=== PATIENT | female | born 2000 | race Caucasian/White ===

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

== ENCOUNTER 2025-01-21 20:00 | Outpatient (CLI) | payer BC, SELFPAY ==
[2025-01-21] VITALS (17 sets, daily range): BP systolic 130–170; BP diastolic 65–98; PULSE 93–109; RESP 14–16; TEMP 36.4–36.7; O2SAT 96–100; BMI 55.0
--- OUTSIDE RECORDS SUMMARY | 2025-01-21 20:10 | XMS RPT_ITS | CCD ---
Author Organization [facility] Care Team Providers Care Wind Energy Mechanic Name Role Phone SOL BALLARD Unavailable Unavailable JOON SANCHEZ Unavailable Unavailable RUBIO, JAZMIN Unavailable Unavailable OTHER, EMERGENCY Unavailable Unavailable BALLARD SOL Unavailable Unavailable RUBIO, JAZMIN Unavailable Unavailable RUBIO, JAZMIN Unavailable Unavailable BALLARD, SOL Unavailable Unavailable RUBIO, JAZMIN Unavailable Unavailable REFERRED, SELF Unavailable Unavailable BALLARD, SOL Unavailable Unavailable RUBIO, JAZMIN Unavailable Unavailable RUBIO, JAZMIN Unavailable Unavailable BALLARD, SOL Unavailable Unavailable RUBIO, JAZMIN Unavailable Unavailable REFERRED, SELF Unavailable Unavailable STEVENS, MACK Unavailable Unavailable RUBIO, JAZMIN Unavailable Unavailable RUBIO, JAZMIN Unavailable Unavailable STEVENS, MACK Unavailable Unavailable RUBIO, JAZMIN Unavailable Unavailable RUBIO, JAZMIN Unavailable Unavailable STEVENS, MACK Unavailable Unavailable RUBIO, JAZMIN Unavailable Unavailable STEVENS, MACK Unavailable Unavailable STEVENS, MACK Unavailable Unavailable RUBIO, JAZMIN Unavailable Unavailable RUBIO, JAZMIN Unavailable Unavailable STEVENS, MACK Unavailable Unavailable RUBIO, JAZMIN Unavailable Unavailable RUBIO, JAZMIN Unavailable Unavailable STEVENS, MACK Unavailable Unavailable Yosi Richey DO Primary Care Provider YOSI RICHEY DO Primary Care Physician RAMONA GAR [place] Primary Care Physician Yosi Richey DO Primary Care Provider ABDOULAYE IMLLIGAN MD, DR MILIND Tan Attending Unavail able RAMONA GAR, [facility] Unavail able ENIO JUAN DO Attending Unavailable RAMONA GAR, [facility] Unavail able DR FLY LYNCH DO Attending Unavailabl e RAMONA GAR, [facility] Unavail able JEFFREY NICK DO Attending Unavailable LORSON PIN INSERTER REGULATOR-SAMPLE MOUNTER, [facility] Unavail able ABDOULAYE MILLIGAN MD, DR MILIND Tan Attending Unavail able LORSON PIN INSERTER REGULATOR-SAMPLE MOUNTER, [facility] Unavail able Yosi Richey DO Primary Care Provider [phone] Sol Bella III [facility] Primary Care Unavailable ISAÍAS RODRIGUEZ Attending Unavailable LORSON, [place] Primary Care Unavailable ISAÍAS RODRIGUEZ Attending Unavailable ISAÍAS RODRIGUEZ Admitting [facility]available [facility] [place] Primary [facility] Provider [phone] [facility] UPPER DOUBLER-C, [place] Primary Care Provider [phone] [place] UPPER DOUBLER-C, [place] Referring Provider [phone] Braden Mi Attending Provider [phone] Britton Sylvester Attending Provider [phone] [place] UPPER DOUBLER-C, [facility] Care Provider [phone] [place] UPPER DOUBLER-C, [place] Referring Provider [phone] Lisa UPPER DOUBLER-C, Vernon Flor Attending Provider Vernon Gonzalez NP Attending Unavailable [facility] [place] Referring Unavailable [facility], [facility] Care Unavailable Asael Hamilton Attending Unavailable [place] UPPER DOUBLER, [place] Referring Unavailable [place] UPPER DOUBLER, [facility] Care Unavailable Braden Mi Attending Unavailable [facility] UPPER DOUBLER, [place] Referring Unavailable [facility] UPPER DOUBLER, [facility] Care Unavailable Britton Sylvester Attending Unavailable [facility] UPPER DOUBLER, [place] Referring Unavailable [place] UPPER DOUBLER, [facility] Care Unavailable SOFIYA MARROQUIN, DR EZEKIEL Nicolas Attending Patricio jean baptistele LORSON PIN INSERTER REGULATOR-SAMPLE MOUNTER, [facility] Care Unavail able LORSON PIN INSERTER REGULATOR-SAMPLE MOUNTER, [facility] Care Unavail able LORSON PIN INSERTER REGULATOR-SAMPLE MOUNTER, [place] Attending Unavail able CHERY CHARLES Attending Unavailable YOSI RICHEY Primary Care Unavailable YOSI RICHEY Primary Care Unavailable HAURY, JONO Referring Unavailable SELF Referring Unavailable YOSI RICHEY Primary Care Unavailable SAIRA MOONEYILY Attending Unavailable SELF Referring Unavailable YOSI RICHEY Primary Care Unavailable KARIN CONTRERAS Attending Unavail able YOSI RICHEY Primary Care Unavailable HAURY, JOON Referring Unavailable YOSI RICHEY M Primary Care Unavailable HAURY, JOON Referring Unavailable BLACK YOSI M Primary Care Unavailable KEREN WASHINGTON Attending Unavailable HACHIRAG, JOON Referring Unavailable BLACKYOSI Mejia M Primary Care Unavailable KEREN WASHINGTON Attending Unavailable BLACK, YOSI M Primary Care Unavailable SASKIA BLACK Attending Unavailable YOSI RICHEY M Primary Care Unavailable HAURY, JOON Referring Unavailable YOSI RICHEY M Primary Care Unavailable HAURY, JOON Referring Unavailable KARIN CONTRERAS Attending Unavail able YOSI RICHEY M Primary Care Unavailable KARIN CONTRERAS Attending Unavail able BLACKYOSI M Primary Care Unavailable HAURY, JOON Referring Unavailable Medications Current Medications Medication Drug Class(es) Dates Sig (Normalized) Sig (Original) acetaminophen 325 mg / HYDROcodone bitartrate 5 mg oral tablet (4 sources) Opioid Agonist Start: 01-18-2022 End: 01-23-2022 Clinchco 325- 5 mg oral tablet Dose = 1 tab(s), Oral, q4h, PRN Pain, scale 1-6, X 5 day(s), # 12 tab(s), 0 Refill(s), Pharmacy: [facility] #[id number], Acute post-operative pain, 167.6, cm, 01/18/22 8:53:00 EST, Height, 127.3 Start Date: 01/18/22 Stop Date: 01/23/22 Status: Ordered Start: 12-11-2021 End: 12-14-2021 take 1 tablet by mouth every six hours as needed for pain Clinchco 325- 5 mg oral tablet Dose = 1 tab(s), Oral, q6h, PRN as needed for pain, # 12 tab(s), 0 Refill(s), Epigastric pain, 136.7 Start Date: 12/11/21 Stop Date: 12/14/21 Status: Ordered amoxicillin 500 mg oral tablet (3 sources) Penicillin-class Antibacterial Start: 09-27-2024 take 1 tablet by mouth every twelve hours Amoxicillin 500 mg tablet Active 500 mg PO Q12H 20 10 0 September 27, 2024 12:00am October 06, 2024 12:00am Start: 05-18-2024 End: 09-04-2024 take 1 tablet by mouth three times daily Amoxicillin 500 mg tablet Discontinued 500 mg PO THREE TIMES A DAY May 18, 2024 12:00am September 04, 2024 5:50pm aspirin 81 mg delayed release oral tablet (7 sources) Platelet Aggregation Inhibitor, Nonsteroidal Anti-inflammatory Drug Start: 09-07-2024 take 1 tablet by mouth once daily at bedtime aspirin, enteric coated (ECOTRIN LOW STRENGTH) 81 mg EC tablet Indications: Encounter for supervision of high risk in first trimester, antepartum (HCC) Take 1 tablet by mouth daily at bedtime. Starting at 12 weeks. 90 tablet 2 09/07/2024 Active azithromycin 250 mg oral tablet (1 source) Macrolide Antimicrobial Start: 01-06-2024 End: 01-11-2024 azithromycin 250 mg oral tablet Take two (2) tablets day 1-then one (1) tablet, Oral, Daily, X 5 day(s), # 6 tab(s), 0 Refill(s), 01/11/24 4:52:00 PM EST, Pharmacy: [facility]/pharmacy #[id number], 167, cm, 01/06/24 11:31:00 EST, Height, 134.5, kg, 01/06/24 11:27:00 EST, Dosing Weight Start Date: 01/06/24 Stop Date: 01/11/24 Status: Ordered busPIRone hydrochloride 5 mg oral tablet (1 source) Start: 07-03-2022 busPIRone 5 mg oral tablet Dose : 5 mg = 1 tab(s), Oral, TID, # 30 tab(s), 0 Refill(s), Pharmacy: [facility] #[id number], 165, cm, 07/03/22 9:01:00 EDT, Height Start Date: 07/03/22 Status: Ordered cetirizine hydrochloride 10 mg oral tablet (2 sources) Histamine-1 Receptor Antagonist Start: 03-09-2021 Zyrtec 10 mg oral tablet Dose : 10 mg = 1 tab(s), Oral, qDay, # 90 tab(s), 1 Refill(s), [facility] Seasonal allergies, 167.6, cm, 03/09/21 9:48:00 EST, Height, kg, 03/09/21 9:48:00 EST, Dosing Weight Start Date: 03/09/21 Status: Ordered dicyclomine hydrochloride 20 mg oral tablet (9 sources) Anticholinergic Start: 02-13-2023 take 1 tablet by mouth four times daily Bentyl use dicyclomine Dose : 20 mg =, Oral, QID, # 15 tab(s), 0 Refill(s) Start Date: 02/13/23 Status: Ordered Start: 07-08-2022 End: 07-15-2022 take 1 tablet by mouth four times daily Bentyl use dicyclomine Dose : 20 mg =, Oral, QID, # 20 tab(s), 0 Refill(s) Start Date: 07/08/22 Stop Date: 07/15/22 Status: Ordered Start: 12-05-2021 dicyclomine 20 mg oral tablet Dose : 20 mg = 1 tab(s), Oral, TID, 0 Refill(s) Start Date: 12/05/21 Status: Ordered Start: 10-03-2021 End: 10-10-2021 take 1 tablet by mouth four times daily Bentyl use dicyclomine Dose : 20 mg =, Oral, QID, # 20 tab(s), 0 Refill(s) Start Date: 10/03/21 Stop Date: 10/10/21 Status: Ordered famotidine 40 mg oral tablet (3 sources) Histamine-2 Receptor Antagonist Start: 12-11-2021 famotidine 40 mg ora l tablet Dose : 40 mg = 1 tab(s), Oral, qDay, # 30 tab(s), 0 Refill(s) Start Date: 12/11/21 Status: Ordered Iferex 150 Forte (2 sources) Vitamin B12 Start: 05-21-2023 Iferex 150 For te 0 Refill(s) Start Date: 05/21/23 Status: Ordered Repeat number: 1 Start: 05-21-2023 Iferex 150 For te 0 Refill(s) Start Date: 05/21/23 Status: Ordered Follicle Stimulating Hormone (2 sources) Gonadotropin Menotropins (MEN OPUR SC) Inject under the skin daily. Active follitropin beta (2 sources) Follitropin Beta (FOLLISTIM AQ SC) Inject under the skin daily. Active ganirelix (2 sources) Gonadotropin Releasing Hormone Antagonist GANIRELIX ACETATE SC Inject under the skin daily. Active hyoscyamine sulfate 0.125 mg disintegrating oral tablet (1 source) Start: 2022 hyoscyamine 0.125 mg oral tablet, disintegrating Dose : 0.125 mg = 1 tab(s), Oral, QID, PRN as needed for spasm, # 40 tab(s), 0 Refill(s), [facility]: [id number], 165, cm, 10/01/22 7:05:00 EDT, Height, kg, 10/01/22 7:05:00 EDT, Dosing Weight Start Date: 10/01/22 Status: Ordered Ipratropium [place] 21 mcg (0.03 %) spray,non-aerosol (2 sources) Start: 2024 Ipratropium [place] 21 mcg (0.03 %) spray,non-aerosol Active 2 NMA INTRANASAL 2 to 3 times per day as needed for postnasal drainage 30 0 September 04, 2024 12:00am administer into each nostril pantoprazole 40 mg delayed release oral tablet (1 source) Proton Pump Inhibitor Start: 2024 take 1 tablet by mouth once daily pantoprazole DR (PROTONIX) 40 mg tablet Take 1 tablet by mouth once daily. 30 tablet 2 10/23/2024 Active phentermine hydrochloride 37.5 mg oral capsule (1 source) Sympathomimetic Amine Anorectic Start: 2022 End: 2022 Adipex-P 37.5 mg oral capsule Dose : 37.5 mg = 1 cap(s), Oral, qAM, X 30 day(s), # 30 cap(s), 0 Refill(s), 08/02/22 9:14:00 EDT, [facility]acy: [facility] #[id number], BMI 45.0-49.9, adult, 165, cm, 07/03/22 9:01:00 EDT, Height, 132.7 Start Date: 07/03/22 Stop Date: 08/02/22 Status: Ordered vit 75/iron/folic/om3 (DAILY ORAL) (7 sources) vit 75/iron/folic/om3 (DAILY ORAL) Take by mouth. Active tirzepatide 2.5 mg/0.5 mL subcutaneous solution (2 sources) Start: 2023 inject 1 dose by subcutaneous injection every week tirzepatide 2.5 mg/0.5 mL subcutaneous solution Dose : 2.5 mg =, Subcutaneous, qWeek, rotate injection sites, # 2 mL, 3 Refill(s), Pharmacy: [facility]/pharmacy #[id number], PCOS (polycystic ovarian syndrome) Insulin resistance, 167, cm, 01/06/24 11:31:00 EST, Height, kg, 01/06/24 11:27:00 EST, Dosing Weight Start Date: 01/06/24 Status: Ordered Quantity: 2.0 Unit: mL Repeat number: 4 Indications: Insulin resistance, unspecified; Polycystic ovarian syndrome; Start: 01-06-2024 inject 1 dose by sub cutaneous injection every week tirzepatide 2.5 mg/0.5 mL subcutaneous solution Dose : 2.5 mg =, Subcutaneous, qWeek, rotate injection sites, # 2 mL, 3 Refill(s), Pharmacy: [facility]/pharmacy #[id number], PCOS (polycystic ovarian syndrome) Insulin resistance, 167, cm, 01/06/24 11:31:00 EST, Height, kg, 01/06/24 11:27:00 EST, Dosing Weight Start Date: 01/06/24 Status: Ordered 24 hr venlafaxine 75 mg extended release oral capsule (3 sources) Serotonin and Norepinephrine Reuptake Inhibitor Start: 04-24-2022 End: 08-22-2022 venlafaxine 75 mg oral capsule, extended release Dose : 75 mg = 1 cap(s), Oral, qDay, # 30 cap(s), 3 Refill(s), Pharmacy: [facility] #[id number], 167.64, cm, 03/22/22 10:15:00 EST, Height Start Date: 04/24/22 Stop Date: 08/22/22 Status: Ordered Start: 03-06-2022 End: 07-04-2022 venlafaxine 37.5 mg oral cap nelida, extended release Dose : 37.5 mg = 1 cap(s), Oral, qDay, # 30 cap(s), 3 Refill(s), Pharmacy: [facility] #[id number], 167, cm, 03/06/22 9:51:00 EST, Height Start Date: 03/06/22 Stop Date: 07/04/22 Status: Ordered Completed/Discontinued Medications Medication Drug Class(es) Dates Sig (Normalized) Sig (Original) 0.5 ML semaglutide 0.5 MG/ML Auto-Injector [Wegovy] (1 source) Start: 02-24-2024 End: 03-23-2024 inject 1 dose by subcutaneous injection every week Wegovy (0.25 mg dose) subcutaneous solution Dose : 0.25 mg =, Subcutaneous, qWeek, in the abdomen, thigh, or upper arm, # 2 mL, 0 Refill(s), Pharmacy: [facility]/pharmacy #[id number], 167, cm, 02/11/24 9:09:00 EST, Height, kg, 02/11/24 9:09:00 EST, Dosing Weight Start Date: 02/24/24 Stop Date: 03/23/24 Status: Ordered Quantity: 2.0 Unit: mL Repeat number: 1 acetaminophen 500 mg oral tablet (2 sources) Start: 06-01-2024 End: 06-01-2024 1,000 mg, Oral, Once, On Sat06/01/24 at 0700, For 1 dose, Preprocedure, Administer 60 minutes prior to surgery. Start: 06-01-2024 End: 06-01-2024 1,000 mg, Oral, Once, On Sat06/01/24 at 0700, For 1 dose, Preprocedure, Administer 60 minutes prior to surgery. ALPRAZolam 0.25 mg disintegrating oral tablet (2 sources) Benzodiazepine Start: 06-01-2024 End: 06-01-2024 take 0.25 mg by mouth once as needed for anxiety 0.25 mg, Oral, Once PRN, anxiety, Starting on Sat06/01/24 at 0650, For 1 dose, Preprocedure, Please do not administer prior to obtaining consent and/or history and physical. amoxicillin 875 mg / clavulanate 125 mg oral tablet (2 sources) Penicillin-class Antibacterial Start: 09-04-2024 End: 09-14-2024 Amoxicillin-Pot Clavulanate 875-125 mg tablet Discontinued 1 {tbl} PO Q12H 20 10 0 September 04, 2024 12:00am September 13, 2024 12:00am September 14, 2024 12:07am Acute sinusitis, unspecified calcium chloride 0.0014 meq/ml / potassium chloride 0.004 meq/ml / sodium chloride 0.103 meq/ml / sodium lactate 0.028 meq/ml injectable solution (4 sources) Start: 06-01-2024 End: 06-01-2024 take 125 mL intravenously every hour 125 mL/hr, IntraVENous, Continuous, Starting on Sat06/01/24 at 0830, Recovery (only) cholecalciferol 1.25 mg oral capsule (11 sources) Vitamin D Start: 10-11-2023 End: 09-07-2024 take 1 capsule by mouth every week cholecalciferol, Vitamin D3, (VITAMIN D3) 1,250 mcg (50,000 unit) cap capsule Indications: Vitamin D deficiency Take 1 capsule by mouth one time a week. 12 capsule 10/11/2023 09/07/2024 Discontinued cloNIDine hydrochloride 0.1 mg oral tablet (3 sources) Central alpha-2 Adrenergic Agonist Start: 02-13-2023 End: 02-20-2023 cloNIDine 0.1 mg oral tablet Dose : 0.1 mg = 1 tab(s), Oral, TID, PRN BP over 150 systolic, # 20 tab(s), 0 Refill(s), [facility]: [id number], Elevated blood-pressure reading, without diagnosis of hypertension, 167.6, cm, 02/13/23 5:34:00 EST, Height, kg, 02/13/23 5:34:00 EST, Dosing Weight Start Date: 02/13/23 Stop Date: 02/20/23 Status: Ordered 1 ml diphenhydrAMINE hydrochloride 50 mg/ml cartridge (2 sources) Histamine-1 Receptor Antagonist Start: 06-01-2024 End: 06-01-2024 12.5 mg, IntraVENous, Once PRN, itching, Starting on Sat06/01/24 at 0815, For 1 dose, Recovery (only) escitalopram 5 mg oral tablet (10 sources) Serotonin Reuptake Inhibitor Start: 08-03-2021 End: 10-10-2023 take 1 tablet by mouth once daily escitalopram oxalate (LEXAPRO) 5 mg tablet take 1 tablet by mouth once daily --DISCONTINUE WELLBUTRIN 08/03/2021 10/10/2023 Discontinued Comment on above: take 1 tablet by avani th once daily --DISCONTINUE WELLBUTRIN estradiol 2 mg oral tablet (2 sources) Estrogen Start: 08-30-2024 End: 10-05-2024 take 1 tablet by mouth three times daily estradiol (ESTRACE) 2 mg tablet Take 2 mg by mouth three times a day. 08/30/2024 10/05/2024 Discontinued 21 day ethinyl estradiol 0.821078 mg/hr / etonogestrel 0.005 mg/hr vaginal system (19 sources) Progestin, Estrogen Start: 03-06-2022 End: 05-01-2022 NuvaRing 0.120 mg-0.015 mg/24 hours vaginal ring Dose = 1 EA, Vaginal, q4wk, # 3 EA, 3 Refill(s), Pharmacy: [facility] #[id number], Irregular menses Dysmenorrhea, 167, cm, 03/06/22 9:51:00 EST, Height, kg, 03/06/22 9:51:00 EST, Dosing Weight Start Date: 03/06/22 Stop Date: 05/01/22 Status: Ordered Start: 12-05-2021 End: 01-30-2022 NuvaRing 0.120 mg-0.015 mg/2 4 hours vaginal ring Dose = 1 EA, Vaginal, q4wk, # 3 EA, 3 Refill(s), Pharmacy: [facility] #[id number], Irregular menses Dysmenorrhea, 166.5, cm, 12/05/21 14:18:00 EDT, Height, kg, 12/05/21 14:18:00 EDT, Dosing Weight Start Date: 12/05/21 Stop Date: 01/30/22 Status: Ordered Start: 10-10-2021 NuvaRing 0.120 mg-0.015 mg/24 hours vaginal ring Dose = 1 EA, Vaginal, q4wk, Discontinue oral contraceptive prescription, # 2 EA, 0 Refill(s), Pharmacy: [facility] #[id number], Irregular menses, 165.8, cm, 10/05/21 14:57:00 EDT, Height, kg, 10/05/21 14:57:00 EDT, Dosing Weight Start Date: 10/10/21 Status: Ordered Start: 08-03-2021 End: 05-03-2023 ELURYNG 0.12-0.015 mg/24 hr vaginal ring insert 1 ring vaginally every 4 weeks --DISCONTINUE ORAL CONTRACEPTIVE 0 08/03/2021 05/03/2023 Discontinued Start: 08-03-2021 NuvaRing 0.120 mg-0.015 mg/24 hours vaginal ring Dose = 1 EA, Vaginal, q4wk, Discontinue oral contraceptive prescription, # 2 EA, 6 Refill(s), [facility], Irregular menses, 167.5, cm, 08/03/21 8:03:00 EDT, Height Start Date: 08/03/21 Status: Ordered Comment on above: insert 1 ring vagina lly every 4 weeks --DISCONTINUE ORAL CONTRACEPTIVE Norgestimate-Ethinyl Estradiol (2 sources) Progestin, Estrogen Start: 05-26-2020 End: 02-10-2024 Norgestimate-Ethinyl Estradiol (Sprintec (28)) 0.25-35 mg-mcg tablet Discontinued 1 {tbl} PO daily 08 05May 26, 2020 12:00am February 10, 2024 2:02pm 2 ml fentaNYL 0.05 mg/ml injection (4 sources) Opioid Agonist Start: 06-01-2024 End: 06-01-2024 50 mcg, IntraVENous, Every 5 min PRN, severe pain (7-10), Starting on Sat06/01/24 at 0815, For 3 doses, Recovery (only), Phase I and Phase II- Initial therapy for severe pain (7-10). Restricted to a 90 minute time frame starting when the patient can verbally state their pain score. If after 2 doses the pain score does not decrease by more than one point, then call the provider. If oral meds are utilized, do not return to initial therapy medications. Start: 06-01-2024 End: 06-01-2024 25 mcg, IntraVENous, Every 5 min PRN, moderate pain (4-6), Starting on Sat06/01/24 at 0815, For 3 doses, Recovery (only), Phase I and Phase II- Initial therapy for moderate pain (4-6). Restricted to a 90 minute time frame starting when the patient can verbally state their pain score. If after 2 doses the pain score does not decrease by more than one point, then call the provider. If oral meds are utilized, do not return to initial therapy medications. folic acid 1 mg oral tablet (16 sources) Start: 05-03-2023 End: 09-07-2024 take 1 tablet by mouth once daily folic acid 1 mg tablet Take 1 tablet by mouth once daily. 05/03/2023 09/07/2024 Discontinued Comment on above: Take 1 tablet by avani once daily. labetalol (Normodyne,Tranda te) injection 5 mg (2 sources) Start: 06-01-2024 End: 06-01-2024 labetalol (Normodyne,Trandate ) injection 5 mg letrozole 2.5 mg oral tablet (10 sources) Aromatase Inhibitor Start: 02-07-2024 End: 09-07-2024 take 1 tablet by mouth once daily letrozole (FEMARA) 2.5 mg tablet Take 1 tablet by mouth once daily for 5 days. 5 tablet 02/07/2024 09/07/2024 Discontinued Start: 10-22-2023 End: 10-27-2023 take 1 tablet by mouth once daily letrozole (FEMARA) 2.5 mg tablet Take 1 tablet by mouth once daily for 5 days. 5 tablet 1 10/22/2023 Active metFORMIN hydrochloride 500 mg oral tablet (15 sources) Biguanide Start: 10-17-2023 End: 09-27-2024 take 1 tablet by mouth once daily in the evening Metformin 500 mg tablet Discontinued 500 mg PO EVERY EVENING February 10, 2024 1:00am September 27, 2024 10:40am methylPREDNISolone 4 mg oral tablet (2 sources) Corticosteroid Start: 11-05-2018 End: 12-24-2018 Methylprednisolone 4 mg tablets,dose pack Discontinued 0 PO per package directions 21 0 November 05, 2018 12:00am December 24, 2018 6:29pm PO PER PKG DIR omeprazole 40 mg delayed release oral capsule (20 sources) Proton Pump Inhibitor Start: 04-26-2023 End: 09-27-2024 take 1 capsule by mouth once daily Omeprazole 40 mg capsule,delayed release(DR/EC) Discontinued 40 mg PO daily February 10, 2024 1:00am September 27, 2024 10:40am Start: 12-05-2021 End: 12-12-2021 omeprazole 40 mg oral delaye d release capsule Dose : 40 mg = 1 cap(s), Oral, BID, # 14 cap(s), 0 Refill(s), [facility]: [facility][id number], 166.5, cm, 12/05/21 14:18:00 EDT, Height, kg, 12/05/21 14:18:00 EDT, Dosing Weight Start Date: 12/05/21 Stop Date: 12/12/21 Status: Ordered Comment on above: Take 1 capsule by [facility] every afternoon. 2 ml ondansetron 2 mg/ml injection (8 sources) Serotonin-3 Receptor Antagonist Start: 06-01-2024 End: 06-01-2024 4 mg, IntraVENous, Once PRN, nausea, Starting on Sat06/01/24 at 0815, For 1 dose, Recovery (only), Initial antiemetic therapy. Start: 02-13-2023 End: 02-16-2023 ondansetron 4 mg oral tablet , disintegrating Dose : 4 mg = 1 tab(s), Oral, q8h, PRN as needed for nausea/vomiting, X 3 day(s), # 8 tab(s), 0 Refill(s), 02/16/23 6:08:00 AM EST Start Date: 02/13/23 Stop Date: 02/16/23 Status: Ordered Start: 12-11-2021 End: 01-06-2022 ondansetron 4 mg oral tablet , disintegrating Dose : 4 mg = 1 tab(s), Oral, q6h, PRN Nausea/Vomiting, X 3 day(s), # 10 tab(s), 0 Refill(s), 01/06/22 22:41:00 EST, Abdominal pain Vomiting Start Date: 01/03/22 Stop Date: 01/06/22 Status: Ordered Start: 10-03-2021 End: 10-07-2021 ondansetron 4 mg oral tablet , disintegrating Dose : 4 mg = 1 tab(s), Oral, q6h, X 4 day(s), # 16 tab(s), 0 Refill(s), 10/07/21 6:20:00 EDT Start Date: 10/03/21 Stop Date: 10/07/21 Status: Ordered oseltamivir 75 mg oral capsule (2 sources) Neuraminidase Inhibitor Start: 02-12-2022 End: 02-17-2022 take 1 capsule by mouth every twelve hours Oseltamivir (Tamiflu) 75 mg capsule Discontinued 75 mg PO Q12H 10 5 0 February 12, 2022 1:00am February 16, 2022 1:00am February 17, 2022 1:11am polysaccharide iron complex 150 mg oral capsule (16 sources) Start: 03-11-2023 End: 09-07-2024 take 1 capsule by mouth once IFEREX 150 150 mg iron capsule Take 1 capsule by mouth every afternoon. 03/11/2023 09/07/2024 Discontinued Comment on above: Take 1 capsule by mo uth every afternoon. PROGESTERONE IN OIL INTRAMUSC. (2 sources) End: 10-05-2024 PROGESTERONE IN OIL INTRAMUSC. Inject intramuscularly. 10/05/2024 Discontinued PROGESTERONE IN OIL INTRAMUSC. Inject intramuscularly. Active 5 ml sodium chloride 9 mg/ml injection (14 sources) Start: 06-01-2024 End: 06-01-2024 10 mL, IntraVENous, Every 12 hours scheduled (2 times per day), First dose on Sat06/01/24 at 0900, Recovery (only) Start: 06-01-2024 End: 06-01-2024 500 mL, IntraVENous, at 1,00 0 mL/hr, Administer over 0.5 Hours, PRN, Anti-nausea, Starting on Sat06/01/24 at 0815, Recovery (only), Indications: Anti-nausea Start: 06-01-2024 End: 06-01-2024 take 100 mL intravenously every hour as needed, then take 20 mL intravenously every hour as needed 5-250 mL/hr, IntraVENous, PRN, if patient receiving piggyback infusions and maintenance fluids are not ordered OR KVO fluids to protect IV site / prevent frequent line interruptions/ long duration, Starting on Sat06/01/24 at 0815, Recovery (only), For piggyback infusion, administer at same rate as piggyback for a total of 25 mL. Enter 25 mL into dose field and piggyback rate into rate field of order. If piggyback is infusing at a rate less than 100 mL/hr, enter 25 mL into dose field and 100 mL/hr into rate field of order. For KVO fluids, enter rate of 20 mL/hr or less into rate field of order. Start: 06-01-2024 End: 06-01-2024 take 10 mL intravenously once as needed 10 mL, IntraVENous, PRN, line care, Starting on Sat06/01/24 at 0815, Recovery (only), After every IV line use Start: 06-01-2024 End: 06-01-2024 take 5-40 mL intravenously every twelve hours 5-40 mL, IntraVENous, Every 12 hours, First dose on Sat06/01/24 at 0700, Preprocedure, For Line Patency: Peripheral IV = 5 mL; Midline or Central Line = 10 mL/lumen. If following IV push medication, administer flush at same rate as the IV push. Flush volume is determined by type of infusion therapy being given. For non-viscous solutions use: Peripheral IV = 5 mL Midline or Central Line = 10 mL/lumen For viscous solutions (i.e. blood components, parenteral nutrition, contrast media, or after obtaining blood sample) use: Peripheral IV = 10 mL Midline or Central Line = 20 mL/lumen Problems Active Problems Problem Classification Problem Date Documented Date Episodic/Chronic Allergic reactions (2 sources) Allergic reaction; Translations: [Allergy, unspecified, initial encounter] 11-04-2018 Episodic Anxiety disorders (20 sources) Mixed anxiety and depressive disorder; Translations: [Generalized anxiety disorder] 10-12-2020 Chronic Cardiac dysrhythmias (20 sources) Tachycardia 02-23-2019 Episodic Chronic obstructive pulmonary disease and bronchiectasis (19 sources) Bronchitis 02-18-2019 Episodic Complications of surgical procedures or medical care (2 sources) Delayed recovery from general anesthesia; Translations: [Other complications of anesthesia, initial encounter] Onset: 05-29-2024 05-29-2024 Episodic E Codes: Fall (1 source) Fall; Translations: [Unspecified fall, initial encounter] 02-20-2021 Episodic Essential hypertension (4 sources) Transient hypertension 02-14-2023 Chronic Female infertility (5 sources) Female infertility; Translations: [Female infertility, unspecified] Onset: 06-01-2024 02-07-2024 Chronic Influenza (2 sources) Influenza due to Influenza A virus; Translations: [Influenza due to other identified influenza virus with other respiratory manifestations] 02-12-2022 Episodic Menstrual disorders (20 sources) Irregular periods; Translations: [Missed period] 06-15-2021 Chronic Nausea and vomiting (1 source) Vomiting; Translations: [Vomiting, unspecified] Onset: 01-03-2022 Episodic Nutritional deficiencies (4 sources) Vitamin D deficiency; Translations: [Vitamin D deficiency, unspecified] Onset: 02-28-2024 10-11-2023 Chronic Open wounds of extremities (3 sources) Laceration of finger without foreign body; Translations: [Laceration without foreign body of unspecified finger without damage to nail, initial encounter] Onset: 05-14-2023 Episodic Other circulatory disease (19 sources) Elevated blood-pressure reading without diagnosis of hypertension 10-11-2020 Episodic Other complications of (11 sources) Maternal obesity complicating , childbirth and the puerperium, antepartum; Translations: [Obesity complicating , first trimester] Onset: 09-07-2024 09-07-2024 Chronic Other complications of (1 source) Obesity complicating , second trimester; Translations: [Obesity affecting in second trimester, unspecified obesity type (HCC)] Onset: 09-07-2024 Chronic Other complications of (1 source) Obesity complicating , first trimester; Translations: [Obesity affecting in first trimester, unspecified obesity type (HCC)] Onset: 09-07-2024 Chronic Other complications of (1 source) Complication of , childbirth and/or the puerperium; Translations: [Other specified related conditions, unspecified trimester] 08-27-2024 Episodic Other complications of (14 sources) High risk ; Translations: [Supervision of high risk , unspecified, first trimester] Onset: 09-07-2024 09-07-2024 Episodic Other complications of (6 sources) RhD negative; Translations: [Other specified related conditions, first trimester] Onset: 10-07-2024 10-07-2024 Episodic Other complications of (1 source) Back pain complicating ; Translations: [Back pain affecting (HCC)] 10-23-2024 Episodic Other complications of (1 source) Supervision of high risk , unspecified, second trimester; Translations: [Encounter for supervision of high risk in second trimester, antepartum (HCC)] Onset: 12-07-2024 Episodic Other complications of (1 source) Other specified related conditions, first trimester; Translations: [Rh negative state in antepartum period, first trimester (HCC)] Onset: 10-07-2024 Episodic Other connective tissue disease (19 sources) Foot pain 09-23-2020 Episodic Other connective tissue disease (1 source) Pain in finger of left hand; Translations: [Pain in left finger(s)] 02-20-2021 Episodic Other connective tissue disease (1 source) Pain of left hand; Translations: [Pain in left hand] 02-20-2021 Episodic Other connective tissue disease (2 sources) Pain in right foot; Translations: [Pain in right foot] 11-28-2023 Episodic Other endocrine disorders (6 sources) Polycystic ovary syndrome; Translations: [Polycystic ovarian syndrome] 10-17-2023 Chronic Other endocrine disorders (1 source) Polycystic ovarian syndrome; Translations: [PCOS (polycystic ovarian syndrome)] Onset: 10-05-2024 Chronic Other female genital disorders (1 source) Jacque; 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] Chronic Other female genital disorders (1 source) Disorder of endocrine ovary; Translations: [Noninflammatory disorder of ovary, fallopian tube and broad ligament, unspecified] 11-13-2023 Episodic Other female genital disorders (10 sources) History of gynecological disorder; Translations: [Personal history of other diseases of the female genital tract] Onset: 09-07-2024 09-07-2024 Episodic Other injuries and conditions due to external causes (2 sources) Motion sickness 05-21-2023 Episodic Other lower respiratory disease (19 sources) Dyspnea on exertion 02-18-2019 Episodic Other lower respiratory disease (2 sources) Hemoptysis 01-06-2024 Episodic Other nervous system disorders (1 source) Postoperative pain ; Translations: [Other acute postprocedural pain] Onset: 01-18-2022 Episodic Other nutritional; endocrine; and metabolic disorders (8 sources) Body mass index 40+ - severely obese 03-20-2022 Chronic Other nutritional; endocrine; and metabolic disorders (2 sources) Insulin resistance 01-06-2024 Chronic Other nutritional; endocrine; and metabolic disorders (7 sources) Weight gain 04-24-2022 Episodic Other screening for suspected conditions (not mental disorders or infectious disease) (1 source) Cancer cervix screening status; Translations: [Encounter for screening for malignant neoplasm of cervix] 05-03-2023 Episodic Other upper respiratory disease (19 sources) Seasonal allergy 11-18-2018 Chronic Otitis media and related conditions (9 sources) Dysfunction of eustachian tube; Translations: [Unspecified Eustachian tube disorder, unspecified ear] 05-08-2022 Episodic Residual codes; unclassified (19 sources) Needs influenza immunization 01-10-2021 Episodic Residual codes; unclassified (2 sources) Difficult venous access; Translations: [Other specified health status] Onset: 05-29-2024 05-29-2024 Episodic Residual codes; unclassified (1 source) Gestation period, 6 weeks; Translations: [Less than 8 weeks gestation of ] 09-07-2024 Episodic Residual codes; unclassified (1 source) Gestation period, 10 weeks; Translations: [10 weeks gestation of ] 10-05-2024 Episodic Residual codes; unclassified (1 source) Gestation period, 12 weeks; Translations: [12 weeks gestation of ] 10-15-2024 Episodic Residual codes; unclassified (1 source) Gestation period, 13 weeks; Translations: [13 weeks gestation of ] 10-23-2024 Episodic Residual codes; unclassified (1 source) 14 weeks gestation of ; Translations: [14 weeks gestation of (HCC)] Onset: 11-03-2024 Episodic Residual codes; unclassified (1 source) 13 weeks gestation of ; Translations: [13 weeks gestation of ([facility])] Onset: 10-23-2024 Episodic Residual codes; unclassified (1 source) Unspecified blood type, Rh negative; Translations: [Rh negative state in antepartum period, first trimester ([facility])] Onset: 10-07-2024 Episodic Residual codes; unclassified (1 source) 10 weeks gestation of ; Translations: [10 weeks gestation of ([facility])] Onset: 10-05-2024 Episodic Spondylosis; intervertebral disc disorders; other back problems (1 source) Dorsalgia, unspecified; Translations: [Back pain affecting ([facility])] Onset: 10-23-2024 Episodic Spontaneous (2 sources) Miscarriage 05-21-2023 Episodic Sprains and strains (2 sources) Lesion of ligaments of the ankle region; Translations: [Sprain of tibiofibular ligament of unspecified ankle, initial encounter] 03-10-2020 Episodic Superficial injury; contusion (2 sources) Contusion of thumb; Translations: [Contusion of right thumb without damage to nail, initial encounter] Onset: 08-14-2024 Episodic Unclassified (20 sources) Patient encounter status 03-06-2022 Unclassified (7 sources) [facility] - COMMON Onset: 09-07-2024 09-07-2024 Unclassified (7 sources) Education - [place] Onset: 09-07-2024 09-07-2024 Unclassified (1 source) Care Onset: 12-17-2024 Unclassified (1 source) Back pain affecting (HCC); Translations: [Back pain affecting (HCC)] Onset: 10-23-2024 Viral infection (2 sources) Disease caused by 2019-nCoV 09-11-2023 Past or Other Problems Problem Classification Problem Date Documented Date Episodic/Chronic Abdominal pain (20 sources) Epigastric pain; Translations: [Epigastric pain] Onset: 12-11-2021 Episodic Immunizations and screening for infectious disease (2 sources) Patient encounter status; Translations: [Encounter for screening for infections with a predominantly sexual mode of transmission] Onset: 09-07-2024 09-07-2024 Episodic Other complications of (13 sources) Supervision of resulting from assisted reproductive technology, first trimester; Translations: [ resulting from assisted reproductive technology] Onset: 09-07-2024 09-07-2024 Episodic Other complications of (9 sources) Vomiting of , unspecified; Translations: [Unspecified vomiting of , unspecified as to episode of care or not applicable] Onset: 09-07-2024 09-07-2024 Episodic Other complications of (1 source) Supervision of high risk , unspecified, first trimester; Translations: [Encounter for supervision of high risk in first trimester, antepartum (HCC)] Onset: 09-07-2024 Episodic Other complications of (1 source) Other specified related conditions, unspecified trimester; Translations: [Abdominal cramping affecting (HCC)] Onset: 08-27-2024 Episodic Other female genital disorders (1 source) Personal history of other diseases of the female genital tract; Translations: [History of PCOS] Onset: 09-07-2024 Episodic Other and delivery including normal (2 sources) with uncertain dates; Translations: [Encounter for supervision of normal , unspecified, first trimester] Onset: 09-07-2024 09-07-2024 Episodic Other upper respiratory infections (9 sources) Acute upper respiratory infection; Translations: [Acute upper respiratory infection, unspecified] Onset: 05-18-2024 01-06-2019 Episodic Residual codes; unclassified (1 source) Less than 8 weeks gestation of ; Translations: [6 weeks gestation of ([facility])] Onset: 09-07-2024 Episodic Results Test Name Value Interpretation Reference Range Facility [facility] 11-11-2024 CNPTroy Telephone (OBGYWM) LORETA HARO ([id number]) 2 F Date Time Provider Department 11/11/24 KEREN WASHINGTON During your visit today, we recorded the following information about you: Radha Mcgill LPN 11/11/2024 4:45 PM Signed Ob patient is 15w6d and called for recommendations regarding flying in an airplane during . Patient is wanting to schedule a 2 hour flight on 01/08 and would be 24 weeks 1 day. Can send a [employer] message Keren Washington APRN.CNM 11/11/2024 4:49 PM Signed Flying at this gestational age is appropriate. She should not sit for long periods of time and increase water intake. The flight is pretty short and she should be fine! SOSA Desouza Lindsey, RN 11/11/2024 4:53 PM Signed Patient notified and voiced understanding of information and instructions below. Eboni Valente RN Allergies As of Date: 11/11/2024 (No Known Allergies) Date Reviewed: 11/03/2024 Reviewed by: Saskia Black MD - Fully Assessed Reason for Visit: Care [86] Prescriptions as of 11/11/2024 - aspirin, enteric coated (ECOTRIN LOW STRENGTH) 81 mg EC tablet Take 2 tablets by mouth daily at bedtime. Starting at 12 weeks. - pantoprazole DR (PROTONIX) 40 mg tablet Take 1 tablet by mouth once daily. - vit 75/iron/folic/om3 (DAILY ORAL) Take by mouth. Problem List As Of Date 11/11/2024 Noted Resolved History of PCOS [Z87.42] 09/07/2024 Obesity affecting in first trimester *09/07/2024 resulting from assisted reproductive *09/07/2024 Nausea and vomiting during (HCC) [O21*09/07/2024 Rh negative state in antepartum period, first t*10/07/2024 Encounter Status:Closed by KEREN WASHINGTON on 11/11/24 Normal [facility] UA DIP, URINE (POC)on 2024 BILIRUBIN UA (POCT) Negative Negative [facility] CLARITY UA (POCT) Clear [facility] COLOR UA (POCT) Yellow [facility] GLUCOSE UA (POCT) Negative Negative mg/dL [facility] Hemoglobin Ql (U) Negative Negative [facility] KETONE UA (POCT) Negative Negative mg/dL [facility] LEUKOCYTES UA (POCT) Negative Negative [facility] NITRITE UA (POCT) Negative [facility] PH UA (POCT) 7.0 4.5 - 8.0 [facility] Protein Ql (U) Negative Negative mg/dL [facility] SPECIFIC GRAVITY UA (POCT) 1.010 1.005 - 1.030 [facility] UROBILINOGEN UA (POCT) 0.2 Normal E.U./dL [facility] Location:[facility], [address], [place], [address] [facility] POINT OF CARE [facility] Examination level ultrasound on 10-15-2024 Indication First trimester anatomic survey Maternal obesity, BMI >50, resulting from in vitro fertilization Impression The patient is referred for a first trimester anatomy scan including nuchal translucency measurement as clinically indicated. - Single, live, intrauterine . - Wallace rump length measurement is consistent with the established gestational age. - A qualitative screen of the nuchal translucency and other anatomic structures was unremarkable on a complete first trimester anatomic assessment. - Not all structural malformations can be detected by ultrasound examination. - A standard anatomic survey at 16 weeks and a detailed exam at 20 weeks is recommended for increased risk. Recommendations - A standard anatomic survey at 16 weeks and a detailed exam at 20 weeks for increased risk. - Additional follow up as clinically indicated. Maternal Assessment Height 165 cm Height (ft) 5 ft Height (in) 5 in Physical Exam Initial weight (lb) 314 lb Initial BMI 52.25 kg/m Maternal assessment other: 1 Para 0 REMOTE READ Method Transabdominal ultrasound examination. View: Suboptimal view: limited by maternal body habitus Peterson . Number of fetuses: 1 Dating LMP on: 07/23/2024 GA by LMP 12 w + 0 d RAYSHAWN by LMP: 04/29/2025 GA by prior assessment 12 w + 0 d RAYSHAWN by prior assessment: 04/29/2025 Ultrasound examination on: 10/15/2024 GA by U/S based upon: CRL GA by U/S 12 w + 1 d RAYSHAWN by U/S: 04/28/2025 Assigned: based on stated RAYSHAWN, selected on 10/15/2024 Assigned GA 12 w + 0 d Assigned RAYSHAWN: 04/29/2025 General Evaluation Cardiac activity present Placenta: posterior Cord vessels: 3 vessel cord Amniotic fluid: normal amount Biometry Standard FHR 151 bpm CRL 54.8 mm 12w 1d 40% [facility]lock First Trimester Anatomy Calvarium: normal Falx cerebri: normal Choroid plexus: normal Profile: normal Nasal bone: normal Retronasal triangle: normal Maxilla: normal Mandible: normal Nuchal translucency: Unremarkable Situs: normal Cardiac position: normal Cardiac axis: normal 4-chamber view: suboptimal 4-chamber view with color: suboptimal 3-[id number]-[id number] view: suboptimal Abdominal cord insertion: normal Stomach: normal Kidneys: normal Bladder: normal Color doppler of perivesical umbilical arteries: normal Vertebral alignment: normal Arms: normal Hands: normal Legs: normal Feet: normal Maternal Structures Uterus / Cervix Uterus: Visualized Uterus length 98 mm Uterus width 87 mm Uterus height 67 mm Uterus Vol 297.1 cm Ovaries / Tubes / Adnexa Rt ovary: Visualized Rt ovary D1 26 mm Rt ovary D2 24 mm Rt ovary D3 17 mm Rt ovary Vol 5.6 cm Lt ovary: Visualized Lt ovary D1 34 mm Lt ovary D2 26 mm Lt ovary D3 19 mm Lt ovary Vol 8.9 cm Performed By: Eboni Zabala RDMS, RVT Read By: Dona Mayer M.D. MATERNAL MEDICINE [facility]OBGYWM) LORETA HARO ([id number]) 2 F Date Time Provider Department 10/13/24 KARIN CONTRERAS OBGYWM During your visit today, we recorded the following information about you: Carlene Linares RN 10/13/2024 2:29 PM Signed Pt calling for [id number] results. Pt wanted to know gender-did inform Pt consistent with female per results. Please advise. Pt advised that DM out of office today and returns tomorrow. KARRIE Soares Emily, APRN.[facility] 10/14/2024 8:12 AM Signed released results 10/13 Joon Mooney APRN.Chery Greenberg RN 10/14/2024 8:21 AM Signed Patient viewed results and message from . Chery Markham RN Allergies As of Date: 10/13/2024 (No Known Allergies) Date Reviewed: 10/05/2024 Reviewed by: Penny Mathews MA - Fully Assessed Reason for Visit: Results [95] Prescriptions as of 10/14/2024 - aspirin, enteric coated (ECOTRIN LOW STRENGTH) 81 mg EC tablet Take 1 tablet by mouth daily at bedtime. Starting at 12 weeks. - vit 75/iron/folic/om3 (DAILY ORAL) Take by mouth. Problem List As Of Date 10/13/2024 Noted Resolved History of PCOS [Z87.42] 09/07/2024 Obesity affecting in first trimester *09/07/2024 Encounter for supervision of high risk pregnanc*09/07/2024 resulting from assisted reproductive *09/07/2024 Nausea and vomiting during (HCC) [O21*09/07/2024 Rh negative state in antepartum period, first t*10/07/2024 Encounter Status:Closed by CHERY MARKHAM on 10/14/24 Normal [facility] CBC W Auto Differential pane l (Bld)on 10-05-2024 Basophils (Bld) [#/Vol] 0.03 10*3/uL Normal <0.11 [facility] Comment on above: Order Comment: Speci men Type: BLOOD SPECIMEN Ordering Facility: [facility] Address: [address] [place] [address] Performed By: #### 5 7021-8 #### [facility] CLIA [id number] [address] [place] [address] [place] Basophils/100 WBC (Bld) 0.3 % Normal [facility] Comment on above: Order Comment: Speci men Type: BLOOD SPECIMEN Ordering Facility: [facility] Address: [address] [place] [address] Performed By: #### 5 7021-8 #### [facility] CLIA [id number] [address] [place] [address] [place] Differential cell count method Nom (Bld) Auto Normal [facility] Comment on above: Order Comment: Speci men Type: BLOOD SPECIMEN Ordering Facility: [facility] Address: [address] [place] [address] Performed By: #### 5 7021-8 #### [facility] CLIA [id number] [address] [place] [address] [place] Eosinophils (Bld) [#/Vol] 0.21 10*3/uL Normal <0.46 [facility] Comment on above: Order Comment: Speci men Type: BLOOD SPECIMEN Ordering Facility: [facility] Address: [facility] [place] [id number] Performed By: #### 5 7021-8 #### [facility] CLIA [id number] [address] [place] [address] [place] Eosinophils/100 WBC (Bld) 1.8 % Normal [facility] Comment on above: Order Comment: Speci men Type: BLOOD SPECIMEN Ordering Facility: [facility] Address: [address] [place] [address] Performed By: #### 5 7021-8 #### [facility] CLIA [id number] [address] [place] [address] [place] Erythrocyte distribution width (RBC) [Ratio] 15.8 % High 11.5-15.0 [facility] Comment on above: Order Comment: Speci men Type: BLOOD SPECIMEN Ordering Facility: [facility] Address: [address] [place] [address] Performed By: #### 5 7021-8 #### [facility] CLIA [id number] [address] [place] [address] [place] Hematocrit (Bld) [Volume fraction] 38.2 % Normal 36.0-46.0 [facility] Comment on above: Order Comment: Speci men Type: BLOOD SPECIMEN Ordering Facility: [facility] Address: [address] [place] [address] Performed By: #### 5 7021-8 #### [facility] CLIA [id number] [address] [place] [address] [place] Hemoglobin (Bld) [Mass/Vol] 12.6 g/dL Normal 11.5-15.5 [facility] Comment on above: Order Comment: Speci men Type: BLOOD SPECIMEN Ordering Facility: [facility] Address: [address] [place] [address] Performed By: #### 5 7021-8 #### [facility] CLIA [id number] [address] [place] [address] [place] Immature granulocytes (Bld) [#/Vol] 0.04 10*3/uL Normal <0.10 [facility] Comment on above: Order Comment: Speci men Type: BLOOD SPECIMEN Ordering Facility: [facility] Address: [address] [place] [address] Performed By: #### 5 7021-8 #### [facility] CLIA [id number] [address] [place] [address] [place] Immature granulocytes/100 WBC (Bld) 0.3 % Normal [facility] Comment on above: Order Comment: Speci men Type: BLOOD SPECIMEN Ordering Facility: [facility] Address: [address] [place] [address] Performed By: #### 5 7021-8 #### [facility] CLIA [id number] [address] [place] [address] [place] Lymphocytes (Bld) [#/Vol] 3.04 10*3/uL Normal 1.00-4.00 [facility] Comment on above: Order Comment: Speci men Type: BLOOD SPECIMEN Ordering Facility: [facility] Address: [address] [place] [address] Performed By: #### 5 7021-8 #### [facility] CLIA [id number] [address] [place] [address] [place] Lymphocytes/100 WBC (Bld) 26.3 % Normal [facility] Comment on above: Order Comment: Speci men Type: BLOOD SPECIMEN Ordering Facility: [facility] Address: [address] [place] [address] Performed By: #### 5 7021-8 #### [facility] CLIA [id number] [address] [place] [address] [place] MCH (RBC) [Entitic mass] 25.3 pg Low 26.0-34.0 [facility] Comment on above: Order Comment: Speci men Type: BLOOD SPECIMEN Ordering Facility: [facility] Address: [address] [place] [address] Performed By: #### 5 7021-8 #### [facility] CLIA [id number] [address] [place] [address] [place] MCHC (RBC) [Mass/Vol] 33.0 g/dL Normal 30.5-36.0 [facility] Comment on above: Order Comment: Speci men Type: BLOOD SPECIMEN Ordering Facility: [facility] Address: [address] [place] [address] Performed By: #### 5 7021-8 #### [facility] CLIA [id number] [address] [place] [address] [place] MCV (RBC) [Entitic vol] 76.7 fL Low 80.0-100.0 [facility] Comment on above: Order Comment: Speci men Type: BLOOD SPECIMEN Ordering Facility: [facility] Address: [address] [place] [address] Performed By: #### 5 7021-8 #### [facility] CLIA [id number] [address] [place] [address] [place] Monocytes (Bld) [#/Vol] 0.55 10*3/uL Normal <0.87 [facility] Comment on above: Order Comment: Speci men Type: BLOOD SPECIMEN Ordering Facility: [facility] Address: [address] [place] [address] Performed By: #### 5 7021-8 #### [facility] CLIA [id number] [address] [place] [address] [place] Monocytes/100 WBC (Bld) 4.7 % Normal [facility] Comment on above: Order Comment: Speci men Type: BLOOD SPECIMEN Ordering Facility: [facility] Address: [address] [place] [address] Performed By: #### 5 7021-8 #### [facility] CLIA [id number] [address] [place] [address] [place] Neutrophils (Bld) [#/Vol] 7.71 10*3/uL High 1.45-7.50 [facility] Comment on above: Order Comment: Speci men Type: BLOOD SPECIMEN Ordering Facility: [facility] Address: [address] [place] [address] Performed By: #### 5 7021-8 #### [facility] CLIA [id number] [address] [place] [address] [place] Neutrophils/100 WBC (Bld) 66.6 % Normal [facility] Comment on above: Order Comment: Speci men Type: BLOOD SPECIMEN Ordering Facility: [facility] Address: [address] [place] [address] Performed By: #### 5 7021-8 #### [facility] CLIA [id number] [address] [place] [address] [place] Nucleated RBC (Bld) [#/Vol] 10*3/uL Normal <0.01 [facility] Comment on above: Order Comment: Speci men Type: BLOOD SPECIMEN Ordering Facility: [facility] Address: [address] [place] [address] Performed By: #### 5 7021-8 #### [facility] CLIA [id number] [address] [place] [address] [place] Nucleated RBC/100 WBC (Bld) [Ratio] 0.0 /100 WBC Normal [facility] Comment on above: Order Comment: Speci men Type: BLOOD SPECIMEN Ordering Facility: [facility] Address: [address] [place] [address] Performed By: #### 5 7021-8 #### [facility] CLIA [id number] [address] [place] [address] [place] Platelet mean volume (Bld) [Entitic vol] 9.9 fL Normal 9.0-12.7 [facility] Comment on above: Order Comment: Speci men Type: BLOOD SPECIMEN Ordering Facility: [facility] Address: [address] [place] [address] Performed By: #### 5 7021-8 #### [facility] CLIA [id number] [address] [place] [address] [place] Platelets (Bld) [#/Vol] 241 10*3/uL Normal 150-400 [facility] Comment on above: Order Comment: Speci men Type: BLOOD SPECIMEN Ordering Facility: [facility] Address: [address] [place] [address] Performed By: #### 5 7021-8 #### [facility] CLIA [id number] [address] [place] [address] [place] RBC (Bld) [#/Vol] 4.98 10*6/uL Normal 3.90-5.20 [facility] Comment on above: Order Comment: Speci men Type: BLOOD SPECIMEN Ordering Facility: [facility] Address: [address] [place] [address] Performed By: #### 5 7021-8 #### [facility] CLIA [id number] [address] [place] [address] [place] WBC (Bld) [#/Vol] 11.58 10*3/uL High 3.70-11.00 [facility] Comment on above: Order Comment: Speci men Type: BLOOD SPECIMEN Ordering Facility: [facility] Address: [address] [place] [address] Performed By: #### 5 7021-8 #### [facility] CLIA [id number] [address] [place] [address] [place] HBV surface Ag Ser Qlon 08-2 HBV surface Ag Ql (S) Negative Normal Negative [facility] Comment on above: Order Comment: Speci men Type: BLOOD SPECIMEN Ordering Facility: [facility] Address: [address] [place] [address] Performed By: #### 1 989-3 #### [facility] CLIA [id number] [address] [place] [address] [place] HCV Ab Ser Qlon 10-05-2024 HCV Ab Ql (S) Negative Normal Negative [facility] Comment on above: Order Comment: Speci men Type: BLOOD SPECIMEN Ordering Facility: [facility] Address: [address] [place] [address] Result Comment: The result suggests no evidence of infection with Hepatitis C virus. Should recent infection be suspected, repeat testing may be considered 4-6 weeks after this draw. Performed By: #### 1 6128-1 #### [facility] CLIA [id number] [address] [place] [address] [place] HIV 1+2 Ab IA Qlon HIV 1 and 2 Ab IA.rapid Nom (S/P/Bld) Normal [facility] Comment on above: Order Comment: Speci men Type: BLOOD SPECIMEN Ordering Facility: [facility] Address: [address] [place] [address] Result Comment: Test not indicated. Performed By: #### 1 989-3 #### [facility] CLIA [id number] [address] [place] [address] [place] HIV 1+2 Ab+HIV1 p24 Ag IA Ql Non-Reactive Normal Nonreactive [facility] Comment on above: Order Comment: Speci men Type: BLOOD SPECIMEN Ordering Facility: [facility] Address: [address] [place] [address] Performed By: #### 1 989-3 #### [facility] CLIA [id number] [address] [place] [address] [place] HIV immunoassay testing algorithm interpretation (S/P/Bld) [Interp] Normal [facility] Comment on above: Order Comment: Speci men Type: BLOOD SPECIMEN Ordering Facility: [facility] Address: [address] [place] [address] Result Comment: No e vidence of HIV-1 or HIV-2 infection. Should recent infection be suspected, repeat testing may be considered 2-3 weeks after this draw. [place] Rev. Code 3701.243(E): This information has been disclosed to you from confidential records protected from disclosure by state law. You shall make no further disclosure of this information without the specific, written, and informed release of the individual to whom it pertains or as otherwise permitted by state law. A general authorization for the release of medical or other information is not sufficient for the purpose of the release of HIV test results or diagnoses. Performed By: #### 1 989-3 #### [facility] CLIA [id number] [address] [place] [address] [place] HbA1c (Bld)on 10-05-2024 Average glucose Estimated from glycated hemoglobin (Bld) [Mass/Vol] 100 mg/dL Normal [facility] Comment on above: Order Comment: [facility] Type: BLOOD SPECIMEN Ordering Facility: [facility] Address: [address] [place] [address] Result Comment: eAG: (Estimated average glucose) is a calculated value from HgbA1c and is patient support representative of the average blood glucose level in the last 2-3 month period. Performed By: #### 5 5454-3 #### [facility] CLIA [id number] [address] [place] [address] [place] HbA1c (Bld) [Mass fraction] 5.1 % Normal 4.3-5.6 [facility] Comment on above: Order Comment: [facility] Type: BLOOD SPECIMEN Ordering Facility: [facility] Address: [address] [place] [address] Result Comment: Amer [place] Diabetes Association guidelines indicate that patients with HgbA1c in the range 5.7-6.4% are at increased risk for development of diabetes, and intervention by lifestyle modification may be beneficial. HgbA1c greater or equal to 6.5% is considered diagnostic of diabetes. Performed By: #### 5 5454-3 #### [facility] CLIA [id number] [address] [place] [address] [place] [id number] PLUSon 10-05-2024 Cell-free DNA./Cell-free DNA.total Dosage of chromosome-specific cfDNA (cfDNA) [Molar fraction] 7% Normal [facility] Comment on above: Order Comment: Speci men Type: BLOOD SPECIMEN Ordering Facility: [facility] Address: [address] [place] [address] Performed By: #### 5 7021-8 #### [facility] CLIA [id number] [address] [place] [address] [place] Chr 13+18+21+X+Y aneuploidy Dosage of chromosome-specific cfDNA Ql (cfDNA) Negative Normal [facility] Comment on above: Order Comment: Speci men Type: BLOOD SPECIMEN Ordering Facility: [facility] Address: [address] [place] [address] Performed By: #### 5 7021-8 #### [facility] CLIA [id number] [address] [place] [address] [place] Chr 21 trisomy Dosage of chromosome-specific cfDNA Ql (cfDNA) Negative Normal [facility] Comment on above: Order Comment: Speci men Type: BLOOD SPECIMEN Ordering Facility: [facility] Address: [address] [place] [address] Performed By: #### 5 7021-8 #### [facility] CLIA [id number] [address] [place] [address] [place] Chr X and Y aneuploidy risk Sequencing Ql (cfDNA) [Interp] Not detected Normal [facility] Comment on above: Order Comment: Speci men Type: BLOOD SPECIMEN Ordering Facility: [facility] Address: [address] [place] [address] Result Comment: Not Detected Not Detected Performed By: #### 5 7021-8 #### [facility] CLIA [id number] [address] [place] [address] [place] Citation Osvaldo (Reference lab test) Comment Normal [facility] Comment on above: Order Comment: Speci men Type: BLOOD SPECIMEN Ordering Facility: [facility] Address: [address] [place] [address] Result Comment: 1. P jan ROBERTSON, et al. Yenni Med. 2012;14(3):296-305. 2. Manuel MAE, et al. Prenat Diag. 2013;33(6):591-597. 3. Skip C, et al. Clin Chem. 2015 Apr;61(4):608-616. 4. Leo ROBERTSON, et al. Yenni Med. 2011;13(11):913-920. 5. ACOG/SMFM Practice Bulletin No. 226, Nov 2019. Performed By: #### 5 7021-8 #### [facility] CLIA [id number] [address] [place] [address] [place] Gestational age Estimated from conception date Peterson Normal [facility] Comment on above: Order Comment: Speci men Type: BLOOD SPECIMEN Ordering Facility: [facility] Address: [address] [place] [address] Performed By: #### 5 7021-8 #### [facility] CLIA [id number] [address] [place] [address] [place] GESTATIONALAGE AGE > OR = 9W Yes Normal [facility] Comment on above: Order Comment: Speci men Type: BLOOD SPECIMEN Ordering Facility: [facility] Address: [address] [place] [address] Performed By: #### 5 7021-8 #### [facility] CLIA [id number] [address] [place] [address] [place] Laboratory comment Osvaldo (Report) Comment Normal [facility] Comment on above: Order Comment: Speci men Type: BLOOD SPECIMEN Ordering Facility: [facility] Address: [address] [place] [address] Result Comment: The MaterniT(R) 21 PLUS laboratory-developed test (LDT) analyzes circulating cell-free DNA from a maternal blood sample. This test is used for screening purposes and not diagnostic. Clinical correlation is recommended. Validation data on twin pregnancies is limited and the ability of this test to detect aneuploidy in higher multiple gestations has not yet been validated. Performed By: #### 5 7021-8 #### [facility] CLIA [id number] [address] [place] [address] [place] nursing clinical director name Nom (Provider) Comment Normal [facility] Comment on above: Order Comment: Speckulwinder clayton Type: BLOOD SPECIMEN Ordering Facility: [facility] Address: [address] [place] [address] Result Comment: This specimen showed an expected representation of chromosome 21, 18 and 13 material. Clinical correlation is suggested. Comment Carl Lema MD, PhD, Director, Spry Performed By: #### 5 7021-8 #### [facility] CLIA [id number] [address] [place] [address] LIMITATIONS OF THE TEST Comment Normal [facility] Comment on above: Order Comment: Juliette clayton Type: BLOOD SPECIMEN Ordering Facility: [facility] Address: [address] [place] [address] Result Comment: Susan white the results of these tests are highly reliable, discordant results, including inaccurate sex prediction, may occur due to placental, maternal, or mosaicism or neoplasm; vanishing twin; prior maternal organ transplant; or other causes. These tests are screening tests and not diagnostic; they do not replace the accuracy and precision of diagnosis with CVS or amniocentesis. A patient with a positive test result should be referred for genetic counseling and offered invasive diagnosis for confirmation of test results.[5] The results of this testing, including the benefits and limitations, should be discussed with a qualified healthcare provider. management decisions, including termination of the , should not be based on the results of these tests alone. The healthcare provider is responsible for the use of this information in the management of their patient. Sex chromosomal aneuploidies are not reportable for known multiple gestations. A negative result does not ensure an unaffected nor does it exclude the possibility of other chromosomal abnormalities or defects which are not a part of these tests. An uninformative result may be reported, the causes of which may include, but are not limited to, insufficient sequencing coverage, noise or artifacts in the region, amplification or sequencing bias, or insufficient fraction. These tests are not intended to identify pregnancies at risk for neural tube defects or ventral wall defects. Testing for whole chromosome abnormalities (including sex chromosomes) and for subchromosomal abnormalities could lead to the potential discovery of both and maternal genomic abnormalities that could have major, minor, or no, clinical significance. Evaluating the significance of a positive or a non-reportable result may involve both invasive testing and additional studies on the mother. Such investigations may lead to a diagnosis of maternal chromosomal or subchromosomal abnormalities, which on occasion may be associated with benign or malignant maternal neoplasms. These tests may not accurately identify triploidy, balanced rearrangements, or the precise location of subchromosomal duplications or deletions; these may be detected by diagnosis with CVS or amniocentesis. The ability to report results may be impacted by maternal BMI, maternal weight, maternal systemic lupus erythematosus (SLE) and/or by certain pharmaceutical agents such as low molecular weight heparin (for example: Lovenox(R), Xaparin(R), Clexane(R) and Fragmin(R)). Performed By: #### 5 7021-8 #### [facility] CLIA [id number] [address] [place] [address] [place] Monosomy X risk Dosage of chromosome-specific cfDNA Ql (Plasma cell-free+WBC DNA) [Interp] Not detected Normal [facility] Comment on above: Order Comment: Juliette clayton Type: BLOOD SPECIMEN Ordering Facility: [facility] Address: [address] [place] [address] Performed By: #### 5 7021-8 #### [facility] CLIA [id number] [address] [place] [address] [place] NEGATIVE PREDICTIVE VALUE Note Normal [facility] Comment on above: Order Comment: Juliette clayton Type: BLOOD SPECIMEN Ordering Facility: [facility] Address: [address] [place] [id number] Result Comment: The Negative Predictive Value (NPV) for trisomy 21, 18, and 13 is greater than 99%. The NPV for SCA and ESS cannot be calculated as SCA and ESS are only reported when an abnormality is detected. Performed By: #### 5 7021-8 #### [facility] CLIA [id number] [address] [place] [address] [place] PERFORMANCE CHARACTERISTICS Note Normal [facility] Comment on above: Order Comment: Mingi matilde Type: BLOOD SPECIMEN Ordering Facility: [facility] Address: [address] [place] [address] Result Comment: ! Sex ! Accuracy: 99.4% ! ! ! ! Region (associated syndrome) ! Est. Sens# ! Est. Spec ! ! ! ! Trisomy 21 (Down Syndrome) ! 99.1% ! 99.9% ! ! ! ! Trisomy 18 ([place] Syndrome) ! >99.9% ! 99.6% ! ! ! ! Trisomy 13 ([place] Syndrome) ! 91.7% ! 99.7% ! ! ! ! Sex Chromosome Aneuploidies## ! 96.2% ! 99.7% ! ! ! * As reported in [facility] database nstd37 [https://www.ncbi.nlm.nih.gov/dbvar/studies/nstd37/ ] # Estimated Sensitivity. Sensitivity estimated across the observed size distribution of each syndrome [per [facility] database nstd37] and across the range of fractions observed in routine clinical NIPT. Actual sensitivity can also be influenced by other factors such as the size of the event, total sequence counts, amplification bias, or sequence bias. ## Peterson gestation only. Performed By: #### 5 7021-8 #### [facility] [id number] [address] [place] [address] [place] POSITIVE PREDICTIVE VALUE N/A Normal [facility] Comment on above: Order Comment: Juliette clayton Type: BLOOD SPECIMEN Ordering Facility: [facility] Address: [address] [place] [address] Performed By: #### 5 7021-8 #### [facility] CLIA [id number] [address] [place] [address] [place] Reference Lab Test Method Comment Normal [facility] Comment on above: Order Comment: Juliette clayton Type: BLOOD SPECIMEN Ordering Facility: [facility] Address: [address] [place] [address] Result Comment: Circ ulating cell-free DNA was purified from the plasma component of maternal blood. The extracted DNA was then converted into a genomic DNA library for aneuploidy analysis of chromosomes 21, 18, and 13 via next generation sequencing.[1] Optional findings based on the test order include sex chromosome aneuploidy (SCA)[2], and enhanced sequencing series (ESS)[3], which will only be reported on as an additional finding when an abnormality is detected. SCA testing includes information on X and Y representation, while ESS testing includes deletions in selected regions (22q, 15q, 11q, 8q, 5p, 4p, 1p) and trisomy of chromosomes 16 and 22. Performed By: #### 5 7021-8 #### [facility] CLIA [id number] [address] [place] [address] [place] Service comment (Unsp spec) [Interp] Comment Normal [facility] Comment on above: Order Comment: Speci men Type: BLOOD SPECIMEN Ordering Facility: [facility] Address: [address] [place] [address] Result Comment: [employer] is a subsidiary of [employer], using the brand [facility]. This test was developed and its performance characteristics determined by [facility]. It has not been cleared or approved by the Food and Drug Administration. This laboratory is certified under the Clinical Laboratory Improvement Amendments (CLIA) as qualified to perform high complexity clinical laboratory testing and accredited by the [employer] ([employer]). If there is future clinical need for adding MaterniT GENOME testing, this specimen will be available until term. [facility] samples will not be retained beyond 60 days. [facility] patients will have to send a new sample for re-sequencing ([facility] Test Code: [id number]). Performed By: #### 5 7021-8 #### [facility] CLIA [id number] [address] [place] [address] [place] Sex Dosage of chromosome-specific cfDNA Nom (cfDNA) Comment Normal [facility] Comment on above: Order Comment: Speci men Type: BLOOD SPECIMEN Ordering Facility: [facility] Address: [address] [place] [address] Result Comment: Cons istent with Female Performed By: #### 5 7021-8 #### [facility] CLIA [id number] [address] [place] [address] [place] Test performance information Osvaldo (Unsp spec) Comment Normal [facility] Comment on above: Order Comment: Juliette clayton Type: BLOOD SPECIMEN Ordering Facility: [facility] Address: [address] [place] [address] Result Comment: The performance characteristics of the MaterniT(R) 21 PLUS laboratory-developed test (LDT) have been determined in a clinical validation study with women at increased risk for chromosomal aneuploidy.[1-4] Performed By: #### 5 7021-8 #### [facility] CLIA [id number] [address] [place] [address] [place] Trisomy 13 risk Dosage of chromosome-specific cfDNA Ql (cfDNA) [Interp] Negative Normal [facility] Comment on above: Order Comment: Juliette clayton Type: BLOOD SPECIMEN Ordering Facility: [facility] Address: [address] [place] [address] Performed By: #### 5 7021-8 #### [facility] CLIA [id number] [address] [place] [address] [place] Trisomy 18 risk Dosage of chromosome-specific cfDNA Ql (Plasma cell-free+WBC DNA) [Interp] Negative Normal [facility] Comment on above: Order Comment: Juliette clayton Type: BLOOD SPECIMEN Ordering Facility: [facility] Address: [address] [place] [address] Performed By: #### 5 7021-8 #### [facility] CLIA [id number] [address] [place] [address] [place] RUBELLA IGG ANTIBODYon 10-05 RUBELLA IGG AB, QUAL Positive Normal Positive [facility] Comment on above: Order Comment: Juliette clayton Type: BLOOD SPECIMEN Ordering Facility: [facility] Address: [address] [place] [address] Result Comment: The result suggests recent or past exposure to Rubella virus or history of Rubella vaccination. Positive result may also be seen due to presence of passively-transferred antibodies. Please correlate with patient's history. Performed By: #### 1 989-3 #### [facility] CLIA [id number] [address] [place] [address] [place] Reagin and Treponema pallidu m IgG and IgM [Interp]on 10-05-2024 T. pallidum IgG+IgM IA Ql (S) Non-Reactive Normal Nonreactive [facility] Comment on above: Order Comment: Speci men Type: BLOOD SPECIMEN Ordering Facility: [facility] Address: [address] [place] [address] Performed By: #### 5 7021-8 #### [facility] CLIA [id number] [address] [place] [address] [place] Reagin+T pallidum IgG+IgM Se rPl-Impon 10-05-2024 Reagin and Treponema pallidum IgG and IgM [Interp] Cannot exclude recent Treponemal infection if specimen collected within 7-10 days after appearance of suspect lesions or 2-3 weeks after an exposure. Clinical correlation is required. Normal [facility] Comment on above: Order Comment: Speci men Type: BLOOD SPECIMEN Ordering Facility: [facility] Address: [address] [place] [address] Performed By: #### 5 7021-8 #### [facility] CLIA [id number] [address] [place] [address] [place] TYPE + SCREEN PRENATALon ABO A Normal [facility] Comment on above: Order Comment: Speci men Type: BLOOD SPECIMEN Ordering Facility: [facility] Address: [address] [place] [address] Performed By: #### T SPN #### [facility] CLIA [id number] [address] [place] [address] [place] Rh Nom (Bld) Negative Normal [facility] Comment on above: Order Comment: Speci men Type: BLOOD SPECIMEN Ordering Facility: [facility] Address: [address] [place] [address] Performed By: #### T SPN #### [facility] CLIA [id number] [address] [place], [place] [id number] [place] TYPE AND SCREEN EXPIRATION 10/08/2024 23:59 Normal [facility] Comment on above: Order Comment: Speci men Type: BLOOD SPECIMEN Ordering Facility: [facility] Address: [address] [place] [address] Performed By: #### T SPN #### [facility] CLIA [id number] [address] [place] [address] [place] Urgent Care Visit Reporton 0 09-27-2024 Urgent Care Visit Report [facility] [address], [address] [place] [id number] OFFICE VISIT Date of Service: 09/27/24 MR#: [id number] Acct: [id number] Name: LORETA HARO Rep #: [id number] : 2000 Provider: JORDIN seay Age/Sex: 24/F Location: [facility] Status: Signed Intake Vital Signs 05/18/24 13:36 09/27/24 10:40 Height 5 ft 6 in 5 ft 6 in Weight: 313 lb BMI 50.5 BP 120/80 128/80 H Blood Pressure Location Lt brachial Position Sitting Sitting Pulse 90 102 H Pulse Source Monitor Temp 98.7 F 98.4 F Temp Source Oral Oral Pulse Oximetry (%) 97 98 Oxygen Delivery Method room air room air Intake Visit Reasons: SORE THROAT Chief Complaint: Sore Throat Accompanied by: Self Allergies No Known Allergies Allergy (Verified 09/27/24 10:40) Medications ???Medication ???Instructions ???Recorded ???Confirmed ???Type ipratropium bromide 21 mcg (0.03 2 spray intranasal BID-TID PRN 09/27/24 Rx %) nasal spray postnasal drainage #30 mL amoxicillin 500 mg tablet 500 mg PO Q12H 10 days #20 tabs 09/27/24 Rx Nurse's Note: sore throat, trouble breathing, fever, chills. X 1 day. 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 She does acknowledge that she is currently , 10 weeks. Prior to evaluation she underwent strep testing that was negative. ROS Const Constitutional: Positive for chills and fever(s); No body ache, fatigue, headache(s) or change in appetite Eyes Eyes: No blurry vision, change in vision, double vision, irritation, discharge, vision loss, dry eyes, bulging eyes, floaters, visual disturbances, eye pain, Light sensitivity, spots in vision, tunnel vision or other ENT ENT: Positive for sore throat; No ear or mastoid pain, ear discharge, ear pressure, tinnitus, dizziness/vertigo, nosebleed/epistaxis, nasal congestion, nose pain, sinus pressure, sinus pain, nasal discharge, post nasal drip, headache(s), facial pain, dental pain, difficulty swallowing, bad breath, hoarseness, lip swelling, mouth lesions, mouth pain, neck pain, tongue swelling or throat swelling Resp Respiratory: Positive for shortness of breath; No cough, change in phlegm color, chest congestion, hemoptysis, pain on inspiration, pain with cough, stridor or wheezing Cardio Cardiology: No chest pain at rest, chest pain with exertion, shortness of breath, dyspnea on exertion or lightheadedness Gastro GI: No abdominal pain, change in bowel habits or difficulty swallowing Genitourinary-Female: No burning urination or urinary frequency Musc Musculoskeletal: No joint pain or neck pain Skin Skin: No rash Neuro Neurology: No headache(s) or visual disturbances Psych Psychiatric: No change in appetite Endo Endocrine: No fatigue Aller/Imm Allergy/Immunologic: No lip swelling, throat swelling, tongue swelling or wheezing Exam Const General: cooperative, healthy appearing, comfortable and no acute distress Orientation: alert, awake and oriented x3 HENMT Head: normal to inspection and normocephalic Ears: hearing grossly normal bilaterally, external ears normal and TM's normal bilaterally Nose: external nose normal, nares normal and no nasal discharge Face and sinus: normal facial exam and sinuses nontender Mouth: oral mucosae normal, lip normal, tongue normal, oropharynx normal and moist mucous membranes Throat: posterior oropharynx normal, uvula midline, abnormal tonsil bilaterally erythema, exudates and hypertrophy 2+ and no postnasal drainage Eyes General: appearance normal, both eyes and all related structures Neck Neck: normal visual inspection and no lymphadenopathy Carotids: normal carotid upstroke Lymphatic: (more content not included)... Normal [facility] 09-16-2024 [facility] Telephone (OBMar[employer] Polo ProjectWM) LORETA HARO ([id number]) 2 F Date Time Provider Department 09/16/24 JOON MOONEY OBELBA During your visit today, we recorded the following information about you: Mindi Garces RN 09/16/2024 2:02 PM Signed Received records from [employer] [facility] to review and already scanned into [employer]. Mindi Garces RN Allergies As of Date: 09/16/2024 (No Known Allergies) Date Reviewed: 09/07/2024 Reviewed by: Joon Mooney APRN.SAMPLE MOUNTER - Fully Assessed Reason for Visit: Received Outside Medical Records [3576] Prescriptions as of 09/16/2024 - aspirin, enteric coated (ECOTRIN LOW STRENGTH) 81 mg EC tablet Take 1 tablet by mouth daily at bedtime. Starting at 12 weeks. - vit 75/iron/folic/om3 (DAILY ORAL) Take by mouth. - estradiol (ESTRACE) 2 mg tablet Take 2 mg by mouth three times a day. - PROGESTERONE IN OIL INTRAMUSC. Inject intramuscularly. Problem List As Of Date 09/16/2024 Noted Resolved History of PCOS [Z87.42] 09/07/2024 Obesity affecting in first trimester *09/07/2024 Encounter for supervision of high risk pregnanc*09/07/2024 resulting from assisted reproductive *09/07/2024 Nausea and vomiting during (HCC) [O21*09/07/2024 Encounter Status:Closed by MINDI GARCES on 09/16/24 Normal [facility] Bacteria Ur Culton Bacteria identified Cx Nom (U) CULTURE, URINE: No growth (<1,000 CFU/ml) Normal [facility] Comment on above: Performed By: #### 1 989-3 #### [facility] CLIA [id number] [address] [place] [address] [place] C. trachomatis+N. gonorrhoea e DNA [place]+probe Ql (Unsp spec)on 09-07-2024 C. trachomatis rRNA [place]+probe Ql (Unsp spec) Not detected Normal Not detected [facility] Comment on above: Order Comment: Speci men Type: SWAB Ordering Facility: [facility] Address: [address] [place] [address] Performed By: #### T RVAMP, 99767-4 #### [facility] CLIA [id number] [address] [place] [address] [place] N. gonorrhoeae rRNA [place]+probe Ql (Unsp spec) Not detected Normal Not detected [facility] Comment on above: Order Comment: Speci men Type: SWAB Ordering Facility: [facility] Address: [address] [place] [address] Performed By: #### T RVAMP, 92748-0 #### [facility] CLIA [id number] [address] [place] [address] [place] [facility] STRATE[facility] SPECIALIST ULTRASOUNDon 09-08-19 25 Indication Viability; confirm cardiac activity Impression Single intrauterine gestational sac, CRL is appropriate for clinical dates, corresponding to RAYSHAWN 04/29/2025 cardiac activity is visualized Recommendations Follow up for 1st Trimester Anatomy with Nuchal Translucency as clinically indicated if desired. Method Transvaginal ultrasound examination. View: Adequate visualization Peterson . Number of embryos: 1 Dating LMP on: 07/23/2024 GA by LMP 6 w + 4 d RAYSHAWN by LMP: 04/29/2025 Ultrasound examination on: 09/07/2024 GA by U/S based upon: CRL GA by U/S 6 w + 4 d RAYSHAWN by U/S: 04/29/2025 Assigned: based on the LMP, selected on 09/07/2024 Assigned GA 6 w + 4 d Assigned RAYSHAWN: 04/29/2025 Biometry Standard FHR 122 bpm CRL 6.9 mm 6w 4d 66% Hadlock Assessment Gestational sac: visualized Location: intrauterine Yolk sac: visualized Embryo: visualized CRL 6.9 mm 6w 4d 66% Hadlock Cardiac activity: present FHR 122 bpm General Evaluation Cardiac activity present. FHR 122 bpm Performed By: Joon Mooney NP Read By: Joon Mooney NP MATERNAL MEDICINE [facility] Radiology Study observation (narrative) [facility] TRICHOMONAS VAGINALIS NAATon 09-07-2024 T. vaginalis DNA [place]N+probe Ql (Unsp spec) Not detected Normal Not detected [facility] Comment on above: Order Comment: Speci men Type: SWAB Ordering Facility: [facility] Address: [address] [place] [address] Performed By: #### T RVAMP, 92043-8 #### [facility] CLIA [id number] [address] [place] [address] [place] Urgent Care Visit Reporton 0 09-04-2024 Urgent Care Visit Report [facility] [address], [address] [place] [address] OFFICE VISIT Date of Service: 09/04/24 MR#: [id number] Acct: [id number] Name: LORETA HARO Rep #: [id number] : 2000 Provider: TORITO Fuentes Age/Sex: 24/F Location: [facility] Status: Signed Intake Vital Signs 05/18/24 13:36 09/04/24 17:49 Height 5 ft 6 in BP 120/80 130/65 H Blood Pressure Location Lt radial Position Sitting Sitting Respiration 18 Pulse 90 104 H Pulse Source Monitor Temp 98.7 F 98.8 F Temp Source Oral Oral Pulse Oximetry (%) 97 100 Oxygen Delivery Method room air room air Intake Visit Reasons: SORE THROAT/CONGESTION Chief Complaint: COUGH Spanish Translator Required: No Accompanied by: Other Is patient in pain?: No Allergies No Known Allergies Allergy (Verified 09/04/24 17:50) Medications ???Medication ???Instructions ???Recorded ???Confirmed ???Type metformin 500 mg tablet 500 mg PO QPM 02/10/24 09/04/24 Hi story omeprazole 40 mg capsule,delayed 40 mg PO QDAY 02/10/24 09/04/24 Hi story release amoxicillin 875 mg-potassium 1 tab PO Q12H 10 days #20 tabs 09/04/24 Rx clavulanate 125 mg tablet ipratropium bromide 21 mcg (0.03 2 spray intranasal BID-TID PRN 09/04/24 Rx %) nasal spray postnasal drainage #30 mL Patient : Yes Nurse's Note: ST, Congestion, and head pressure for last 3 days. Patient is currently , so is wondering what is best to take. 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 Patient denies fever, chills, sweats. No nausea, vomiting or diarrhea. No hemoptysis, shortness of breath or difficulty breathing. No loss of taste or smell. No other associated symptoms or alleviating/aggravating factors. ROS Const Constitutional: No other (6 system ROS completed with pertinent findings in the HPI otherwise normal.) Exam Const General: cooperative and well developed HENPA Head: normal to inspection and atraumatic Ears: hearing grossly normal bilaterally Nose: nasal discharge clear Face and sinus: normal facial exam Mouth: oral mucosae normal Throat: abnormal tonsil bilaterally hypertrophy 1+ Resp Effort Inspection: normal respiratory effort and no audible wheezes Auscultation: Bilateral: Clear to Auscultation Cardio Palpation: normal PMI Rate: regular rate Rhythm: regular rhythm Neuro General: patient alert and CN's II-XI intact bilaterally Psych Appearance: grossly normal Mental Status: mental status grossly normal Coding Level of Care Code Off vis,est,level 3 Diagnoses Pharyngitis, unspecified etiology J02.9 Pharyngitis/tonsillitis etiology: unspecified etiology Assessment and Plan Assessment and Plan (1) Pharyngitis: Status: Acute Qualifiers: Pharyngitis/tonsillitis etiology: unspecified etiology Qualified Code(s): J02.9 - Acute pharyngitis, unspecified Plan: Augmentin and Atrovent as prescribed today. Encouraged to get plenty of rest, drink lots of clear liquids, and use Tylenol or Ibuprofen (unless contraindicated) for fever and comfort. Patient also educated on other symptomatic management techniques. To be seen in 7-10 days if no improvement; sooner if worsening of symptoms. Patient advised of potential red flags and when appropriate to report to the ED. Patient verbalized understanding and agreement with all the above. Medications: New amoxicillin-pot clavulanate 875-125 mg 1 TAB PO Q12H 10 days 20 tabs 0RF J01.90 - Acute sinusitis, unspecified ipratropium bromide administer into each nostril 2 sprays intranasal BID-TID PRN 30 mL 0RF postnasal drainage 09/04/24 175 Date Cor (more content not included)... Normal [facility] B-HCG SerPl-aCncon 5 HCG.beta subunit Qn 3309.0 m[IU]/mL High <5.0 [facility] Comment on above: Order Comment: Speci men Type: BLOOD SPECIMEN Ordering Facility: [facility] Address: [address] [place] [address] Result Comment: CHRISTOPH TITATIVE HCG NORMAL RANGES Weeks of Gestation (Weeks Since LMP) 3 Weeks (5.8-71.2 mIU/mL) 4 Weeks (9.5-750 mIU/mL) 5 Weeks (217-7138 mIU/mL) 6 Weeks (158-45765 mIU/mL) 7 Weeks (3697-722526 mIU/mL) 8 Weeks (09646-446941 mIU/mL) 9 Weeks (42141-783791 mIU/mL) 10 Weeks (02107-439393 mIU/mL) 12 Weeks (08483-806129 mIU/mL) Referenced to 4th IS of [facility] Performed By: #### 1 989-3 #### [facility] CLIA [id number] [address] [place] [address] [place] [address] [place] HCG QUANTITATIVEon 5 HCG.beta subunit Qn 3309 m[IU]/mL High NINF [facility] Comment on above: QUANTITATIVE HCG NOR MAL RANGES Weeks of Gestation (Weeks Since LMP) 3 Weeks (5.8-71.2 mIU/mL) 4 Weeks (9.5-750 mIU/mL) 5 Weeks (217-7138 mIU/mL) 6 Weeks (158-00213 mIU/mL) 7 Weeks (3697-403482 mIU/mL) 8 Weeks (66576-946065 mIU/mL) 9 Weeks (46864-568149 mIU/mL) 10 Weeks (68957-031970 mIU/mL) 12 Weeks (97747-035482 mIU/mL) Referenced to 4th IS of [facility] HCG.beta subunit Qnon 2024 Interpretation and review of laboratory results Abnormal [facility] XR FINGER THUMB 3 VIEWS RIGH John 08-14-2024 XR FINGER THUMB 3 VIEWS RIGHT ORIGINAL EXAMINATION: THREE XRAY VIEWS OF THE RIGHT THUMB 08/14/2024 2:56 am COMPARISON: None. HISTORY: ORDERING SYSTEM PROVIDED HISTORY: Reason for Exam: pain shut thumb in hardware FINDINGS: No acute fracture or dislocation. No suspicious osseous lesion. No radiodense foreign body. IMPRESSION: No acute osseous findings. I have personally reviewed the images of this examination, and agree with the resident's findings and interpretation. Interpreted by: Suman Iraheta MD Preliminary Report By: Angelica Monroy Electronically signed By Suman Iraheta MD Dictated Date: 08/14/2024 3:16:10 AM Prelim Date: 08/14/2024 3:17:30 AM Sign Date: 08/14/2024 3:20:21 AM Ordering Provider: EZEKIEL ARRIAZA Interpreted by: Suman Iraheta MD Preliminary Report By: Angelica Monroy Electronically signed By Suman Iraheta MD Dictated Date: 08/14/2024 3:16:10 AM Prelim Date: 08/14/2024 3:17:30 AM Sign Date: 08/14/2024 3:20:21 AM Ordering Provider: EZEKIEL ARRIAZA Normal [facility] HCG ( test) Ql (U)o n 06-01-2024 Beta HCG ( test) Ql (U) 230903 [facility] Music Messenger (MM) Interpretation and review of laboratory results Normal [facility] NEGATIVE QC Pass [facility] POSITIVE QC Pass [facility] Preg Test, Ur Negative Negative [facility] Nursing Noteon 06-01-2024 Nursing Note Patient ambulated to bathroom and voided with no difficulties. Discharge instructions reviewed with patient and family. Instructions handed to family. No questions at this time. [facility] Nursing Note Attempted to send Alminder chat message to Dr Rodriguez per request. No answer via secure chat. I called Dr Rodriguez's office, per fundraising officer, he is busy seeing patient's in the office and will call them this afternoon, they should have received a message in their portal at 0900 this morning with more information regarding the egg retrieval if they would like to check there. Updated and patient and instructed them to call Dr Rodriguez's office if any further questions come. [facility] Op Noteon 06-01-2024 Op Note Operative Note: Pre op Diagnosis Bilateral Follicular Ovarian Cyst Post Operative Diagnosis: Bilateral Follicular Ovarian Cyst Surgeon: Dr. Rodriguez Office Equipment Technician: None Anesthesia: LMA Procedure: Transvaginal Ultrasound Guided Aspiration of Bilateral Ovarian Cyst, Egg Retrieval EBL: 5 ml Crystalloid: 750 mL Packs Drains: None Vann: None Special Meds: None Findings: Bilateral Follicular Ovarian Cyst Procedure: Patient was taken to operating room. Placed in supine position where LMA anesthesia was delivered. She was prepped and draped in the usual sterile fashion. A 6 Yovany hertz vaginal ultrasound transducer was placed in the patients vagina. Bilateral ovarian cyst were identified and aspirated and bilateral egg retrieval was performed. The eggs were then handed off to the embryology staff. The procedure was terminated. Sponge instruments, and needle counts were correct at the termination of the procedure. No bleeding was noted. She was awakened and taken to the recovery room in stable condition. My findings were discussed with the family post operatively Isaías Rodriguez MD [facility] [id number] 05-29-2024 [id number] Medication List Accurate as of May 29, 2024 9:07 AM. Always use your most recent med list. FOLLISTIM AQ SC Notes to patient: Follow Dr. Rodriguez's instructions GANIRELIX ACETATE SC Notes to patient: Follow Dr. Rodriguez's instructions MENOPUR SC Notes to patient: Follow Dr. Rodriguez's instructions Additional Instructions: You may take Tylenol for pain. NO Motrin, ibuprofen or Advil for 24 hours prior to surgery or longer if instructed by your surgeon. NO Aleve or Naprosyn or Aspirin starting now. Follow any instructions given to you by Dr. Rodriguez. Shower with an antibacterial soap such as Dial or Safeguard before coming to the hospital. No makeup, lotion, powder, deodorant or body sprays. No hair products. Remove all jewelry and leave it at home. Wear loose comfortable clothing to go home in. You may brush your teeth morning of surgery. Do not wear contacts day of surgery. No marijuana (THC), smoking or alcohol for 24 hours prior to surgery. Please arrange for a responsible adult to drive you home after your surgery and that there is a responsible adult with you for 24 hours post discharge. If you have specific questions, please call your surgeon. You will receive a call the day before your surgery to verify your arrival time and date. You will be asked to arrive at least two hours prior to your scheduled surgery time. We encourage you to write down any questions you may have for the surgeon, anesthesiologist, or other members of the surgical team and bring it with you the day of surgery. Please bring photo ID and insurance information. IMMUNOHEMATOLOGIST AND PARKING IN THE MAIN DECK ARE FREE DAY OF SURGERY. PARKING IN THE DECK-- AFTER PARKING TAKE THE ELEVATOR TO LEVEL ONE AND TAKE THE BRIDGE TO THE HOSPITAL. GO TO THE RIGHT AND GO AROUND THE CORNER TO THE SAME DAY SURGERY DESK AND CHECK IN THERE. IF GOING IN THE MAIN ENTRANCE-- TURN LEFT AND GO DOWN THE GALLEGOS TO THE H ELEVATORS AND TAKE THEM TO ONE, LEFT OFF THE ELEVATOR AND GO AROUND TO THE SAME DAY DESK AND CHECK IN. Normal [facility] HEMOGLOBIN A1Con 05-29-2024 Glucose [Mass/Vol] 97 mg/dL Normal [facility] Comment on above: Result Comment: CHRISTINEE R COMMENTS: HbA1c values of 5.7-6.4 percent indicate an increased risk for developing diabetes mellitus. HbA1c values greater than or equal to 6.5 percent are diagnostic of diabetes mellitus. For diagnosis of diabetes in individuals without unequivocal hyperglycemia, results should be confirmed by repeat testing. Performed By: #### L AB90 ####Geospatial Intelligence Analyst: SANGITA WEISS ([phone])[facility] ([address] [address] [place] HEMOGLOBIN A1C 5.0 %HbA1C Normal <5.7 [facility] Comment on above: Result Comment: Norm al less than 5.7% Prediabetes 5.7% to 6.4% Diabetes 6.5% or higher --HgbA1C levels may not be accurate in patients who have renal disease, received recent blood transfusions, are anemic, or who have dyshemoglobinemia. Performed By: #### L AB90 ####Geospatial Intelligence Analyst: SANGITA [place] ([id number])[facility] (SACLAB)[address] Progress Noteon 05-29-2024 Progress Note ADVANCED CARE PLANNI JOSUE Haro : 2000 Primary Care Physician: Eboni Pop The patient and/or family/surrogate voluntarily agreed to participate in ACP services. Patient?s cognitive capacity: Patient is Alert and [place] to person, place and time Code Status: [x] [FULL CODE - Continue all advanced life support: CPR,intubation,invasive procedures] [_] [DNR-CCA - DO NOT do CPR, intubation] [_] [DNR-ANESTHESIOLOGY TEACHER - Comfort care only] [_] DNR form [was/was not] signed Summary of discussion: The patient health care POA/ surrogate is the following: Does not currently have HCPOA or DPOA . [Condition that instigated the ACP on this DOS, relevant PMH, functional status, goals of care, and whom this was discussed with including names and relationship to the patient, and any relevant advance care documentation discussion] I answered all the patient/family questions that I could within the range and scope of the current medical situation. We discussed the medical conditions, risks, benefits, outcomes, and goals of care at this time for the patient's medical issues at hand in the face of the patient's chronic issues and current presentation. Total time spent: 2 minutes were spent discussing the patient's resuscitation status, advance care planning, and end of life care, with patient and/or family/surrogate. Symone Sofia APRN - SAMPLE MOUNTER Acute care solutions 05/29/2024, 9:09 AM Normal [facility] Rapid group A Streptococcus antigen assay at point of careOrdered By: Braden King on 05-18-2024 S. pyogenes Ag IA.rapid Ql (Throat) Positive [facility] Urgent Care Visit Reporton 0 05-18-2024 Urgent Care Visit Report [facility] [address], [address] [place] [address] OFFICE VISIT Date of Service: 05/18/24 MR#: [id number] Acct: [id number] Name: LORETA HARO Rep #: [id number] : 2000 Provider: TORITO Saenz Age/Sex: 23/F Location: [facility] Status: Signed Intake Vital Signs 02/10/24 13:01 05/18/24 13:36 Height 5 ft 6 in 5 ft 6 in Weight: 302 lb 4 oz BMI 48.7 BP 120/84 H 120/80 Position Sitting Sitting Pulse 99 90 Temp 98.4 F 98.7 F Temp Source Oral Oral Pulse Oximetry (%) 99 97 Oxygen Delivery Method room air room air Intake Visit Reasons: Sore throat Allergies No Known Allergies Allergy (Verified 02/10/24 13:01) Medications ???Medication ???Instructions ???Recorded ???Confirmed ???Type metformin 500 mg tablet 500 mg PO QPM 02/10/24 05/18/24 Hi story omeprazole 40 mg capsule,delayed 40 mg PO QDAY 02/10/24 05/18/24 Hi story release amoxicillin 500 mg tablet 500 mg PO TID #30 tabs 05/18/24 Rx Nurse's Note: Patient has had a ST for 3-4 days. 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 Painful swallowing appreciated though no difficulty swallowing/drooling. No rash. No complaints of chest pressure/shortness of breath/dyspnea on exertion. No close contacts with similar complaints. ???No xvnp-rfh-[id number] products taken to assist. No other associated symptoms and no other alleviating/aggravating factors. ROS Const Constitutional: No other (As above) Exam Const General: cooperative, healthy appearing and no acute distress Orientation: alert, awake and oriented x3 HENMT Head: normal to inspection Ears: hearing grossly normal bilaterally, external ears normal, TM's normal bilaterally and EAC's normal Nose: external nose normal, nares normal, septum normal and no nasal discharge Face and sinus: normal facial exam, sinuses nontender and face symmetric Mouth: oral mucosae normal, lip normal, tongue normal and oropharynx normal Throat: posterior oropharynx normal, uvula midline, abnormal tonsil bilaterally erythema; no exudates and no hypertrophy and no postnasal drainage Eyes General: appearance normal, both eyes and all related structures Neck Neck: normal visual inspection, full ROM, no meningeal signs, supple and lymphadenopathy (Bilateral anterior cervical lymph node swelling/tender to palpation) Neck mass: No Thyroid: thyroid normal Chest Chest palpation inspection: normal inspection of the chest Resp Effort Inspection: normal respiratory effort and able to speak in complete sentences Cardio Rate: regular rate Pulses: radial pulses present Skin General: no rashes or lesions noted Neuro General: patient alert, patient awake Cognition: normal cognition Speech: speech normal Psych Appearance: grossly normal Mental Status: mental status grossly normal Mood: congruent mood Affect: normal affect Speech and Movement: speech and movement normal Attitude: cooperative Diagnoses Acute streptococcal pharyngitis J02.0 Assessment and Plan Assessment and Plan (1) Acute streptococcal pharyngitis: Status: Acute Plan: See POC results. Amoxicillinas prescribed today. Supportive measures as instructed today. Work excuse offered/declined. Follow-up with PCP in 3 to 5 days should symptoms not improve, ED sooner should symptoms worsen or any other concerns develop. Patient states acknowledging understanding all the above. Results POC Maryjane Rapid Strep POC Maryjane Rapid Strep Positive Last Edit by Purnima Sánchez MA on 05/18/24 13:59 Coding Level of Care Code Off vis,est,level 3 (more content not included)... Normal [facility] CNOVon 03-12-2024 CNOV Office Visit (OBGYWM ) LORETA HARO ([id number]) 2 F Date Time Provider Department 03/12/24 8:40 AM CHERY CHARLES During your visit today, we recorded the following information about you: Blood pressure Weight Last Period 118/78 136.5 kg 03/09/24 Chery Charles MD 03/12/2024 9:07 AM Signed Loreta Luciodamaris is a 23 year old female who presents for problem visit infertility for 2 year(s). HPI: Has been trying for 20 months to conceive. Is now s/p 4 rounds of letrozole. Progesterone and regular periods suggest ovulation took place. has been having difficulty getting semen analysis. Patient checked with insurance and does have infertility coverage. Is planning to see [facility] in the future. OB History T0 L0 SAB0 IAB0 Ectopic0 Multiple0 Live Births0 Quality Measurement Specialist History LMP: 03/09/2024 (Exact Date), Having periods Age at Menarche: Age at First : Age at Menopause: Quality Measurement Specialist History Comments: Sexual Activity: Yes; Male Contraception: Not used PAST MEDICAL HISTORY Diagnosis Date Hiatal hernia PAST SURGICAL HISTORY Procedure Laterality Date ANKLE SURGERY HX Right 02/2020 REMOVAL GALLBLADDER 01/2022 FAMILY HISTORY Problem Relation Age of Onset other (PCOS) Mother Diabetes Father Social History Tobacco Use Smoking status: Never Smokeless tobacco: Never Vaping Use Vaping status: Never Used Substance Use Topics Alcohol use: Not Currently Drug use: Never Current Outpatient Medications Medication Sig metFORMIN (GLUCOPHAGE) 500 mg tablet Take 1 tablet by mouth daily with dinner. IFEREX 150 150 mg iron capsule Take 1 capsule by mouth every afternoon. omeprazole (PRILOSEC) 40 mg capsule Take 1 capsule by mouth every afternoon. folic acid 1 mg tablet Take 1 tablet by mouth once daily. letrozole (FEMARA) 2.5 mg tablet Take 1 tablet by mouth once daily for 5 days. cholecalciferol, Vitamin D3, (VITAMIN D3) 1,250 mcg (50,000 unit) cap capsule Take 1 capsule by mouth one time a week. No current facility-administered medications for this visit. Allergies As of Date: 03/12/2024 (No Known Allergies) Fully Assessed 03/12/2024 REVIEW OF SYSTEMS Abdomen: No bloating, early satiety, indigestion, or increased flatulence. No abdominal pain, nausea, vomiting, diarrhea, or constipation. Bladder: No dysuria, gross hematuria, urinary frequency, urinary urgency, or incontinence. Breast: No breast lumps, nipple d/c, overlying skin changes, redness or skin retraction. Expanded ROS: N/A Allergies and current medication updated:Yes SENSITIVE EXAM: The sensitive examination was discussed with the Patient or Patient's Authorized News Department Intern. As applicable, any other physician, advance practice provider, medical student, or other health professional student that will be observing or involved in the sensitive examination for educational or training purposes was discussed with the Patient or Authorized News Department Intern. The Patient or Authorized News Department Intern has agreed to proceed with the sensitive examination. (Sensitive examination includes inspection and/or palpation of the breasts, pelvis, prostate and anorectal regions). EXAM: BP 118/78 Wt 301 lb (136.5kg) LMP 03/09/2024 GENERAL: pleasant, female in no apparent distress HEENT: Normocephalic, atraumatic, mucus membranes moist, and no lesions NECK: Supple, full range of motion, no adenopathy, and thyroid normal DERMATOLOGY: Normal, without lesions, non-icteric, and non-hirsute BREAST: deferred CHEST: Normal inspiratory effort ABDOMEN: Deferred PELVIC: deferred BIMANUAL: deferred NEURO: alert and oriented x3,exam grossly non-focal EXTREMITIES: normal ASSESSMENT AND PLAN: Assessment AND Plan Female infertility SANTA appointment PCOS (polycystic ovarian syndrome) Chery Charles MD Allergies As of Date: 03/12/2024 (No Known Allergies) Date Reviewed: 03/12/2024 Reviewed by: Buck Marti MA - Fully Assessed Reason for Visit: Infertility [285] Primary Visit Diagnosis:Female infertility [N97.9] Other Visit Diagnosis:PCOS (polycystic ovarian syndrome) [E28.2] Prescriptions as of 03/12/2024 - letrozole (FEMARA) 2.5 mg tablet Take 1 tablet by mouth once daily for 5 days. - metFORMIN (GLUCOPHAGE) 500 mg tablet Take 1 tablet by mouth daily with dinner. - cholecalciferol, Vitamin D3, (VITAMIN D3) 1,250 mcg (50,000 unit) cap capsule Take 1 capsule by mouth one time a week. - IFEREX 150 150 mg iron capsule Take 1 capsule by mouth every afternoon. - omeprazole (PRILOSEC) 40 mg capsule Take 1 capsule by mouth every afternoon. - folic acid 1 mg tablet Take 1 tablet by mouth once daily. Problem List As Of Date: 03/12/2024 (None) Level of Service: OFFICE/OUTPATIENT ESTABLISHED LOW [facility] 20 MIN [35018] Encounter Status:Closed by PETAR (more content not included)... Normal [facility] 25(OH)D3 SerPl-mCncon 2024 25-hydroxyvitamin D3 [Mass/Vol] 42.2 ng/mL Normal 31.0-80.0 [facility] Comment on above: Order Comment: Speci men Type: BLOOD SPECIMEN Ordering Facility: [facility] Address: [address] [place] [address] Result Comment: Clas sification of 25 [place] Vitamin D status: Deficiency/Insufficiency: < or = 30 ng/ml. Sufficiency/Optimal Levels: 31-80 ng/mL Toxicity: > 100 ng/mL. Test performed by chemiluminescent immunoassay. Performed By: #### 1 989-3 #### [facility] CLIA [id number] [address] [place] [address] [place] [address] [place] Progest SerPl-mCncon 025 Progesterone [Mass/Vol] 11.7 ng/mL Normal See comment [facility] Comment on above: Order Comment: Juliette clayton Type: BLOOD SPECIMEN Ordering Facility: [facility] Address: [address] [place] [address] Result Comment: Mens trual Cycle Progesterone Reference Ranges: Follicular: <1.0 ng/mL Ovulation: <12.1 ng/mL Luteal: 1.8 to 23.9 ng/mL. Progesterone Reference Ranges vary by gestational period: First Trimester: 11.0 to 44.3 ng/mL Second Trimester: 25.4 to 83.3 ng/mL Third Trimester: 58.7 to 214 ng/mL Post menopausal Progesterone: <0.5 ng/mL Reference: 1. Progesterone (Progesterone III) [package insert V 1.0 [place]i]. [facility], [place], [place]. November 2014. Performed By: #### 1 989-3 #### [facility] CLIA [id number] [address] [place] [address] [place] Vit B12 SerPl-mCncon 025 Cobalamin (Vitamin B12) [Mass/Vol] 1325 pg/mL High 232-1245 [facility] Comment on above: Order Comment: Juliette clayton Type: BLOOD SPECIMEN Ordering Facility: [facility] Address: [address] [place] [address] Performed By: #### 1 989-3 #### [facility] CLIA [id number] [address] [place] [address] [place] Urgent Care Visit Reporton 1 Urgent Care Visit Report [facility] [address], [address] [place], [place] [id number] OFFICE VISIT Date of Service: 02/10/24 MR#: [id number] Acct: [id number] Name: LORETA KUNZ Rep #: [id number] : 2000 Provider: JORDIN Hamilton Age/Sex: 23/F Location: [facility] Status: Signed Intake Vital Signs 05/26/20 09:11 02/10/24 13:01 Height 5 ft 6 in 5 ft 6 in Weight: 302 lb 4 oz BMI 48.7 BP 120/84 H Position Sitting Pulse 99 Temp 98.4 F Temp Source Oral Pulse Oximetry (%) 99 Oxygen Delivery Method room air Intake Visit Reasons: ST,RIGHT EAR PAIN, LOSS VOICE Accompanied by: Self Allergies No Known Allergies Allergy (Verified 02/10/24 13:01) Medications ???Medication ???Instructions ???Recorded ???Confirmed ???Type metformin 500 mg tablet 500 mg PO QPM 02/10/24 02/10/24 History omeprazole 40 mg capsule,delayed 40 mg PO QDAY 02/10/24 02/10/24 History release Nurse's Note: Patient has a ST, Right ear pain and loss of voice. Patient states this has been going on for 3 days. Patient states her right side of neck is swollen and hurts to touch. 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 She noted that she lost her voice several days ago and since then her throat is becoming more painful and she notes pain now in her right ear and swollen anterior cervical lymph node on the right side. She has a very mild cough but denies any recent fevers. ROS: As noted in HPI Physical Exam: VITALS: Reviewed. GEN: Healthy appearing, well-developed, NAD. PSYCH: AOx3. Normal memory, mood, and affect. HEENT -Eyes: -No discharge or redness; -Ears: Normal bilateral tympanic membranes -Mouth and throat: Moist mucous membranes. No pharyngeal erythema or exudate noted NECK: CV: Regular rate and rhythm LUNGS: Normal respiratory effort. Lungs clear bilaterally. SKIN: Warm, well perfused. No skin rashes or abnormal lesions noted. MSK: Normal gait. NEURO: Ambulating with no limitations. Normal muscle strength and tone. No focal deficits. Coding Level of Care Code Off vis,est,level 3 Diagnoses Dysfunction of left eustachian tube H69.92 Laterality: left Pharyngitis, unspecified etiology J02.9 Pharyngitis/tonsillitis etiology: unspecified etiology Assessment and Plan Assessment and Plan (1) Eustachian tube dysfunction: Status: Acute Qualifiers: Laterality: left Qualified Code(s): H69.92 - Unspecified Eustachian tube disorder, left ear Plan: No sign of otitis media on physical exam. Discussed with patient symptoms more consistent with eustachian tube dysfunction and recommended Flonase and Zyrtec. (2) Pharyngitis: Status: Acute Qualifiers: Pharyngitis/tonsillitis etiology: unspecified etiology Qualified Code(s): J02.9 - Acute pharyngitis, unspecified Plan: We did discuss possible strep testing however on physical exam I did not appreciate any obvious signs of strep and patient's symptoms otherwise sound viral in nature. Patient prefers not to do strep testing at this time. She will use uypu-jiv-phprtia cough and cold medications as needed. 02/10/24 1306 Date Asael Hamilton UPPER DOUBLER-C Cosigner Signature: Date (if applicable) CC: Normal [facility] XR CHEST 2 VIEWSon XR CHEST 2 VIEWS ORIGINAL EXAMINATION: TWO XRAY VIEWS OF THE CHEST 01/06/2024 12:20 pm COMPARISON: 08/17/2020 HISTORY: ORDERING SYSTEM PROVIDED HISTORY: Reason for Exam: hemoptysis FINDINGS: The lungs are without acute focal process. There is no effusion or pneumothorax. The cardiomediastinal silhouette is without acute process. The osseous structures are without acute process. IMPRESSION: No acute process. Interpreted by: Nikolai Hansen DO Preliminary Report By: Nikolai Hansen DO Electronically signed By Nikolai Hansen DO Dictated Date: 01/08/2024 2:32:42 PM Prelim Date: 01/08/2024 2:33:01 PM Sign Date: 01/08/2024 2:33:01 PM Ordering Provider: EBONI POP [facility] XR Foot - left AP and Latera l and obliqueon 11-28-2023 IMPRESSION: No acute osseous abnormality. Studio Potter: DEEPTI Transcribe Date/Time: Nov 28 2023 12:05P Dictated by : PAWAN ANDERSEN DO This examination was interpreted and the report reviewed and electronically signed by: PAWAN ANDERSEN DO on Nov 28 2023 12:07PM [facility] DIVISION OF RADIOLOGY * * *Final Report* * * DATE OF EXAM: Nov 28 2023 11:52AM WOX [id number] - XR FOOT 3V AP/LAT/OBL LT / PROCEDURE REASON: Foot pain, right * * * * Physician Interpretation * * * * EXAMINATION: XR FOOT 3V AP/LAT/OBL LT PATIENT/TECHNOLOGIST PROVIDED HISTORY: dropped a cell phone on left foot 2 weeks ago pain dorsal side mid 4-5th MT CLINICAL INFORMATION: 23 years old Female with Foot pain, right. Dropped phone on left foot 2 weeks ago att 4-5 metatarsal. TECHNIQUE: XR FOOT 3V AP/LAT/OBL LT Laterality: LEFT Number of different views (projections): 3 COMPARISON: None RESULT: No fracture. Joint spaces are maintained. DIVISION OF RADIOLOGY Provider, [facility] Horacio Kohli - 11/28/2023 * * *Final Report* * * DATE OF EXAM: Nov 28 2023 11:52AM WOX [id number] - XR FOOT 3V AP/LAT/OBL LT / PROCEDURE REASON: Foot pain, right * * * * Physician Interpretation * * * * EXAMINATION: XR FOOT 3V AP/LAT/OBL LT PATIENT/TECHNOLOGIST PROVIDED HISTORY: dropped a cell phone on left foot 2 weeks ago pain dorsal side mid 4-5th MT CLINICAL INFORMATION: 23 years old Female with Foot pain, right. Dropped phone on left foot 2 weeks ago att 4-5 metatarsal. TECHNIQUE: XR FOOT 3V AP/LAT/OBL LT Laterality: LEFT Number of different views (projections): 3 COMPARISON: None RESULT: No fracture. Joint spaces are maintained. IMPRESSION IMPRESSION: No acute osseous abnormality. Studio Potter: PSCB Transcribe Date/Time: Nov 28 2023 12:05P Dictated by : PAWAN ANDERSEN DO This examination was interpreted and the report reviewed and electronically signed by: PAWAN ANDERSEN DO on Nov 28 2023 12:07PM EST [facility] Radiology Study observation (narrative) [facility] XR Foot - left AP and Latera l and obliqueOrdered By: [facility]cf Provider on 11-28-2023 [facility] US Pelvison 10-12-2023 Indication Pelvic pain, spotting Impression Normal appearing anteverted uterus that measures 71 mm x 29 mm x 38 mm. Endometrium has a normal trilaminar appearance and measures 8.6 mm. Normal endometrial contour. Normal appearing left ovary with multiple tiny follicles. Right ovary contains a 12 x 11 x 11 mm corpus luteum cyst. No adnexal masses were observed. There is no free fluid visualized in the peritoneal cavity. Recommendations Follow up as clinically indicated. Menstrual History Cycle: LMP date not known. Contraception: none Method Transabdominal, transvaginal, 3D ultrasound examination, Color Doppler examination. View: Adequate visualization Uterus Uterus: Visualized Uterus position: anteverted Description of uterine malformations: none Myometrium: normal Endometrium: three-layer pattern Cervix details: normal Uterus length 71 mm Uterus width 38 mm Uterus height 29 mm Uterus Vol 40.2 cm Endometrial thickness, total 8.6 mm Fibroids: No fibroids identified Polyps: No polyps identified Right Ovary Rt ovary: Visualized Rt ovary D1 34 mm Rt ovary D2 26 mm Rt ovary D3 17 mm Rt ovary Vol 7.7 cm Rt ovarian cyst D1 12 mm Rt ovarian cyst D2 11 mm Rt ovarian cyst D3 11 mm Rt ovarian cyst mean 11.3 mm Rt ovarian cyst vol 0.760 cm Rt ovarian cyst findings: corpus luteum Left Ovary Lt ovary: Visualized Lt ovary morphology: premenopausal normal follicular Lt ovary D1 28 mm Lt ovary D2 25 mm Lt ovary D3 22 mm Lt ovary Vol 7.8 cm Cul de Sac Visualized. no free fluid visualized Performed By: Sidra Lopez RDMS Read By: Vivi Gama M.D. MATERNAL MEDICINE [facility] 25-hydroxyvitamin D3 [Mass/V ol]on 10-10-2023 Interpretation and review of laboratory results Abnormal [facility] The reference range interval was based on an analysis of samples from healthy adults and may not pertain to children from 0-18 years old. [facility] Comprehensive metabolic 2000 panelOrdered By: Grace Sands on 10-10-2023 Albumin [Mass/Vol] 3.7 g/dL Low 3.9 - 4.9 g/dL [facility] ALP [Catalytic activity/Vol] 121 U/L 34 - 123 U/L [facility] ALT [Catalytic activity/Vol] 27 U/L 7 - 38 U/L [facility] Anion gap [Moles/Vol] 12 mmol/L 8 - 15 mmol/L [facility] AST [Catalytic activity/Vol] 22 U/L 13 - 35 U/L [facility] Bilirubin [Mass/Vol] 0.5 mg/dL 0.2 - 1 .3 mg/dL [facility] Calcium [Mass/Vol] 9.8 mg/dL 8.5 - 10. 2 mg/dL [facility] Chloride [Moles/Vol] 103 mmol/L 98 - 10 7 mmol/L [facility] CO2 [Moles/Vol] 20 mmol/L Low 22 - 30 mmol/L [facility] Creatinine [Mass/Vol] 0.71 mg/dL 0.58 - 0.96 mg/dL [facility] GFR/1.73 sq M.predicted among non-blacks MDRD (S/P/Bld) [Vol rate/Area] 123 mL/min/{1.73_m2} - PINF [facility] Comment on above: Estimated Glomerular Filtration Rate (eGFR) is calculated using the 2020 CKD-EPI creatinine equation. This equation utilizes serum creatinine, sex, and age as parameters. The creatinine assay has traceable calibration to isotope dilution-mass spectrometry. Refer to KDIGO guidelines for clinical interpretation. In patients with unstable renal function, e.g. those with acute kidney injury, the eGFR may not accurately reflect actual GFR. Glucose [Mass/Vol] 91 mg/dL 74 - 99 mg/dL [facility] Comment on above: The [place] [employer] Association (ADA) provides guidance for cutoff values for fasting glucose and random glucose. The ADA defines fasting as no caloric intake for at least 8 hours. Fasting plasma glucose results between 100 to 125 mg/dL indicate increased risk for diabetes (prediabetes). Fasting plasma glucose results greater than or equal to 126 mg/dL meet the criteria for diagnosis of diabetes. In the absence of unequivocal hyperglycemia, results should be confirmed by repeat testing. In a patient with classic symptoms of hyperglycemia or hyperglycemic crisis, random plasma glucose results greater than or equal to 200 mg/dL meet the criteria for diagnosis of diabetes. Reference: Standards of Medical Care in Diabetes 2016, [place] [employer]. Diabetes Care. 2016.39(Suppl 1). Interpretation and review of laboratory results Abnormal [facility] Potassium [Moles/Vol] 4.2 mmol/L 3.7 - 5.1 mmol/L [facility] Protein [Mass/Vol] 7.2 g/dL 6.3 - 8.0 g/dL [facility] Sodium [Moles/Vol] 135 mmol/L Low 136 - 144 mmol/L [facility] Urea nitrogen [Mass/Vol] 9 mg/dL 7 - 21 mg/dL [facility] DHEA-S [facility] 10-10-2023 DHEA-S [Mass/Vol] 74.7 ug/dL Low 148.0 - 407.0 ug/dL [facility] Comment on above: Reference ranges are age and gender specific. For additional information, reference range tables can be found in the laboratory test directory. The normal values are based on the following source: Dehydroepiandrosterone sulfate (DHEA S) [package insert V 17.0 [place]i]. [facility], [place], [place]: September 2012. Interpretation and review of laboratory results Abnormal [facility] ESTRADIOL-17B [facility] 10-10-19 E2 [Mass/Vol] 45 pg/mL [facility] Comment on above: This test is not cathy table for patients receiving treatment with the drug Fulvestrant (Faslodex). The drug causes an interference leading to falsely elevated estradiol results. Menstrual cycle Estradiol reference ranges: Follicular : < 234 pg/mL Ovulation : 41 to 398 pg/mL Luteal : < 342 pg/mL Estradiol reference ranges vary by gestational period: First trimester : 154 to 3243 pg/mL Second trimester : 1561 to 42239 pg/mL Third trimester : 8285 to >24870 pg/mL Post-menopausal Estradiol reference range: < 41 pg/mL Reference: 1. Estradiol - E2 (Estradiol III) [package insert V 3.0 [place]i]. [facility], [place], [place], July 2015. FOLLICLE STIMULATING HORMONE on 10-10-2023 Follitropin Qn 7.0 m[IU]/mL See comment mIU/mL [facility] Comment on above: Reference range: Follicular: 3.5-12.5 mIU/mL Ovulation: 4.7-21.5 mIU/mL Luteal: 1.7-7.7 mIU/mL Postmenopausal: 25.8-134.8 mIU/mL GLUCOSE, FASTINGon 4 Glucose post fast [Mass/Vol] 89 mg/dL 74 - 99 mg/dL [facility] Comment on above: [place] Diabetes As sociation guidelines state that a diabetes mellitus diagnosis is preliminarily made when the fasting plasma glucose meets or exceeds 126 mg/dL. In the absence of unequivocal hyperglycemia, results should be confirmed with repeat testing. Patients are at increased risk for diabetes mellitus (prediabetes) when the fasting glucose is 100 to 125 mg/dL. Glucose post fast [Mass/Vol] on 10-10-2023 Interpretation and review of laboratory results Normal [facility] HCG QUANTITATIVEon 4 HCG.beta subunit Qn [facility] Comment on above: Negative HCG.beta subunit Qnon 2023 Interpretation and review of laboratory results Normal [facility] Lipid 1996 panelon 4 Cholesterol [Mass/Vol] 174 mg/dL NINF - 200 mg/dL [facility] Comment on above: <200 mg/dL, Desirabl e 200-239 mg/dL, Borderline high >239 mg/dL, High Cholesterol in HDL [Mass/Vol] 40 mg/dL 39 - PINF mg/dL [facility] Comment on above: 40-59 mg/dL, Accepta ble >59 mg/dL, High: Negative risk factor for coronary heart disease <40 mg/dL, Low: Positive risk factor for coronary heart disease Cholesterol in LDL [Mass/Vol] 112 mg/dL High NINF - 100 mg/dL [facility] Comment on above: <100 mg/dL, Optimal 100-129 mg/dL, Near optimal/above optimal 130-159 mg/dL, Borderline high 160-189 mg/dL, High >189 mg/dL, Very high Secondary prevention optimal LDL Cholesterol levels are recommended to be < 70 mg/dL Cholesterol in LDL/Cholesterol in HDL [Mass ratio] 2.80 {ratio} High NINF - 2.54 [facility] Comment on above: Reference: 1. National Cholesterol Education Program ATP III Guideline At-A-Glance Quick Desk Reference: National Heart, Lung, and Blood [place]. National Institutes of Health. 2001: NIH Publication No. 01-3305. 2. An International Atherosclerosis Society position paper: global recommendations for the management of dyslipidemia: executive summary, Atherosclerosis. 2014: 232(2):410-413. Cut Points from the [facility]'s Prevalence Study for ages 20 to 24 years can be located in the following reference: Expert Panel on Integrated Guidelines for Cardiovascular Health and Risk Reduction in Children and Adolescents: National Heart, Lung and Blood [place]. Pediatrics. 2011:128(Suppl 5):S590-213. Cholesterol in VLDL [Mass/Vol] 22 mg/dL NINF - 30 mg/dL [facility] Cholesterol non HDL [Mass/Vol] 134 mg/dL High NINF - 130 mg/dL [facility] Comment on above: <130 mg/dL, Optimal 130-159 mg/dL, Near optimal/above optimal 160-189 mg/dL, Borderline high 190-219 mg/dL, High >219 mg/dL, Very high Secondary prevention optimal non HDL Cholesterol levels are recommended to be <100 mg/dL Cholesterol.total/Ch olesterol in HDL [Mass ratio] 4.35 {ratio} NINF - 5.10 [facility] Fasting Time 12 hrs [facility] Interpretation and review of laboratory results Abnormal [facility] Triglyceride [Mass/Vol] 108 mg/dL NINF - 150 mg/dL [facility] Comment on above: <150 mg/dL, Normal 150-199 mg/dL, Borderline high 200-499 mg/dL, High >499 mg/dL, Very high [facility] No Panel Informationon 10-09 [facility] US Pelvison 10-10-2023 Radiology Study observation (narrative) [facility] VITAMIN D 25 HYDROXYon 10-09 25-hydroxyvitamin D3 [Mass/Vol] 16.6 ng/mL Low 31.0 - 80.0 ng/mL [facility] Comment on above: Classification of 25 [place] Vitamin D status: Deficiency/Insufficiency: < or = 30 ng/ml. Sufficiency/Optimal Levels: 31-80 ng/mL Toxicity: > 100 ng/mL. Test performed by chemiluminescent immunoassay. .Auto Diffon 02-21-2023 Basophil, Absolute 0.0 10 3/mcL Normal 0.0-0.2 [facility] ([place]) Comment on above: Performed By: #### F ES, GFR, ANEU, FERR, LIP, CMP, CBC, ADIFF #### [address] [address] #### FOL, B12 #### [address] [address] Basophils/100 WBC (Bld) 0.5 % Normal 0.0-2.5 [facility] ([place]) Comment on above: Performed By: #### F ES, GFR, ANEU, FERR, LIP, CMP, CBC, ADIFF #### [address] [address] #### FOL, B12 #### [address] [address] Eosinophil, Absolute 0.1 10 3/mcL Normal 0.0-0.4 [facility] ([place]) Comment on above: Performed By: #### F ES, GFR, ANEU, FERR, LIP, CMP, CBC, ADIFF #### [address] [address] #### FOL, B12 #### [address] [address] Eosinophils/100 WBC (Bld) 1.5 % Normal 0.0-7.0 [facility] ([place]) Comment on above: Performed By: #### F ES, GFR, ANEU, FERR, LIP, CMP, CBC, ADIFF #### [place] [address] #### FOL, B12 #### [address] [address] Lymphocyte, Absolute 2.2 10 3/mcL Normal 0.8-3.9 [facility] ([place]) Comment on above: Performed By: #### F ES, GFR, ANEU, FERR, LIP, CMP, CBC, ADIFF #### [address] [address] #### FOL, B12 #### [address] [address] Lymphocytes/100 WBC (Bld) 30.8 % Normal 10.0-50.0 [facility] ([place]) Comment on above: Performed By: #### F ES, GFR, ANEU, FERR, LIP, CMP, CBC, ADIFF #### [address] [address] #### FOL, B12 #### [address] [address] Monocyte, Absolute 0.4 10 3/mcL Normal 0.2-1.0 [facility] ([place]) Comment on above: Performed By: #### F ES, GFR, ANEU, FERR, LIP, CMP, CBC, ADIFF #### [place] [address] #### FOL, B12 #### [address] [address] Monocytes/100 WBC (Bld) 5.1 % Normal 1.7-13.0 [facility] ([place]) Comment on above: Performed By: #### F ES, GFR, ANEU, FERR, LIP, CMP, CBC, ADIFF #### [place] [address] #### FOL, B12 #### [address] [address] Neutrophils/100 WBC (Bld) 62.1 % Normal 37.0-80.0 [facility] ([place]) Comment on above: Performed By: #### F ES, GFR, ANEU, FERR, LIP, CMP, CBC, ADIFF #### [place] [address] #### FOL, B12 #### [place] [id number] [address] [place] [place] [address] .GFRon 02-21-2023 GFR 108 ml/min/1.73sqm Normal [facility] ([place]) Comment on above: Result Comment: GFR Population mean for , Non- Americans Ages 20-29 = 116 mL/min/1.73 sq.m. Ages 30-39 = 107 mL/min/1.73 sq.m. Ages 40-49 = 99 mL/min/1.73 sq.m. Ages 50-59 = 93 mL/min/1.73 sq.m. Ages 60-69 = 85 mL/min/1.73 sq.m. Ages 70+ = 75 mL/min/1.73 sq.m. Chronic Kidney Disease: Less than 60 mL/min/1.73 square meters End Stage Renal Disease: Less than 15 mL/min/1.73 square meters Performed By: #### F ES, GFR, ANEU, FERR, LIP, CMP, CBC, ADIFF ####[address] [place], [place] [address]#### FOL, B12 ####[place] [address] GFR Non- 89 ml/min/1.73sqm Normal [facility] ([place]) Comment on above: Result Comment: GFR Population mean for , Non- Americans Ages 20-29 = 116 mL/min/1.73 sq.m. Ages 30-39 = 107 mL/min/1.73 sq.m. Ages 40-49 = 99 mL/min/1.73 sq.m. Ages 50-59 = 93 mL/min/1.73 sq.m. Ages 60-69 = 85 mL/min/1.73 sq.m. Ages 70+ = 75 mL/min/1.73 sq.m. Chronic Kidney Disease: Less than 60 mL/min/1.73 square meters End Stage Renal Disease: Less than 15 mL/min/1.73 square meters Performed By: #### F ES, GFR, ANEU, FERR, LIP, CMP, CBC, ADIFF ####[address] [place], [place] [address]#### FOL, B12 ####[place] [address] .NEUABSon 02-21-2023 Neutrophil, Absolute 4.5 10 3/mcL Normal 2.9-6.2 [facility] ([place]) Comment on above: Performed By: #### F ES, GFR, ANEU, FERR, LIP, CMP, CBC, ADIFF #### [place] [address] #### FOL, B12 #### [place] [address] B12on 02-21-2023 Cobalamin (Vitamin B12) [Mass/Vol] 844 pg/mL Normal 211-911 [facility] ([place]) Comment on above: Performed By: #### F ES, GFR, ANEU, FERR, LIP, CMP, CBC, ADIFF ####[place] [address]#### FOL, B12 ####[place] [address] CBCon 02-21-2023 Erythrocyte distribution width (RBC) [Ratio] 16.5 % High 11.5-14.5 [facility] ([place]) Comment on above: Performed By: #### F ES, GFR, ANEU, FERR, LIP, CMP, CBC, ADIFF #### [place] [address] #### FOL, B12 #### [place] [address] Hematocrit (Bld) [Volume fraction] 35.7 % Low 37.0-47.0 [facility] ([place]) Comment on above: Performed By: #### F ES, GFR, ANEU, FERR, LIP, CMP, CBC, ADIFF #### [place] [address] #### FOL, B12 #### [place] [address] Hgb 11.9 G/dL Low 12.0-16.0 [facility] ([place]) Comment on above: Performed By: #### F ES, GFR, ANEU, FERR, LIP, CMP, CBC, ADIFF #### [place] [address] #### FOL, B12 #### [address] [address] MCH (RBC) [Entitic mass] 24.4 pg Low 27.0-31.2 [facility] ([place]) Comment on above: Performed By: #### F ES, GFR, ANEU, FERR, LIP, CMP, CBC, ADIFF #### [place] [address] #### FOL, B12 #### [place] [address] MCHC 33.4 G/dL Normal 33.0-37.0 [facility] ([place]) Comment on above: Performed By: #### F ES, GFR, ANEU, FERR, LIP, CMP, CBC, ADIFF #### [place] [address] #### FOL, B12 #### [place] [address] MCV (RBC) [Entitic vol] 73.1 fL Low 80.0-94.0 [facility] ([place]) Comment on above: Performed By: #### F ES, GFR, ANEU, FERR, LIP, CMP, CBC, ADIFF #### [place] [address] #### FOL, B12 #### [place] [address] Platelet 261 10 3/mcL Normal 130-400 [facility] ([place]) Comment on above: Performed By: #### F ES, GFR, ANEU, FERR, LIP, CMP, CBC, ADIFF #### [place] [address] #### FOL, B12 #### [place] [address] Platelet mean volume (Bld) [Entitic vol] 8.2 fL Normal 7.4-10.4 [facility] ([place]) Comment on above: Performed By: #### F ES, GFR, ANEU, FERR, LIP, CMP, CBC, ADIFF #### [place] [address] #### FOL, B12 #### [place] [address] RBC 4.88 10 6/mcL Normal 4.20-5.40 [facility] ([place]) Comment on above: Performed By: #### F ES, GFR, ANEU, FERR, LIP, CMP, CBC, ADIFF #### [place] [address] #### FOL, B12 #### [place] [address] WBC 7.2 10 3/mcL Normal 4.6-10.8 [facility] ([place]) Comment on above: Performed By: #### F ES, GFR, ANEU, FERR, LIP, CMP, CBC, ADIFF #### [place] [address] #### FOL, B12 #### [place] [address] CMPon 02-21-2023 Albumin Level 2.6 G/dL Low 3.5-5.0 [facility] ([place]) Comment on above: Performed By: #### F ES, GFR, ANEU, FERR, LIP, CMP, CBC, ADIFF ####[place] [address]#### FOL, B12 ####[place] [address] Albumin/Globulin [Mass ratio] 0.6 {ratio} Low 1.1-2.5 [facility] ([place]) Comment on above: Performed By: #### F ES, GFR, ANEU, FERR, LIP, CMP, CBC, ADIFF ####[place] [address]#### FOL, B12 ####[place] [address] ALP [Catalytic activity/Vol] 130 U/L Normal 40-135 [facility] ([place]) Comment on above: Performed By: #### F ES, GFR, ANEU, FERR, LIP, CMP, CBC, ADIFF ####[place] [address]#### FOL, B12 ####[address] [address] ALT [Catalytic activity/Vol] 18 U/L Normal 14-59 [facility] ([place]) Comment on above: Performed By: #### F ES, GFR, ANEU, FERR, LIP, CMP, CBC, ADIFF ####[place] [address]#### FOL, B12 ####[place] [address] AST [Catalytic activity/Vol] 8 U/L Low 10-40 [facility] ([place]) Comment on above: Performed By: #### F ES, GFR, ANEU, FERR, LIP, CMP, CBC, ADIFF ####[place] [address]#### FOL, B12 ####[address] [address] Bili Total 0.3 mg/dL Normal 0.2-1.0 [facility] ([place]) Comment on above: Result Comment: Use of this assay is not recommended for patients undergoing treatment with eltrombopag due to the potential for falsely elevated results. Performed By: #### F ES, GFR, ANEU, FERR, LIP, CMP, CBC, ADIFF ####[place] [address]#### FOL, B12 ####[address] [address] BUN/Creatinine Ratio 10 ratio Normal 7-27 [facility] ([place]) Comment on above: Performed By: #### F ES, GFR, ANEU, FERR, LIP, CMP, CBC, ADIFF ####[place] [address]#### FOL, B12 ####[address] [address] Calcium [Mass/Vol] 9.2 mg/dL Normal 8.4-10.2 [facility] ([place]) Comment on above: Performed By: #### F ES, GFR, ANEU, FERR, LIP, CMP, CBC, ADIFF ####[place] [address]#### FOL, B12 ####[place] [address] Chloride [Moles/Vol] 106 mmol/L Normal 98-107 [facility] ([place]) Comment on above: Performed By: #### F ES, GFR, ANEU, FERR, LIP, CMP, CBC, ADIFF ####[place] [address]#### FOL, B12 ####[place] [address] CO2 [Moles/Vol] 24 mmol/L Normal 22-29 [facility] ([place]) Comment on above: Performed By: #### F ES, GFR, ANEU, FERR, LIP, CMP, CBC, ADIFF ####[place] [address]#### FOL, B12 ####[place] [address] Creatinine [Mass/Vol] 0.81 mg/dL Normal 0.55-1.02 [facility] ([place]) Comment on above: Performed By: #### F ES, GFR, ANEU, FERR, LIP, CMP, CBC, ADIFF ####[place] [address]#### FOL, B12 ####[place] [address] Electrolyte Balance 11.0 mEq/L Normal 4.0-15.0 [facility] ([place]) Comment on above: Performed By: #### F ES, GFR, ANEU, FERR, LIP, CMP, CBC, ADIFF ####[place] [address]#### FOL, B12 ####[place] [address] Globulin 4.0 G/dL Normal [facility] ([place]) Comment on above: Performed By: #### F ES, GFR, ANEU, FERR, LIP, CMP, CBC, ADIFF ####[address] [address]#### FOL, B12 ####[address] [address] Glucose [Mass/Vol] 91 mg/dL Normal 70-105 [facility] ([place]) Comment on above: Performed By: #### F ES, GFR, ANEU, FERR, LIP, CMP, CBC, ADIFF ####[address] [address]#### FOL, B12 ####[address] [address] Potassium [Moles/Vol] 4.3 mmol/L Normal 3.5-5.1 [facility] ([place]) Comment on above: Performed By: #### F ES, GFR, ANEU, FERR, LIP, CMP, CBC, ADIFF ####[address] [address]#### FOL, B12 ####[address] [address] Sodium [Moles/Vol] 141 mmol/L Normal 136-145 [facility] ([place] Comment on above: Performed By: #### F ES, GFR, ANEU, FERR, LIP, CMP, CBC, ADIFF ####[address] [address]#### FOL, B12 ####[address] [address] Total Protein 6.6 G/dL Normal 6.4-8.2 [facility] ([place]) Comment on above: Performed By: #### F ES, GFR, ANEU, FERR, LIP, CMP, CBC, ADIFF ####[facility] [place], [place] [address]#### FOL, B12 ####[address] [address] Urea nitrogen [Mass/Vol] 8 mg/dL Normal 7-18 [facility] ([place]) Comment on above: Performed By: #### F ES, GFR, ANEU, FERR, LIP, CMP, CBC, ADIFF ####[address] [address]#### FOL, B12 ####[address] [address] Alicia 02-21-2023 Ferritin [Mass/Vol] 22.0 ng/mL Normal 8.0-252.0 [facility] ([place]) Comment on above: Performed By: #### F ES, GFR, ANEU, FERR, LIP, CMP, CBC, ADIFF #### [place] [address] #### FOL, B12 #### [place] [address] FESon 02-21-2023 Iron [Mass/Vol] 26 ug/dL Low 50-170 [facility] ([place]) Comment on above: Performed By: #### F ES, GFR, ANEU, FERR, LIP, CMP, CBC, ADIFF ####[place] [address]#### FOL, B12 ####[place] [address] Iron Sat 6 % Normal [facility] ([place]) Comment on above: Performed By: #### F ES, GFR, ANEU, FERR, LIP, CMP, CBC, ADIFF ####[place] [address]#### FOL, B12 ####[place] [address] TIBC 401 mcg/dL Normal 250-450 [facility] ([place]) Comment on above: Performed By: #### F ES, GFR, ANEU, FERR, LIP, CMP, CBC, ADIFF ####[place] [address]#### FOL, B12 ####[place] [address] FOLon 02-21-2023 Folate 6.06 ng/mL Normal 5.38-24.00 [facility] ([place]) Comment on above: Performed By: #### F ES, GFR, ANEU, FERR, LIP, CMP, CBC, ADIFF ####[address] [place], [place] [address]#### FOL, B12 ####[place] [address] LABORATORYOrdered By: SYSTEM SYSTEM on 02-21-2023 Albumin BCP dye [Mass/Vol] 2.6 G/dL Low 3.5 - 5.0 G/dL AO ADM SS Albumin/Globulin [Mass ratio] 0.6 {ratio} Low 1.1 - 2.5 ratio AO ADM SS ALP [Catalytic activity/Vol] 130 U/L Normal 40 - 135 U/L AO ADM SS ALT With P-5'-P [Catalytic activity/Vol] 18 U/L Normal 14 - 59 U/L AO ADM SS AST With P-5'-P [Catalytic activity/Vol] 8 U/L Low 10 - 40 U/L AO ADM SS Basophil, Absolute 0.0 103/mcL Normal 0.0 - 0.2 10^3/mcL AO Workflow SS Basophils/100 WBC (Bld) 0.5 % Normal 0.0 - 2.5 % AO Workflow SS Bilirubin [Mass/Vol] 0.3 mg/dL Normal 0.2 - 1 .0 mg/dL AO ADM SS Comment on above: Interpretive Data: U se of this assay is not recommended for patients undergoing treatment with eltrombopag due to the potential for falsely elevated results. Calcium [Mass/Vol] 9.2 mg/dL Normal 8.4 - 10. 2 mg/dL AO ADM SS Chloride [Moles/Vol] 106 mmol/L Normal 98 - 10 7 mmol/L AO ADM SS CO2 [Moles/Vol] 24 mmol/L Normal 22 - 29 mmol/L AO ADM SS Cobalamin (Vitamin B12) [Mass/Vol] 844 pg/mL Normal 211 - 911 pg/mL AH ADM SS Creatinine [Mass/Vol] 0.81 mg/dL Normal 0.55 - 1.02 mg/dL AO ADM SS Electrolyte Balance 11.0 mEq/L Normal 4.0 - 15 .0 mEq/L AO ADM SS Eosinophil, Absolute 0.1 103/mcL Normal 0.0 - 0 .4 10^3/mcL AO Workflow SS Eosinophils/100 WBC (Bld) 1.5 % Normal 0.0 - 7.0 % AO Workflow SS Erythrocyte distribution width (RBC) [Ratio] 16.5 % High 11.5 - 14.5 % AO Workflow SS Ferritin [Mass/Vol] 22.0 ng/mL Normal 8.0 - 25 2.0 ng/mL AO ADM SS Folate [Mass/Vol] 6.06 ng/mL Normal 5.38 - 24. 00 ng/mL AH ADM SS GFR/1.73 sq M.predicted among blacks MDRD (S/P/Bld) [Vol rate/Area] 108 ml/min/1.73sqm Invalid Interpretation Code AO Chemistry S Comment on above: Interpretive Data: GFR Population mean for , Non- Americans Ages 20-29 = 116 mL/min/1.73 sq.m. Ages 30-39 = 107 mL/min/1.73 sq.m. Ages 40-49 = 99 mL/min/1.73 sq.m. Ages 50-59 = 93 mL/min/1.73 sq.m. Ages 60-69 = 85 mL/min/1.73 sq.m. Ages 70+ = 75 mL/min/1.73 sq.m. Chronic Kidney Disease: Less than 60 mL/min/1.73 square meters End Stage Renal Disease: Less than 15 mL/min/1.73 square meters GFR/1.73 sq M.predicted among non-blacks MDRD (S/P/Bld) [Vol rate/Area] 89 ml/min/1.73sqm Invalid Interpretation Code AO Chemistry S Comment on above: Interpretive Data: GFR Population mean for , Non- Americans Ages 20-29 = 116 mL/min/1.73 sq.m. Ages 30-39 = 107 mL/min/1.73 sq.m. Ages 40-49 = 99 mL/min/1.73 sq.m. Ages 50-59 = 93 mL/min/1.73 sq.m. Ages 60-69 = 85 mL/min/1.73 sq.m. Ages 70+ = 75 mL/min/1.73 sq.m. Chronic Kidney Disease: Less than 60 mL/min/1.73 square meters End Stage Renal Disease: Less than 15 mL/min/1.73 square meters Globulin 4.0 G/dL Invalid Interpretation Code AO ADM SS Glucose [Mass/Vol] 91 mg/dL Normal 70 - 105 mg/dL AO ADM SS Hematocrit (Bld) [Volume fraction] 35.7 % Low 37.0 - 47.0 % AO Workflow SS Hemoglobin (Bld) [Mass/Vol] 11.9 G/dL Low 12.0 - 16.0 G/dL AO Workflow SS Iron [Mass/Vol] 26 ug/dL Low 50 - 170 mcg/dL AO ADM SS Iron binding capacity [Mass/Vol] 401 mcg/dL Normal 250 - 450 mcg/dL AO ADM SS Iron Sat 6 % Invalid Interpretation Code AO ADM SS Lipase [Catalytic activity/Vol] 35 U/L Normal 16 - 77 U/L AO ADM SS Lymphocyte, Absolute 2.2 103/mcL Normal 0.8 - 3 .9 10^3/mcL AO Workflow SS Lymphocytes/100 WBC (Bld) 30.8 % Normal 10.0 - 50.0 % AO Workflow SS MCH (RBC) [Entitic mass] 24.4 pg Low 27.0 - 31.2 pg AO Workflow SS MCHC 33.4 G/dL Normal 33.0 - 37.0 G/dL AO Workflow SS MCV (RBC) [Entitic vol] 73.1 fL Low 80.0 - 94.0 fL AO Workflow SS Monocyte, Absolute 0.4 103/mcL Normal 0.2 - 1.0 10^3/mcL AO Workflow SS Monocytes/100 WBC (Bld) 5.1 % Normal 1.7 - 13.0 % AO Workflow SS Neutrophil, Absolute 4.5 103/mcL Normal 2.9 - 6 .2 10^3/mcL AO Workflow SS Neutrophils/100 WBC (Bld) 62.1 % Normal 37.0 - 80.0 % AO Workflow SS Platelet mean volume (Bld) [Entitic vol] 8.2 fL Normal 7.4 - 10.4 fL AO Workflow SS Platelets (Bld) [#/Vol] 261 103/mcL Normal 130 - 400 10^3/mcL AO Workflow SS Potassium [Moles/Vol] 4.3 mmol/L Normal 3.5 - 5.1 mmol/L AO ADM SS Protein [Mass/Vol] 6.6 G/dL Normal 6.4 - 8.2 G/dL AO ADM SS RBC (Bld) [#/Vol] 4.88 106/mcL Normal 4.20 - 5.4 0 10^6/mcL AO Workflow SS Sodium [Moles/Vol] 141 mmol/L Normal 136 - 145 mmol/L AO ADM SS Urea nitrogen [Mass/Vol] 8 mg/dL Normal 7 - 18 mg/dL AO ADM SS Urea nitrogen/Creatinine [Mass ratio] 10 ratio Normal 7 - 27 ratio AO ADM SS WBC (Bld) [#/Vol] 7.2 103/mcL Normal 4.6 - 10.8 10^3/mcL AO Workflow SS LIPon 02-21-2023 Lipase Level 35 U/L Normal 16-77 [facility] ([place]) Comment on above: Performed By: #### F ES, GFR, ANEU, FERR, LIP, CMP, CBC, ADIFF ####[address] [place], [place] [address]#### FOL, B12 ####[place] [address] MRI MRCPon 02-21-2023 MRI MRCP ORIGINAL EXAMINATION: MRCP 02/21/2023 9:28 am TECHNIQUE: After initial T2 axial and coronal images, thick slab, thin slab and 3D coronal MRCP sequences were obtained without the administration of intravenous contrast. MIP images are provided for review. COMPARISON: CT scan February 13, 2023 HISTORY: ORDERING SYSTEM PROVIDED HISTORY: Reason for Exam: RO CHOLEDOCHOLITHIASIS FINDINGS: The intrahepatic bile ducts are normal in caliber without dilatation. The common bile duct is normal, 3-4 mm in size. No pancreatic ductal dilatation is evident. There is no common bile duct defect identified to indicate stone. No additional contributory abnormality identified. IMPRESSION: Normal exam. Interpreted by: Brandt Villalta MD Preliminary Report By: Brandt Villalta MD Electronically signed By Brandt Villalta MD Dictated Date: 02/21/2023 9:47:38 AM Prelim Date: 02/21/2023 9:51:22 AM Sign Date: 02/21/2023 9:51:22 AM Ordering Provider: MILIND Aj [facility] ([place]) .Auto Diffon 02-13-2023 Basophil, Absolute 0.1 10 3/mcL Normal 0.0-0.2 [facility] ([place]) Comment on above: Performed By: #### L IP, CMP, ADIFF, TROPHS, ANEU, GFR, CBC, MDW ####[address] [place], [place] [address] Basophils/100 WBC (Bld) 0.7 % Normal 0.0-2.5 [facility] ([place]) Comment on above: Performed By: #### L IP, CMP, ADIFF, TROPHS, ANEU, GFR, CBC, MDW ####[address] [place], [place] [address] Eosinophil, Absolute 0.1 10 3/mcL Normal 0.0-0.4 [facility] ([place]) Comment on above: Performed By: #### L IP, CMP, ADIFF, TROPHS, ANEU, GFR, CBC, MDW ####[address] [place], [place] [address] Eosinophils/100 WBC (Bld) 1.1 % Normal 0.0-7.0 [facility] ([place]) Comment on above: Performed By: #### L IP, CMP, ADIFF, TROPHS, ANEU, GFR, CBC, MDW ####[address] [place], [place] [address] Lymphocyte, Absolute 2.8 10 3/mcL Normal 0.8-3.9 [facility] ([place]) Comment on above: Performed By: #### L IP, CMP, ADIFF, TROPHS, ANEU, GFR, CBC, MDW ####E[address] [place], [place] [address] Lymphocytes/100 WBC (Bld) 27.1 % Normal 10.0-50.0 [facility] ([place]) Comment on above: Performed By: #### L IP, CMP, ADIFF, TROPHS, ANEU, GFR, CBC, MDW ####E[address] [place], [place] [address] Monocyte, Absolute 0.4 10 3/mcL Normal 0.2-1.0 [facility] ([place]) Comment on above: Performed By: #### L IP, CMP, ADIFF, TROPHS, ANEU, GFR, CBC, MDW ####E[address] [place], [place] [address] Monocytes/100 WBC (Bld) 4.0 % Normal 1.7-13.0 [facility] ([place]) Comment on above: Performed By: #### L IP, CMP, ADIFF, TROPHS, ANEU, GFR, CBC, MDW ####E[address] [place], [place] [address] Neutrophils/100 WBC (Bld) 67.1 % Normal 37.0-80.0 [facility] ([place]) Comment on above: Performed By: #### L IP, CMP, ADIFF, TROPHS, ANEU, GFR, CBC, MDW ####Eli [address] [place], [place] [address] .GFRon 02-13-2023 GFR 102 ml/min/1.73sqm Normal [facility] ([place]) Comment on above: Result Comment: GFR Population mean for , Non- Americans Ages 20-29 = 116 mL/min/1.73 sq.m. Ages 30-39 = 107 mL/min/1.73 sq.m. Ages 40-49 = 99 mL/min/1.73 sq.m. Ages 50-59 = 93 mL/min/1.73 sq.m. Ages 60-69 = 85 mL/min/1.73 sq.m. Ages 70+ = 75 mL/min/1.73 sq.m. Chronic Kidney Disease: Less than 60 mL/min/1.73 square meters End Stage Renal Disease: Less than 15 mL/min/1.73 square meters Performed By: #### U A, PREGU #### Eli [address] [place], [place] [address] GFR Non- 84 ml/min/1.73sqm Normal [facility] ([place]) Comment on above: Result Comment: GFR Population mean for , Non- Americans Ages 20-29 = 116 mL/min/1.73 sq.m. Ages 30-39 = 107 mL/min/1.73 sq.m. Ages 40-49 = 99 mL/min/1.73 sq.m. Ages 50-59 = 93 mL/min/1.73 sq.m. Ages 60-69 = 85 mL/min/1.73 sq.m. Ages 70+ = 75 mL/min/1.73 sq.m. Chronic Kidney Disease: Less than 60 mL/min/1.73 square meters End Stage Renal Disease: Less than 15 mL/min/1.73 square meters Performed By: #### U A PREGU #### Eli [address] [place] [address] .MDWon 02-13-2023 Monocyte Distribution Width 21.08 High 0.00-20.00 [facility] ([place]) Comment on above: Result Comment: For adults in ED, MDW>20.0 may be associated with a higher risk of sepsis during the first 12hrs of hospital admission Performed By: #### L IP, CMP, ADIFF, TROPHS, ANEU, GFR, CBC, MDW ####[address] [place], [place] [address] .NEUABSon 02-13-2023 Neutrophil, Absolute 7.0 10 3/mcL High 2.9-6.2 [facility] ([place]) Comment on above: Performed By: #### L IP, CMP, ADIFF, TROPHS, ANEU, GFR, CBC, CESAR ####E[address] [place], [place] [address] CBCon 02-13-2023 Erythrocyte distribution width (RBC) [Ratio] 16.2 % High 11.5-14.5 [facility] ([place]) Comment on above: Performed By: #### L IP, CMP, ADIFF, TROPHS, ANEU, GFR, CBC, MDW ####Eli [address] [place], [place] [address] Hematocrit (Bld) [Volume fraction] 37.5 % Normal 37.0-47.0 [facility] ([place]) Comment on above: Performed By: #### L IP, CMP, ADIFF, TROPHS, ANEU, GFR, CBC, MDW ####[address] [place], [place] [address] Hgb 12.5 G/dL Normal 12.0-16.0 [facility] ([place]) Comment on above: Performed By: #### L IP, CMP, ADIFF, TROPHS, ANEU, GFR, CBC, W ####Eli [address] [place], [place] [address] MCH (RBC) [Entitic mass] 24.4 pg Low 27.0-31.2 [facility] ([place]) Comment on above: Performed By: #### L IP, CMP, ADIFF, TROPHS, ANEU, GFR, CBC, MDW ####E[address] [place], [place] [address] MCHC 33.2 G/dL Normal 33.0-37.0 [facility] ([place]) Comment on above: Performed By: #### L IP, CMP, ADIFF, TROPHS, ANEU, GFR, CBC, MDW ####Eli [address] [place], [place] [address] MCV (RBC) [Entitic vol] 73.4 fL Low 80.0-94.0 [facility] ([place]) Comment on above: Performed By: #### L IP, CMP, ADIFF, TROPHS, ANEU, GFR, CBC, MDW ####Eli [address] [place], [place] [address] Platelet 282 10 3/mcL Normal 130-400 [facility] ([place]) Comment on above: Performed By: #### L IP, CMP, ADIFF, TROPHS, ANEU, GFR, CBC, MDW ####E[address] [place], [place] [address] Platelet mean volume (Bld) [Entitic vol] 7.8 fL Normal 7.4-10.4 [facility] ([place]) Comment on above: Performed By: #### L IP, CMP, ADIFF, TROPHS, ANEU, GFR, CBC, W ####E[address] [place], [place] [address] RBC 5.10 10 6/mcL Normal 4.20-5.40 [facility] ([place]) Comment on above: Performed By: #### L IP, CMP, ADIFF, TROPHS, ANEU, GFR, CBC, MDW ####[address] [address] WBC 10.4 10 3/mcL Normal 4.6-10.8 [facility] ([place]) Comment on above: Performed By: #### L IP, CMP, ADIFF, TROPHS, ANEU, GFR, CBC, MDW ####Eli [address] [address] CMPon 02-13-2023 Albumin Level 3.0 G/dL Low 3.5-5.0 [facility] ([place]) Comment on above: Performed By: #### U A, PREGU #### [address] [address] Albumin/Globulin [Mass ratio] 0.7 {ratio} Low 1.1-2.5 [facility] ([place]) Comment on above: Performed By: #### U A, PREGU #### [address] [address] ALP [Catalytic activity/Vol] 146 U/L High 40-135 [facility] ([place]) Comment on above: Performed By: #### U A, PREGU #### [address] [address] ALT [Catalytic activity/Vol] 24 U/L Normal 14-59 [facility] ([place]) Comment on above: Performed By: #### U A, PREGU #### [address] [address] AST [Catalytic activity/Vol] 20 U/L Normal 10-40 [facility] ([place]) Comment on above: Performed By: #### U A, PREGU #### [address] [address] Bili Total 0.4 mg/dL Normal 0.2-1.0 [facility] ([place]) Comment on above: Result Comment: Use of this assay is not recommended for patients undergoing treatment with eltrombopag due to the potential for falsely elevated results. Performed By: #### U A, PREGU #### [address] [address] BUN/Creatinine Ratio 11 ratio Normal 7-27 [facility] ([place]) Comment on above: Performed By: #### U A, PREGU #### [address] [address] Calcium [Mass/Vol] 9.3 mg/dL Normal 8.4-10.2 [facility] ([place]) Comment on above: Performed By: #### U A, PREGU #### [address] [address] Chloride [Moles/Vol] 103 mmol/L Normal 98-107 [facility] ([place]) Comment on above: Performed By: #### U A, PREGU #### [address] [address] CO2 [Moles/Vol] 23 mmol/L Normal 22-29 [facility] ([place]) Comment on above: Performed By: #### U A, PREGU #### [address] [address] Creatinine [Mass/Vol] 0.85 mg/dL Normal 0.55-1.02 [facility] ([place]) Comment on above: Performed By: #### U A, PREGU #### [address] [address] Electrolyte Balance 12.0 mEq/L Normal 4.0-15.0 [facility] ([place]) Comment on above: Performed By: #### U A, PREGU #### [address] [address] Globulin 4.1 G/dL Normal [facility] ([place]) Comment on above: Performed By: #### U A, PREGU #### [address] [address] Glucose [Mass/Vol] 96 mg/dL Normal 70-105 [facility] ([place]) Comment on above: Performed By: #### U A, PREGU #### [address] [address] Potassium [Moles/Vol] 4.5 mmol/L Normal 3.5-5.1 [facility] ([place]) Comment on above: Performed By: #### U A, PREGU #### [facility] [address] [place], [place] [address] Sodium [Moles/Vol] 138 mmol/L Normal 136-145 [facility] ([place]) Comment on above: Performed By: #### U A, PREGU #### [facility] [address] [place], [place] [address] Total Protein 7.1 G/dL Normal 6.4-8.2 [facility] ([place]) Comment on above: Performed By: #### U A, PREGU #### [facility] [address] [place], [place] [address] Urea nitrogen [Mass/Vol] 9 mg/dL Normal 7-18 [facility] ([place]) Comment on above: Performed By: #### U A, PREGU #### [address] [place], [place] [address] CT ABD/PELVIS W/ IV CONTRAST ONLYon 02-13-2023 CT ABD/PELVIS W/ IV CONTRAST ONLY ORIGINAL EXAMINATION: CT OF THE ABDOMEN AND PELVIS WITH CONTRAST 02/13/2023 7:50 am TECHNIQUE: CT of the abdomen and pelvis was performed with the administration of intravenous contrast. Multiplanar reformatted images are provided for review. Automated exposure control, iterative reconstruction, and/or weight based adjustment of the mA/kV was utilized to reduce the radiation dose to as low as reasonably achievable. COMPARISON: CT abdomen pelvis 10/03/2021 HISTORY: ORDERING SYSTEM PROVIDED HISTORY: Reason for Exam: pain FINDINGS: The heart is normal in size. No pericardial thickening. Small amount of pericardial fluid. Visualized lung bases are clear. The aorta is nonaneurysmal with no significant atherosclerotic disease. Few prominent right lower quadrant and central mesentery root lymph nodes are noted, unchanged from the prior 10/03/2021 study. The liver is unremarkable. Splenomegaly measuring up to 15.2 cm, stable. Prior cholecystectomy. The pancreas and bilateral adrenal glands are unremarkable. Symmetric nephrograms. No hydronephrosis or renal calculi. The ureters and bladder are unremarkable. The uterus and adnexa are unremarkable. No pneumoperitoneum or free fluid. The large and small bowel are normal in caliber. Few scattered diverticula without evidence of diverticulitis. The appendix is unremarkable. No acute osseous abnormality. Chronic right L5 pars defect. IMPRESSION: No acute abnormality within the abdomen or pelvis. Few scattered diverticula without evidence of diverticulitis. Stable mild splenomegaly. Preliminary Report was Dictated by a Resident Interpreted by: Scout Lopez MD Preliminary Report By: Yovanny Serra Electronically signed By Scout Lopez MD Dictated Date: 02/13/2023 7:52:19 AM Prelim Date: 02/13/2023 7:57:47 AM Sign Date: 02/13/2023 8:57:45 AM Ordering Provider: JEFFREY NICK [facility] ([place]) LABORATORYOrdered By: Rajan Smiley on 02-13-2023 Appearance (U) Clear (02/13/23 7:52 AM) Normal Clear AO Auto Urine SS Bilirubin Ql (U) Negative (02/13/23 7:52 AM) Normal Negative AO Auto Urine SS Color (U) Yellow (02/13/23 7:52 AM) Normal AO Auto Urine SS Glucose Test strip (U) [Mass/Vol] Negative Normal Negative AO Auto Urine SS HCG ( test) Ql Negative (02/13/23 7:52 AM) Normal AO Manual Urine SS Hemoglobin Auto test strip (U) [Mass/Vol] Negative (02/13/23 7:52 AM) Normal Negative AO Auto Urine SS Ketones Ql (U) Negative Normal Negative AO Auto Urine SS test (u) int Not detected Invalid Interpretation Code AO Manual Urine SS UA Leuk Est Negative (02/13/23 7:52 AM) Normal Negative AO Auto Urine SS UA Nitrite Negative (02/13/23 7:52 AM) Normal Negative AO Auto Urine SS UA pH 6.5 (02/13/23 7:52 AM) Normal 5.0 - 8.0 AO Auto Urine SS UA Protein Negative Normal Negative AO Auto Urine SS UA Spec Grav <=1.005 *ABN* (02/13/23 7:52 AM) Invalid Interpretation Code 1.015-1.025 AO Auto Urine SS UA Specimen Type Clean Catch (02/13/23 7:52 AM) Normal AO Auto Urine SS UA Urobilinogen 0.2 E.U./dL Normal 0.2-1.0 AO Auto Urine SS LABORATORYOrdered By: Dayana Doyle on 02-13-2023 HCG ( test) Ql (U) Negative (02/13/23 6:53 AM) Normal AO Rapid Testing SS test (s) int Not detected Invalid Interpretation Code AO Rapid Testing SS LABORATORYOrdered By: SYSTEM SYSTEM on 02-13-2023 Albumin BCP dye [Mass/Vol] 3.0 G/dL Low 3.5 - 5.0 G/dL AO ADM SS Albumin/Globulin [Mass ratio] 0.7 {ratio} Low 1.1 - 2.5 ratio AO ADM SS ALP [Catalytic activity/Vol] 146 U/L High 40 - 135 U/L AO ADM SS ALT With P-5'-P [Catalytic activity/Vol] 24 U/L Normal 14 - 59 U/L AO ADM SS AST With P-5'-P [Catalytic activity/Vol] 20 U/L Normal 10 - 40 U/L AO ADM SS Basophil, Absolute 0.1 103/mcL Normal 0.0 - 0.2 10^3/mcL AO Workflow SS Basophils/100 WBC (Bld) 0.7 % Normal 0.0 - 2.5 % AO Workflow SS Bilirubin [Mass/Vol] 0.4 mg/dL Normal 0.2 - 1 .0 mg/dL AO ADM SS Comment on above: Interpretive Data: U se of this assay is not recommended for patients undergoing treatment with eltrombopag due to the potential for falsely elevated results. Calcium [Mass/Vol] 9.3 mg/dL Normal 8.4 - 10. 2 mg/dL AO ADM SS Chloride [Moles/Vol] 103 mmol/L Normal 98 - 10 7 mmol/L AO ADM SS CO2 [Moles/Vol] 23 mmol/L Normal 22 - 29 mmol/L AO ADM SS Creatinine [Mass/Vol] 0.85 mg/dL Normal 0.55 - 1.02 mg/dL AO ADM SS Electrolyte Balance 12.0 mEq/L Normal 4.0 - 15 .0 mEq/L AO ADM SS Eosinophil, Absolute 0.1 103/mcL Normal 0.0 - 0 .4 10^3/mcL AO Workflow SS Eosinophils/100 WBC (Bld) 1.1 % Normal 0.0 - 7.0 % AO Workflow SS Erythrocyte distribution width (RBC) [Ratio] 16.2 % High 11.5 - 14.5 % AO Workflow SS GFR/1.73 sq M.predicted among blacks MDRD (S/P/Bld) [Vol rate/Area] 102 ml/min/1.73sqm Invalid Interpretation Code AO Chemistry S Comment on above: Interpretive Data: GFR Population mean for , Non- Americans Ages 20-29 = 116 mL/min/1.73 sq.m. Ages 30-39 = 107 mL/min/1.73 sq.m. Ages 40-49 = 99 mL/min/1.73 sq.m. Ages 50-59 = 93 mL/min/1.73 sq.m. Ages 60-69 = 85 mL/min/1.73 sq.m. Ages 70+ = 75 mL/min/1.73 sq.m. Chronic Kidney Disease: Less than 60 mL/min/1.73 square meters End Stage Renal Disease: Less than 15 mL/min/1.73 square meters GFR/1.73 sq M.predicted among non-blacks MDRD (S/P/Bld) [Vol rate/Area] 84 ml/min/1.73sqm Invalid Interpretation Code AO Chemistry S Comment on above: Interpretive Data: GFR Population mean for , Non- Americans Ages 20-29 = 116 mL/min/1.73 sq.m. Ages 30-39 = 107 mL/min/1.73 sq.m. Ages 40-49 = 99 mL/min/1.73 sq.m. Ages 50-59 = 93 mL/min/1.73 sq.m. Ages 60-69 = 85 mL/min/1.73 sq.m. Ages 70+ = 75 mL/min/1.73 sq.m. Chronic Kidney Disease: Less than 60 mL/min/1.73 square meters End Stage Renal Disease: Less than 15 mL/min/1.73 square meters Globulin 4.1 G/dL Invalid Interpretation Code AO ADM SS Glucose [Mass/Vol] 96 mg/dL Normal 70 - 105 mg/dL AO ADM SS Hematocrit (Bld) [Volume fraction] 37.5 % Normal 37.0 - 47.0 % AO Workflow SS Hemoglobin (Bld) [Mass/Vol] 12.5 G/dL Normal 12.0 - 16.0 G/dL AO Workflow SS Lipase [Catalytic activity/Vol] 28 U/L Normal 16 - 77 U/L AO ADM SS Lymphocyte, Absolute 2.8 103/mcL Normal 0.8 - 3 .9 10^3/mcL AO Workflow SS Lymphocytes/100 WBC (Bld) 27.1 % Normal 10.0 - 50.0 % AO Workflow SS MCH (RBC) [Entitic mass] 24.4 pg Low 27.0 - 31.2 pg AO Workflow SS MCHC 33.2 G/dL Normal 33.0 - 37.0 G/dL AO Workflow SS MCV (RBC) [Entitic vol] 73.4 fL Low 80.0 - 94.0 fL AO Workflow SS Monocyte distribution width Auto (Bld) [Entitic vol] 21.08 1 High 0.00 - 20.00 AO Workflow SS Comment on above: Result Comment: For adults in ED, MDW>20.0 may be associated with a higher risk of sepsis during the first 12hrs of hospital admission Monocyte, Absolute 0.4 103/mcL Normal 0.2 - 1.0 10^3/mcL AO Workflow SS Monocytes/100 WBC (Bld) 4.0 % Normal 1.7 - 13.0 % AO Workflow SS Neutrophil, Absolute 7.0 103/mcL High 2.9 - 6 .2 10^3/mcL AO Workflow SS Neutrophils/100 WBC (Bld) 67.1 % Normal 37.0 - 80.0 % AO Workflow SS Platelet mean volume (Bld) [Entitic vol] 7.8 fL Normal 7.4 - 10.4 fL AO Workflow SS Platelets (Bld) [#/Vol] 282 103/mcL Normal 130 - 400 10^3/mcL AO Workflow SS Potassium [Moles/Vol] 4.5 mmol/L Normal 3.5 - 5.1 mmol/L AO ADM SS Protein [Mass/Vol] 7.1 G/dL Normal 6.4 - 8.2 G/dL AO ADM SS RBC (Bld) [#/Vol] 5.10 106/mcL Normal 4.20 - 5.4 0 10^6/mcL AO Workflow SS Sodium [Moles/Vol] 138 mmol/L Normal 136 - 145 mmol/L AO ADM SS Troponin I.cardiac DL <= 0.01 ng/mL [Mass/Vol] ng/L Normal 0.0 - 51.4 ng/L AO ADM SS Urea nitrogen [Mass/Vol] 9 mg/dL Normal 7 - 18 mg/dL AO ADM SS Urea nitrogen/Creatinine [Mass ratio] 11 ratio Normal 7 - 27 ratio AO ADM SS WBC (Bld) [#/Vol] 10.4 103/mcL Normal 4.6 - 10.8 10^3/mcL AO Workflow SS LIPon 02-13-2023 Lipase Level 28 U/L Normal 16-77 [facility] ([place]) Comment on above: Performed By: #### L IP, CMP, ADIFF, TROPHS, ANEU, GFR, CBC, MDW ####[address] [place] [address] PREGSon 02-13-2023 test (s) Negative Normal [facility] ([place]) Comment on above: Performed By: #### P REGS #### [place] [address] test (s) int Not detected Invalid Interpretation Code [facility] ([place]) Comment on above: Performed By: #### P REGS #### [place] [place] [address] PREGUon 02-13-2023 HCG ( test) Ql (U) Negative Normal [facility] ([place]) Comment on above: Performed By: #### U A, PREGU ####[place] [address] [place] [address] test (u) int Not detected Invalid Interpretation Code [facility] ([place]) Comment on above: Performed By: #### U A, PREGU ####[place] [address] TROPHSon 02-13-2023 Troponin I High Sensitivity <4.0 Normal 0.0-51.4 [facility] ([place]) Comment on above: Performed By: #### U A, PREGU #### [place] [address] UAon 02-13-2023 Color (U) Yellow Normal [facility] ([place]) Comment on above: Performed By: #### U A, PREGU ####[address] [place] [address] Glucose (U) [Mass/Vol] Negative Normal Negative [facility] ([place]) Comment on above: Performed By: #### U A, PREGU ####E[address] [place], [place] [address] Ketones Ql (U) Negative Normal Negative [facility] ([place]) Comment on above: Performed By: #### U A, PREGU ####E[address] [place] [address] UA Appear Clear Normal Clear [facility] ([place]) Comment on above: Performed By: #### U A, PREGU ####E[address] [place] [address] UA Blood Negative Normal Negative [facility] ([place]) Comment on above: Performed By: #### U A, PREGU ####E[address] [place] [address] UA Leuk Est Negative Normal Negative [facility] ([place]) Comment on above: Performed By: #### U A, PREGU ####[address] [place] [address] UA Nitrite Negative Normal Negative [facility] ([place]) Comment on above: Performed By: #### U A, PREGU ####[address] [place] [address] UA pH 6.5 Normal 5.0 - 8.0 [facility] ([place]) Comment on above: Performed By: #### U A, PREGU ####E[address] [place] [address] UA Protein Negative Normal Negative [facility] ([place]) Comment on above: Performed By: #### U A, PREGU ####[address] [place] [address] UA Spec Grav <=1.005 Abnormal 1.015-1.025 [facility] ([place]) Comment on above: Performed By: #### U A, PREGU ####[address] [place] [address] UA Specimen Type Clean Catch Normal [facility] ([place]) Comment on above: Performed By: #### U A, PREGU ####[address] [place], [place] [address] UA Urobilinogen 0.2 E.U./dL Normal 0.2-1.0 [facility] ([place]) Comment on above: Performed By: #### U A, PREGU ####[address] [place], [place] [address] Urobilinogen (U) [Mass/Vol] Negative Normal Negative [facility] ([place]) Comment on above: Performed By: #### U A, PREGU ####[address] [place], [place] [address] XR ABDOMEN 2 VIEWS W/ DECUB/ ERECTon 01-14-2023 XR ABDOMEN 2 VIEWS W/ DECUB/ERECT ORIGINAL EXAMINATION: TWO XRAY VIEWS OF THE PCOPSEG66/1/2023 4:00 pm ABDOMEN 2 VIEWS COMPARISON: None HISTORY: ORDERING SYSTEM PROVIDED HISTORY: Reason for Exam: Abnormal liver function FINDINGS: No air distended bowel segments are identified. No aggressive bony lesions. No pathologic calcifications. IMPRESSION: No acute radiographic finding Interpreted by: Nikolai Jhaveri MD Preliminary Report By: Nikolai Jhaveri MD Electronically signed By Nikolai Jhaveri MD Dictated Date: 01/14/2023 11:47:54 AM Prelim Date: 01/14/2023 11:48:58 AM Sign Date: 01/14/2023 11:48:58 AM Ordering Provider: MILIND [facility] .Auto Diffon 07-08-2022 Basophil, Absolute 0.1 10 3/mcL Normal 0.0-0.2 [facility] ([place]) Comment on above: Performed By: #### L MD DENNYW, CBC, GFR, ADIFF, ANEU, CMP ####[address] [place], [place] [address] Basophils/100 WBC (Bld) 0.6 % Normal 0.0-2.5 [facility]) Comment on above: Performed By: #### L MD DENNYW, CBC, GFR, ADIFF, ANEU, CMP ####[address] [place], [place] [address] Eosinophil, Absolute 0.1 10 3/mcL Normal 0.0-0.4 [facility] ([place]) Comment on above: Performed By: #### L CESAR BALDWIN, CBC, GFR, ADIFF, ANEU, CMP ####[address] [place], [place] [address] Eosinophils/100 WBC (Bld) 1.5 % Normal 0.0-7.0 [facility] ([place]) Comment on above: Performed By: #### L CESAR BALDWIN, CBC, GFR, ADIFF, ANEU, CMP ####[address] [place], [place] [address] Lymphocyte, Absolute 3.3 10 3/mcL Normal 0.8-3.9 [facility] ([place]) Comment on above: Performed By: #### L CESAR BALDWIN, CBC, GFR, ADIFF, ANEU, CMP ####[address] [place], [place] [address] Lymphocytes/100 WBC (Bld) 34.9 % Normal 10.0-50.0 [facility] ([place]) Comment on above: Performed By: #### L CESAR BALDWIN, CBC, GFR, ADIFF, ANEU, CMP ####[address] [place], [place] [address] Monocyte, Absolute 0.5 10 3/mcL Normal 0.2-1.0 [facility] ([place]) Comment on above: Performed By: #### L CEASR BALDWIN, CBC, GFR, ADIFF, ANEU, CMP ####[address] [place], [place] [address] Monocytes/100 WBC (Bld) 5.6 % Normal 1.7-13.0 [facility] ([place]) Comment on above: Performed By: #### L CESAR BALDWIN, CBC, GFR, ADIFF, ANEU, CMP ####[address] [place], [place] [address] Neutrophils/100 WBC (Bld) 57.4 % Normal 37.0-80.0 [facility] ([place]) Comment on above: Performed By: #### L CESAR BALDWIN, CBC, GFR, ADIFF, ANEU, CMP ####[address] [place], [place] [address] .GFRon 07-08-2022 GFR 120 ml/min/1.73sqm Normal [facility] ([place]) Comment on above: Result Comment: GFR Population mean for , Non- Americans Ages 20-29 = 116 mL/min/1.73 sq.m. Ages 30-39 = 107 mL/min/1.73 sq.m. Ages 40-49 = 99 mL/min/1.73 sq.m. Ages 50-59 = 93 mL/min/1.73 sq.m. Ages 60-69 = 85 mL/min/1.73 sq.m. Ages 70+ = 75 mL/min/1.73 sq.m. Chronic Kidney Disease: Less than 60 mL/min/1.73 square meters End Stage Renal Disease: Less than 15 mL/min/1.73 square meters Performed By: #### L CESAR BALDWIN, CBC, GFR, ADIFF, ANEU, CMP ####[address] [place], [place] [address] GFR Non- 99 ml/min/1.73sqm Normal [facility] ([place]) Comment on above: Result Comment: GFR Population mean for , Non- Americans Ages 20-29 = 116 mL/min/1.73 sq.m. Ages 30-39 = 107 mL/min/1.73 sq.m. Ages 40-49 = 99 mL/min/1.73 sq.m. Ages 50-59 = 93 mL/min/1.73 sq.m. Ages 60-69 = 85 mL/min/1.73 sq.m. Ages 70+ = 75 mL/min/1.73 sq.m. Chronic Kidney Disease: Less than 60 mL/min/1.73 square meters End Stage Renal Disease: Less than 15 mL/min/1.73 square meters Performed By: #### L CESAR BALDWIN, CBC, GFR, ADIFF, ANEU, CMP ####[address] [place], [place] [address] .MDWon 07-08-2022 Monocyte Distribution Width 19.15 Normal 0.00-20.00 [facility] ([place]) Comment on above: Result Comment: For ED adult patients suspected of sepsis, MDW<=20.0 does not rule out sepsis or risk of sepsis Performed By: #### L MD DENNYW, CBC, GFR, ADIFF, ANEU, CMP ####[address] [place], [place] [address] .NEUABSon 07-08-2022 Neutrophil, Absolute 5.4 10 3/mcL Normal 2.9-6.2 [facility] ([place]) Comment on above: Performed By: #### L DENNY, CESAR, CBC, GFR, ADIFF, ANEU, CMP ####[address] [place] [address] CBCon 07-08-2022 Erythrocyte distribution width (RBC) [Ratio] 16.9 % High 11.5-14.5 [facility] ([place]) Comment on above: Performed By: #### L CESAR BALDWIN, CBC, GFR, ADIFF, ANEU, CMP ####[address] [place] [address] Hematocrit (Bld) [Volume fraction] 36.7 % Low 37.0-47.0 [facility] ([place]) Comment on above: Performed By: #### L CESAR BALDWIN, CBC, GFR, ADIFF, ANEU, CMP ####[address] [place], [place] [address] Hgb 12.1 G/dL Normal 12.0-16.0 [facility] ([place]) Comment on above: Performed By: #### L MD DENNYW, CBC, GFR, ADIFF, ANEU, CMP ####[address] [place], [place] [address] MCH (RBC) [Entitic mass] 23.9 pg Low 27.0-31.2 [facility] ([place]) Comment on above: Performed By: #### L DENNY, W, CBC, GFR, ADIFF, ANEU, CMP ####[address] [place] [address] MCHC 32.8 G/dL Low 33.0-37.0 [facility] ([place]) Comment on above: Performed By: #### L CESAR BALDWIN, CBC, GFR, ADIFF, ANEU, CMP ####[address] [place], [place] [address] MCV (RBC) [Entitic vol] 72.8 fL Low 80.0-94.0 [facility] ([place]) Comment on above: Performed By: #### L CESAR BALDWIN, CBC, GFR, ADIFF, ANEU, CMP ####E[address] [place], [place] [address] Platelet 287 10 3/mcL Normal 130-400 [facility] ([place]) Comment on above: Performed By: #### L CESAR BALDWIN, CBC, GFR, ADIFF, ANEU, CMP ####Eli [address] [place], [place] [address] Platelet mean volume (Bld) [Entitic vol] 8.0 fL Normal 7.4-10.4 [facility] ([place]) Comment on above: Performed By: #### L CESAR BALDWIN, CBC, GFR, ADIFF, ANEU, CMP ####Eli [address] [place], [place] [address] RBC 5.05 10 6/mcL Normal 4.20-5.40 [facility] ([place]) Comment on above: Performed By: #### L CESAR BALDWIN, CBC, GFR, ADIFF, ANEU, CMP ####Eli [id number] [place], [place] [address] WBC 9.4 10 3/mcL Normal 4.6-10.8 [facility] ([place]) Comment on above: Performed By: #### L CESAR BALDWIN, CBC, GFR, ADIFF, ANEU, CMP ####Eli [address] [place], [place] [address] CMPon 07-08-2022 Albumin Level 2.7 G/dL Low 3.5-5.0 [facility] ([place]) Comment on above: Performed By: #### L CESAR BALDWIN, CBC, GFR, ADIFF, ANEU, CMP ####[address] [place], [place] [address] Albumin/Globulin [Mass ratio] 0.7 {ratio} Low 1.1-2.5 [facility] ([place]) Comment on above: Performed By: #### L CESAR BALDWIN, CBC, GFR, ADIFF, ANEU, CMP ####Eli [address] [place], [place] [address] ALP [Catalytic activity/Vol] 151 U/L High 40-135 [facility] ([place]) Comment on above: Performed By: #### L CESAR BALDWIN, CBC, GFR, ADIFF, ANEU, CMP ####E[address] [place], [place] [address] ALT [Catalytic activity/Vol] 21 U/L Normal 14-59 [facility] ([place]) Comment on above: Performed By: #### L CESAR BALDWIN, CBC, GFR, ADIFF, ANEU, CMP ####Eli [address] [place], [place] [address] AST [Catalytic activity/Vol] 18 U/L Normal 10-40 [facility] ([place]) Comment on above: Performed By: #### L CESAR BALDWIN, CBC, GFR, ADIFF, ANEU, CMP ####Eli [address] [place], [place] [address] Bili Total 0.3 mg/dL Normal 0.2-1.0 [facility] ([place]) Comment on above: Result Comment: Use of this assay is not recommended for patients undergoing treatment with eltrombopag due to the potential for falsely elevated results. Performed By: #### L CESAR BALDWIN, CBC, GFR, ADIFF, ANEU, CMP ####E[address] [place], [place] [address] BUN/Creatinine Ratio 14 ratio Normal 7-27 [facility] ([place]) Comment on above: Performed By: #### L CESAR BALDWIN, CBC, GFR, ADIFF, ANEU, CMP ####E[address] [place], [place] [address] Calcium [Mass/Vol] 8.8 mg/dL Normal 8.4-10.2 [facility] ([place]) Comment on above: Performed By: #### L CESAR BALDWIN, CBC, GFR, ADIFF, ANEU, CMP ####Eli [address] [place], [place] [address] Chloride [Moles/Vol] 105 mmol/L Normal 98-107 [facility] ([place]) Comment on above: Performed By: #### L CESAR BALDWIN, CBC, GFR, ADIFF, ANEU, CMP ####Eli [address] [place], [place] [address] CO2 [Moles/Vol] 22 mmol/L Normal 22-29 [facility] ([place]) Comment on above: Performed By: #### L CESAR BALDWIN, CBC, GFR, ADIFF, ANEU, CMP ####Eli [address] [place], [place] [address] Creatinine [Mass/Vol] 0.74 mg/dL Normal 0.55-1.02 [facility] ([place]) Comment on above: Performed By: #### L CESAR BALDWIN, CBC, GFR, ADIFF, ANEU, CMP ####[address] [place], [place] [address] Electrolyte Balance 12.0 mEq/L Normal 4.0-15.0 [facility] ([place]) Comment on above: Performed By: #### L CESAR BALDWIN, CBC, GFR, ADIFF, ANEU, CMP ####[address] [place], [place] [address] Globulin 4.0 G/dL Normal [facility] ([place]) Comment on above: Performed By: #### L CESAR BALDWIN, CBC, GFR, ADIFF, ANEU, CMP ####E[address] [place], [place] [address] Glucose [Mass/Vol] 108 mg/dL High 70-105 [facility] ([place]) Comment on above: Performed By: #### L CESAR BALDWIN, CBC, GFR, ADIFF, ANEU, CMP ####Eli [address] [place], [place] [address] Potassium [Moles/Vol] 4.2 mmol/L Normal 3.5-5.1 [facility] ([place]) Comment on above: Performed By: #### L CESAR BALDWIN, CBC, GFR, ADIFF, ANEU, CMP ####E[address] [place], [place] [address] Sodium [Moles/Vol] 139 mmol/L Normal 136-145 [facility] ([place]) Comment on above: Performed By: #### L MD DENNYW, CBC, GFR, ADIFF, ANEU, CMP ####[address] [place], [place] [address] Total Protein 6.7 G/dL Normal 6.4-8.2 [facility] ([place]) Comment on above: Performed By: #### L CESAR BALDWIN, CBC, GFR, ADIFF, ANEU, CMP ####[address] [place], [place] [address] Urea nitrogen [Mass/Vol] 10 mg/dL Normal 7-18 [facility] ([place]) Comment on above: Performed By: #### L CESAR BALDWIN, CBC, GFR, ADIFF, ANEU, CMP ####Eli [address] [place], [place] [address] CT ABD/PELVIS W/ IV CONTRAST ONLYon 07-08-2022 CT ABD/PELVIS W/ IV CONTRAST ONLY ORIGINAL EXAMINATION: CT OF THE ABDOMEN AND PELVIS WITH CONTRAST 07/08/2022 4:19 am TECHNIQUE: CT of the abdomen and pelvis was performed with the administration of intravenous contrast. Multiplanar reformatted images are provided for review. Automated exposure control, iterative reconstruction, and/or weight based adjustment of the mA/kV was utilized to reduce the radiation dose to as low as reasonably achievable. COMPARISON: None. HISTORY: ORDERING SYSTEM PROVIDED HISTORY: Reason for Exam: abdominal pain FINDINGS: Upper abdominal solid organs are normal in appearance. Small bowel and colon are normal in course and caliber. No lymphadenopathy, free air, or free fluid. Urinary bladder is unremarkable. Uterus and adnexa demonstrate no acute findings. Aorta is normal in caliber. Lung bases are clear. Visualized osseous structures are intact. IMPRESSION: No acute findings. Interpreted by: Scout Lopez MD Preliminary Report By: Scout Lopez MD Electronically signed By Scout Lopez MD Dictated Date: 07/08/2022 4:26:21 AM Prelim Date: 07/08/2022 4:40:30 AM Sign Date: 07/08/2022 4:40:30 AM Ordering Provider: ENIO Castro [facility] ([place]) LABORATORYOrdered By: SYSTEM SYSTEM on 07-08-2022 Albumin BCP dye [Mass/Vol] 2.7 G/dL Invalid Interpretation Code 3.5 - 5.0 G/dL AO ADM SS Albumin/Globulin [Mass ratio] 0.7 {ratio} Invalid Interpretation Code 1.1 - 2.5 ratio AO ADM SS ALP [Catalytic activity/Vol] 151 U/L Invalid Interpretation Code 40 - 135 U/L AO ADM SS ALT With P-5'-P [Catalytic activity/Vol] 21 U/L Invalid Interpretation Code 14 - 59 U/L AO ADM SS AST With P-5'-P [Catalytic activity/Vol] 18 U/L Invalid Interpretation Code 10 - 40 U/L AO ADM SS Bilirubin [Mass/Vol] 0.3 mg/dL Invalid Interpretation Code 0.2 - 1.0 mg/dL AO ADM SS Calcium [Mass/Vol] 8.8 mg/dL Invalid Interpretation Code 8.4 - 10.2 mg/dL AO ADM SS Chloride [Moles/Vol] 105 mmol/L Invalid Interpretation Code 98 - 107 mmol/L AO ADM SS CO2 [Moles/Vol] 22 mmol/L Invalid Interpretation Code 22 - 29 mmol/L AO ADM SS Creatinine [Mass/Vol] 0.74 mg/dL Invalid Interpretation Code 0.55 - 1.02 mg/dL AO ADM SS Electrolyte Balance 12.0 mEq/L Invalid Interpretation Code 4.0 - 15.0 mEq/L AO ADM SS GFR/1.73 sq M.predicted among blacks MDRD (S/P/Bld) [Vol rate/Area] 120 ml/min/1.73sqm Invalid Interpretation Code AO Chemistry S GFR/1.73 sq M.predicted among non-blacks MDRD (S/P/Bld) [Vol rate/Area] 99 ml/min/1.73sqm Invalid Interpretation Code AO Chemistry S Globulin 4.0 G/dL Invalid Interpretation Code AO ADM SS Glucose [Mass/Vol] 108 mg/dL Invalid Interpretation Code 70 - 105 mg/dL AO ADM SS Lipase [Catalytic activity/Vol] 37 U/L Invalid Interpretation Code 16 - 77 U/L AO ADM SS Potassium [Moles/Vol] 4.2 mmol/L Invalid Interpretation Code 3.5 - 5.1 mmol/L AO ADM SS Protein [Mass/Vol] 6.7 G/dL Invalid Interpretation Code 6.4 - 8.2 G/dL AO ADM SS Sodium [Moles/Vol] 139 mmol/L Invalid Interpretation Code 136 - 145 mmol/L AO ADM SS Urea nitrogen [Mass/Vol] 10 mg/dL Invalid Interpretation Code 7 - 18 mg/dL AO ADM SS Urea nitrogen/Creatinine [Mass ratio] 14 ratio Invalid Interpretation Code 7 - 27 ratio AO ADM SS LABORATORYOrdered By: Zeynep Hagan on 07-08-2022 Appearance (U) Clear (07/08/22 3:27 AM) Invalid Interpretation Code Clear AO Auto Urine SS Basophil, Absolute 0.1 103/mcL Invalid Interpretation Code 0.0 - 0.2 10^3/mcL AO Workflow SS Basophils/100 WBC (Bld) 0.6 % Invalid Interpretation Code 0.0 - 2.5 % AO Workflow SS Bilirubin Ql (U) Negative (07/08/22 3:27 AM) Invalid Interpretation Code Negative AO Auto Urine SS Color (U) Yellow (07/08/22 3:27 AM) Invalid Interpretation Code AO Auto Urine SS Eosinophil, Absolute 0.1 103/mcL Invalid Interpretation Code 0.0 - 0.4 10^3/mcL AO Workflow SS Eosinophils/100 WBC (Bld) 1.5 % Invalid Interpretation Code 0.0 - 7.0 % AO Workflow SS Erythrocyte distribution width (RBC) [Ratio] 16.9 % Invalid Interpretation Code 11.5 - 14.5 % AO Workflow SS Glucose Test strip (U) [Mass/Vol] Negative Invalid Interpretation Code Negativemg/d L AO Auto Urine SS HCG ( test) Ql Negative (07/08/22 3:27 AM) Invalid Interpretation Code AO Manual Urine SS Hematocrit (Bld) [Volume fraction] 36.7 % Invalid Interpretation Code 37.0 - 47.0 % AO Workflow SS Hemoglobin (Bld) [Mass/Vol] 12.1 G/dL Invalid Interpretation Code 12.0 - 16.0 G/dL AO Workflow SS Hemoglobin Auto test strip (U) [Mass/Vol] Negative (07/08/22 3:27 AM) Invalid Interpretation Code Negative AO Auto Urine SS Ketones Ql (U) Negative Invalid Interpretation Code Negativemg/d L AO Auto Urine SS Lymphocyte, Absolute 3.3 103/mcL Invalid Interpretation Code 0.8 - 3.9 10^3/mcL AO Workflow SS Lymphocytes/100 WBC (Bld) 34.9 % Invalid Interpretation Code 10.0 - 50.0 % AO Workflow SS MCH (RBC) [Entitic mass] 23.9 pg Invalid Interpretation Code 27.0 - 31.2 pg AO Workflow SS MCHC 32.8 G/dL Invalid Interpretation Code 33.0 - 37.0 G/dL AO Workflow SS MCV (RBC) [Entitic vol] 72.8 fL Invalid Interpretation Code 80.0 - 94.0 fL AO Workflow SS Monocyte distribution width Auto (Bld) [Entitic vol] 19.15 Invalid Interpretation Code 0.00 - 20.00 AO Workflow SS Comment on above: Result Comment: For ED adult patients suspected of sepsis, MDW<=20.0 does not rule out sepsis or risk of sepsis Monocyte, Absolute 0.5 103/mcL Invalid Interpretation Code 0.2 - 1.0 10^3/mcL AO Workflow SS Monocytes/100 WBC (Bld) 5.6 % Invalid Interpretation Code 1.7 - 13.0 % AO Workflow SS Neutrophil, Absolute 5.4 103/mcL Invalid Interpretation Code 2.9 - 6.2 10^3/mcL AO Workflow SS Neutrophils/100 WBC (Bld) 57.4 % Invalid Interpretation Code 37.0 - 80.0 % AO Workflow SS Platelet mean volume (Bld) [Entitic vol] 8.0 fL Invalid Interpretation Code 7.4 - 10.4 fL AO Workflow SS Platelets (Bld) [#/Vol] 287 103/mcL Invalid Interpretation Code 130 - 400 10^3/mcL AO Workflow SS test (u) int Not detected Invalid Interpretation Code AO Manual Urine SS RBC (Bld) [#/Vol] 5.05 106/mcL Invalid Interpretation Code 4.20 - 5.40 10^6/mcL AO Workflow SS UA Leuk Est Negative (07/08/22 3:27 AM) Invalid Interpretation Code Negative AO Auto Urine SS UA Nitrite Negative (07/08/22 3:27 AM) Invalid Interpretation Code Negative AO Auto Urine SS UA pH 6.5 (07/08/22 3:27 AM) Invalid Interpretation Code 5.0 - 8.0 AO Auto Urine SS UA Protein Negative Invalid Interpretation Code Negativemg/d L AO Auto Urine SS UA Spec Grav >=1.030 *ABN* (07/08/22 3:27 AM) Invalid Interpretation Code 1.015-1.025 AO Auto Urine SS UA Specimen Type Clean Catch (07/08/22 3:27 AM) Invalid Interpretation Code AO Auto Urine SS UA Urobilinogen 0.2 E.U./dL Invalid Interpretation Code 0.2-1.0E.U./ dL AO Auto Urine SS WBC (Bld) [#/Vol] 9.4 103/mcL Invalid Interpretation Code 4.6 - 10.8 10^3/mcL AO Workflow SS LIPon 07-08-2022 Lipase Level 37 U/L Normal 16-77 [facility] ([place]) Comment on above: Performed By: #### L MD DENNYW, CBC, GFR, ADIFF, ANEU, CMP ####[address] [address] PREGUon 07-08-2022 HCG ( test) Ql (U) Negative Normal [facility] ([place]) Comment on above: Performed By: #### U A, PREGU #### [address] [address] test (u) int Not detected Invalid Interpretation Code [facility] ([place]) Comment on above: Performed By: #### U A, PREGU #### [address] [address] UAon 07-08-2022 Color (U) Yellow Normal [facility] ([place]) Comment on above: Performed By: #### U A, PREGU #### [address] [address] Glucose (U) [Mass/Vol] Negative Normal Negative [facility] ([place]) Comment on above: Performed By: #### U A, PREGU #### [address] [address] Ketones Ql (U) Negative Normal Negative [facility] ([place]) Comment on above: Performed By: #### U A, PREGU #### [address] [address] UA Appear Clear Normal Clear [facility] ([place]) Comment on above: Performed By: #### U A, PREGU #### [address] [address] UA Blood Negative Normal Negative [facility] ([place]) Comment on above: Performed By: #### U A, PREGU #### [address] [address] UA Leuk Est Negative Normal Negative [facility] ([place]) Comment on above: Performed By: #### U A, PREGU #### [address] [address] UA Nitrite Negative Normal Negative [facility] ([place]) Comment on above: Performed By: #### U A, PREGU #### [place] [address] UA pH 6.5 Normal 5.0 - 8.0 [facility] ([place]) Comment on above: Performed By: #### U A, PREGU #### [place] [address] UA Protein Negative Normal Negative [facility] ([place]) Comment on above: Performed By: #### U A, PREGU #### [address] [address] UA Spec Grav >=1.030 Abnormal 1.015-1.025 [facility] ([place]) Comment on above: Performed By: #### U A, PREGU #### [place] [address] UA Specimen Type Clean Catch Normal [facility] ([place]) Comment on above: Performed By: #### U A, PREGU #### [address] [address] UA Urobilinogen 0.2 E.U./dL Normal 0.2-1.0 [facility] ([place]) Comment on above: Performed By: #### U A, PREGU #### [place] [address] Urobilinogen (U) [Mass/Vol] Negative Normal Negative [facility] ([place]) Comment on above: Performed By: #### U A, PREGU #### [place] [address] LABORATORYOrdered By: SYSTEM SYSTEM on 03-06-2022 Albumin BCP dye [Mass/Vol] 2.6 G/dL Invalid Interpretation Code 3.5 - 5.0 G/dL AO ADM SS Albumin/Globulin [Mass ratio] 0.6 {ratio} Invalid Interpretation Code 1.1 - 2.5 ratio AO ADM SS ALP [Catalytic activity/Vol] 153 U/L Invalid Interpretation Code 40 - 135 U/L AO ADM SS ALT With P-5'-P [Catalytic activity/Vol] 10 U/L Invalid Interpretation Code 14 - 59 U/L AO ADM SS AST With P-5'-P [Catalytic activity/Vol] 11 U/L Invalid Interpretation Code 10 - 40 U/L AO ADM SS Bilirubin [Mass/Vol] 0.3 mg/dL Invalid Interpretation Code 0.2 - 1.0 mg/dL AO ADM SS Calcium [Mass/Vol] 9.1 mg/dL Invalid Interpretation Code 8.4 - 10.2 mg/dL AO ADM SS Chloride [Moles/Vol] 107 mmol/L Invalid Interpretation Code 98 - 107 mmol/L AO ADM SS CO2 [Moles/Vol] 25 mmol/L Invalid Interpretation Code 22 - 29 mmol/L AO ADM SS Creatinine [Mass/Vol] 0.74 mg/dL Invalid Interpretation Code 0.55 - 1.02 mg/dL AO ADM SS Electrolyte Balance 8.0 mEq/L Invalid Interpretation Code 4.0 - 15.0 mEq/L AO ADM SS GFR 121 ml/min/1.73sqm Invalid Interpretation Code AO Chemistry S GFR Non- 100 ml/min/1.73sqm Invalid Interpretation Code AO Chemistry S Globulin 4.4 G/dL Invalid Interpretation Code AO ADM SS Glucose [Mass/Vol] 84 mg/dL Invalid Interpretation Code 70 - 105 mg/dL AO ADM SS HbA1c (Bld) [Mass fraction] 5.2 % Invalid Interpretation Code 4.3 - 6.4 % AO ADM SS Potassium [Moles/Vol] 4.7 mmol/L Invalid Interpretation Code 3.5 - 5.1 mmol/L AO ADM SS Protein [Mass/Vol] 7.0 G/dL Invalid Interpretation Code 6.4 - 8.2 G/dL AO ADM SS Sodium [Moles/Vol] 140 mmol/L Invalid Interpretation Code 136 - 145 mmol/L AO ADM SS Urea nitrogen [Mass/Vol] 9 mg/dL Invalid Interpretation Code 7 - 18 mg/dL AO ADM SS Urea nitrogen/Creatinine [Mass ratio] 12 ratio Invalid Interpretation Code 7 - 27 ratio AO ADM SS LABORATORYOrdered By: Zeynep Morton on 03-06-2022 Cholesterol [Mass/Vol] 241 mg/dL Invalid Interpretation Code 0 - 200 mg/dL AO ADM SS Cholesterol in HDL [Mass/Vol] 76 mg/dL Invalid Interpretation Code 40 - 60 mg/dL AO ADM SS Cholesterol in LDL [Mass/Vol] 144 mg/dL Invalid Interpretation Code 0 - 130 mg/dL AO ADM SS Triglyceride [Mass/Vol] 104 mg/dL Invalid Interpretation Code 0 - 150 mg/dL AO ADM SS LABORATORYOrdered By: [employer] on 01-25-2022 Albumin BCP dye [Mass/Vol] 2.7 G/dL Invalid Interpretation Code 3.5 - 5.0 G/dL AO ADM SS Albumin/Globulin [Mass ratio] 0.6 {ratio} Invalid Interpretation Code 1.1 - 2.5 ratio AO ADM SS ALP [Catalytic activity/Vol] 143 U/L Invalid Interpretation Code 40 - 135 U/L AO ADM SS ALT With P-5'-P [Catalytic activity/Vol] 14 U/L Invalid Interpretation Code 14 - 59 U/L AO ADM SS AST With P-5'-P [Catalytic activity/Vol] 11 U/L Invalid Interpretation Code 10 - 40 U/L AO ADM SS Bilirubin [Mass/Vol] 0.2 mg/dL Invalid Interpretation Code 0.2 - 1.0 mg/dL AO ADM SS Calcium [Mass/Vol] 9.0 mg/dL Invalid Interpretation Code 8.4 - 10.2 mg/dL AO ADM SS Chloride [Moles/Vol] 102 mmol/L Invalid Interpretation Code 98 - 107 mmol/L AO ADM SS CO2 [Moles/Vol] 22 mmol/L Invalid Interpretation Code 22 - 29 mmol/L AO ADM SS Creatinine [Mass/Vol] 0.83 mg/dL Invalid Interpretation Code 0.55 - 1.02 mg/dL AO ADM SS Electrolyte Balance 12.0 mEq/L Invalid Interpretation Code 4.0 - 15.0 mEq/L AO ADM SS Globulin 4.2 G/dL Invalid Interpretation Code AO ADM SS Glucose [Mass/Vol] 91 mg/dL Invalid Interpretation Code 70 - 105 mg/dL AO ADM SS Potassium [Moles/Vol] 4.5 mmol/L Invalid Interpretation Code 3.5 - 5.1 mmol/L AO ADM SS Protein [Mass/Vol] 6.9 G/dL Invalid Interpretation Code 6.4 - 8.2 G/dL AO ADM SS Sodium [Moles/Vol] 136 mmol/L Invalid Interpretation Code 136 - 145 mmol/L AO ADM SS Urea nitrogen [Mass/Vol] 9 mg/dL Invalid Interpretation Code 7 - 18 mg/dL AO ADM SS Urea nitrogen/Creatinine [Mass ratio] 11 ratio Invalid Interpretation Code 7 - 27 ratio AO ADM SS LABORATORYOrdered By: Zeynep Morton on 01-25-2022 Basophil, Absolute 0.0 103/mcL Invalid Interpretation Code 0.0 - 0.2 10^3/mcL AO Workflow SS Basophils/100 WBC (Bld) 0.5 % Invalid Interpretation Code 0.0 - 2.5 % AO Workflow SS Eosinophil, Absolute 0.1 103/mcL Invalid Interpretation Code 0.0 - 0.4 10^3/mcL AO Workflow SS Eosinophils/100 WBC (Bld) 0.5 % Invalid Interpretation Code 0.0 - 7.0 % AO Workflow SS Erythrocyte distribution width (RBC) [Ratio] 15.9 % Invalid Interpretation Code 11.5 - 14.5 % AO Workflow SS Hematocrit (Bld) [Volume fraction] 35.3 % Invalid Interpretation Code 37.0 - 47.0 % AO Workflow SS Hemoglobin (Bld) [Mass/Vol] 11.8 G/dL Invalid Interpretation Code 12.0 - 16.0 G/dL AO Workflow SS Lymphocyte, Absolute 1.5 103/mcL Invalid Interpretation Code 0.8 - 3.9 10^3/mcL AO Workflow SS Lymphocytes/100 WBC (Bld) 14.4 % Invalid Interpretation Code 10.0 - 50.0 % AO Workflow SS MCH (RBC) [Entitic mass] 24.3 pg Invalid Interpretation Code 27.0 - 31.2 pg AO Workflow SS MCHC 33.5 G/dL Invalid Interpretation Code 33.0 - 37.0 G/dL AO Workflow SS MCV (RBC) [Entitic vol] 72.6 fL Invalid Interpretation Code 80.0 - 94.0 fL AO Workflow SS Monocyte, Absolute 0.4 103/mcL Invalid Interpretation Code 0.2 - 1.0 10^3/mcL AO Workflow SS Monocytes/100 WBC (Bld) 4.1 % Invalid Interpretation Code 1.7 - 13.0 % AO Workflow SS Neutrophil, Absolute 8.3 103/mcL Invalid Interpretation Code 2.9 - 6.2 10^3/mcL AO Workflow SS Neutrophils/100 WBC (Bld) 80.5 % Invalid Interpretation Code 37.0 - 80.0 % AO Workflow SS Platelet mean volume (Bld) [Entitic vol] 7.8 fL Invalid Interpretation Code 7.4 - 10.4 fL AO Workflow SS Platelets (Bld) [#/Vol] 278 103/mcL Invalid Interpretation Code 130 - 400 10^3/mcL AO Workflow SS RBC (Bld) [#/Vol] 4.86 106/mcL Invalid Interpretation Code 4.20 - 5.40 10^6/mcL AO Workflow SS WBC (Bld) [#/Vol] 10.4 103/mcL Invalid Interpretation Code 4.6 - 10.8 10^3/mcL AO Workflow SS LABORATORYOrdered By: Rajan Smiley on 01-18-2022 HCG ( test) Ql Negative (01/18/22 9:02 AM) Invalid Interpretation Code AO Manual Urine SS test (u) int Not detected Invalid Interpretation Code AO Manual Urine SS LABORATORYOrdered By: Dayana Doyle on 01-12-2022 Albumin BCP dye [Mass/Vol] 2.7 G/dL Invalid Interpretation Code 3.5 - 5.0 G/dL AO ADM SS Albumin/Globulin [Mass ratio] 0.7 {ratio} Invalid Interpretation Code 1.1 - 2.5 ratio AO ADM SS ALP [Catalytic activity/Vol] 133 U/L Invalid Interpretation Code 40 - 135 U/L AO ADM SS ALT With P-5'-P [Catalytic activity/Vol] 11 U/L Invalid Interpretation Code 14 - 59 U/L AO ADM SS AST With P-5'-P [Catalytic activity/Vol] 10 U/L Invalid Interpretation Code 10 - 40 U/L AO ADM SS Bilirubin [Mass/Vol] 0.4 mg/dL Invalid Interpretation Code 0.2 - 1.0 mg/dL AO ADM SS Bilirubin.direct [Mass/Vol] mg/dL Invalid Interpretation Code 0.0 - 0.2 mg/dL AO ADM SS Globulin 4.0 G/dL Invalid Interpretation Code AO ADM SS Protein [Mass/Vol] 6.7 G/dL Invalid Interpretation Code 6.4 - 8.2 G/dL AO ADM SS LABORATORYOrdered By: SYSTEM SYSTEM on 01-12-2022 Bili Indirect Unable to Calculate Invalid Interpretation Code AO Chemistry S Comment on above: Result Comment: Unab le to calculate this test result accurately. Results used to calculate this test are outside the reportable range. LABORATORYOrdered By: Michelle Pereira on 01-03-2022 Albumin BCP dye [Mass/Vol] 3.1 G/dL Invalid Interpretation Code 3.5 - 5.0 G/dL AO ADM SS Albumin/Globulin [Mass ratio] 0.7 {ratio} Invalid Interpretation Code 1.1 - 2.5 ratio AO ADM SS ALP [Catalytic activity/Vol] 146 U/L Invalid Interpretation Code 40 - 135 U/L AO ADM SS ALT With P-5'-P [Catalytic activity/Vol] 12 U/L Invalid Interpretation Code 14 - 59 U/L AO ADM SS Appearance (U) Clear (01/03/22 9:54 PM) Invalid Interpretation Code Clear AO Auto Urine SS AST With P-5'-P [Catalytic activity/Vol] 11 U/L Invalid Interpretation Code 10 - 40 U/L AO ADM SS Basophil, Absolute 0.1 103/mcL Invalid Interpretation Code 0.0 - 0.2 10^3/mcL AO Workflow SS Basophils/100 WBC (Bld) 0.5 % Invalid Interpretation Code 0.0 - 2.5 % AO Workflow SS Bilirubin [Mass/Vol] 0.3 mg/dL Invalid Interpretation Code 0.2 - 1.0 mg/dL AO ADM SS Bilirubin Ql (U) Negative (01/03/22 9:54 PM) Invalid Interpretation Code Negative AO Auto Urine SS Calcium [Mass/Vol] 9.3 mg/dL Invalid Interpretation Code 8.4 - 10.2 mg/dL AO ADM SS Chloride [Moles/Vol] 102 mmol/L Invalid Interpretation Code 98 - 107 mmol/L AO ADM SS CO2 [Moles/Vol] 25 mmol/L Invalid Interpretation Code 22 - 29 mmol/L AO ADM SS Color (U) Yellow (01/03/22 9:54 PM) Invalid Interpretation Code AO Auto Urine SS Creatinine [Mass/Vol] 0.88 mg/dL Invalid Interpretation Code 0.55 - 1.02 mg/dL AO ADM SS Electrolyte Balance 11.0 mEq/L Invalid Interpretation Code 4.0 - 15.0 mEq/L AO ADM SS Eosinophil, Absolute 0.1 103/mcL Invalid Interpretation Code 0.0 - 0.4 10^3/mcL AO Workflow SS Eosinophils/100 WBC (Bld) 0.9 % Invalid Interpretation Code 0.0 - 7.0 % AO Workflow SS Erythrocyte distribution width (RBC) [Ratio] 15.5 % Invalid Interpretation Code 11.5 - 14.5 % AO Workflow SS Globulin 4.5 G/dL Invalid Interpretation Code AO ADM SS Glucose [Mass/Vol] 79 mg/dL Invalid Interpretation Code 70 - 105 mg/dL AO ADM SS Glucose Test strip (U) [Mass/Vol] Negative Invalid Interpretation Code Negativemg/d L AO Auto Urine SS HCG ( test) Ql Negative (01/03/22 9:54 PM) Invalid Interpretation Code AO Manual Urine SS Hematocrit (Bld) [Volume fraction] 38.7 % Invalid Interpretation Code 37.0 - 47.0 % AO Workflow SS Hemoglobin (Bld) [Mass/Vol] 12.9 G/dL Invalid Interpretation Code 12.0 - 16.0 G/dL AO Workflow SS Hemoglobin Auto test strip (U) [Mass/Vol] Negative (01/03/22 9:54 PM) Invalid Interpretation Code Negative AO Auto Urine SS Ketones Ql (U) Negative Invalid Interpretation Code Negativemg/d L AO Auto Urine SS Lipase [Catalytic activity/Vol] 32 U/L Invalid Interpretation Code 16 - 77 U/L AO ADM SS Lymphocyte, Absolute 3.5 103/mcL Invalid Interpretation Code 0.8 - 3.9 10^3/mcL AO Workflow SS Lymphocytes/100 WBC (Bld) 26.3 % Invalid Interpretation Code 10.0 - 50.0 % AO Workflow SS MCH (RBC) [Entitic mass] 24.5 pg Invalid Interpretation Code 27.0 - 31.2 pg AO Workflow SS MCHC 33.2 G/dL Invalid Interpretation Code 33.0 - 37.0 G/dL AO Workflow SS MCV (RBC) [Entitic vol] 73.7 fL Invalid Interpretation Code 80.0 - 94.0 fL AO Workflow SS Monocyte distribution width Auto (Bld) [Entitic vol] 19.86 Invalid Interpretation Code 0.00 - 20.00 AO Workflow SS Comment on above: Result Comment: For ED adult patients suspected of sepsis, MDW<=20.0 does not rule out sepsis or risk of sepsis Monocyte, Absolute 0.6 103/mcL Invalid Interpretation Code 0.2 - 1.0 10^3/mcL AO Workflow SS Monocytes/100 WBC (Bld) 4.6 % Invalid Interpretation Code 1.7 - 13.0 % AO Workflow SS Neutrophil, Absolute 8.9 103/mcL Invalid Interpretation Code 2.9 - 6.2 10^3/mcL AO Workflow SS Neutrophils/100 WBC (Bld) 67.7 % Invalid Interpretation Code 37.0 - 80.0 % AO Workflow SS Platelet mean volume (Bld) [Entitic vol] 8.3 fL Invalid Interpretation Code 7.4 - 10.4 fL AO Workflow SS Platelets (Bld) [#/Vol] 288 103/mcL Invalid Interpretation Code 130 - 400 10^3/mcL AO Workflow SS Potassium [Moles/Vol] 3.8 mmol/L Invalid Interpretation Code 3.5 - 5.1 mmol/L AO ADM SS test (u) int Not detected Invalid Interpretation Code AO Manual Urine SS Protein [Mass/Vol] 7.6 G/dL Invalid Interpretation Code 6.4 - 8.2 G/dL AO ADM SS RBC (Bld) [#/Vol] 5.26 106/mcL Invalid Interpretation Code 4.20 - 5.40 10^6/mcL AO Workflow SS Sodium [Moles/Vol] 138 mmol/L Invalid Interpretation Code 136 - 145 mmol/L AO ADM SS UA Leuk Est Negative (01/03/22 9:54 PM) Invalid Interpretation Code Negative AO Auto Urine SS UA Nitrite Negative (01/03/22 9:54 PM) Invalid Interpretation Code Negative AO Auto Urine SS UA pH 7.0 (01/03/22 9:54 PM) Invalid Interpretation Code 5.0 - 8.0 AO Auto Urine SS UA Protein Negative Invalid Interpretation Code Negativemg/d L AO Auto Urine SS UA Spec Grav >=1.030 *ABN* (01/03/22 9:54 PM) Invalid Interpretation Code 1.015-1.025 AO Auto Urine SS UA Specimen Type Clean Catch (01/03/22 9:54 PM) Invalid Interpretation Code AO Auto Urine SS UA Urobilinogen 0.2 E.U./dL Invalid Interpretation Code 0.2-1.0E.U./ dL AO Auto Urine SS Urea nitrogen [Mass/Vol] 10 mg/dL Invalid Interpretation Code 7 - 18 mg/dL AO ADM SS Urea nitrogen/Creatinine [Mass ratio] 11 ratio Invalid Interpretation Code 7 - 27 ratio AO ADM SS WBC (Bld) [#/Vol] 13.2 103/mcL Invalid Interpretation Code 4.6 - 10.8 10^3/mcL AO Workflow SS LABORATORYOrdered By: SYSTEM SYSTEM on 01-03-2022 GFR 99 ml/min/1.73sqm Invalid Interpretation Code AO Chemistry S GFR Non- 82 ml/min/1.73sqm Invalid Interpretation Code AO Chemistry S LABORATORYOrdered By: Patricia Marks on 12-11-2021 Albumin BCP dye [Mass/Vol] 2.9 G/dL Invalid Interpretation Code 3.5 - 5.0 G/dL AO ADM SS Albumin/Globulin [Mass ratio] 0.8 {ratio} Invalid Interpretation Code 1.1 - 2.5 ratio AO ADM SS ALP [Catalytic activity/Vol] 133 U/L Invalid Interpretation Code 40 - 135 U/L AO ADM SS ALT With P-5'-P [Catalytic activity/Vol] 13 U/L Invalid Interpretation Code 14 - 59 U/L AO ADM SS AST With P-5'-P [Catalytic activity/Vol] 17 U/L Invalid Interpretation Code 10 - 40 U/L AO ADM SS Bilirubin [Mass/Vol] 0.2 mg/dL Invalid Interpretation Code 0.2 - 1.0 mg/dL AO ADM SS Calcium [Mass/Vol] 9.2 mg/dL Invalid Interpretation Code 8.4 - 10.2 mg/dL AO ADM SS Chloride [Moles/Vol] 105 mmol/L Invalid Interpretation Code 98 - 107 mmol/L AO ADM SS CO2 [Moles/Vol] 20 mmol/L Invalid Interpretation Code 22 - 29 mmol/L AO ADM SS Creatinine [Mass/Vol] 0.80 mg/dL Invalid Interpretation Code 0.55 - 1.02 mg/dL AO ADM SS Electrolyte Balance 14.0 mEq/L Invalid Interpretation Code 4.0 - 15.0 mEq/L AO ADM SS Globulin 3.8 G/dL Invalid Interpretation Code AO ADM SS Glucose [Mass/Vol] 92 mg/dL Invalid Interpretation Code 70 - 105 mg/dL AO ADM SS HCG ( test) Ql (U) Negative (12/11/21 8:00 AM) Invalid Interpretation Code AO Rapid Testing SS Lipase [Catalytic activity/Vol] 94 U/L Invalid Interpretation Code 73 - 393 U/L AO ADM SS Potassium [Moles/Vol] 4.2 mmol/L Invalid Interpretation Code 3.5 - 5.1 mmol/L AO ADM SS test (s) int Not detected Invalid Interpretation Code AO Rapid Testing SS Protein [Mass/Vol] 6.7 G/dL Invalid Interpretation Code 6.4 - 8.2 G/dL AO ADM SS Sodium [Moles/Vol] 139 mmol/L Invalid Interpretation Code 136 - 145 mmol/L AO ADM SS Urea nitrogen [Mass/Vol] 10 mg/dL Invalid Interpretation Code 7 - 18 mg/dL AO ADM SS Urea nitrogen/Creatinine [Mass ratio] 12 ratio Invalid Interpretation Code 7 - 27 ratio AO ADM SS LABORATORYOrdered By: Saira Gomez on 12-11-2021 Basophil, Absolute 0.0 103/mcL Invalid Interpretation Code 0.0 - 0.2 10^3/mcL AO Workflow SS Basophils/100 WBC (Bld) 0.4 % Invalid Interpretation Code 0.0 - 2.5 % AO Workflow SS Eosinophil, Absolute 0.1 103/mcL Invalid Interpretation Code 0.0 - 0.4 10^3/mcL AO Workflow SS Eosinophils/100 WBC (Bld) 1.2 % Invalid Interpretation Code 0.0 - 7.0 % AO Workflow SS Erythrocyte distribution width (RBC) [Ratio] 16.3 % Invalid Interpretation Code 11.5 - 14.5 % AO Workflow SS Hematocrit (Bld) [Volume fraction] 38.2 % Invalid Interpretation Code 37.0 - 47.0 % AO Workflow SS Hemoglobin (Bld) [Mass/Vol] 12.5 G/dL Invalid Interpretation Code 12.0 - 16.0 G/dL AO Workflow SS Lymphocyte, Absolute 2.7 103/mcL Invalid Interpretation Code 0.8 - 3.9 10^3/mcL AO Workflow SS Lymphocytes/100 WBC (Bld) 30.9 % Invalid Interpretation Code 10.0 - 50.0 % AO Workflow SS MCH (RBC) [Entitic mass] 24.3 pg Invalid Interpretation Code 27.0 - 31.2 pg AO Workflow SS MCHC 32.6 G/dL Invalid Interpretation Code 33.0 - 37.0 G/dL AO Workflow SS MCV (RBC) [Entitic vol] 74.5 fL Invalid Interpretation Code 80.0 - 94.0 fL AO Workflow SS Monocyte distribution width Auto (Bld) [Entitic vol] 17.00 Invalid Interpretation Code 0.00 - 20.00 AO Workflow SS Comment on above: Result Comment: For ED adult patients suspected of sepsis, MDW<=20.0 does not rule out sepsis or risk of sepsis Monocyte, Absolute 0.5 103/mcL Invalid Interpretation Code 0.2 - 1.0 10^3/mcL AO Workflow SS Monocytes/100 WBC (Bld) 5.7 % Invalid Interpretation Code 1.7 - 13.0 % AO Workflow SS Neutrophil, Absolute 5.4 103/mcL Invalid Interpretation Code 2.9 - 6.2 10^3/mcL AO Workflow SS Neutrophils/100 WBC (Bld) 61.8 % Invalid Interpretation Code 37.0 - 80.0 % AO Workflow SS Platelet mean volume (Bld) [Entitic vol] 8.0 fL Invalid Interpretation Code 7.4 - 10.4 fL AO Workflow SS Platelets (Bld) [#/Vol] 243 103/mcL Invalid Interpretation Code 130 - 400 10^3/mcL AO Workflow SS RBC (Bld) [#/Vol] 5.13 106/mcL Invalid Interpretation Code 4.20 - 5.40 10^6/mcL AO Workflow SS WBC (Bld) [#/Vol] 8.7 103/mcL Invalid Interpretation Code 4.6 - 10.8 10^3/mcL AO Workflow SS LABORATORYOrdered By: SYSTEM SYSTEM on 12-11-2021 GFR 111 ml/min/1.73sqm Invalid Interpretation Code AO Chemistry S GFR Non- 91 ml/min/1.73sqm Invalid Interpretation Code AO Chemistry S LABORATORYOrdered By: Cynthia De La Rosa on 10-10-2021 C. difficile toxin B tcdB gene [place]+probe Ql (Stl) Negative (10/10/21 12:59 PM) Invalid Interpretation Code Negative AH Auto Viro/Sero SS Clostridium difficile PCR Int No tcdB gene DNA detected. Negative test results may occur from improper collection, handling or storage of specimen, technical error, or extremely low levels of target below the limit of detection of the assay. Invalid Interpretation Code AH Auto Viro/Sero SS LABORATORYOrdered By: TEE_Gia YOO CONTRIBUTOR_SYSTEM on 10-10-2021 Ova & Parasite exam See Below Invalid Interpretation Code AO Sendouts SS Comment on above: Result Comment: OVA AND PARASITE EXAM No Parasites Seen SOURCE: STOOL Performed By: [facility] [address] [place] [address] Rotary Operator: Patricio Bales III#: [id number] No Panel Informationon 10-10 Shiga Toxins 1 and 2 Absence of Shiga to nicole 1 Absence of Shiga toxin [address] [facility] Work Phone: Comment on above: Testing performed by immunochromatography. Culture Stool Normal stool [place] p resent. Salmonella: Negative Shigella: Negative Campylobacter: Negative [facility] Work Phone: Comment on above: Requests for alterna tive pathogens including Yersinia, E. coli 0157, C. difficile toxin, Rotavirus, Giardia and parasites require specific requests. Fecal Leukocytes Microscopy: Fecal Leukocytes Absent From our data, approximately 50% of enteroinvasive bacterial pathogens will not be associated with stool WBC's. [facility] Work Phone: LABORATORYOrdered By: Patricia Marks on 10-03-2021 Basophil, Absolute 0.2 103/mcL Invalid Interpretation Code 0.0 - 0.2 10^3/mcL AO Workflow SS Basophils/100 WBC (Bld) 1.7 % Invalid Interpretation Code 0.0 - 2.5 % AO Workflow SS Eosinophil, Absolute 0.2 103/mcL Invalid Interpretation Code 0.0 - 0.4 10^3/mcL AO Workflow SS Eosinophils/100 WBC (Bld) 1.8 % Invalid Interpretation Code 0.0 - 7.0 % AO Workflow SS Erythrocyte distribution width (RBC) [Ratio] 16.7 % Invalid Interpretation Code 11.5 - 14.5 % AO Workflow SS Hematocrit (Bld) [Volume fraction] 37.4 % Invalid Interpretation Code 37.0 - 47.0 % AO Workflow SS Hemoglobin (Bld) [Mass/Vol] 12.3 G/dL Invalid Interpretation Code 12.0 - 16.0 G/dL AO Workflow SS Lymphocyte, Absolute 2.0 103/mcL Invalid Interpretation Code 0.8 - 3.9 10^3/mcL AO Workflow SS Lymphocytes/100 WBC (Bld) 18.1 % Invalid Interpretation Code 10.0 - 50.0 % AO Workflow SS MCH (RBC) [Entitic mass] 24.1 pg Invalid Interpretation Code 27.0 - 31.2 pg AO Workflow SS MCHC 32.9 G/dL Invalid Interpretation Code 33.0 - 37.0 G/dL AO Workflow SS MCV (RBC) [Entitic vol] 73.1 fL Invalid Interpretation Code 80.0 - 94.0 fL AO Workflow SS Monocyte distribution width Auto (Bld) [Entitic vol] 25.88 Invalid Interpretation Code 0.00 - 20.00 AO Workflow SS Comment on above: Result Comment: For adults in ED, MDW>20.0 may be associated with a higher risk of sepsis during the first 12hrs of hospital admission Monocyte, Absolute 0.6 103/mcL Invalid Interpretation Code 0.2 - 1.0 10^3/mcL AO Workflow SS Monocytes/100 WBC (Bld) 5.2 % Invalid Interpretation Code 1.7 - 13.0 % AO Workflow SS Neutrophil, Absolute 8.2 103/mcL Invalid Interpretation Code 2.9 - 6.2 10^3/mcL AO Workflow SS Neutrophils/100 WBC (Bld) 73.2 % Invalid Interpretation Code 37.0 - 80.0 % AO Workflow SS Platelet mean volume (Bld) [Entitic vol] 7.8 fL Invalid Interpretation Code 7.4 - 10.4 fL AO Workflow SS Platelets (Bld) [#/Vol] 281 103/mcL Invalid Interpretation Code 130 - 400 10^3/mcL AO Workflow SS RBC (Bld) [#/Vol] 5.12 106/mcL Invalid Interpretation Code 4.20 - 5.40 10^6/mcL AO Workflow SS WBC 11.3 103/mcL Invalid Interpretation Code 4.6 - 10.8 10^3/mcL AO Workflow SS Albumin BCP dye [Mass/Vol] 3.1 G/dL Invalid Interpretation Code 3.5 - 5.0 G/dL AO ADM SS Albumin/Globulin [Mass ratio] 0.7 {ratio} Invalid Interpretation Code 1.1 - 2.5 ratio AO ADM SS ALP [Catalytic activity/Vol] 140 U/L Invalid Interpretation Code 40 - 135 U/L AO ADM SS ALT With P-5'-P [Catalytic activity/Vol] 14 U/L Invalid Interpretation Code 14 - 59 U/L AO ADM SS Appearance (U) Clear (10/03/21 4:27 AM) Invalid Interpretation Code Clear AO Auto Urine SS AST With P-5'-P [Catalytic activity/Vol] 11 U/L Invalid Interpretation Code 10 - 40 U/L AO ADM SS Bilirubin [Mass/Vol] 0.3 mg/dL Invalid Interpretation Code 0.2 - 1.0 mg/dL AO ADM SS Bilirubin Ql (U) Negative (10/03/21 4:27 AM) Invalid Interpretation Code Negative AO Auto Urine SS Calcium [Mass/Vol] 9.4 mg/dL Invalid Interpretation Code 8.4 - 10.2 mg/dL AO ADM SS Chloride [Moles/Vol] 102 mmol/L Invalid Interpretation Code 98 - 107 mmol/L AO ADM SS CO2 [Moles/Vol] 25 mmol/L Invalid Interpretation Code 22 - 29 mmol/L AO ADM SS Color (U) Yellow (10/03/21 4:27 AM) Invalid Interpretation Code AO Auto Urine SS Creatinine [Mass/Vol] 0.93 mg/dL Invalid Interpretation Code 0.55 - 1.02 mg/dL AO ADM SS Electrolyte Balance 11.0 mEq/L Invalid Interpretation Code 4.0 - 15.0 mEq/L AO ADM SS Globulin 4.2 G/dL Invalid Interpretation Code AO ADM SS Glucose [Mass/Vol] 95 mg/dL Invalid Interpretation Code 70 - 105 mg/dL AO ADM SS Glucose Test strip (U) [Mass/Vol] Negative Invalid Interpretation Code Negativemg/d L AO Auto Urine SS HCG ( test) Ql Negative (10/03/21 4:27 AM) Invalid Interpretation Code AO Manual Urine SS Hemoglobin Auto test strip (U) [Mass/Vol] Negative (10/03/21 4:27 AM) Invalid Interpretation Code Negative AO Auto Urine SS Ketones Ql (U) Negative Invalid Interpretation Code Negativemg/d L AO Auto Urine SS Lipase [Catalytic activity/Vol] 97 U/L Invalid Interpretation Code 73 - 393 U/L AO ADM SS Potassium [Moles/Vol] 4.1 mmol/L Invalid Interpretation Code 3.5 - 5.1 mmol/L AO ADM SS test (u) int Not detected Invalid Interpretation Code AO Manual Urine SS Protein [Mass/Vol] 7.3 G/dL Invalid Interpretation Code 6.4 - 8.2 G/dL AO ADM SS Sodium [Moles/Vol] 138 mmol/L Invalid Interpretation Code 136 - 145 mmol/L AO ADM SS UA Leuk Est Negative (10/03/21 4:27 AM) Invalid Interpretation Code Negative AO Auto Urine SS UA Nitrite Negative (10/03/21 4:27 AM) Invalid Interpretation Code Negative AO Auto Urine SS UA pH 7.0 (10/03/21 4:27 AM) Invalid Interpretation Code 5.0 - 8.0 AO Auto Urine SS UA Protein Negative Invalid Interpretation Code Negativemg/d L AO Auto Urine SS UA Spec Grav 1.025 (10/03/21 4:27 AM) Invalid Interpretation Code 1.015-1.025 AO Auto Urine SS UA Specimen Type Clean Catch (10/03/21 4:27 AM) Invalid Interpretation Code AO Auto Urine SS UA Urobilinogen 0.2 E.U./dL Invalid Interpretation Code 0.2-1.0E.U./ dL AO Auto Urine SS Urea nitrogen [Mass/Vol] 11 mg/dL Invalid Interpretation Code 7 - 18 mg/dL AO ADM SS Urea nitrogen/Creatinine [Mass ratio] 12 ratio Invalid Interpretation Code 7 - 27 ratio AO ADM SS LABORATORYOrdered By: SYSTEM SYSTEM on 10-03-2021 GFR 93 ml/min/1.73sqm Invalid Interpretation Code AO Chemistry S GFR Non- 77 ml/min/1.73sqm Invalid Interpretation Code AO Chemistry S No Panel Informationon 02-20 IMPRESSION: 1. Left forearm: Negative. 2. Left hand: Negative. Studio Potter: DEEPTI Transcribe Date/Time: Feb 20 2021 5:43P Dictated by : MERON COSME MD This examination was interpreted and the report reviewed and electronically signed by: MEORN COSME MD on Feb 20 2021 5:45PM [facility] DIVISION OF RADIOLOGY Radiology Study observation (narrative) [facility] No Panel InformationOrdered By: Ccf Provider on 02-20-2021 [facility] XR Hand - left PA and Latera l and Obliqueon 02-20-2021 * * *Final Report* * * DATE OF EXAM: Feb 20 2021 5:25PM WOX 5345 - XR HAND 3V PA/LAT/OBL LT / PROCEDURE REASON: multiple diagnoses * * * * Physician Interpretation * * * * LEFT FOREARM X-RAY SERIES CLINICAL HISTORY: Fall, pain in finger and hand TECHNIQUE: AP and lateral views. COMPARISON: None available. RESULT: No fracture or malalignment. Joint spaces and articular surfaces are preserved. No elbow joint effusion. LEFT HAND X-RAY SERIES CLINICAL HISTORY: Fall, pain in finger and hand TECHNIQUE: PA, lateral and oblique views. COMPARISON: None available. RESULT: No fracture or malalignment. Joint spaces and articular surfaces are preserved. [facility] DIVISION OF RADIOLOGY Provider, [facility] - 02/20/2021 * * *Final Report* * * DATE OF EXAM: Feb 20 2021 5:25PM WOX 5345 - XR HAND 3V PA/LAT/OBL LT / PROCEDURE REASON: multiple diagnoses * * * * Physician Interpretation * * * * LEFT FOREARM X-RAY SERIES CLINICAL HISTORY: Fall, pain in finger and hand TECHNIQUE: AP and lateral views. COMPARISON: None available. RESULT: No fracture or malalignment. Joint spaces and articular surfaces are preserved. No elbow joint effusion. LEFT HAND X-RAY SERIES CLINICAL HISTORY: Fall, pain in finger and hand TECHNIQUE: PA, lateral and oblique views. COMPARISON: None available. RESULT: No fracture or malalignment. Joint spaces and articular surfaces are preserved. COMBINED IMPRESSION IMPRESSION: 1. Left forearm: Negative. 2. Left hand: Negative. Studio Potter: PSCB Transcribe Date/Time: Feb 20 2021 5:43P Dictated by : MERON COSME MD This examination was interpreted and the report reviewed and electronically signed by: MERON COSME MD on Feb 20 2021 5:45PM [facility] XR Radius and Ulna - left AP and Lateralon 02-20-2021 * * *Final Report* * * DATE OF EXAM: Feb 20 2021 5:25PM WOX 5341 - XR FOREARM 2V AP/LAT LT / PROCEDURE REASON: multiple diagnoses * * * * Physician Interpretation * * * * LEFT FOREARM X-RAY SERIES CLINICAL HISTORY: Fall, pain in finger and hand TECHNIQUE: AP and lateral views. COMPARISON: None available. RESULT: No fracture or malalignment. Joint spaces and articular surfaces are preserved. No elbow joint effusion. LEFT HAND X-RAY SERIES CLINICAL HISTORY: Fall, pain in finger and hand TECHNIQUE: PA, lateral and oblique views. COMPARISON: None available. RESULT: No fracture or malalignment. Joint spaces and articular surfaces are preserved. COM[facility] DIVISION OF RADIOLOGY Provider, [facility] - 02/20/2021 * * *Final Report* * * DATE OF EXAM: Feb 20 2021 5:25PM WOX 5341 - XR FOREARM 2V AP/LAT LT / PROCEDURE REASON: multiple diagnoses * * * * Physician Interpretation * * * * LEFT FOREARM X-RAY SERIES CLINICAL HISTORY: Fall, pain in finger and hand TECHNIQUE: AP and lateral views. COMPARISON: None available. RESULT: No fracture or malalignment. Joint spaces and articular surfaces are preserved. No elbow joint effusion. LEFT HAND X-RAY SERIES CLINICAL HISTORY: Fall, pain in finger and hand TECHNIQUE: PA, lateral and oblique views. COMPARISON: None available. RESULT: No fracture or malalignment. Joint spaces and articular surfaces are preserved. COMBINED IMPRESSION IMPRESSION: 1. Left forearm: Negative. 2. Left hand: Negative. Studio Potter: DEEPTI Transcribe Date/Time: Feb 20 2021 5:43P Dictated by : MERON COSME MD This examination was interpreted and the report reviewed and electronically signed by: MERON COSME MD on Feb 20 2021 5:45PM [facility] Progress Noteon 02-12-2018 Residential Property Consultant Authentication Interface Message Text Follow-UpReason for Visit:Chief ComplaintPatient presents with Knee Pain Follow up Closed dislocation of left patellaAllergies: Patient has no known allergies..Medications:Outp atient Encounter Medications as of 02/12/2018Medication Sig Dispense Refill cetirizine (ZYRTEC) 10 MG tablet take 1 tablet by mouth once daily 0 naproxen (NAPROSYN) 500 MG tablet Take 1 Tab (500 mg) by mouth 2 times daily60 Tab 1 fluticasone (FLONASE) 50 MCG/ACT nasal spray place 1 spray into each nostriltwice a day 0No facility-administered encounter medications on file as of 02/12/2018.History of Present Illness (Location, Quality, Severity, Duration, Timing,Context. Modifying Factors, Associated Signs & Symptoms):Loreta Kunz is a 17 y.o. patient following up for Closed dislocation of leftpatella.Doing well. No longer having pain with cheer. Getting ready for softball.Any Prior Treatments: brace(orthotics)Rehab compliance: noneImproved: has improved% Improvement: 90HEP frequency: n/aBack to play: has returned to participationSymptoms: popping/clickingPertinent negatives:swelling/effusion ;locking/catching;pain;numb ness/tingling;givingout/ins tability;weaknessPain at worst since last visit: ny new injuries or complaints since last visit: NoReview of System:Review of SystemsConstitutional: Negative for chills, fatigue, fever and weight loss.HENT: Negative for congestion and sore throat.Eyes: Negative for pain, visual disturbance and wears glasses.Respiratory: Negative for cough, shortness of breath and wheezing.Cardiovascular: Negative for chest pain, palpitations and leg swelling.Gastrointestinal: Negative for abdominal pain, blood in stool, indigestion andirritable bowel syndrome.Genitourinary: Negative for dysuria and menstrual problem.Musculoskeletal: Negative for joint pain, joint swelling and myalgias.Skin: Negative for color change, rash and wound.Neurological: Negative for seizures, syncope, weakness, light-headedness andheadaches.Endocrine: Negative for cold intolerance, heat intolerance and polydipsia.Hem/Lymph: Negative for adenopathy and bruises/bleeds easily.Psychiatric/Behavior al: Negative for depressed mood. The patient is notnervous/anxious.Physical Exam:Physical ExamConstitutional: She appears well-developed and well-nourished. She is active.Cardiovascular: Intact distal pulses.Neurological: She is alert.Skin: Skin is warm.Psychiatric: She has a normal mood and affect.Ortho Exam:Left Knee ExamLeft knee exam is normal.TendernessThe patient is experiencing no tenderness.Range of MotionThe patient has normal left knee ROM.TestsLachman: Anterior - negativeOtherSwelling: noneRight Knee ExamRight knee exam is normal.Range of MotionThe patient has normal right knee ROM.TestsLachman: Anterior - negativeOtherSwelling: noneOther Exam:Not ApplicableRadiographic Studies:NoneAssessment and Plan:Loreta was seen today for knee pain.Diagnoses and all orders for this visit:Closed dislocation of left patella, subsequent encounterPatient Instructions:Patient InstructionsEDUCATION HANDOUTS PROVIDEDtape for all cheer and softball activitiesACTIVITY RECOMMENDFull Participation (as tolerated) No squats or lunges.PATIENT INSTRUCTIONSIce for 20 minutes as often as every hour.Perform home exercise programFOLLOW UP VISITAs neededLoreta Kunz and parent/guardian understand(s) and is/are in agreement with theassessment and plan. Loreta Kunz's symptoms change or worsen, please call ouroffice for earlier re-evaluation. Normal [facility] Progress Noteon 01-01-2018 Residential Property Consultant Authentication Interface Message Text Follow-UpReason for Visit:Chief ComplaintPatient presents with Knee Pain follow up left knee and go over MRI resultsAllergies: Patient has no known allergies..Medications:Outp atient Encounter Medications as of 01/01/2018Medication Sig Dispense Refill naproxen (NAPROSYN) 500 MG tablet Take 1 Tab (500 mg) by mouth 2 times daily60 Tab 1 cetirizine (ZYRTEC) 10 MG tablet take 1 tablet by mouth once daily 0 fluticasone (FLONASE) 50 MCG/ACT nasal spray place 1 spray into each nostriltwice a day 0No facility-administered encounter medications on file as of 01/01/2018.History of Present Illness (Location, Quality, Severity, Duration, Timing,Context. Modifying Factors, Associated Signs & Symptoms):Loreta Kunz is a 17 y.o. patient following up for left knee and go over MRIresults .Not doing jumps in cheer. No more instability episodes since last visit.Any Prior Treatments: braceRehab compliance: fully compliant and has completed rehabImproved: has not improved% Improvement: 50HEP frequency: n/aBack to play: has not returned to participationSymptoms: pain;popping/clicking;locki ng/catching;giving out/instability;weaknessPer tinent negatives: swelling/effusion;numbness/ tingling;night painPain at worst since last visit: 6/10Any new injuries or complaints since last visit: NoReview of System:Review of SystemsConstitutional: Negative for chills, fatigue, fever and weight loss.HENT: Negative for congestion and sore throat.Eyes: Negative for pain, visual disturbance and wears glasses.Respiratory: Negative for cough, shortness of breath and wheezing.Cardiovascular: Negative for chest pain, palpitations and leg swelling.Gastrointestinal: Negative for abdominal pain, blood in stool, indigestion andirritable bowel syndrome.Genitourinary: Negative for dysuria and menstrual problem.Musculoskeletal: Positive for joint pain, joint swelling and myalgias.Skin: Negative for color change, rash and wound.Neurological: Negative for seizures, syncope, weakness, light-headedness andheadaches.Endocrine: Negative for cold intolerance, heat intolerance and polydipsia.Hem/Lymph: Negative for adenopathy and bruises/bleeds easily.Psychiatric/Behavior al: Negative for depressed mood. The patient is notnervous/anxious.Physical Exam:Physical ExamConstitutional: She appears well-developed and well-nourished. She is active.Cardiovascular: Intact distal pulses.Neurological: She is alert.Skin: Skin is warm.Psychiatric: She has a normal mood and affect.Vitals reviewed.Ortho Exam:Ortho ExamOther Exam:Pain and mild swelling around patella left kneeRadiographic Studies:reviewed reults from OSHAssessment and Plan:Loreta was seen today for knee pain.Diagnoses and all orders for this visit:Closed dislocation of left patella, initial encounter- PT Evaluate and Treat; Future- Bio-Evaluation and Orthotics:Patient Instructions:Patient InstructionsEDUCATION HANDOUTS PROVIDEDdiscussed MRI resultsACTIVITY RECOMMENDModified Participation (pain free) Functional progression by PTPATIENT INSTRUCTIONSIce for 20 minutes as often as every hour.Functional Rehabilitation as ordered.FOLLOW UP VISITSix weeksMadelyn Joaquina and parent/guardian understand(s) and is/are in agreement with theassessment and plan. Loreta Kunz's symptoms change or worsen, please call ouroffice for earlier re-evaluation. Normal [facility] KNEE 3 VIEWS LEFTon 12-17-19 18 Protein mass conc PROCEDURE: KNEE 3 EWS LEFTCLINICAL HISTORY: Recurrent left patellar dislocationCOMPARISON: 06/07/2017 left knee x-raysFINDINGS: On the sunrise view there is lateral tilting and subluxation of the patella(aproximately 5 mm). No fracture is identified. No bony destructive process isseen. There is no visible joint effusion. The soft tissues are radiographicallynormal.IMPR ESSION:1. Mild lateral tilting and subluxation of the patella.2. No fracture is identified.This report has been created using voice recognition softwareSigned by: Dr. Isaías Ivan at 12/16/2017 11:30 Normal [facility] Progress Noteon 12-16-2017 Residential Property Consultant Authentication Interface Message Text Follow-UpReason for Visit:Chief ComplaintPatient presents with Knee Pain follow up left knee pain Patellar subluxationAllergies: Patient has no known allergies..Medications:Outp atient Encounter Medications as of 12/16/2017Medication Sig Dispense Refill cetirizine (ZYRTEC) 10 MG tablet take 1 tablet by mouth once daily 0 naproxen (NAPROSYN) 500 MG tablet Take 1 Tab (500 mg) by mouth 2 times daily60 Tab 1 fluticasone (FLONASE) 50 MCG/ACT nasal spray place 1 spray into each nostriltwice a day 0No facility-administered encounter medications on file as of 12/16/2017.History of Present Illness (Location, Quality, Severity, Duration, Timing,Context. Modifying Factors, Associated Signs & Symptoms):Loreta Kunz is a 17 y.o. patient following up for Patellar subluxation leftozzieee .This episode of dislocation occurred at work. 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 Concerned aboutthese episodes as basketball cheering about to start.Any Prior Treatments: brace;a HEPRehab compliance: noneImproved: has not improved(same )% Improvement: 50HEP frequency: 1-2 times per weekBack to play: has not returned to participation(but states cheer practice startstomorrow )Symptoms: pain;swelling/effusion;marvin ing/clicking;locking/catchi ng;givingout/instability;we aknessPertinent negatives: numbness/tingling;night painPain at worst since last visit: ny new injuries or complaints since last visit: YesIf yes, please explain: patient states 2 weeks ago approx the knee dislocatedagain patient states she did not have the brace on that day.Review of System:Review of SystemsConstitutional: Negative for chills, fatigue, fever and weight loss.HENT: Negative for congestion and sore throat.Eyes: Negative for pain, visual disturbance and wears glasses.Respiratory: Negative for cough, shortness of breath and wheezing.Cardiovascular: Negative for chest pain, palpitations and leg swelling.Gastrointestinal: Negative for abdominal pain, blood in stool, indigestion andirritable bowel syndrome.Genitourinary: Negative for dysuria and menstrual problem.Musculoskeletal: Positive for joint pain, joint swelling and myalgias.Skin: Negative for color change, rash and wound.Neurological: Negative for seizures, syncope, weakness, light-headedness andheadaches.Endocrine: Negative for cold intolerance, heat intolerance and polydipsia.Hem/Lymph: Negative for adenopathy and bruises/bleeds easily.Psychiatric/Behavior al: Negative for depressed mood. The patient is notnervous/anxious.Physical Exam:Physical ExamConstitutional: She appears well-developed and well-nourished. She is active.Cardiovascular: Intact distal pulses.Neurological: She is alert.Skin: Skin is warm.Psychiatric: She has a normal mood and affect.Vitals reviewed.Ortho Exam:Left Knee ExamTendernessThe patient is experiencing Patella tenderness, medial retinaculum tendernessand lateral retinaculum tenderness.Range of MotionExtension: normalFlexion: abnormal Left knee flexion: passive flexion and extension with loud popbeneath lateral border of patella.Muscle StrengthFlexion: 5/5Extension: 5/5TestsMcMurray: Medial - negative Lateral - negativeLachman: Anterior - negativeStress Tests: Varus: negative Valgus: negativePatellar apprehension: negativeOtherErythema: absentScars: absentSensation: normalSwelling: mildEffusion: no Effusion presentRight Knee ExamRight knee exam is normal.Other Exam:Not ApplicableRadiographic Studies:Knee: Radiographics taken at [facility] 12/16/2017: AP and Lateralviews of the knee(s), Palo views of the knee(s)X-ray Knee 3 Views LeftResult Date: 12/16/2017PROCEDURE: KNEE 3 VIEWS LEFT CLINICAL HISTORY: Recurrent left patellardislocation COMPARISON: 06/07/2017 left knee x-rays FINDINGS: On the sunriseview there is lateral tilting and subluxation of the patella (approximately 5mm). No fracture is identified. No bony destructive process is seen. There is novisible joint effusion. The soft tissues are radiographically normal.IMPRESSION: 1. Mild lateral tilting and subluxation of the patella. 2. Nofracture is identified. This report has been created using voice recognitionsoftwareAssess ment and Plan:Loreta was seen today for knee pain.Diagnoses and all orders for this visit:Closed dislocation of left patella, initial encounter- X-Ray Knee 3 Views Left- MRI KNEE JOINT without contrast Left; FutureSynovial plica syndrome of left kneePatient Instructions:Patient InstructionsEDUCATION HANDOUTS PROVIDEDDiscussed MRI for Plica bandACTIVITY RECOMMENDModified Participation (pain free) No running drills and no jumpng with cheerPATIENT INSTRUCTIONSIce for 20 minutes as often as every hour.Wear the dispensed brace when up and mobile and with sports.FOLLOW UP VISITAfter pending radiology studiesMadelaissatou Kunz and parent/guardian understand(s) and is/are in agreement with theassessment and plan. Loreta Kunz's symptoms change or worsen, please call ouroffice for earlier re-evaluation. Normal [facility] Progress Noteon 11-18-2017 Residential Property Consultant Authentication Interface Message Text Nicole for Visit:Chief ComplaintPatient presents with Knee Injury New patient knee injury, leftAllergies: Patient has no known allergies..Medications:Outp atient Encounter Prescriptions as of 11/18/2017Medication Sig Dispense Refill cetirizine (ZYRTEC) 10 MG tablet take 1 tablet by mouth once daily 0 naproxen (NAPROSYN) 500 MG tablet Take 1 Tab (500 mg) by mouth 2 times daily60 Tab 1 fluticasone (FLONASE) 50 MCG/ACT nasal spray place 1 spray into each nostriltwice a day 0No facility-administered encounter medications on file as of 11/18/2017.History of Present Illness (Location, Quality, Severity, Duration, Timing,Context. 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 .Did not have brace on when this recent injury occurred.School: [employer] (11th)Current Activities: cheer (school cheer)Date of Injury:11/08/17Injured body part: kneeInjured side: leftInjured location: medialInjury type: injuryMechanism of Injury: overuse (subluxed, not wearing brace)Activity in which injured: cheerSymptoms: swelling/effusion;locking/c atching;popping/clicking;pa in;givingout/instability;we aknessPertinent negatives: numbness/tinglingPrevious Imaging/Testing: was a x-ray (Eli, brought a disc and report)Any Prior Treatments: brace;physical therapy;a HEP# Previous injuries: 1 (patella subluxation)Back to play: has returned to modified participationPain at worst: 10ggravated factors: prolonged walking;stairs;jumpingRelie ving factors: rest;ice (stim)Hours of activity per week: 6Dominant Hand: right handedReview of System:ROSPhysical Exam:Physical ExamOrtho Exam:Ortho ExamOther Exam:Patellar Dislocation:Gait: Non-antalgicExamination of the left knee reveals:Inspection: Effusionnone, erythema absent, ecchymosis absentPalpation: Tender to palpation beneath the medial and lateral patellar facetsTender to palpation within the medial and lateral patellar retinacularstructuresRange of Motion: Mildly limited in flexion, full in extensionStrength: limited in flexion, full in extension, extensor mechanism intactSpecial tests: Anterior and posterior drawer tests negativeLachman negativeKnee stable to varus and valgus stress at 0 and 30 degreesMeniscal signs, including bounce home, modified-Apley s, flexion-pinch,Gilberto s, and squat test all negativePain and apprehension absent with manipulation of the patellaPostural: Proprioception difficult to ascertain today due to injuryHip Exam Full range of motion and strength in all directions, no tenderness topalpationNeurovascular: Reveals intact sensation throughout, normal pulses at thedorsalis pedis and tibialis posterior arteries, and 2 second capillary refilldistallyRadiographic Studies:Reviewed images from outside hospitalAssessment and Plan:Loreta was seen today for knee injury.Diagnoses and all orders for this visit:Patellar subluxation, left, initial encounter- Knee Brace- naproxen (NAPROSYN) 500 MG tablet; Take 1 Tab (500 mg) by mouth 2 timesdailyPatient Instructions:Patient InstructionsEDUCATION HANDOUTS PROVIDEDNo handouts given at this visitACTIVITY RECOMMENDModified Participation (pain free) limit impact jumpingPATIENT INSTRUCTIONSIce for 20 minutes as often as every hour.Perform home exercise programPatient received NSAID safety education.FOLLOW UP VISITAfter pending radiology studiesMaseth Kunz and parent/guardian understand(s) and is/are in agreement with theassessment and plan. Loreta Kunz's symptoms change or worsen, please call ouroffice for earlier re-evaluation.Non-steroidal Anti-inflammatories (NSAIDS) have been recommended today for youas part of your treatment plan for your injury. Included in these areMotrin/Advil/Ibuprofen, Naprosyn/Aleve or Relafen/Nabumetone. These are onlyintended for short-term use. Please take these as directed. One side effect canbe stomach or intestinal irritation. Please do not take any of these on an emptystomach. Please take them after eating a meal and drinking a large glass ofwater. If you experience any abdominal pain, nausea or diarrhea, please stoptaking this Medication and let your medical provider know this right away. Normal [facility] Progress Noteon 09-04-2017 Residential Property Consultant Authentication Interface Message Text Follow-UpReason for Visit:Chief ComplaintPatient presents with Knee Pain Follow up knee pain, leftAllergies: Patient has no known allergies..Medications:Outp atient Encounter Prescriptions as of 09/04/2017Medication Sig Dispense Refill fluticasone (FLONASE) 50 MCG/ACT nasal spray place 1 spray into each nostriltwice a day 0No facility-administered encounter medications on file as of 09/04/2017.History of Present Illness (Location, Quality, Severity, Duration, Timing,Context. Modifying Factors, Associated Signs & Symptoms):Loreta Kunz is a 17 y.o. patient following up for .Back to doing cheer jumps with no issues. Wearing brace for activities.Review of System:Review of SystemsConstitutional: Negative for chills, fatigue, fever and weight loss.HENT: Negative for congestion and sore throat.Eyes: Negative for pain, visual disturbance and wears glasses.Respiratory: Negative for cough, shortness of breath and wheezing.Cardiovascular: Negative for chest pain, palpitations and leg swelling.Gastrointestinal: Negative for abdominal pain, blood in stool, indigestion andirritable bowel syndrome.Genitourinary: Negative for dysuria and menstrual problem.Musculoskeletal: Negative for joint pain, joint swelling and myalgias.Skin: Negative for color change, rash and wound.Neurological: Negative for seizures, syncope, weakness, light-headedness andheadaches.Endocrine: Negative for cold intolerance, heat intolerance and polydipsia.Hem/Lymph: Negative for adenopathy and bruises/bleeds easily.Psychiatric/Behavior al: Negative for depressed mood. The patient is notnervous/anxious.Physical Exam:Physical ExamConstitutional: She appears well-developed and well-nourished. She is active.Cardiovascular: Intact distal pulses.Neurological: She is alert.Skin: Skin is warm.Psychiatric: She has a normal mood and affect.Vitals reviewed.Ortho Exam:Left Knee ExamTendernessThe patient is experiencing no tenderness.Range of MotionThe patient has normal left knee ROM.TestsMcMurray: Medial - negative Lateral - negativeLachman: Anterior - negativeOtherErythema: absentScars: absentSensation: normalSwelling: noneEffusion: no Effusion presentRight Knee ExamRight knee exam is normal.Other Exam:Not ApplicableRadiographic Studies:NoneAssessment and Plan:Loreta was seen today for knee pain.Diagnoses and all orders for this visit:Patellar instability of left kneePatient Instructions:Patient InstructionsEDUCATION HANDOUTS PROVIDEDNo handouts given at this visitACTIVITY RECOMMENDFull Participation (as tolerated)PATIENT INSTRUCTIONSPerform home exercise programFOLLOW UP VISITAs neededMadelyn Joaquina and parent/guardian understand(s) and is/are in agreement with theassessment and plan. Loreta Kunz's symptoms change or worsen, please call ouroffice for earlier re-evaluation. Normal [facility] Progress Noteon 07-29-2017 Residential Property Consultant Authentication Interface Message Text Follow-UpReason for Visit:Chief ComplaintPatient presents with Left Knee Problem Follow Up Left Knee Patellar InstabilityAllergies: Patient has no known allergies..Medications:Outp atient Encounter Prescriptions as of 07/29/2017Medication Sig Dispense Refill fluticasone (FLONASE) 50 MCG/ACT nasal spray place 1 spray into each nostriltwice a day 0No facility-administered encounter medications on file as of 07/29/2017.History of Present Illness (Location, Quality, Severity, Duration, Timing,Context. Modifying Factors, Associated Signs & Symptoms):Loreta Kunz is a 17 y.o. patient following up for Left knee patellarinstability.Doing well in brace and would like to try getting back into some cheerpracticing limiting heavy impact. PERCENT: 75%LOCATION: Left Knee Patellar InstabilityPAIN AT WORST SINCE LAST LEVEL: Walking & Standing for long periods, Turning &Twisting agrevate pain /10 WorstBETTER: Rest, Brace, PT, HEP, IceTREATMENT: PT @ [facility], Brace, HEP 1-2 x week, IceACTIVITY LEVEL: Rest Review of System:ROSPhysical Exam:Physical ExamOrtho Exam:Ortho ExamOther Exam:Patellar Dislocation:Gait: NormalExamination of the left knee reveals:Inspection: Effusionnone, erythema absent, ecchymosis absentPalpation: Tender to palpation beneath the neither patellar facetsTender to palpation within the neither patellar retinacular structuresRange of Motion: full in flexion, full in extensionStrength: full in flexion, full in extension, extensor mechanism intactSpecial tests: Anterior and posterior drawer tests negativeLachman negativeKnee stable to varus and valgus stress at 0 and 30 degreesMeniscal signs, including bounce home, modified-Apley s, flexion-pinch,Gilberto s, and squat test all negativePain and apprehension absent with manipulation of the patellaPostural: Proprioception engagedHip Exam Full range of motion and strength in all directions, no tenderness topalpationNeurovascular: Reveals intact sensation throughout, normal pulses at thedorsalis pedis and tibialis posterior arteries, and 2 second capillary refilldistallyRadiographic Studies:NoneAssessment and Plan:Loreta was seen today for left knee problem.Diagnoses and all orders for this visit:Patellar instability of left kneeInternal derangement of left knee- Cancel: MRI KNEE JOINT without contrast Left; FuturePatient Instructions:Patient InstructionsEDUCATION HANDOUTS PROVIDEDNo handouts given at this visitACTIVITY RECOMMENDModified Participation (pain free) No stair running until cleared by physician,Walking only. Jumps as tolerated.PATIENT INSTRUCTIONSIce for 20 minutes as often as every hour.Physical Therapy as ordered.Wear the dispensed brace with sports.FOLLOW UP VISITFour Itz Kunz and parent/guardian understand(s) and is/are in agreement with theassessment and plan. Loreta Kunz's symptoms change or worsen, please call ouroffice for earlier re-evaluation. Normal [facility] Progress Noteon 06-19-2017 Residential Property Consultant Authentication Interface Message Text Follow-UpReason for Visit:Chief ComplaintPatient presents with Left Knee Pain Follow up left knee pain and go over MRI resultsAllergies: Patient has no known allergies..Medications:No outpatient encounter prescriptions on file as of 06/19/2017.No facility-administered encounter medications on file as of 06/19/2017.History of Present Illness (Location, Quality, Severity, Duration, Timing,Context. Modifying Factors, Associated Signs & Symptoms):Loreta Kunz is a 16 y.o. patient following up for left knee pain and go overMRI results .Swelling is improved.Any Prior Treatments: noneRehab compliance: noneImproved: has not improved% Improvement: 0HEP frequency: n/aBack to play: has not returned to participationSymptoms: pain;swelling/effusion;marvin ing/clicking;locking/catchi ng;givingout/instability;we aknessPertinent negatives: numbness/tingling;night painPain at worst since last visit: ny new injuries or complaints since last visit: YesIf yes, please explain: states she feels like the knee was getting better butover the weekend she states she feels like she dislocated the knee again andstates it is worse than before.Review of System:Review of SystemsEyes: Positive for wears glasses.Musculoskeletal: Positive for joint pain, joint swelling and myalgias.Physical Exam:Physical ExamConstitutional: She appears well-developed and well-nourished. She is active.Cardiovascular: Intact distal pulses.Neurological: She is alert.Skin: Skin is warm.Psychiatric: She has a normal mood and affect.Vitals reviewed.Ortho Exam:Left Knee ExamTendernessThe patient is experiencing Patella tenderness and MCL tenderness.Range of MotionExtension: normalFlexion: abnormalMuscle StrengthExtension: 4/5TestsPatellar Apprehension: negativeOtherErythema: absentScars: absentSensation: normalSwelling: mildEffusion: no Effusion presentOther Exam:Not ApplicableRadiographic Studies:MRI results reviewed from outside hospitalAssessment and Plan:Loreta was seen today for left knee pain.Diagnoses and all orders for this visit:Patellar instability of left knee- Knee Brace- PT Evaluate and Treat; FutureSprain of medial collateral ligament of left knee, subsequent encounter- Knee Brace- PT Evaluate and Treat; FuturePatient Instructions:Patient InstructionsEDUCATION HANDOUTS PROVIDEDNo handouts given at this visitACTIVITY RECOMMENDModified Participation (pain free) Functional progression by PTPATIENT INSTRUCTIONSIce for 20 minutes as often as every hour.Physical Therapy as ordered.Wear the dispensed brace when up and mobile and with sports.FOLLOW UP VISITFour weeksMadelaissatou Joaquina and parent/guardian understand(s) and is/are in agreement with theassessment and plan. Loreta Kunz's symptoms change or worsen, please call ouroffice for earlier re-evaluation. Normal [facility] Progress Noteon 06-11-2017 Residential Property Consultant Authentication Interface Message Text NewReason for Visit:Chief ComplaintPatient presents with Left Knee Pain New Patient Left Knee Injury 06/07/17Allergies: Patient has no known allergies..Medications:No outpatient encounter prescriptions on file as of 06/11/2017.No facility-administered encounter medications on file as of 06/11/2017.History of Present Illness (Location, Quality, Severity, Duration, Timing,Context. Modifying Factors, Associated Signs & Symptoms):Loreta Kunz is a 16 y.o. female athlete presenting with left knee injury .Collision at first base. Unsure of mechanism. Garrett pop in left knee.School: [employer] (10th grade)Current Activities: softball (Pitcher & 1st Base)Date of Injury:06/07/17Injured side: leftInjured location: medial;anterior medialInjury type: injuryMechanism of Injury: collided with player (jumped up to catch overthrown ball &collided with 1st base runner)Activity in which injured: softballSymptoms: swelling/effusion;deformity ;discoloration;pain;locking /catching;nightpainPertinen t negatives: popping/clicking;giving out/instability;crepitusPre vious Imaging/Testing: was a x-rayAny Prior Treatments: immobilization;crutches;res t/activity restriction;ice# Previous injuries: 0Back to play: has not returned to participationPain at worst: 10/10Aggravated factors: weight bearing movement;prolonged walking (flexion)Relieving factors: ice;nwb;immobilization;rest Hours of activity per week: 10 (Softball 5 days per week)Dominant Hand: right handedReview of System:Review of SystemsConstitutional: Negative for chills, fatigue, fever and weight loss.HENT: Negative for congestion and sore throat.Eyes: Positive for wears glasses. Negative for pain and visual disturbance.Respiratory: Negative for cough, shortness of breath and wheezing.Cardiovascular: Negative for chest pain, palpitations and leg swelling.Gastrointestinal: Negative for abdominal pain, blood in stool, indigestion andirritable bowel syndrome.Genitourinary: Negative for dysuria and menstrual problem.Musculoskeletal: Positive for joint pain, joint swelling and myalgias.Skin: Negative for color change, rash and wound.Neurological: Negative for seizures, syncope, weakness, light-headedness andheadaches.Endocrine: Negative for cold intolerance, heat intolerance and polydipsia.Hem/Lymph: Negative for adenopathy and bruises/bleeds easily.Psychiatric/Behavior al: Negative for depressed mood. The patient is notnervous/anxious.Physical Exam:Physical ExamConstitutional: She appears well-developed and well-nourished. She is active.Cardiovascular: Intact distal pulses.Neurological: She is alert.Skin: Skin is warm.Psychiatric: She has a normal mood and affect.Vitals reviewed.Ortho Exam:Left Knee ExamTendernessThe patient is experiencing medial joint line tenderness and MCL tenderness.Range of MotionExtension: normalFlexion: abnormalMuscle StrengthExtension: 5/5TestsMcMurray: Medial - positive Lateral - negativeLachman: Anterior - negativeDrawer: Anterior - negativeStress Tests: Varus: negative Valgus: positivePatellar Apprehension: negativeOtherErythema: absentScars: absentSensation: normalSwelling: mildEffusion: Effusion presentOther Exam:Not ApplicableRadiographic Studies:reviewed previous xrays:X-ray Knee 3 Views LeftResult Date: 06/07/2017CLINICAL HISTORY: pt with softball injury; edema noted on left knee. TTP alongthe medial joint line, patella and tibia COMPARISON: None PROCEDURE COMMENTS:Three views of the left knee.IMPRESSION: There is no visible fracture or other osseous abnormality. Alignmentis normal. There is no visible joint effusion. This report has been createdusing voice recognition softwareX-ray Tib-fib 2 Views LeftResult Date: 06/07/2017CLINICAL HISTORY: left leg injury at softball - pain on mid-shaft of tibia withparesthesias. COMPARISON: None PROCEDURE COMMENTS: Two views of the right tibiaand fibula. FINDINGS: There is no visible fracture or other osseous abnormality.The soft tissues are radiographically normal.IMPRESSION: Normal radiographic examination of the tibia and fibula. Thisreport has been created using voice recognition softwareAssessment and Plan:Loreta was seen today for left knee pain.Diagnoses and all orders for this visit:Internal derangement of left knee- MRI KNEE JOINT without contrast Left; FutureOther orders- AMB Referral To Sports MedicinePatient Instructions:Patient InstructionsEDUCATION HANDOUTS PROVIDEDNo handouts given at this visitACTIVITY RECOMMENDNo Participation Until: cleared by physicianPATIENT INSTRUCTIONSIce for 20 minutes as often as every hour.FOLLOW UP VISITAfter pending radiology studiesMaseth Kunz and parent/guardian understand(s) and is/are in agreement with theassessment and plan. Loreta Kunz's symptoms change or worsen, please call ouroffice for earlier re-evaluation. Normal [facility] ED Provider Progress Noteon 06-07-2017 Residential Property Consultant Authentication Interface Message Text Loreta KunzDOB: 2000Chief ComplaintPatient presents with Leg InjuryNo Known AllergiesDOS: 06/07/2017Loreta Kunz is a 16 y.o. Female here with a leg injury. She was playingsoftball this evening, 1st base about 1 hour ago. She was jumping up to [place], the runner and her collided, and when she fell down she felt a pop. Shewas unable to ambulate. Parents drove onto the field and [facility] Her leg was splinted and ice was applied prior to their departure. History from patient and mother.Review of SystemsConstitutional: Negative for activity change and fever.HENT: Negative for congestion and rhinorrhea.Respiratory: Negative for cough.Gastrointestinal: Negative for diarrhea and vomiting.Musculoskeletal: Leg injuryPMHx: negativePSHx: negativePediatric HistoryPatient Guardian Status Mother: Grace Kunz Father: Lashanda Kunz Topics Concern Not on fileSocial History Narrative No narrative on fileED Triage VitalsDate and Time Temp Temp src Pulse Resp BP SpO2 Weight 06/07/17 1906 36.6 C (97.9 F) Temporal (!) 117 24 118/90 100 % 81.6 kg SMSPhysical ExamConstitutional: She appears well-developed and well-nourished.Crying and writhing in the bed in painEyes: Conjunctivae are normal.Cardiovascular: Regular rhythm and normal heart sounds.TachycardicPulmonary /Chest: Effort normal and breath sounds normal.Abdominal: Soft. Bowel sounds are normal.Musculoskeletal:TTP along the proximal-middle Tibia on the left. TTP along the proximal-middlefibula as well. No gross deformity. No TTP of the left foot or ankle, but painwith ankle ROM. Paresthesias reported on the lower leg. No paresthesias of theleft foot. Able to wiggle toes with minimal pain. No hip pain reported.Posterior tib pulses palpated.Upon reassessment, patient now with medial knee pain. TTP along the medialfemoral condyle, medial joint line, patella, patellar tendon, medial and lateraltibial plateaus; Unable to move knee as patient guards and screams in pain.Neurological: She is alert.Skin: Skin is warm. Capillary refill takes less than 2 seconds. No ecchymosisand no rash noted. There is no wound.ProceduresMDMED Course:Diagnosis' considered: fracture of left leg; bone bruise, MCL strainLabs/Radiology:X-Ray Knee 3 Views LeftFinal ResultIMPRESSION:There is no visible fracture or other osseous abnormality. Alignment is normal.There is novisible joint effusion.This report has been created using voice recognition softwareX-Ray Tib-Fib 2 Views LeftFinal ResultIMPRESSION:Normal radiographic examination of the tibia and fibula.This report has been created using voice recognition softwareTreatment/Reasses sment:16 yr old female here with leg injury. Crying out in pain on exam withoutobvious deformity. 50mcg intranasal fentanyl given. Tib/fib XRs wnl. Xray kneewnl. Placed patient in knee immobilizer with crutches. Sports med referral made.Advised patient to use ibuprofen 400mg TID with RICE therapy over the weekenduntil seen by Sports med. Limited exam of knee today due to patientnon-compliance. Worrisome signs and symptoms and when to return to the ED werediscussed with family who voiced understanding and agreement with plan fordischarge to home.Diagnosis to highest level of medical certainty/plan:Final diagnoses:[M79.605] Leg pain, anterior, left[S89.92XA] Injury of left knee, initial encounterSpaty Brownlee BYRONSCOTT-304/9:31 PMI have reviewed the history with the patient & family and performed a pertinentphysical examination.Fellow exam:Patient is well-hydrated, and crying due to pain. Alert. Interactive. Heart:RRR. Cap refill < 2 sec peripherally. Lungs: CTAB and without distress. Leftle+ DP pulse, sensation intact in toes, wiggles toes, no ankleswelling/tenderness, no hip tenderness, initially on exam just complains oftenderness over the proximal tibia medially with some ecchymoses - no obviousswelling.I reviewed the past medical & surgical histories, medication list, andallergies. I discussed the patient's management with the resident. I havereviewed the resident's note and agree with the findings described in the noteabove except where noted with italics. Management of the patient has beencarried out in accordance with my plans. Stable for discharge.Joon Sanchez, [facility] Emergency Medicine Fellow Normal [facility] KNEE 3 VIEWS LEFTon 06-08-19 18 KNEE 3 VIEWS LEFT CLINICAL HISTORY: pt with softball injury; edema noted on left knee. TTP alongthe medial joint line, patella and tibiaCOMPARISON: NonePROCEDURE COMMENTS: Three views of the left knee.IMPRESSION:There is no visible fracture or other osseous abnormality. Alignment is normal.There is no visible joint effusion.This report has been created using voice recognition softwareSigned by: Dr. Crystal Person at 06/07/2017 21:01 Normal [facility] TIBIA FIBULA 2 VIEWS LEFTon 06-07-2017 Protein mass conc CLINICAL HISTORY: le ft leg injury at softball - pain on mid-shaft of tibia withparesthesias.COMPARISON : NonePROCEDURE COMMENTS: Two views of the right tibia and fibula.FINDINGS:There is no visible fracture or other osseous abnormality. The soft tissues areradiographically normal.IMPRESSION:Normal radiographic examination of the tibia and fibula.This report has been created using voice recognition softwareSigned by: Dr. Crystal Person at 06/07/2017 19:57 Normal [facility] Vital Signs Date Time Vital Sign Value Performing Clinician Facility 10-23-2024 11:26-0400 Body mass index (BMI) [Ratio] 52.42 kg/m2 Keren Plotts PIN INSERTER REGULATOR.CNM Work Phone: [facility] 10-23-2024 11:26-0400 Body weight 142.88 kg Keren Plotts PIN INSERTER REGULATOR.CNM Work Phone: [facility] 10-23-2024 11:26-0400 Diastolic blood pressure 78 mm[Hg] Keren Plotts PIN INSERTER REGULATOR.CNM Work Phone: [facility] 10-23-2024 11:26-0400 Systolic blood pressure 124 mm[Hg] Keren Plotts PIN INSERTER REGULATOR.CNM Work Phone: [facility] 10-15-2024 10:18-0400 Body mass index (BMI) [Ratio] 52.42 kg/m2 Keren Plotts PIN INSERTER REGULATOR.CNM Work Phone: [facility] 10-15-2024 10:18-0400 Body weight 142.88 kg Keren Plotts PIN INSERTER REGULATOR.CNM Work Phone: [facility] 10-15-2024 10:18-0400 Diastolic blood pressure 80 mm[Hg] Keren Plotts PIN INSERTER REGULATOR.CNM Work Phone: [facility] 10-15-2024 10:18-0400 Systolic blood pressure 124 mm[Hg] Keren Washington PIN INSERTER REGULATOR.CNM Work Phone: [facility] 10-05-2024 15:11-0400 Body mass index (BMI) [Ratio] 52.25 kg/m2 Karin Mckenzie MD Work Phone: [facility] 10-05-2024 15:11-0400 Body weight 142.43 kg Karin Mckenzie MD Work Phone: [facility] 10-05-2024 15:11-0400 Diastolic blood pressure 80 mm[Hg] Karin Mckenzie MD Work Phone: [facility] 10-05-2024 15:11-0400 Systolic blood pressure 126 mm[Hg] Karin Mckenzie MD Work Phone: [facility] 09-27-2024 10:40-0400 Body height 167.64 cm Eboni Pop UPPER DOUBLER-C Work Phone: [facility] 09-27-2024 10:40-0400 Body mass index (BMI) [Ratio] 50.5 kg/m2 Eboni Pop UPPER DOUBLER-C Work Phone: [facility] 09-27-2024 10:40-0400 Body temperature 98.4 [degF] Eboni Pop UPPER DOUBLER-C Work Phone: [facility] 09-27-2024 10:40-0400 Body weight 141.97 kg Eboni Pop UPPER DOUBLER-C Work Phone: [facility] 09-27-2024 10:40-0400 Diastolic blood pressure 80 mm[Hg] Eboni Pop UPPER DOUBLER-C Work Phone: [facility] 09-27-2024 10:40-0400 Heart rate 102 /min Eboni Pop UPPER DOUBLER-C Work Phone: [facility] 09-27-2024 10:40-0400 SaO2% (BldA) [Mass fraction] 98 % Eboni Pop UPPER DOUBLER-C Work Phone: [facility] 09-27-2024 10:40-0400 Systolic blood pressure 128 mm[Hg] Eboni Pop UPPER DOUBLER-C Work Phone: [facility] 09-07-2024 11:06-0400 Body height 165.1 cm Joon Mooney PIN INSERTER REGULATOR.SAMPLE MOUNTER Work Phone: [facility] 09-07-2024 11:06-0400 Body mass index (BMI) [Ratio] 52.25 kg/m2 Joon Haury PIN INSERTER REGULATOR.SAMPLE MOUNTER Work Phone: [facility] 09-07-2024 11:06-0400 Body weight 142.43 kg Joon Mooney PIN INSERTER REGULATOR.SAMPLE MOUNTER Work Phone: [facility] 09-07-2024 11:06-0400 Diastolic blood pressure 70 mm[Hg] Joon Haury PIN INSERTER REGULATOR.SAMPLE MOUNTER Work Phone: [facility] 09-07-2024 11:06-0400 Systolic blood pressure 122 mm[Hg] Joonbrian Engelury PIN INSERTER REGULATOR.SAMPLE MOUNTER Work Phone: [facility] 09-04-2024 17:49-0400 Body temperature 98.8 [degF] Eboni Pop UPPER DOUBLER-C Work Phone: [facility] 09-04-2024 17:49-0400 Diastolic blood pressure 65 mm[Hg] Eboni Pop UPPER DOUBLER-C Work Phone: [facility] 09-04-2024 17:49-0400 Heart rate 104 /min Eboni Pop UPPER DOUBLER-C Work Phone: [facility] 09-04-2024 17:49-0400 Respiratory rate 18 /min Eboni Pop UPPER DOUBLER-C Work Phone: [facility] 09-04-2024 17:49-0400 SaO2% (BldA) [Mass fraction] 100 % Eboni Pop UPPER DOUBLER-C Work Phone: [facility] 09-04-2024 17:49-0400 Systolic blood pressure 130 mm[Hg] Eboni Pop UPPER DOUBLER-C Work Phone: [facility] 06-01-2024 09:00-0400 Diastolic blood pressure 57 mm[Hg] Isaías Rodriguez MD Work Phone: [facility] 06-01-2024 09:00-0400 Heart rate 62 /min Isaías Rodriguez MD Work Phone: [facility] 06-01-2024 09:00-0400 Respiratory rate 18 /min Isaías Rodriguez MD Work Phone: [facility] 06-01-2024 09:00-0400 SaO2% (BldA) [Mass fraction] 100 % Isaías Rodriguez MD Work Phone: [facility] 06-01-2024 09:00-0400 Systolic blood pressure 130 mm[Hg] Isaías Rodriguez MD Work Phone: [facility] 06-01-2024 08:17-0400 Body temperature 98.6 [degF] Isaías Rodriguez MD Work Phone: [facility] 06-01-2024 06:55-0400 Body height 167.6 cm Isaías Rodriguez MD Work Phone: [facility] 06-01-2024 06:55-0400 Body mass index (BMI) [Ratio] 50.2 kg/m2 Isaías Rodriguez MD Work Phone: [facility] 06-01-2024 06:55-0400 Body weight 141 kg Isaías Rodriguez MD Work Phone: [facility] 05-18-2024 13:36-0400 Body height 167.64 cm Eboni Pop UPPER DOUBLER-C Work Phone: [facility] 05-18-2024 13:36-0400 Body temperature 98.7 [degF] Eboni Pop UPPER DOUBLER-C Work Phone: [facility] 05-18-2024 13:36-0400 Diastolic blood pressure 80 mm[Hg] Eboni Pop UPPER DOUBLER-C Work Phone: [facility] 05-18-2024 13:36-0400 Heart rate 90 /min Eboni Pop UPPER DOUBLER-C Work Phone: [facility] 05-18-2024 13:36-0400 SaO2% (BldA) [Mass fraction] 97 % Eboni Pop UPPER DOUBLER-C Work Phone: [facility] 05-18-2024 13:36-0400 Systolic blood pressure 120 mm[Hg] Eboni Pop UPPER DOUBLER-C Work Phone: [facility] 03-12-2024 08:47-0500 Body mass index (BMI) [Ratio] 48.58 kg/m2 Chery Charles MD Work Phone: [facility] 03-12-2024 08:47-0500 Body weight 136.53 kg Chery Charles MD Work Phone: [facility] 03-12-2024 08:47-0500 Diastolic blood pressure 78 mm[Hg] Chery Charles MD Work Phone: [facility] 03-12-2024 08:47-0500 Systolic blood pressure 118 mm[Hg] Chery Charles MD Work Phone: [facility] 11-28-2023 11:29-0400 Body mass index (BMI) [Ratio] 46.97 kg/m2 Amanda Swartz APRN.SAMPLE MOUNTER Work Phone: [facility] 11-28-2023 11:29-0400 Body temperature 99.19 [degF] milan Pateer PIN INSERTER REGULATOR.SAMPLE MOUNTER Work Phone: [facility] 11-28-2023 11:29-0400 Body weight 132 kg milan Swartz PIN INSERTER REGULATOR.SAMPLE MOUNTER Work Phone: [facility] 11-28-2023 11:29-0400 Diastolic blood pressure 70 mm[Hg] Amanda Swartz APRN.SAMPLE MOUNTER Work Phone: [facility] 11-28-2023 11:29-0400 Heart rate 101 /min Amanda Swartz APRN.SAMPLE MOUNTER Work Phone: [facility] 11-28-2023 11:29-0400 Respiratory rate 20 /min Amanda Swartz PIN INSERTER REGULATOR.SAMPLE MOUNTER Work Phone: [facility] 11-28-2023 11:29-0400 SaO2% (BldA) [Mass fraction] 99 % Amanda Swartz PIN INSERTER REGULATOR.SAMPLE MOUNTER Work Phone: [facility] 11-28-2023 11:29-0400 Systolic blood pressure 134 mm[Hg] Amanda Swartz PIN INSERTER REGULATOR.SAMPLE MOUNTER Work Phone: [facility] 10-22-2023 10:56-0400 Body mass index (BMI) [Ratio] 46.97 kg/m2 Chery Charles MD Work Phone: [facility] 10-22-2023 10:56-0400 Body weight 132 kg Chery Charles MD Work Phone: [facility] 10-22-2023 10:56-0400 Diastolic blood pressure 82 mm[Hg] Chery Charles MD Work Phone: [facility] 10-22-2023 10:56-0400 Systolic blood pressure 138 mm[Hg] Chery Charles MD Work Phone: [facility] 10-17-2023 09:19-0400 Body mass index (BMI) [Ratio] 46.81 kg/m2 Joon Mooney PIN INSERTER REGULATOR.SAMPLE MOUNTER Work Phone: [facility] 10-17-2023 09:19-0400 Body weight 131.54 kg Joon Mooney PIN INSERTER REGULATOR.SAMPLE MOUNTER Work Phone: [facility] 10-17-2023 09:19-0400 Diastolic blood pressure 78 mm[Hg] Joon Haury PIN INSERTER REGULATOR.SAMPLE MOUNTER Work Phone: [facility] 10-17-2023 09:19-0400 Heart rate 98 /min Joon Haury PIN INSERTER REGULATOR.SAMPLE MOUNTER Work Phone: [facility] 10-17-2023 09:19-0400 Respiratory rate 16 /min Joon Hachirag PIN INSERTER REGULATOR.SAMPLE MOUNTER Work Phone: [facility] 10-17-2023 09:19-0400 SaO2% (BldA) [Mass fraction] 99 % Joon Haury PIN INSERTER REGULATOR.SAMPLE MOUNTER Work Phone: [facility] 10-17-2023 09:19-0400 Systolic blood pressure 116 mm[Hg] Joon Haury PIN INSERTER REGULATOR.SAMPLE MOUNTER Work Phone: [facility] 10-10-2023 10:30-0400 Body mass index (BMI) [Ratio] 46.81 kg/m2 Joon Haury PIN INSERTER REGULATOR.SAMPLE MOUNTER Work Phone: [facility] 10-10-2023 10:30-0400 Body weight 131.54 kg Joon Haury PIN INSERTER REGULATOR.SAMPLE MOUNTER Work Phone: [facility] 10-10-2023 10:30-0400 Diastolic blood pressure 88 mm[Hg] Joon Haury PIN INSERTER REGULATOR.SAMPLE MOUNTER Work Phone: [facility] 10-10-2023 10:30-0400 Heart rate 96 /min Joon Haury PIN INSERTER REGULATOR.SAMPLE MOUNTER Work Phone: [facility] 10-10-2023 10:30-0400 SaO2% (BldA) [Mass fraction] 96 % Joon Haury PIN INSERTER REGULATOR.SAMPLE MOUNTER Work Phone: [facility] 10-10-2023 10:30-0400 Systolic blood pressure 130 mm[Hg] Joon Haury PIN INSERTER REGULATOR.SAMPLE MOUNTER Work Phone: [facility] 05-14-2023 16:00-0400 Body temperature 98.6 [degF] DR FLY LYNCH DO [facility] 05-14-2023 16:00-0400 Diastolic Blood Pressure Non-Invasive 67 mm[Hg] DR FLY LYNCH DO [facility] 05-14-2023 16:00-0400 Heart rate 116 /min DR FLY LYNCH DO [facility] 05-14-2023 16:00-0400 Respiratory rate 18 /min DR FLY LYNCH DO [facility] 05-14-2023 16:00-0400 Systolic Blood Pressure Non-Invasive 101 mm[Hg] DR FLY LYNCH DO [facility] 05-03-2023 09:46-0400 Body height 167.6 cm Saskia Black MD Work Phone: [facility] 05-03-2023 09:46-0400 Body weight 140.62 kg Saskia Black MD Work Phone: [facility] 05-03-2023 09:46-0400 Diastolic blood pressure 68 mm[Hg] Saskia Black MD Work Phone: [facility] 05-03-2023 09:46-0400 Systolic blood pressure 126 mm[Hg] Saskia Black MD Work Phone: [facility] 02-13-2023 08:30-0500 Diastolic Blood Pressure Non-Invasive 80 mm[Hg] DR OVI BELLAMY MD [facility] 02-13-2023 08:30-0500 Heart rate 73 /min DR OVI BELLAMY MD [facility] 02-13-2023 08:30-0500 Respiratory rate 18 /min DR OVI BELLAMY MD [facility] 02-13-2023 08:30-0500 Systolic Blood Pressure Non-Invasive 140 mm[Hg] DR OVI BELLAMY MD [facility] 02-13-2023 06:43-0500 Reason For Taking VItal Signs DR OVI BELLAMY MD [facility] 02-13-2023 06:15-0500 Reason For Taking VItal Signs DR OVI BELLAMY MD [facility] 02-13-2023 05:34-0500 Body height 167.[address] OVI BELLAMY MD [facility] 02-13-2023 05:34-0500 Body temperature 98.24 [degF] DR OVI BELLAMY MD [facility] 02-13-2023 05:34-0500 Body weight 136.[address] OVI BELLAMY MD [facility] 02-13-2023 05:34-0500 Diastolic Blood Pressure Non-Invasive 109 mm[Hg] DR OVI BELLAMY MD [facility] 02-13-2023 05:34-0500 Heart rate 91 /min DR OVI BELLAMY MD [facility] 02-13-2023 05:34-0500 Respiratory rate 18 /min DR OVI BELLAMY MD [facility] 02-13-2023 05:34-0500 Systolic Blood Pressure Non-Invasive 162 mm[Hg] DR OVI BELLAMY MD [facility] 07-08-2022 03:16-0400 Body temperature 98.24 [degF] ENIO SPARKST DO [facility] 07-08-2022 03:16-0400 Diastolic Blood Pressure Non-Invasive [address] [facility] 07-08-2022 03:16-0400 Heart rate 110 /min ENIO FROMMELT DO [facility] 07-08-2022 03:16-0400 Respiratory rate 20 /min ENIO FROMMELT DO [facility] 07-08-2022 03:16-0400 Systolic Blood Pressure Non-Invasive 141 [address] [facility] 03-22-2022 10:15-0500 Body height 167.64 cm EBONI POP PIN INSERTER REGULATOR-SAMPLE MOUNTER [facility] 03-22-2022 10:15-0500 Body weight 136 kg EBONI POP PIN INSERTER REGULATOR-SAMPLE MOUNTER [facility] 03-22-2022 10:15-0500 Body weight 48.39 kg/m2 EBONI POP PIN INSERTER REGULATOR-SAMPLE MOUNTER [facility] 01-18-2022 12:45-0500 Diastolic Blood Pressure Non-Invasive 69 [address] [facility] 01-18-2022 12:45-0500 Heart rate 77 /min TIAGO BEDOYA MD [facility] 01-18-2022 12:45-0500 Respiratory rate 19 /min TIAGO BEDOYA MD [facility] 01-18-2022 12:45-0500 Systolic Blood Pressure Non-Invasive 114 [address] [facility] 01-18-2022 12:40-0500 Diastolic Blood Pressure Non-Invasive 64 [address] [facility] 01-18-2022 12:40-0500 Heart rate 77 /min TIAGO BEDOYA MD [facility] 01-18-2022 12:40-0500 Respiratory rate 17 /min TIAGO BEDOYA MD [facility] 01-18-2022 12:40-0500 Systolic Blood Pressure Non-Invasive 112 [address] [facility] 01-18-2022 12:35-0500 Diastolic Blood Pressure Non-Invasive 58 [address] [facility] 01-18-2022 12:35-0500 Heart rate 85 /min TIAGO BEDOYA MD [facility] 01-18-2022 12:35-0500 Respiratory rate 17 /min TIAGO BEDOYA MD [facility] 01-18-2022 12:35-0500 Systolic Blood Pressure Non-Invasive 108 [address] [facility] 01-18-2022 12:08-0500 Body temperature 95.9 [degF] TIAGO BEDOYA MD [facility] 01-18-2022 12:05-0500 Respiratory Rate - Anes 0 br/min TIAGO BEDOYA MD [facility] 01-18-2022 12:00-0500 Respiratory Rate - Anes 13 br/min TIAGO BEDOYA MD [facility] 01-18-2022 11:55-0500 Respiratory Rate - Anes 20 br/min TIAGO BEDOYA MD [facility] 01-18-2022 11:45-0500 Body temperature 96.8 [degF] TIAGO BEDOYA MD [facility] 01-18-2022 11:30-0500 Body temperature 96.8 [degF] TIAGO EBDOYA MD [facility] 01-18-2022 11:15-0500 Body temperature 96.8 [degF] TIAGO BEDOYA MD [facility] 01-18-2022 08:45-0500 Blood Pressure Location TIAGO BEDOYA MD [facility] 01-18-2022 08:45-0500 Blood Pressure Method TIAGO BEDOYA MD [facility] 01-18-2022 08:45-0500 Body height 167.6 cm TIAGO BEDOYA MD [facility] 01-18-2022 08:45-0500 Body temperature 98.42 [degF] TIAGO BEDOYA MD [facility] 01-18-2022 08:45-0500 Body weight 127.3 kg TIAGO BEDOYA MD [facility] 01-18-2022 08:45-0500 Heart rate 72 /min TIAGO BEDOYA MD [facility] 01-12-2022 08:31-0500 Body height 167.6 cm TIAGO BEDOYA MD [facility] 01-12-2022 08:31-0500 Body weight 127.3 kg TIAGO BEDOYA MD [facility] 01-03-2022 21:15-0500 Body height 167.6 cm JULIETTE REICHFIELD DO [facility] 01-03-2022 21:15-0500 Body temperature 98.78 [degF] JULIETTE REICHFIELD DO [facility] 01-03-2022 21:15-0500 Body weight 127.3 kg JULIETTE REICHFIELD DO [facility] 01-03-2022 21:15-0500 Diastolic Blood Pressure Non-Invasive 95 [address] [facility] 01-03-2022 21:15-0500 Heart rate 108 /min JULIETTE REICHFIELD DO [facility] 01-03-2022 21:15-0500 Respiratory rate 16 /min JULIETTE REICHFIELD DO [facility] 01-03-2022 21:15-0500 Systolic Blood Pressure Non-Invasive 141 [address] [facility] 12-11-2021 08:48-0400 Diastolic blood pressure 100 mm[Hg] CHANELL WHITFIELD MD [facility] 12-11-2021 08:48-0400 Heart rate 89 /min CHANELL WHITFIELD MD [facility] 12-11-2021 08:48-0400 Respiratory rate 16 /min CHANELL WHITFIELD MD [facility] 12-11-2021 08:48-0400 Systolic blood pressure 131 mm[Hg] CHANELL WHITFIELD MD [facility] 12-11-2021 07:34-0400 Body height 167 cm CHANELL WHITFIELD MD [facility] 12-11-2021 07:34-0400 Body temperature 98.6 [degF] CHANELL WHITFIELD MD [facility] 12-11-2021 07:34-0400 Body weight 136.7 kg CHANELL WHITFIELD MD [facility] 12-11-2021 07:34-0400 Diastolic blood pressure 100 mm[Hg] CHANELL WHITFIELD MD [facility] 12-11-2021 07:34-0400 Heart rate 104 /min CHANELL WHITFIELD MD [facility] 12-11-2021 07:34-0400 Respiratory rate 16 /min CHANELL WHITFIELD MD [facility] 12-11-2021 07:34-0400 Systolic blood pressure 160 mm[Hg] CHANELL WHITFIELD MD [facility] 10-03-2021 04:11-0400 Body temperature 98.6 [degF] ENIO FROMMELT DO [facility] 10-03-2021 04:11-0400 Body weight 127.3 kg ENIO FROMMELT DO [facility] 10-03-2021 04:11-0400 Diastolic blood pressure 87 mm[Hg] ENIO FROMMELT DO [facility] 10-03-2021 04:11-0400 Heart rate 100 /min ENIO FROMMELT DO [facility] 10-03-2021 04:11-0400 Heart rate 20 /min ENIO FROMMELT DO [facility] 10-03-2021 04:11-0400 Systolic blood pressure 132 mm[Hg] ENIO FROMMELT DO [facility] 09-01-2021 08:20-0400 Body height 167.6 cm Sangita Carpenter APRN.SAMPLE MOUNTER Work Phone: [facility] 09-01-2021 08:20-0400 Body weight 135.63 kg Sangita Carpenter APRN.SAMPLE MOUNTER Work Phone: [facility] 09-01-2021 08:20-0400 Diastolic blood pressure 62 mm[Hg] Sangita Carpenter APRN.SAMPLE MOUNTER Work Phone: [facility] 09-01-2021 08:20-0400 Systolic blood pressure 118 mm[Hg] Sangita Carpenter APRN.SAMPLE MOUNTER Work Phone: [facility] Encounters Encounter Date Encounter Type Care Provider Facility Start: 12-17-2024 End: 12-17-[facility]24 [facility] Start: 12-07-2024 End: 12-07-2024 [facility] Start: 11-03-2024 End: 11-03-2024 [facility] Start: 10-23-2024 End: 10-23-2024 Patient encounter procedure Keren Washington PIN INSERTER REGULATOR.ECTORM Work Phone: OB/Gynecology Comment on above: Back pain affecting (HCC) (Primary Dx); Encounter for supervision of high risk in first trimester, antepartum (HCC); 13 weeks gestation of (HCC); resulting from assisted reproductive technology, first trimester (HCC); History of PCOS; Rh negative state in antepartum period, first trimester (HCC); Obesity affecting in first trimester, unspecified obesity type (HCC) Start: 10-23-2024 End: 10-23-2024 [facility] Start: 10-19-2024 End: 10-22-2024 ambulatory Keren Washington PIN INSERTER REGULATOR.CNM Work Phone: OB/Gynecology Comment on above: Back pain Start: 10-15-2024 End: 10-15-2024 Patient encounter procedure Keren Washington PIN INSERTER REGULATOR.CNM Work Phone: OB/Gynecology Comment on above: Encounter for superv ision of high risk in first trimester, antepartum (HCC) (Primary Dx); Obesity affecting in first trimester, unspecified obesity type (HCC); resulting from assisted reproductive technology, first trimester (HCC); 12 weeks gestation of (HCC) resulting from assisted reproductive technology, first trimester (HCC) (Primary Dx); Encounter for supervision of high risk in first trimester, antepartum (HCC) Start: 10-15-2024 End: 10-15-2024 [facility] Start: 10-13-2024 End: 10-14-2024 Telephone encounter Karin Mckenzie MD Work Phone: OB/Gynecology Comment on above: Results Start: 10-05-2024 End: 10-05-2024 Patient encounter procedure Karin Mckenzie MD Work Phone: OB/Gynecology Comment on above: Encounter for superv ision of high risk in first trimester, antepartum (HCC) (Primary Dx); Obesity affecting in first trimester, unspecified obesity type (HCC); History of PCOS; resulting from assisted reproductive technology, first trimester (HCC); PCOS (polycystic ovarian syndrome); 10 weeks gestation of (HCC) Start: 10-05-2024 End: 10-05-2024 ambulatory YOSI RICHEY Facility:[facility] Start: 09-27-2024 End: 09-27-2024 Patient encounter procedure Vernon ADAMSC [facility] Work Phone: Start: 09-27-2024 End: 09-27-2024 ambulatory Eboni Pop UPPER DOUBLER-C Work Phone: [facility] Start: 09-07-2024 End: 09-07-2024 Patient encounter procedure Joon Mooney APRN.SAMPLE MOUNTER Work Phone: OB/Gynecology Comment on above: Encounter for superv ision of high risk in first trimester, antepartum (HCC) (Primary Dx); 6 weeks gestation of (HCC); with uncertain dates in first trimester (HCC); Obesity affecting in first trimester, unspecified obesity type (HCC); History of PCOS; Screen for STD (sexually transmitted disease); resulting from assisted reproductive technology, first trimester (HCC); Nausea and vomiting during (HCC) Start: 09-07-2024 End: 09-07-2024 ambulatory SELF Facility:[facility] Start: 09-04-2024 End: 09-04-2024 Patient encounter procedure Britton UGARTE [facility] Work Phone: Start: 09-04-2024 End: 09-04-2024 ambulatory Eboni Pop UPPER DOUBLER-C Work Phone: [facility] Start: 08-27-2024 End: 08-27-2024 ambulatory Joon Mooney APRN.SAMPLE MOUNTER Work Phone: OB/Gynecology Comment on above: Hcg Start: 08-14-2024 End: 08-14-2024 Emergency department patient visit DR EZEKIEL ARRIAZA MD [facility] Start: 06-01-2024 End: 06-01-2024 ambulatory [facility] Start: 06-01-2024 End: 06-01-2024 Subsequent hospital visit by physician Isaías Rodriguez MD Work Phone: [facility] Start: 05-29-2024 End: 05-29-2024 ambulatory [facility] Start: 05-29-2024 End: 05-29-2024 Encounter for other preprocedural examination ISAÍAS RODRIGUEZ [facility] Start: 05-18-2024 End: 05-18-2024 Patient encounter procedure Braden UGARTE [facility] Work Phone: Start: 05-18-2024 End: 05-18-2024 ambulatory Braden UGARTE Facility:[facility] Start: 03-12-2024 End: 03-12-2024 ambulatory CHERY CHARLES Facility:[facility] Start: 03-12-2024 End: 03-12-2024 Office outpatient visit 15 minutes Chery Charles MD Work Phone: OB/Gynecology Comment on above: Female infertility ( Primary Dx); PCOS (polycystic ovarian syndrome) Start: 02-28-2024 End: 02-28-2024 ambulatory YOSI RICHEY Facility:[facility] Start: 02-10-2024 End: 02-10-2024 ambulatory Asael Alfonso Facility:[facility] Start: 02-06-2024 End: 02-07-2024 Refill Chery Charles MD Work Phone: OB/Gynecology Comment on above: Refill Request Start: 01-06-2024 End: 01-06-2024 Refill Joon Mooney APRN.SAMPLE MOUNTER Work Phone: OB/Gynecology Comment on above: Refill Request Start: 01-06-2024 End: 01-06-2024 ambulatory EBONI RAMONA PIN INSERTER REGULATOR-SAMPLE MOUNTER Facility:[facility] Start: 01-06-2024 End: 01-06-2024 Patient encounter procedure EBONI POP PIN INSERTER REGULATOR-SAMPLE MOUNTER [facility] Start: 12-09-2023 End: 12-09-2023 Refill Chery Charles MD Work Phone: OB/Gynecology Comment on above: Refill Request Start: 11-28-2023 End: 11-28-2023 Subsequent hospital visit by physician [facility] [place] Work Phone: Radiology Comment on above: Foot pain, right [M7 9.671] Start: 11-28-2023 End: 11-28-2023 Office outpatient visit 15 minutes Amanda Swartz APRN.SAMPLE MOUNTER Work Phone: [facility] Comment on above: Foot pain, right (Pr imary Dx) Start: 11-11-2023 End: 11-13-2023 ambulatory Chery Charles MD Work Phone: OB/Gynecology Comment on above: Letrazole Start: 10-22-2023 End: 10-22-2023 Office outpatient visit 15 minutes Chery Charles MD Work Phone: OB/Gynecology Comment on above: PCOS (polycystic ova benjamin syndrome) (Primary Dx) Start: 10-17-2023 End: 10-17-2023 Patient encounter procedure Joon Mooney APRN.SAMPLE MOUNTER Work Phone: OB/Gynecology Comment on above: PCOS (polycystic ova benjamin syndrome) (Primary Dx); Vitamin D deficiency Start: 10-11-2023 End: 10-11-2023 Telephone encounter Joon Mooney APRN.SAMPLE MOUNTER Work Phone: OB/Gynecology Comment on above: Results Start: 10-10-2023 End: 10-10-2023 Patient encounter procedure Joon Mooney APRN.SAMPLE MOUNTER Work Phone: OB/Gynecology Comment on above: Irregular menstrual cycle (Primary Dx) Start: 10-10-2023 End: 10-10-2023 ambulatory [facility] Start: 10-10-2023 End: 10-10-2023 Patient encounter procedure Whi [employer] 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 Services [facility] Start: 10-08-2023 End: 10-08-2023 Telephone encounter Saskia Black MD Work Phone: OB/Gynecology Comment on above: Missed Menses Start: 05-14-2023 End: 05-14-2023 Emergency department patient visit DR FLY LYNCH DO Facility:[facility] Start: 05-14-2023 End: 05-14-2023 Emergency department patient visit DR FLY LYNCH DO [facility] Start: 05-03-2023 End: 05-03-2023 Patient encounter procedure Saskia Black MD Work Phone: OB/Gynecology Comment on above: Encounter for gyneco logical examination (general) (routine) without abnormal findings (Primary Dx); Screening for cervical cancer Start: 05-03-2023 End: 05-03-2023 Patient encounter status Saskia Black MD Work Phone: [facility] Start: 04-01-2023 Telephone encounter Sangita white APRN.CNP Work Phone: OB/Gynecology Comment on above: Orders (labs) Start: 02-21-2023 End: 02-22-[address] MILIND COHEN MD Facility:[facility] Start: 02-21-2023 End: 02-21-[address] MILIND COHEN MD [facility] Start: 02-13-2023 End: 02-13-2023 Emergency department patient visit JEFFREY NICK DO Facility:[facility] Start: 02-13-2023 End: 02-13-2023 Emergency department patient visit DR OVI BELLAMY MD [facility] Start: 01-11-2023 End: 01-12-[address] MILIND COHEN MD Facility:[facility] Start: 01-11-2023 End: 01-11-[address] MILIND COHEN MD [facility] Start: 07-08-2022 End: 07-08-2022 Emergency department patient visit ENIO JUAN DO Facility:[facility] Start: 07-08-2022 End: 07-08-2022 Emergency department patient visit [facility] Start: 03-22-2022 End: 03-22-2022 Patient encounter procedure EBONI POP PIN INSERTER REGULATOR-SAMPLE MOUNTER [facility] Start: 03-06-2022 End: 03-06-2022 Patient encounter procedure EBONI POP PIN INSERTER REGULATOR-SAMPLE MOUNTER [facility] Start: 02-05-2022 End: 02-05-2022 Patient encounter procedure JOANNE Pierre KM PIN INSERTER REGULATOR-SAMPLE MOUNTER [facility] Start: 01-25-2022 End: 01-25-2022 Patient encounter procedure JOANNE Pierre KM PIN INSERTER REGULATOR-SAMPLE MOUNTER [facility] Start: 01-18-2022 End: 01-18-2022 SAME DAY STAY TIAGO BEDOYA MD [facility] Start: 01-12-2022 End: 01-12-2022 Patient encounter procedure CHERYLE DIAZ PIN INSERTER REGULATOR-SAMPLE MOUNTER [facility] Start: 01-12-2022 End: 01-12-2022 Admission to establishment TIAGO BEDOYA MD [facility] Start: 01-03-2022 End: 01-03-2022 Emergency department patient visit JULIETTE DELGADO DO [facility] Start: 12-21-2021 End: 12-21-2021 Patient encounter procedure EBONI LAIEBONI PIN INSERTER REGULATOR-SAMPLE MOUNTER [facility] Start: 12-11-2021 End: 12-11-2021 Emergency department patient visit CHANELL WHITFIELD MD [facility] Start: 10-10-2021 End: 10-14-[address] MILIND COHEN MD [facility] Start: 10-03-2021 End: 10-03-2021 Emergency department patient visit ENIO JUAN DO [facility] Start: 09-01-2021 End: 09-01-2021 Patient encounter procedure Sangita Carpenter APRN.SAMPLE MOUNTER Work Phone: OB/Gynecology Comment on above: Ovulation pain (Prim ronaldo Dx) Start: 02-20-2021 End: 02-20-2021 Subsequent hospital visit by physician Laura [facility] [place] Work Phone: Radiology Comment on above: Pain of finger of le ft hand [M79.645] Start: 02-12-2018 End: 02-12-2018 [facility]: 01-08-2018 End: 01-09-2018 Patient encounter procedure JAZMIN JOANNE [facility] Start: 01-01-2018 End: 01-01-2018 Patient encounter procedure JAZMIN RUBIO [facility] Start: 12-16-2017 End: 12-17-2017 Patient encounter procedure JAZMIN RUBIO [facility] Start: 11-18-2017 End: 11-18-2017 Patient encounter procedure JAZMIN RUBIO [facility] Start: 09-04-2017 End: 09-04-2017 Patient encounter procedure JAZMIN RUBIO [facility] Start: 07-29-2017 End: 07-29-2017 Patient encounter procedure JAZMIN RUBIO [facility] Start: 06-19-2017 End: 06-19-2017 Patient encounter procedure JAZMIN RUBIO [facility] Start: 06-11-2017 End: 06-11-2017 Patient encounter procedure JAZMIN RUBIO [facility] Start: 06-07-2017 End: 06-07-2017 Emergency department patient visit SOL BALLARD [facility] Procedures Date Procedure Procedure Detail Performing Clinician Start: 10-23-2024 Urnls dip stick/tabl et rgnt auto w/o microscopy Keren Washington APRN.CNM Work Phone: Start: 10-15-2024 Us preg uterus after 1st trimest 1/ gestation Joon Mooney APRN.SAMPLE MOUNTER Work Phone: Start: 10-05-2024 Antibody screen MNANY CHARLES Comment on above: Order Comment: Speci men Type: BLOOD SPECIMEN Ordering Facility: [facility] Address: [address] [place] [address] Performed By: #### T SPN #### CC MAIN BLOOD BANK [facility] [id number] [address] [place] [address] [place] Start: 09-07-2024 Us uterus l imited 1/> fetuses Joon Mooney PIN INSERTER REGULATOR.SAMPLE MOUNTER Work Phone: Start: 06-01-2024 Urine test visual color cmprsn meths Elizabeth Pérez PIN INSERTER REGULATOR - OPHTHALMIC ASST Work Phone: Start: 11-28-2023 Radex foot complete minimum 3 views Amanda Swartz PIN INSERTER REGULATOR.SAMPLE MOUNTER Work Phone: Start: 10-10-2023 Us pelvic nonobstetr ic real-time image complete Saskia Black MD Work Phone: Start: 05-03-2023 Microscopic observat ion [Identifier] in Cervix by Cyto stain Isaías Rodriguez MD Work Phone: Start: 01-18-2022 Cholecystectomy TIAGO MURRIETA MD Start: 02-20-2021 Radex forearm 2 views J nicolasa Walsh PIN INSERTER REGULATOR.SAMPLE MOUNTER Work Phone: Start: 02-12-2020 Ankle reconstruction FIFI JUAN DO Comment on above: right ankle Colonoscopy TIAGO Allen History of cholecystectomy S/P c holecystectomy( Confirmed ) JOANNE BARBOUR PIN INSERTER REGULATOR-SAMPLE MOUNTER Plan of Treatment Date Care Activity Detail Author Start: 2076 RSV Immunization for Adults (1 - 1-dose 75+ series) RSV Immunization for Adults (1 - 1-dose 75+ series) [facility] Start: 07-01-2051 Zoster Vaccines (1 o f 2) Zoster Vaccines (1 of 2) [facility] Start: 05-13-2033 Urine microalbumin profile DTaP,Tdap,Td Vaccine (4 - Td or Tdap) [facility] Start: 05-02-2026 Screening for malign ant neoplasm of cervix [facility] Start: 09-07-2025 GC (Gonorrhea) Screening (18-24) GC (Gonorrhea) Screening (18-24) [facility] Start: 09-07-2025 Screening for Chlamy severino trachomatis Chlamydia Screening (18-24) [facility] Start: 03-04-2025 RSV Vaccine (1 - Ris k 1-dose series) RSV Vaccine (1 - Risk 1-dose series) [facility] Start: 12-07-2024 End: 12-07-2024 Patient encounter procedure [facility] Comment on above: Anatomy Ob Start: 11-03-2024 End: 11-03-2024 Patient encounter procedure 11/03/2024 2:30 PM EDT Routine Office Visit OB/Gynecology [address] [place] [address] Saskia Black MD [address] [place] [address] OB OB/Gynecology Comment on above: OB Start: 10-15-2024 End: 10-15-2024 Patient encounter procedure [facility] Comment on above: Nuchal Nuchal/ OB Start: 10-12-2024 Influenza vaccination S [facility] Start: 10-05-2024 End: 10-05-2024 Patient encounter procedure 10/05/2024 3:20 PM EDT Routine Office Visit OB/Gynecology [address] [place] [address] Karin Contreras MD [address] [place] [address] New OB IVF [facility] [place]/Pt to have records faxed to office OB/Gynecology Comment on above: New OB IVF [facility] [place] /Pt to have records faxed to office Start: 10-05-2024 End: 01-04-2025 Chromosome 21 trisomy [Presence] in Blood or Tissue by Cytogenetics [facility] Work Phone: Comment on above: Expected: 10/05/2024 , Expires: 01/04/2025 Start: 09-09-2024 End: 09-09-2024 ambulatory 09/09/2024 11:00 AM EDT Results Only [place] [facility] [address] [place] [address] [place] [facility] Start: 09-07-2024 End: 12-07-2024 ANEMIA REFLEX PANEL ANEMIA REFLEX PANEL Lab Routine Encounter for supervision of high risk in first trimester, antepartum (HCC) Expected: 09/07/2024, Expires: 12/07/2024 [facility] Work Phone: Comment on above: Expected: 09/07/2024 , Expires: 12/07/2024 Start: 09-07-2024 End: 12-07-2024 Hemoglobin A1c in Blood HEMOGLOBIN A1C Lab Routine Encounter for supervision of high risk in first trimester, antepartum (HCC) Expected: 09/07/2024, Expires: 12/07/2024 [facility] Comment on above: Expected: 09/07/2024 , Expires: 12/07/2024 Start: 09-07-2024 End: 12-07-2024 Hepatitis B virus surface Ag [Presence] in Serum HEPATITIS B SURFACE ANTIGEN Lab Routine Encounter for supervision of high risk in first trimester, antepartum (HCC) Expected: 09/07/2024, Expires: 12/07/2024 [facility] Comment on above: Expected: 09/07/2024 , Expires: 12/07/2024 Start: 09-07-2024 End: 12-07-2024 Hepatitis C virus Ab [Presence] in Serum HEPATITIS C ANTIBODY IA WITH CONFIRMATION Lab Routine Encounter for supervision of high risk in first trimester, antepartum (HCC) Expected: 09/07/2024, Expires: 12/07/2024 [facility] Comment on above: Expected: 09/07/2024 , Expires: 12/07/2024 Start: 09-07-2024 End: 12-07-2024 HIV 1+2 Ab [Presence] in Serum or Plasma by Immunoassay HIV 1/2 COMBO WITH REFLEX TO DIFFERENTIATION Lab Routine Encounter for supervision of high risk in first trimester, antepartum (HCC) Expected: 09/07/2024, Expires: 12/07/2024 [facility] Comment on above: Expected: 09/07/2024 , Expires: 12/07/2024 Start: 09-07-2024 End: 09-07-2025 OBSTETRIC ULTRASOUND WHI OBSTETRIC ULTRASOUND [facility] Anc Imaging Routine Encounter for supervision of high risk in first trimester, antepartum (HCC) Expected: 09/07/2024, Expires: 09/07/2025 [facility] Comment on above: Expected: 09/07/2024 , Expires: 09/07/2025 Start: 09-07-2024 End: 12-07-2024 RUBELLA IGG ANTIBODY RUBELLA IGG ANTIBODY Lab Routine Encounter for supervision of high risk in first trimester, antepartum (HCC) Expected: 09/07/2024, Expires: 12/07/2024 [facility] Comment on above: Expected: 09/07/2024 , Expires: 12/07/2024 Start: 09-07-2024 End: 12-07-2024 SYPHILIS TREPONEMAL W/REFLEX SYPHILIS TREPONEMAL W/REFLEX Lab Routine Encounter for supervision of high risk in first trimester, antepartum (HCC) Expected: 09/07/2024, Expires: 12/07/2024 [facility] Comment on above: Expected: 09/07/2024 , Expires: 12/07/2024 Start: 09-07-2024 End: 12-07-2024 TYPE + SCREEN TYPE + SCREEN Blood Bank Routine Encounter for supervision of high risk in first trimester, antepartum (HCC) Expected: 09/07/2024, Expires: 12/07/2024 [facility] Comment on above: Expected: 09/07/2024 , Expires: 12/07/2024 Start: 09-07-2024 End: 09-07-2024 Patient encounter procedure 09/07/2024 11:00 AM EDT Initial Office Visit OB/Gynecology [address] [place] [address] Joon Mooney APRN.SAMPLE MOUNTER [address] [place] [address] New OB IVF [facility] [place]/ pt to have records faxed to office OB/Gynecology Comment on above: New OB IVF [facility] [place] / pt to have records faxed to office Start: 05-08-2024 End: 05-08-2024 Patient encounter procedure 05/08/2024 9:40 AM EDT Office Visit OB/Gynecology [address] [place] [address] Saskia Black MD [address] [place] [address] annual OB/Gynecology Comment on above: annual Start: 02-11-2024 End: 02-11-2024 ambulatory 02/11/2024 10:30 AM EST Results Only [place] [facility] [address] [place] [address] [facility] Start: 02-07-2024 End: 03-08-2024 Progesterone [Mass/volume] in Serum or Plasma PROGESTERONE Lab Routine Female infertility Expected: 02/07/2024, Expires: 03/08/2024 [facility] Work Phone: Comment on above: Expected: 02/07/2024 , Expires: 03/08/2024 Start: 01-16-2024 End: 04-16-2024 25-hydroxyvitamin D3 [Mass/volume] in Serum or Plasma VITAMIN D 25 HYDROXY Lab Routine Vitamin D deficiency Expected: 01/16/2024, Expires: 04/16/2024 [facility] Comment on above: Expected: 01/16/2024 , Expires: 04/16/2024 Start: 01-16-2024 End: 04-16-2024 Cobalamin (Vitamin B12) [Mass/volume] in Serum or Plasma VITAMIN B12 Lab Routine PCOS (polycystic ovarian syndrome) Expected: 01/16/2024, Expires: 04/16/2024 [facility] Work Phone: Comment on above: Expected: 01/16/2024 , Expires: 04/16/2024 Start: 11-28-2023 End: 11-28-2023 ambulatory 11/28/2023 11:15 AM EDT Results Only [place] [facility] [address] [place] [address] [facility] Start: 11-13-2023 End: 02-12-2024 Progesterone [Mass/volume] in Serum or Plasma PROGESTERONE Lab Routine Irregular menstrual cycle Problems with ovulation Expected: 11/13/2023, Expires: 02/12/2024 [facility] Work Phone: Comment on above: Expected: 11/13/2023 , Expires: 02/12/2024 Start: 10-22-2023 End: 10-22-2023 Patient encounter procedure 10/22/2023 10:50 AM EDT Office Visit OB/Gynecology [address] [place] [address] Chery Charles MD [address] [place] [address] Fertility consult/Letrozole (PCOS) OB/Gynecology Comment on above: Fertility consult/Le trozole (PCOS) Start: 10-17-2023 End: 10-17-2023 Patient encounter procedure 10/17/2023 9:15 AM EDT Office Visit OB/Gynecology [address] [place], [place] [id number] Joon Mooney APRN.SAMPLE MOUNTER [address] [place] [address] Follow up bloodwork OB/Gynecology Comment on above: Follow up bloodwork Start: 10-13-2023 COVID-19 Vaccine ( season) COVID-19 Vaccine ( season) [facility] Start: 10-13-2023 Covid-19 Vaccine ( season) Covid-19 Vaccine ( season) [facility] Start: 10-13-2023 Covid-19 Vaccine ( season) Covid-19 Vaccine () [facility] Start: 10-13-2023 Influenza vaccination Influenza Vacc ine (#1) [facility] Start: 10-10-2023 End: 01-09-2024 17-Hydroxyprogesterone [Mass/volume] in Serum or Plasma [facility] Comment on above: Expected: 10/10/2023 , Expires: 01/09/2024 Start: 10-10-2023 End: 01-09-2024 Hemoglobin A1c in Blood [facility] Comment on above: Expected: 10/10/2023 , Expires: 01/09/2024 Start: 10-10-2023 End: 01-09-2024 Insulin [Units/volume] in Serum or Plasma [facility] Comment on above: Expected: 10/10/2023 , Expires: 01/09/2024 Start: 10-10-2023 End: 01-09-2024 Lutropin [Units/volume] in Serum or Plasma [facility] Comment on above: Expected: 10/10/2023 , Expires: 01/09/2024 Start: 10-10-2023 End: 01-09-2024 Progesterone [Mass/volume] in Serum or Plasma [facility] Comment on above: Expected: 10/10/2023 , Expires: 01/09/2024 Start: 10-10-2023 End: 01-09-2024 Prolactin [Mass/volume] in Serum or Plasma [facility] Comment on above: Expected: 10/10/2023 , Expires: 01/09/2024 Start: 10-10-2023 End: 01-09-2024 TESTOSTERONE, FREE AND TOTAL [facility] Comment on above: Expected: 10/10/2023 , Expires: 01/09/2024 Start: 10-10-2023 End: 01-09-2024 Thyrotropin [Units/volume] in Serum or Plasma [facility] Work Phone: Comment on above: Expected: 10/10/2023 , Expires: 01/09/2024 Start: 10-10-2023 End: 10-10-2023 Patient encounter procedure 10/10/2023 10:45 AM EDT Office Visit OB/Gynecology [address] [place] [address] Joon Mooney APRN.SAMPLE MOUNTER [address] [place] [address] Pelvic US f/u OB/Gynecology Comment on above: Pelvic US f/u Start: 10-10-2023 End: 10-10-2023 Manual pelvic examination 10/10/2023 9:30 AM EDT Procedure OB/Gynecology [address] [place] [address] Pelvic pain in female [R10.2] OB/Gynecology Comment on above: Pelvic pain in femal e [R10.2] Start: 10-08-2023 End: 10-07-2024 US Pelvis PELVIC US [facility] Anc Imaging Routine Pelvic pain in female Expected: 10/08/2023, Expires: 10/07/2024 [facility] Work Phone: Comment on above: Expected: 10/08/2023 , Expires: 10/07/2024 Start: 07-29-2023 Urine microalbumin profile DTaP,Tdap,Td Vaccine (3 - Td or Tdap) [facility] Start: 04-02-2023 End: 07-02-2023 Choriogonadotropin.beta subunit [Units/volume] in Serum or Plasma HCG QUANTITATIVE Lab Routine Missed menses Expected: 04/02/2023, Expires: 07/02/2023 [facility] Work Phone: Comment on above: Expected: 04/02/2023 , Expires: 07/02/2023 Start: 02-11-2023 Depression Assessment Depression Ass essment [facility] Start: 10-12-2022 Covid-19 Vaccine () Covid-19 Vaccine ( season) [facility] Start: 10-12-2022 Influenza vaccination Influenza Vacc ine (#1) [facility] Start: 2022 Screening for malign ant neoplasm of cervix Pap Testing [facility] Start: 10-12-2021 Influenza vaccination INFLUENZA (#1) [facility] Start: 04-12-2021 COVID-19 VACCINE (3 - Booster for Moderna series) COVID-19 VACCINE (3 - Booster for Moderna series) [facility] Start: 2020 DTaP/Tdap/Td Vaccine s (1 - Tdap) DTaP/Tdap/Td Vaccines (1 - Tdap) [facility] Start: 2020 Hepatitis B Vaccine (1 of 3 - 19+ 3-dose series) Hepatitis B Vaccine (1 of 3 - 19+ 3-dose series) [facility] Start: 2020 Hepatitis B Vaccines (1 of 3 - 19+ 3-dose series) Hepatitis B Vaccines (1 of 3 - 19+ 3-dose series) [facility] Start: 2020 Urine microalbumin profile DTAP,TDAP,TD (1 - Tdap) [facility] Start: 07-01-2019 Anxiety Screening Anxiety Screening [facility] Start: 07-01-2019 CHLAMYDIA SCREENING (18-24) CHLAMYDIA SCREENING (18-24) [facility] Start: 07-01-2019 Depression Screening Depression Scre ening [facility] Start: 07-01-2019 GC (GONORRHEA) SCREENING (18-24) GC (GONORRHEA) SCREENING (18-24) [facility] Start: 07-01-2019 HEPATITIS C SCREENING HEPATITIS C [facility] Start: 07-01-2019 Hepatitis C screening Hepatitis C [facility] Start: 07-01-2019 HIV SCREENING HIV SCREENING [facility] Start: 07-01-2019 HIV screening HIV Screening [facility] Start: 07-01-2019 Screening for Chlamy severino trachomatis Chlamydia Screening (1824) [facility] Start: 2017 Meningococcal B Vacc ine (1 of 2 - Standard) Meningococcal B Vaccine (1 of 2 - Standard) [facility] Start: 2017 Meningococcal B Vaccine: Consider Based On Risk (1 of 2 - Patient Seeks Protection) Meningococcal B Vaccine: Consider Based On Risk (1 of 2 - Patient Seeks Protection) [facility] Start: 2016 HPV Vaccines (1 - 3-dose series) HPV Vaccines (1 - 3-dose series) [facility] Start: 07-01-2015 PEDS TO ADULT TRANSITION ANNUAL ASSESSMENT PEDS TO ADULT TRANSITION ANNUAL ASSESSMENT [facility] Start: 2014 Varicella vaccination Varicell a Vaccines (1 of 2 - 13+ 2-dose series) [facility] Start: 2013 Adult depression screening assessment DEPRESSION SCREENING [facility] Start: 2013 PEDS TO ADULT TRANSITION INITIAL DISCUSSION PEDS TO ADULT TRANSITION INITIAL DISCUSSION [facility] Start: 2012 HPV VACCINE (1 - 2-d ose series) HPV VACCINE (1 - 2-dose series) [facility] Start: 07-01-2011 MENINGOCOCCAL B: Consider based on risk (1 of 2 - Risk Bexsero 2-dose series) MENINGOCOCCAL B: Consider based on risk (1 of 2 - Risk Bexsero 2-dose series) [facility] Start: 2002 MMR Vaccines (1 of 1 - Standard series) MMR Vaccines (1 of 1 - Standard series) [facility] Start: 2001 Hepatitis B Vaccine (1 of 3 - 3-dose series) Hepatitis B Vaccine (1 of 3 - 3-dose series) [facility] Start: 2001 HIV screening HIV Screening [facility] Bacteria identified in Urine by Culture BACTERIAL CULTURE, URINE Microbiology Routine Encounter for supervision of high risk in first trimester, antepartum (HCC) 09/07/2024 11:36 AM EDT [facility] Chlamydia trachomatis+Neisseria gonorrhoeae DNA [Presence] in Unspecified specimen by [place] with probe detection GONORRHEA/CHLAMYDIA NAAT Lab Routine Encounter for supervision of high risk in first trimester, antepartum (HCC) Screen for STD (sexually transmitted disease) 09/07/2024 11:36 AM EDT [facility] PAP TEST PAP TEST Lab Rou junito Screening for cervical cancer 05/03/2023 10:11 AM EDT [facility] Work Phone: TRICHOMONAS VAGINALI S NAAT TRICHOMONAS VAGINALIS NAAT Lab Routine Screen for STD (sexually transmitted disease) 09/07/2024 11:36 AM EDT [facility] Immunizations Immunization Date Immunization Notes Care Provider Marshal fox 05-14-2023 tetanus toxoid, redu floresita diphtheria toxoid, and acellular pertussis vaccine, adsorbed DR FLY LYNCH DO [facility] 11-12-2020 SARS-CoV-2 (COVID-19 ) mRNA-1273 vaccine [facility] DO [facility] 10-12-2020 COVID-19, mRNA, LNP- S, PF, 100 mcg or 50 mcg dose; Translations: [Moderna COVID-19 Vaccine] [facility] 11-18-2018 influenza, injectabl e, quadrivalent, preservative free; Translations: [Fluarix PF Quadrivalent ] [facility] 11-18-2018 influenza virus vacc ine, unspecified formulation Sangita Carpenter APRN.[employer] Work Phone: [facility] 08-21-2018 meningococcal oligosaccharide (groups A, C, Y and W-135) diphtheria toxoid conjugate vaccine (MCV4O); Translations: [Menveo] [facility] 08-21-2016 Human Papillomavirus Quadval [facility] DO [facility] 08-05-2014 hepatitis A vaccine, adult dosage [facility] DO [facility] 08-05-2014 Human Papillomavirus Quadval [facility] DO [facility] 07-28-2013 hepatitis A vaccine, adult dosage [facility] DO [facility] 07-28-2013 Human Papillomavirus Quadval [facility] DO [facility] 07-28-2013 meningococcal polysaccharide (groups A, C, Y and W-135) diphtheria toxoid conjugate vaccine (MCV4P) [facility] 07-28-2013 tetanus toxoid, redu floresita diphtheria toxoid, and acellular pertussis vaccine, adsorbed [facility] 06-25-2006 diphtheria, tetanus toxoids and acellular pertussis vaccine [facility] 06-25-2006 measles/mumps/rubell a virus vaccine [facility] 06-25-2006 poliovirus vaccine, inactivated [facility] 06-25-2006 varicella virus vaccine [facility] DO [facility] 06-23-2002 varicella virus vaccine [facility] DO [facility] Payers Date Payer Category Payer Private Health Insurance [id number] 2024 Self-pay 2021 [employer] Blue [employer] Managed Care - O ANTHEM BLUE CROSS [id number] 2019 Blue Cross Blue Shield BLUE ACCE SS PPO [id number] 2019 Unknown ANTHEM BLUE ACCE SS PPO [id number] 2019-Present [phone] [address] [place] [address] [facility] [id number] 2019 Unknown ANTHEM BLUE ACCE SS PPO [id number] 2019-Present [phone] [id number] [id number] [place] [address] PPO [id number] 2019 Unknown [id number] 2001 Unknown [id number] 2.16.840.1.589542.3.579. 2.627 2001 Unknown [id number] 2.16.840.1.768118.3.579. 2.627 2001 Unknown [id number] 2.16.840.1.101030.3.579. 2.627 2001 Unknown [id number] 2.16.840.1.461709.3.579. 2.627 2001 Unknown [id number] 2.16.840.1.387810.3.579. 2.627 2001 Unknown [id number] 2.16.840.1.765353.3.579. 2.627 2001 Unknown [id number] 2.16.840.1.446923.3.579. 2.627 1975 Unknown [id number] 2.16.840.1.724421.3.579. 2.479 1975 Unknown [id number] 2.16.840.1.017479.3.579. 2.479 1975 Unknown [id number] 2.16.840.1.862059.3.579. 2.479 1975 Unknown [id number] 2.16.840.1.053436.3.579. 2.479 1975 Unknown [id number] 2.16.840.1.443765.3.579. 2.479 1975 Unknown [id number] 2.16.840.1.837354.3.579. 2.479 1975 Unknown [id number] 2.16.840.1.936839.3.579. 2.479 1975 Unknown [id number] 2.16.840.1.136114.3.579. 2.479 1975 Unknown [id number] 2.16.840.1.332379.3.579. 2.479 1975 Unknown [id number] 2.16.840.1.244315.3.579. 2.479 1975 Unknown [id number] 2.16.840.1.861098.3.579. 2.479 Private Health Insurance [id number] Unknown [id number] 2.16.840.1.378406.3.579. 2.462 Unknown [id number] 2.16.840.1.492160.3.579. 2.462 Unknown [id number] 2.16.840.1.471565.3.579. 2.462 Unknown [id number] 2.16.840.1.385812.3.579. 2.462 Social History Date Type Detail Facility Start: 02-20-2021 End: 02-01-2023 Tobacco smoking status NHIS Never smoked tobacco [facility] Start: 02-20-2021 End: 02-01-2023 Tobacco use and exposure Smokeless tobacco non-user [facility] Start: 09-01-2021 End: 05-03-2023 Alcohol intake Lifetime non-drinker (finding) [facility] Start: 09-01-2021 History SDOH Alcohol Frequency 1 [facility] Start: 2001 Sex Assigned At Not on file [facility] Start: 08-21-2021 End: 08-31-2021 Exposure to SARS-CoV-2 (event) Unable to assess [facility] Work Phone: Sex Assigned At [facility] Start: 02-01-2023 End: 05-03-2023 History of Social function [facility] Start: 02-01-2023 End: 05-03-2023 Tobacco use panel [facility] Start: 01-13-2012 National Score (1-10 0), lower number is lower risk Not on file [facility] Start: 2001 Sex Assigned At Female [facility] Start: 04-25-2023 Gender identity Identifies as female gender (finding) [facility] Start: 04-25-2023 Sexual orientation Heterosexual (brandyn bazan) [facility] Start: 10-10-2023 End: 09-07-2024 Alcoholic beverage intake Ex-drinker (finding) [facility] Start: 10-06-2013 End: 05-27-2024 Sex Female (finding) [facility] Start: 03-07-2020 Tobacco Use Tobacco Use [facility] Start: 08-06-2024 [facility] Medical Equipment Procedure Code Equipment Code Equipment Origin al Text Equipment Identifier Dates ORIF, ankle SYNDESMOSIS TIGH TROPE XP FDA Start: 03-10-2020 ORIF, ankle SYNDESMOSIS TIGH TROPE XP FDA Start: 03-10-2020 Goals Date Patient Goal Desired Activity /State Personal health goal Functional Status Date Assessment Result Facility 05-14-2023 Functional Status Independent [facility] 05-14-2023 Functional Status Standard Safet y ID band on, Call device within reach, Bed in low position, Wheels locked, Bedside Cart Locked, Visitor at bedside, Safety level maintained [facility] 02-13-2023 Functional Status Independent [facility] 02-13-2023 Functional Status Room check performed [facility] 07-08-2022 Functional Status Activity Tino tance Independent [facility] 07-08-2022 Functional Status Awake [facility] 01-18-2022 Functional Status ice on [facility] 01-18-2022 Functional Status Maintained [facility] 01-12-2022 Functional Status Sensory Deficits None A [facility] 01-03-2022 Functional Status Independent [facility] 01-03-2022 Functional Status Standard Safet y ID band on, Call device within reach, Bed in low position, Wheels locked, Upper/Half-Length side-rails up, Bedside Cart Locked, Safety level maintained [facility] 12-11-2021 Functional Status Independent [facility] 12-11-2021 Functional Status Standard Safet y ID band on, Call device within reach, Bed in low position, Wheels locked, personal items within reach [facility] 10-03-2021 [facility] Functional Status N/A [facility] Mental Status Date Assessment Result Facility 05-14-2023 Mental Status Orientation Oriented x 4 [facility] 05-14-2023 Mental Status [facility] 02-13-2023 Mental Status Orientation Oriented x 4 [facility] 02-13-2023 Mental Status [facility] 07-08-2022 Mental Status Orientation Oriented x 4 [facility] 07-08-2022 Mental Status [facility] 01-18-2022 Mental Status Orientation Oriented x 4 [facility] 01-18-2022 Mental Status [facility] 01-03-2022 Mental Status Orientation Oriented x 4 [facility] 01-03-2022 Mental Status [facility] 12-11-2021 Mental Status Orientation Oriented x 4 [facility] 12-11-2021 Mental Status [facility] 10-03-2021 Mental Status Orientation Oriented x 4 [facility] 10-03-2021 Mental Status [facility] Clinical Notes 02-20-2021 to 10-23-2024 Quick Notes - Keren Washington APRN.[employer] - 10/23/2024 11:46 AM EDTPrenatal Quick Notes - Keren Washington APRN.[employer] - 10/23/2024 11:46 AM EDTPatient InstructionsPatient Instructions Note Date & Type Note Facility 10-23-2024 Progress note Formatting of t his note might be different from the original. S: Loreta Haro is a 24 year old female who presents at 13 weeks gestation as an add on visit for continued lower back pain and lower abdominal cramping. She denies any dysuria, hematuria, loss of fluid or vaginal bleeding. Started exercising recently. O: See flow sheet Gen: No apparent distress Abd: Gravid, non tender CVA tenderness- NEGATIVE ASSESSMENT/PLAN: 1. Back pain affecting 2. 13 weeks gestation of 4. resulting from assisted reproductive technology 5. History of PCOS 6. Rh negative state in antepartum period, first trimester 7. Obesity affecting in first trimester, unspecified obesity type 8. Abdominal cramping - Urine dip neg- no culture needed - Suspect dehydration and muscle pain from exercising - Reviewed increasing fluid intake - Support provided - Anxious over - relieved with FHT being heard - RTO already scheduled WILFRID Washington APRN.CNM [facility] 10-23-2024 Miscellaneous Notes Formattin g of this note might be different from the original. S: Loreta Haro is a 24 year old female who presents at 13 weeks gestation as an add on visit for continued lower back pain and lower abdominal cramping. She denies any dysuria, hematuria, loss of fluid or vaginal bleeding. Started exercising recently. O: See flow sheet Gen: No apparent distress Abd: Gravid, non tender CVA tenderness- NEGATIVE ASSESSMENT/PLAN: 1. Back pain affecting 2. 13 weeks gestation of 4. resulting from assisted reproductive technology 5. History of PCOS 6. Rh negative state in antepartum period, first trimester 7. Obesity affecting in first trimester, unspecified obesity type 8. Abdominal cramping - Urine dip neg- no culture needed - Suspect dehydration and muscle pain from exercising - Reviewed increasing fluid intake - Support provided - Anxious over - relieved with FHT being heard - RTO already scheduled WILFRID Washington APRN.CNM documented in this encounter [facility] 10-23-2024 Instructions Josselin Walden MA - 10/23/2024 11:20 AM EDT SEQUENTIAL SCREENINGS The [facility] offers sequential screenings for women who are interested in screenings for chromosomal abnormalities and certain defects during a . The sequential screen combines ultrasound and blood tests to determine the risk of chromosomal abnormalities, including Down's Syndrome (Trisomy 21) and Trisomy 18, as well as open neural tube defects including spina bifida. Ultrasound examination is performed between 11 weeks and 13 weeks gestational age. Blood tests are drawn after the ultrasound and again later in the between 15 and 21 weeks gestational age. Please let your physician know if you are interested in this testing. It will require an appointment with our hot cell technician. This is not an ultrasound performed by a physician in our office during a routine visit. SIGNS AND SYMPTOMS OF LABOR 1. Contractions every 10 minutes or more often 2. Clear, pink, or brownish fluid (water) leaking from vagina 3. Feeling that baby is pushing down, pressure 4. Low, dull backache 5. Cramps that feel like a period 6. Cramps with or without diarrhea If you notice any of the above symptoms, contact our office at [phone] and ask to speak with a nurse. After hours, you can call doctors registry at [phone] OR call [facility] at [phone] and ask to have the doctor broadcast operations manager paged. If you consider this an emergency, dial 9-0-0 or go to your nearest emergency department. NEED HELP? Are you dealing with a violent or abusive relationship? Are you a victim of rape or sexual assult? Call [facility] ([place]) 24 hour Crisis Hotline: 440.517.4398 or 767-666-3836. MANUAL Your Guide to a Healthy manual is now on-line. Visit [email or web address] to download your free copy documented in this encounter [facility] 10-22-2024 Telephone encount er Note Patient called in and stating all symptoms have resolved now. Declined appointment and will keep next scheduled visit. Mindi Garces RN [facility] 10-22-2024 Miscellaneous Notes Formattin g of this note might be different from the original. Patient called in and stating all symptoms have resolved now. Declined appointment and will keep next scheduled visit. Mindi Garces RN Would recommend appointment. Joanne Cain APRN.CNM documented in this encounter [facility] 10-19-2024 Telephone encount er Note Would recommend appointment. Joanne Cain APRN.CNM [facility] Work Phone: 10-15-2024 Progress note Formatting of t his note might be different from the original. S: Loreta Haro is a 24 year old female who presents at 12 weeks gestation. Nausea resolved. Some food aversions. Denies headache, visual changes, chest pain, shortness of breath, vaginal bleeding, leakage of fluid, or dysuria. Feeling well, no complaints. O: See flow sheet Gen: No apparent distress Abd: Gravid, non tender ASSESSMENT/PLAN: 1. Encounter for supervision of high risk in first trimester, antepartum 2. Obesity affecting in first trimester, unspecified obesity type 3. resulting from assisted reproductive technology, first trimester , 4. 12 weeks gestation of - BMI 52- discussed delivery at [facility] [place] 39 weeks gestation - patient very tearful- questions answered - Will assist patient if desires to have care transferred to [facility] - Support provided - Discussed growth US/ weekly NST in 3rd trimester - Continue vitamin - Start ASA at bedtime - RTO 4 weeks or sooner if needed Keren Washington APRN.CNM [facility] 10-15-2024 Miscellaneous Notes Formattin g of this note might be different from the original. S: Loreta Haro is a 24 year old female who presents at 12 weeks gestation. Nausea resolved. Some food aversions. Denies headache, visual changes, chest pain, shortness of breath, vaginal bleeding, leakage of fluid, or dysuria. Feeling well, no complaints. O: See flow sheet Gen: No apparent distress Abd: Gravid, non tender ASSESSMENT/PLAN: 1. Encounter for supervision of high risk in first trimester, antepartum 2. Obesity affecting in first trimester, unspecified obesity type 3. resulting from assisted reproductive technology, first trimester , 4. 12 weeks gestation of - BMI 52- discussed delivery at [facility] [place] 39 weeks gestation - patient very tearful- questions answered - Will assist patient if desires to have care transferred to [facility] - Support provided - Discussed growth US/ weekly NST in 3rd trimester - Continue vitamin - Start ASA at bedtime - RTO 4 weeks or sooner if needed Keren Washington APRN.CNM documented in this encounter [facility] 10-14-2024 Telephone encount er Note Patient viewed results and message from RM. Chery Markham RN [facility] 10-14-2024 Miscellaneous Notes Formattin g of this note might be different from the original. Patient viewed results and message from NELY. Chery Markham RN released results 10/13 Joon Mooney APRN.RAFAL Pt calling for [id number] results. Pt wanted to know gender-did inform Pt consistent with female per results. Please advise. Pt advised that DM out of office today and returns tomorrow. Carlene Linares RN documented in this encounter [facility] 10-14-2024 Telephone encount er Note RM released results 10/13 Joon Mooney APRN.[employer] [facility] 10-13-2024 Telephone encount er Note Pt calling for [id number] results. Pt wanted to know gender-did inform Pt consistent with female per results. Please advise. Pt advised that DM out of office today and returns tomorrow. Carlene Linares RN [facility] 10-05-2024 Progress note Formatting of t his note might be different from the original. DM-Pt doing well. Denies vaginal Bleeding, Leaking fluid, or regular Contractions. Pt reports good movement Physical Exam: Gen: female in no apparent distress Abd: soft, Gravid. Non tender to palpation. See flow sheet @ 10.4 weeks Assessment & Plan Encounter for supervision of high risk in first trimester, antepartum (HCC) Orders: [id number] PLUS; Future Obesity affecting in first trimester, unspecified obesity type (HCC) Discussed with patient due to BMI >50 will need to deliver at tertiary care center. Would recommend IOL at 39 weeks or sooner if medically indicated. NSTs and Growth us reviewed with patient. Orders: [id number] PLUS; Future History of PCOS resulting from assisted reproductive technology, first trimester (HCC) PCOS (polycystic ovarian syndrome) 10 weeks gestation of (HCC) RTO wks New OB labs today Orders: [id number] PLUS; Future Karin Harrington MD [facility] 10-05-2024 Miscellaneous Notes Formattin g of this note might be different from the original. DM-Pt doing well. Denies vaginal Bleeding, Leaking fluid, or regular Contractions. Pt reports good movement Physical Exam: Gen: female in no apparent distress Abd: soft, Gravid. Non tender to palpation. See flow sheet @ 10.4 weeks Assessment & Plan Encounter for supervision of high risk in first trimester, antepartum (HCC) Orders: [id number] PLUS; Future Obesity affecting in first trimester, unspecified obesity type (HCC) Discussed with patient due to BMI >50 will need to deliver at tertiary care center. Would recommend IOL at 39 weeks or sooner if medically indicated. NSTs and Growth us reviewed with patient. Orders: [id number] PLUS; Future History of PCOS resulting from assisted reproductive technology, first trimester (HCC) PCOS (polycystic ovarian syndrome) 10 weeks gestation of (HCC) RTO wks New OB labs today Orders: [id number] PLUS; Future Karin Harrington MD documented in this encounter [facility] 10-05-2024 Instructions Penny Mathews MA - 10/05/2024 3:07 PM EDT SEQUENTIAL SCREENINGS The [facility] offers sequential screenings for women who are interested in screenings for chromosomal abnormalities and certain defects during a . The sequential screen combines ultrasound and blood tests to determine the risk of chromosomal abnormalities, including Down's Syndrome (Trisomy 21) and Trisomy 18, as well as open neural tube defects including spina bifida. Ultrasound examination is performed between 11 weeks and 13 weeks gestational age. Blood tests are drawn after the ultrasound and again later in the between 15 and 21 weeks gestational age. Please let your physician know if you are interested in this testing. It will require an appointment with our hot cell technician. This is not an ultrasound performed by a physician in our office during a routine visit. SIGNS AND SYMPTOMS OF LABOR 1. Contractions every 10 minutes or more often 2. Clear, pink, or brownish fluid (water) leaking from vagina 3. Feeling that baby is pushing down, pressure 4. Low, dull backache 5. Cramps that feel like a period 6. Cramps with or without diarrhea If you notice any of the above symptoms, contact our office at [phone] and ask to speak with a nurse. After hours, you can call doctors registry at [phone] OR call [facility] at [phone] and ask to have the doctor broadcast operations manager paged. If you consider this an emergency, dial [phone] or go to your nearest emergency department. NEED HELP? Are you dealing with a violent or abusive relationship? Are you a victim of rape or sexual assult? Call [facility] ([place]) 24 hour Crisis Hotline: 326.368.1901 or 747-197-3937. MANUAL Your Guide to a Healthy manual is now on-line. Visit [email or web address] to download your free copy documented in this encounter [facility] 09-07-2024 Note HNO ID: [id number] Author: JOON MOONEY APRN.SAMPLE MOUNTER Service: ? Author Type: Nurse Practitioner Type: Progress Notes Filed: 09/07/2024 11:35 Note Text: Nursing Executive offered: Patient declines. INITIAL OB ASSESSMENT HPI: Loreta is a 24 year old White Female here to establish Obstetrical Care. Patient's last menstrual period was 07/23/2024. from OB Dating Form. was planned and a result of fertility treatments IVF Complaints: No OB History Gravida1 Para0 Term0 Preterm0 AB0 Living0 SAB0 IAB0 Ectopic0 Multiple0 Live Births0 Previous history: Prior : never History of 4th degree laceration: NA History of shoulder dystocia: No History of Hypertensive disorders including pre-eclampsia or gestational hypertension: NA History of gestational diabetes: NA Patient's Risk Screening for delivery: Have you had a prior peterson between 20w and 36w6d? No How many pregnancies have you had before? 0 Did you have a previous baby with a GBS Infection? No Please select all that apply for any prior : N/A MEDICAL/PSYCHOSOCIAL HISTORY: History of hemorrhage or bleeding concerns: No Thyroid Disease: No History of chronic hypertension: No History of pre-existing diabetes: No No results found for: ABORHD BMI 52.25 kg/(m2) Last Pap: 05/03/2023 normal History of abnormal pap: No Prior treatment for cervical dysplasia: none. Last HPV: never done History of STDs: None Partner History of STDs: None Did you have a partner with Herpes? No Tobacco use: No E-Cigarette/Vaping Use: No Caffeine use: Yes Drug use: No Alcohol use: No Multivitamin with Folic acid: Yes Would refuse blood transfusion if medically necessary: No Social Needs: How often does this describe you? I don't have enough money to pay my bills: Never Within the past 12 months, have you worried that your food would run out before you had money to buy more? Never In the past 12 months, has lack of reliable transportation kept you from going to medical appointments or work, or from getting things needed for daily living? Never In the past 12 months, have you had any concerns about having a place to live, or about the condition or quality of your housing? Never Would you like more information on any of the following (please check all that apply)? Not interested Social History: Do you have any history of depression, anxiety, PTSD, or other mood problems? No Do you have a history of abuse or trauma that may impact your experience? 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 OB Depression and Anxiety Screening- This Encounter Feeling down, depressed, or hopeless: Not at all Little interest or pleasure in doing things: Not at all Feeling nervous, anxious, or on edge Not at all Not being able to stop or control worrying Not at all Anxiety Pre-Screening Total (If >/= 3 additional questions will be reviewed) 0 Genetic Screening: Partner present: No Patient verbalized knowledge of partner family health history: Yes Do you or your partner have any personal or family history of defects not previously discussed: No Do you have history of a complicated by anomaly, genetic condition, or demise: No Preeclampsia Risk Screening: Screening for prevention of preeclampsia: High risk factors: None Moderate risk ractors: Nulliparity and Obesity (body mass index greater than 30) OB Risk Screening: Completed, no positive findings documented. 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 estradiol (ESTRACE) 2 mg tablet Take 2 mg by mouth three times a day. PROGESTERONE IN OIL INTRAMUSC. Inject intramuscularly. No current facility-administered medications for this visit. Allergies As of Date: 09/07/2024 (No Known Allergies) Fully Assessed 09/07/2024 Does patient have penicillin allergy: No REVIEW OF SYSTEMS: GENERAL: Negative for: Fever or Chills HEENT: Negative for: Headache, Impaired Vision, Ringing in Ears, Nosebleeds NECK: Negative for: Swelling, Pain, Stiffness RESPIRATORY: Negative for: Cough, Shortness of breath, Wheezing GASTROINTESTINAL: Negative for: Heartburn, Constipation, Diarrhea, Blood in stool + nausea MUSCULOSKELETAL: Negative for: Muscle or joint pain, stiffness, Joint swelling NEUROLOGIC/PSYCHIATRIC: Negative for: Weakness, Paralysis, Numbness, Tingling, Tremor, Anxiety, Depression, Memory loss SKIN: Negative for: Rash, Itching GENITOURINARY: Negative for (more content not included)... [facility] 09-07-2024 History of Presen t illness Narrative Nursing Executive offered: Patient declines. INITIAL OB ASSESSMENT HPI: Loreta is a 24 year old White Female here to establish Obstetrical Care. Patient's last menstrual period was 07/23/2024. from OB Dating Form. was planned and a result of fertility treatments IVF Complaints: No OB History Gravida1 Para0 Term0 Preterm0 AB0 Living0 SAB0 IAB0 Ectopic0 Multiple0 Live Births0 Previous history: Prior : never History of 4th degree laceration: NA History of shoulder dystocia: No History of Hypertensive disorders including pre-eclampsia or gestational hypertension: NA History of gestational diabetes: NA Patient's Risk Screening for delivery: Have you had a prior peterson between 20w and 36w6d? No How many pregnancies have you had before? 0 Did you have a previous baby with a GBS Infection? No Please select all that apply for any prior : N/A MEDICAL/PSYCHOSOCIAL HISTORY: History of hemorrhage or bleeding concerns: No Thyroid Disease: No History of chronic hypertension: No History of pre-existing diabetes: No No results found for: ABORHD BMI 52.25 kg/(m^2) Last Pap: 05/03/2023 normal History of abnormal pap: No Prior treatment for cervical dysplasia: none. Last HPV: never done History of STDs: None Partner History of STDs: None Did you have a partner with Herpes? No Tobacco use: No E-Cigarette/Vaping Use: No Caffeine use: Yes Drug use: No Alcohol use: No Multivitamin with Folic acid: Yes Would refuse blood transfusion if medically necessary: No Social Needs: How often does this describe you? I don't have enough money to pay my bills: Never Within the past 12 months, have you worried that your food would run out before you had money to buy more? Never In the past 12 months, has lack of reliable transportation kept you from going to medical appointments or work, or from getting things needed for daily living? Never In the past 12 months, have you had any concerns about having a place to live, or about the condition or quality of your housing? Never Would you like more information on any of the following (please check all that apply)? Not interested Social History: Do you have any history of depression, anxiety, PTSD, or other mood problems? No Do you have a history of abuse or trauma that may impact your experience? 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 OB Depression and Anxiety Screening- This Encounter Feeling down, depressed, or hopeless: Not at all Little interest or pleasure in doing things: Not at all Feeling nervous, anxious, or on edge Not at all Not being able to stop or control worrying Not at all Anxiety Pre-Screening Total (If >/= 3 additional questions will be reviewed) 0 Genetic Screening: Partner present: No Patient verbalized knowledge of partner family health history: Yes Do you or your partner have any personal or family history of defects not previously discussed: No Do you have history of a complicated by anomaly, genetic condition, or demise: No Preeclampsia Risk Screening: Screening for prevention of preeclampsia: High risk factors: None Moderate risk ractors: Nulliparity and Obesity (body mass index greater than 30) OB Risk Screening: Completed, no positive findings documented. 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 estradiol (ESTRACE) 2 mg tablet Take 2 mg by mouth three times a day. PROGESTERONE IN OIL INTRAMUSC. Inject intramuscularly. No current facility-administered medications for this visit. Allergies As of Date: 09/07/2024 (No Known Allergies) Fully Assessed 09/07/2024 Does patient have penicillin allergy: No REVIEW OF SYSTEMS: GENERAL: Negative for: Fever or Chills HEENT: Negative for: Headache, Impaired Vision, Ringing in Ears, Nosebleeds NECK: Negative for: Swelling, Pain, Stiffness RESPIRATORY: Negative for: Cough, Shortness of breath, Wheezing GASTROINTESTINAL: Negative for: Heartburn, Constipation, Diarrhea, Blood in stool + nausea MUSCULOSKELETAL: Negative for: Muscle or joint pain, stiffness, Joint swelling NEUROLOGIC/PSYCHIATRIC: Negative for: Weakness, Paralysis, Numbness, Tingling, Tremor, Anxiety, Depression, Memory loss SKIN: Negative for: Rash, Itching GENITOURINARY: Negative for: vaginal itching, vaginal discharge, hematuria or dysuria SENSITIVE EXAM: The sensitive examination was discussed with the Patient or Patient's Authorized News Department Intern. As applicable, any other physician, advance practice provider, medical student, or other health professional student that will be observing or involved in the sensitive examination for educational or training purposes was discussed with the Patient or Authorized News Department Intern. The Patient or Authorized News Department Intern has agreed to proceed with the sensitive examination. (Sensitive examination includes inspection and/or palpation of the breasts, pelvis, prostate and anorectal regions). PHYSICAL EXAM: LMP 07/23/2024 GENERAL: pleasant in no apparent distress DERMATOLOGY: Normal, without lesions, non-icteric, and non-hirsute NECK: Supple, full range of motion, no adenopathy, and thyroid normal CHEST: Normal inspiratory effort BREAST: DECLINES ABDOMEN: soft, non-tender, and no masses NEURO: alert and oriented x3,exam grossly non-focal PELVIS: External genitalia normal without lesions. Perineal body intact. No vaginal or cervical lesions. Cervix closed. Uterus <8 week size. No adnexal masses or tenderness. Clinical Pelvimetry: Pelvimetry clinically assessed as adequate Limited OB ultrasound exam: single intrauterine and positive cardiac activity ASSESSMENT: 24 year old at 6w4d wks gestational age PLAN: 1) Patient oriented to practice. Patient given new OB orientation folder. Discussed nutrition, folic acid supplementation, dietary guidelines, exercise, smoking, alcohol, caffeine, and drug use. Discussed gestational weight gain guidelines. Discussed routine OB labs including STD/HIV. Discussed how to access Your guide to a health and the Loan Processing Supervisor. Discussed hemoglobin electrophoresis. Patient: Declines Reviewed midwifery and abseiling instructor services that are available. 2) Screening: Hemoglobin A1C: ordered Baby Aspirin: The patient has been counseled about the potential benefits of low dose aspirin in and our recommendation that this be offered to all patients, regardless of whether they meet the high risk criteria specified above. She Accepts Aneuploidy Screening: Discussed aneuploidy screening, nuchal translucency/first trimester early anatomy ultrasound and NIPT. The risks/benefits and limitations of NIPT/aneuploidy screening were reviewed including the potential for false negative and false positive results. The availability of genetic counseling was reviewed. Information on aneuploidy screening was provided. The patient chooses to proceed with First trimester early anatomy ultrasound (12-13w6d) Myriad Carrier Screening: Discussed myriad carrier screening. We discussed the availability of professional-society guided carrier screening and reviewed the conditions screened and limitations of screening. The availability of genetic counseling was reviewed. Information on carrier screening was provided. The patient Previously ordered through IVF 3) Patient offered option of Virtual Visits. Patient unsure. May consider in future. ACTIVE PROBLEM LIST Encounter for Supervision of High Risk in First Trimester, Antepartum (Hcc) - 09/07/2024 Comment: Care Checklist Vaccines: [] Flu vaccine [] declined [] RSV vaccine 32 0/7 - 36 07/18 (Oct - Mar) [] declined [] COVID vaccine [] declined [] TDaP 27-36 [] declined First trimester: [x] Dating US [x] 1st tri labs [x] Pap smear [x] Carrier screening - done through IVF [] declined [] NIPT screening [] declined [x] First trimester anatomy scan [] declined [x] universal ASA ordered (start 12w-16w) [] declined [] M Power Consult [] not indicated [] declined Second trimester: [] Anatomy scan [] Mode of Delivery - [] Feeding - [] Pump ordered [] Diabetes screen [] CBC, RPR [] Behavioral Health Screening Third trimester (28-30 weeks): [] Consent [] Contraception [] Out Of Town Collection Clerk, car seat, safe sleep [] TeamBirth handout Third trimester (36-40 weeks): [] GBS [] Presentation - [] Scheduled [] yes - Hibiclens, pre-op instructions, CBC, T&S ordered [] no [] H&P [] Pre History of Pcos - 09/07/2024 Obesity Affecting in First Trimester ([facility]) - 09/07/2024 Comment: - Pre BMI 52 - Plan for growth and then weekly NSTs starting at 32 weeks. Joon Mooney APRN.CNP Resulting From Assisted Reproductive Technology, First Trimester ([facility]) - 09/07/2024 Comment: September 07, 2024 BREANA Spencer. Have not received records yet. Consider echo. Joon Mooney APRN.CNP Nausea and Vomiting During ([facility]) - 09/07/2024 Comment: 09/07/24 Vitamin B6 doses reviewed. To notify if prescription is needed. Joon Mooney APRN.CNP Follow up in 4 weeks or sooner prn. Plan for NT scan between 12w0d and 13w6d gestation. Joon Mooney APRN.CNP documented in this encounter [facility] 09-07-2024 Instructions Joon Mooney APRN.CNP - 09/07/2024 10:49 AM EDT Please select the following link to access the [facility] Your Guide to a Healthy . [email or web address] mago MORNING SICKNESS IN by Jayne Bowser M.D. for [employer] As you may already know, morning sickness can often be more appropriately called evening sickness or prlwc-xvauvl-uo-the-day sickness. While there are the santiago few, most women (50-90%) experience some degree of nausea, some have vomiting, and a few develop a severe form of vomiting during called hyperemesis gravidarum. What causes the nausea and vomiting of ? We can't explain why some people feel fine and others are green for months. Even the same woman may feel vastly different in each . There is some relationship between nausea and the level of the hormone hCG. In twin pregnancies, and in other situations where the hCG is greater than expected, nausea and vomiting tend to be worse. In a destined for miscarriage, hCG levels tend to be low, and nausea is often less severe. This being said, a lack of nausea doesn't guarantee that the is destined for miscarriage. The fact that nausea and vomiting are often signs of a healthy can offer a silver lining in the dark cloud of miserable nausea. How long will the nausea last? Fortunately, for most women, nausea and vomiting are a first trimester event, peaking at week 9-10 and waning by week 14-16. When you are feeling bad the weeks can go by slowly but most moms do feel tremendously better by the middle of the . Whether morning sickness is a brief experience or lasts through most of the , there are treatments that can make the weeks or months more tolerable. What can you do about it? Diet: See what works for you. Try eating bland dry foods, and avoid fatty or spicy foods. It is okay to eat a less than perfectly balanced diet in the first trimester. Have your liquids separately from dry foods. Try sports drinks, water, clear juices, Blaise-aid, or non-caffeinated tea. Avoid carbonated beverages that fill up your stomach. Try eating lots of little meals. If you tend to feel sick when you first wake up, leave crackers next to the bed for a quick snack before rising. Keeping healthy snacks with you all day to nibble when you feel queasy can sometimes even prevent nausea from starting. vitamins and nausea: Pre-daisy vitamins can sometimes worsen nausea in . While folate is necessary, especially early in the , it comes as a smaller pill that many people find more tolerable than the complete vitamin pill. Ask your practitioner if it is okay to temporarily replace vitamins and iron with just a folate pill if you find a significant worsening in the level of your nausea from the vitamins. Alternative therapies: Acupressure may be used to treat nausea in , and is not known to have any risks for the fetus. Wristbands (marketed for seasickness) that put pressure on an acupressure point at the wrist are often available at drugstores or travel stores. Haresh root is used for nausea in many traditional cultures. Some women take fresh grated haresh or haresh tablets. It is possible that the pill form contains other ingredients or contaminants, so you may want to try fresh haresh first. Medications: Emetrol is the only nausea medication approved for use in . It is available over the counter and is soothing to the stomach. A prescription medication called Bendectin was available in the 1970s-1979's and was shown to be safe in , but the company stopped marketing it in the [place] due to the costs of liability coverage. Bendectin contained 10 milligrams of vitamin B6 and 10 milligrams of Doxylamine. Two tablets were given at bedtime and a total of up to 4 tablets could be used in a 24-hour period. Interestingly, Unisom , which contains a higher dose (25 mg.) of the same medication, Doxylamine, is currently marketed as an mphd-kbx-nkbcfcm sleeping pill. Ask your practitioner if creating a vitamin B6/Doxylamine combination with zfri-qwt-nqogeit medications would be safe for you. Prescription medications like Compazine and Phenergan can be used if the benefits outweigh possible risks, but these have not been clearly shown to be safe in . Zofran , an expensive anti-nausea medication often used to treat nausea from chemotherapy, can also be used. Can I throw up so much it harms the baby? The act of vomiting cannot hurt your fetus, which is protected inside the uterus. If you get dehydrated or develop a metabolic imbalance, this can be unhealthy. As long as you can keep down liquids, you and your baby will generally do all right. Eat when you feel able. If you are unable to keep anything down, or if you notice potential signs of dehydration such as lightheadedness, or concentrated and/or infrequent urination, call your practitioner. Some women need brief hospital admission for intravenous fluids and anti-nausea medications if their condition becomes severe. This severe form of nausea and vomiting is called Hyperemesis Gravidarum. As with many symptoms of , remind yourself that this, too, shall pass, and you'll have a wonderful baby to show for it! TREATMENT OPTIONS, SHORT VERSION: Frequent small meals Hydrate throughout day [employer]ands wrist pressure point applicators Haresh root (powdered, in capsules) 250mg four times a day Vitamin B6 25 mg tablet three times a day Also may be taken with half a tablet of Unisom three times a day (Doxylamine 12.5 mg) If severe (weight loss, dehydration), call us and come in for IV hydration and possible medication in the form of injections. Prescription medications such as Phenergan, Compazine, Reglan documented in this encounter [facility] 09-04-2024 Evaluation note Diagnosis Onset Date Resolution Pharyngitis acute September 04 5:47pm Pharyngitis acute September 27, 2024 10:22am [employer] Work Phone: [phone]) 563-431207-25-2025 [facility] [address], [address] [place] [address] OFFICE VISIT Date of Service: 09/04/24 MR#: [id number] Acct: [id number] Name: LORETA HARO Rep #: [id number] : 2000 Provider: TORITO Suh Age/Sex: 24/F Location: [email or web address] Status: Signed Intake Vital Signs 05/18/24 13:36 09/04/24 17:49 Height 5 ft 6 in BP 120/80 130/65 H Blood Pressure Location Lt radial Position Sitting Sitting Respiration 18 Pulse 90 104 H Pulse Source Monitor Temp 98.7 F 98.8 F Temp Source Oral Oral Pulse Oximetry (%) 97 100 Oxygen Delivery Method room air room air Intake Visit Reasons: SORE THROAT/CONGESTION Chief Complaint: COUGH Spanish Translator Required: No Accompanied by: Other Is patient in pain?: No Allergies No Known Allergies Allergy (Verified 09/04/24 17:50) Medications ?Medication ?Instructions ?Recorded ?Confirmed ?Type metformin 500 mg tablet 500 mg PO QPM 02/10/2409/04 History omeprazole 40 mg capsule,delayed 40 mg PO QDAY 4 09/04/24 History release amoxicillin 875 mg-potassium 1 tab PO Q12H 10 days #20 tabs 09/04/24 09/04/24 Rx clavulanate 125 mg tablet ipratropium bromide 21 mcg (0.03 2 spray intranasal BI D-TID PRN 09/04/24 09/04/24 Rx %) nasal spray postnasal drainage #30 mL Patient : Yes Nurse's Note: ST, Congestion, and head pressure for last 3 days. Patient is currently , so is wondering what is best to take. 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 Patient denies fever, chills, sweats. No nausea, vomiting or diarrhea. No hemoptysis, shortness of breath or difficulty breathing. No loss of taste or smell. No other associated symptoms or alleviating/aggravating factors. ROS Const Constitutional: No other (6 system ROS completed with pertinent findings in the HPI otherwise normal.) Exam Const General: cooperative and well developed HENMT Head: normal to inspection and atraumatic Ears: hearing grossly normal bilaterally Nose: nasal discharge clear Face and sinus: normal facial exam Mouth: oral mucosae normal Throat: abnormal tonsil bilaterally hypertrophy 1+ Resp Effort & Inspection: normal respiratory effort and no audible wheezes Auscultation: Bilateral: Clear to Auscultation Cardio Palpation: normal PMI Rate: regular rate Rhythm: regular rhythm Neuro General: patient alert and CN's II-XI intact bilaterally Psych Appearance: grossly normal Mental Status: mental status grossly normal Coding Level of Care Code Off vis,est,level 3 Diagnoses Pharyngitis, unspecified etiology J02.9 Pharyngitis/tonsillitis etiology: unspecified etiology Assessment and Plan Assessment and Plan (1) Pharyngitis: Status: Acute Qualifiers: Pharyngitis/tonsillitis etiology: unspecified etiology Qualified Code(s): J02.9 - Acute pharyngitis, unspecified Plan: Augmentin and Atrovent as prescribed today. Encouraged to get plenty of rest, drink lots of clear liquids, and use Tylenol or Ibuprofen (unless contraindicated) for fever and comfort. Patient also educated on other symptomatic management techniques. To be seen in 7-10 days if no improvement; soonerif worsening of symptoms. Patient advised of potential red flags and when appropriate to report to the ED. Patient verbalized understanding and agreement with all the above. Medications: New amoxicillin-pot clavulanate 875-125 mg 1 TAB PO Q12H 10 days 20 tabs 0RF J01.90 - Acute sinusitis, unspecified ipratropium bromide administer into each nostril 2 sprays intranasal BID-TID PRN 30 mL 0RF postnasal drainage 09/04/24 1753 A PA> Date _ Britton UGARTE Cosigner Signature: Date (if applicable) CC: ~ [facility]07-25-2025 Progress note Author Britton Ross [facility] Note Date/Time September 04, 2024 5:52 pm [facility] [address], [address] [place] [address] OFFICE VISIT Date of Service: 09/04/24 MR#: [id number] Acct: [id number] Name: LORETA HARO Rep #: [id number] : 2000 Provider: TORITO Suh Age/Sex: 24/F Location: [facility] Status: Signed Intake Vital Signs 05/18/24 13:36 09/04/24 17:49 Height 5 ft 6 in BP 120/80 130/65 H Blood Pressure Location Lt radial Position Sitting Sitting Respiration 18 Pulse 90 104 H Pulse Source Monitor Temp 98.7 F 98.8 F Temp Source Oral Oral Pulse Oximetry (%) 97 100 Oxygen Delivery Method room air room air Intake Visit Reasons: SORE THROAT/CONGESTION Chief Complaint: COUGH Spanish Translator Required: No Accompanied by: Other Is patient in pain?: No Allergies No Known Allergies Allergy (Verified 09/04/24 17:50) Medications ?Medication ?Instructions ?Recorded ?Confirmed ?Type metformin 500 mg tablet 500 mg PO QPM 02/10/2409/04 History omeprazole 40 mg capsule,delayed 40 mg PO QDAY 4 09/04/24 History release amoxicillin 875 mg-potassium 1 tab PO Q12H 10 days #20 tabs 09/04/24 09/04/24 Rx clavulanate 125 mg tablet ipratropium bromide 21 mcg (0.03 2 spray intranasal BI D-TID PRN 09/04/24 09/04/24 Rx %) nasal spray postnasal drainage #30 mL Patient : Yes Nurse's Note: ST, Congestion, and head pressure for last 3 days. Patient is currently , so is wondering what is best to take. 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 Patient denies fever, chills, sweats. No nausea, vomiting or diarrhea. No hemoptysis, shortness of breath or difficulty breathing. No loss of taste or smell. No other associated symptoms or alleviating/aggravating factors. ROS Const Constitutional: No other (6 system ROS completed with pertinent findings in the HPI otherwise normal.) Exam Const General: cooperative and well developed HENMT Head: normal to inspection and atraumatic Ears: hearing grossly normal bilaterally Nose: nasal discharge clear Face and sinus: normal facial exam Mouth: oral mucosae normal Throat: abnormal tonsil bilaterally hypertrophy 1+ Resp Effort & Inspection: normal respiratory effort and no audible wheezes Auscultation: Bilateral: Clear to Auscultation Cardio Palpation: normal PMI Rate: regular rate Rhythm: regular rhythm Neuro General: patient alert and CN's II-XI intact bilaterally Psych Appearance: grossly normal Mental Status: mental status grossly normal Coding Level of Care Code Off vis,est,level 3 Diagnoses Pharyngitis, unspecified etiology J02.9 Pharyngitis/tonsillitis etiology: unspecified etiology Assessment and Plan Assessment and Plan (1) Pharyngitis: Status: Acute Qualifiers: Pharyngitis/tonsillitis etiology: unspecified etiology Qualified Code(s): J02.9 - Acute pharyngitis, unspecified Plan: Augmentin and Atrovent as prescribed today. Encouraged to get plenty of rest, drink lots of clear liquids, and use Tylenol or Ibuprofen (unless contraindicated) for fever and comfort. Patient also educated on other symptomatic management techniques. To be seen in 7-10 days if no improvement; sooner if worsening of symptoms. Patient advised of potential red flags and when appropriate to report to the ED. Patient verbalized understanding and agreement with all the above. Medications: New amoxicillin-pot clavulanate 875-125 mg 1 TAB PO Q12H 10 days 20 tabs 0RF J01.90 - Acute sinusitis, unspecified ipratropium bromide administer into each nostril 2 sprays intranasal BID-TID PRN 30 mL 0RF postnasal drainage 09/04/24 9114 <Electronically signed by Britton UGARTE> Date _ Britton UGARTE Cosigner Signature: Date (if applicable) CC: ~ [employer] Work Phone: [phone] Telephone encounter Note* Telephone Encounter - Carlene Linares RN - 08/27/2024 9:15 AM EDT Please see Pt's mychart message. Last seen 03/12/24 for fertility. Has been seeing IVF clinic. Scheduled for NOB appt 09/07/24. HCG pending if appropriate. Mychart message sent to Pt advising her to call office to be seen sooner if the cramping becomes severe or she begins with vaginal bleeding. Carlene Linares RN [facility]07-17-2025 Miscellaneous Notes* Telephone Encounter - Carlene Linares RN - 08/27/2024 9:15 AM EDT Please see Pt's mychart message. Last seen 03/12/24 for fertility. Has been seeing IVF clinic. Scheduled for NOB appt 09/07/24. HCG pending if appropriate. Mychart message sent to Pt advising her to call office to be seen sooner if the cramping becomes severe or she begins with vaginal bleeding. Carlene Linares RN [facility] Hospital Discharge instructions Patient Education 08/14/2024 03:26:26 Crush Injury, Hand Crush Injury of the Hand, No Fracture You have a crush injury of your hand. This causes local pain, swelling, and sometimes bruising. Youdon t have any broken bones. This injury may take from a few days to a few weeks to heal. If a fingernail has been severely injured, it may fall off in 1 to 2 weeks. A new one will usually start to grow back within a month. Home care Follow these guidelines when caring for yourself at home: You may be given a splint to prevent movement of the injured hand. Keep your hand elevated to reduce pain and swelling. When sitting or lying down keep your arm raised above the level of your heart, if possible. You can do this by placing your arm on a pillow that rests on your chest or on a pillow at your side. This is most important during the first 2 days (48 hours) after the injury. Put an ice pack on the injured area. Do this for 20 minutes every 1 to 2 hours the first day for pain relief. You can make an ice pack by wrapping a plastic bag of ice cubes in a thin towel. As the ice melts, be careful that the splint doesn t get wet. Continue to use the ice pack 3 to 4 times a day until the pain and swelling go away. You may use xuxm-hjl-qjargoa pain medicine such as acetaminophen or ibuprofen to control pain, unless another pain medicine was prescribed. If you have chronic liver or kidney disease, talk with yourhealthcare provider before using these medicines. Also talk with your provider if you ve had a stomach ulcer or gastrointestinal bleeding. If you have a splint, keep it dry at all times. Bathe with your splint well out of the water. Protect it with a large plastic bag, rubber-banded at the top end. If a splint gets wet, you can dry it with a social studies department chair on the cool setting. Don t stick a needle into the wound to drain it. Bruised skin may change colors over time. It may change from reddish to bluish to yellowish before the skin goes back to normal coloring. Follow-up care Follow up with your healthcare provider, or as advised, if you don t start to get better within thenext 3 days. If X-rays were taken, you will be told of any new findings that may affect your care. When to seek medical advice Call your healthcare provider right away if any of these occur: The plaster splint becomes wet or soft The plaster splint stays wet for more than 24 hours Tightness or pain under the splint gets worse Fingers become swollen, cold, blue, numb, or tingly Redness, warmth, swelling, drainage from the wound, or foul odor from a splint You can t move your fingers Fever of 100.4 F (38 C) or higher, or as directed by your healthcare provider [id number] [employer]. [address] [place] [address]. All rights reserved. This information is not intended as a substitute for professional medical care. Always follow yourhealthcare professional's instructions. Follow Up Care 08/14/2024 02:31:23 With:EBONI POP Address: [place] [address] [phone] When:2-4 days Comments:Return to ED if symptoms worsen [facility] 07-04-2025 Note Discharge Instructions Thank you for allowing [facility] to assist you with your healthcare needs. The following is importantdischarge information regarding your hospital visit. Diagnosis from Today's Visit Contusion of right thumb What to Do Next Instructions from Your Care Team No qualifying data available. Post Acute Orders No qualifying data available. You Need to Schedule the Following Appointments Follow Up with EBONI POP When:Within 2-4 days Where:[place] [address]- [phone] Additional Information: Return to ED if symptoms worsen Allergies NKA Medications Please ask your primary doctor or pharmacist before taking any other medication not listed, including over the counter drugs, herbal medications, vitamins and or supplements as they may interact withyour home medications. What How Much When Why Instructions Last Dose Unchanged metFORMIN (metFORMIN 500 mg oral tablet (IR)) 1 tab(s) by mouth Once a day Unchanged multivitamin with iron (Iferex 150 Forte) Unchanged omeprazole (omeprazole 40 mg oral delayed release capsule) take 1 capsule by mouth daily Unchanged semaglutide (Wegovy (0.25 mg dose) subcutaneous solution) 0.25 Milligram Subcutaneous Every week Duration: 4 week(s) in the abdomen, thigh, or upper arm Unchanged tirzepatide (tirzepatide 2.5 mg/ 0.5 mL subcutaneous solution) 2.5 Milligram Subcutaneous Every week PCOS (polycystic ovarian syndrome) Insulin resistance rotate injection sites Please take this list to your next doctor s visit. Bring all medications you take, including over the counter medications, herbals and other supplements with you to your doctor s visit. Patients and families are reminded to discard old lists and to update any records with all medication providers or retail pharmacies. Education Materials Crush Injury of the Hand, No Fracture You have a crush injury of your hand. This causes local pain, swelling, and sometimes bruising. Youdon t have any broken bones. This injury may take from a few days to a few weeks to heal. If a fingernail has been severely injured, it may fall off in 1 to 2 weeks. A new one will usually start to grow back within a month. Home care Follow these guidelines when caring for yourself at home: You may be given a splint to prevent movement of the injured hand. Keep your hand elevated to reduce pain and swelling. When sitting or lying down keep your arm raised above the level of your heart, if possible. You can do this by placing your arm on a pillow that rests on your chest or on a pillow at your side. This is most important during the first 2 days (48 hours) after the injury. Put an ice pack on the injured area. Do this for 20 minutes every 1 to 2 hours the first day for pain relief. You can make an ice pack by wrapping a plastic bag of ice cubes in a thin towel. As the ice melts, be careful that the splint doesn t get wet. Continue to use the ice pack 3 to 4 times a day until the pain and swelling go away. You may use grpn-gwh-adxyeub pain medicine such as acetaminophen or ibuprofen to control pain, unless another pain medicine was prescribed. If you have chronic liver or kidney disease, talk with yourhealthcare provider before using these medicines. Also talk with your provider if you ve had a stomach ulcer or gastrointestinal bleeding. If you have a splint, keep it dry at all times. Bathe with your splint well out of the water. Protect it with a large plastic bag, rubber-banded at the top end. If a splint gets wet, you can dry it with a social studies department chair on the cool setting. Don t stick a needle into the wound to drain it. Bruised skin may change colors over time. It may change from reddish to bluish to yellowish before the skin goes back to normal coloring. Follow-up care Follow up with your healthcare provider, or as advised, if you don t start to get better within thenext 3 days. If X-rays were taken, you will be told of any new findings that may affect your care. When to seek medical advice Call your healthcare provider right away if any of these occur: The plaster splint becomes wet or soft The plaster splint stays wet for more than 24 hours Tightness or pain under the splint gets worse Fingers become swollen, cold, blue, numb, or tingly Redness, warmth, swelling, drainage from the wound, or foul odor from a splint You can t move your fingers Fever of 100.4 F (38 C) or higher, or as directed by your healthcare provider [id number] [employer]. [address] [place] [address], [place] [address]. All rights reserved. This information is not intended as a substitute for professional medical care. Always follow yourhealthcare professional's instructions. Additional Information VACCINATE! IT SAVES LIVES! Members of the community who have not yet received the COVID-19 vaccine and would like to receive it can visit one of [facility] vaccine clinics. There are many vaccine clinic locations within the [facility]. For locations and available times, please visit www.gettheshot.coronavirus.[place].gov/. It is important to note that some COVID mobile vaccine clinics are held outdoors and may be canceled in rainy or stormy conditions. To learn more about pediatric vaccinations (ages 5-11), we invite you to visit the [facility] webpage. https://www.[facility].org/pages/2959-Waldj-Wwnhccqipil-Nvxlazpnva-Jwlrq-She stions.htmlTo learn more about the COVID-19 vaccine, we invite you to visit the CDC website for a list of frequently asked questions. https://www.cdc.gov/coronavirus/2019-ncov/vaccines/faq.html [facility] Patient Portal Access Instructions: Stay connected with your healthcare team and access your personal medical information anytime with the [facility] Patient Portal. If you would like a full copy of your medical records please contact the [facility] Medical Records Department Saturday through Saturday between 8a.m. and 4:30p.m. Please follow the directions below to access the portal: 1.Access the email account you provided upon registration to the hospital.2.Look for an invitation email from [facility].3.Open the email and access the invitation link: Accept Invitation to [facility]4.Fill in the required rao to create your account. Sign into [email or web address] with your username and password that you created in the above steps to stay up to date. You can then view a summary of results, a summary of your visits, and the ability to download your summaries to your computer or send the information securely to a physician. Remember that your healthcare information is confidential, so carefully consider who you will allow to register on the [facility] Patient Portal for access to your information. You can also access the [facility] Patient Portal on the [employer] juan carlos. Simply click on Health Records under Music Messenger (MM)Data and then click on the [email or web address] logo. HOW TO SAFELY DISPOSE OF PRESCRIPTION MEDICATIONS Please use one of the following methods to safely dispose of your unused medications. 1.Use a drug disposal kit: the drug disposal pouch allows you to safely discard your old and unuseddrugs. Ask your nurse to give you one when you are discharged.2.Visit a local take-back location: Many local pharmacies and police departments have programs that collect old and unwanted prescriptiondrugs. Call your local pharmacy or go to http://bit.[employer]/8S0Cf9q to find one close to you.3.Make use of household items: Use cat litter or old coffee grounds to dispose medications if other options arenot available. Mix your drugs with these household products, seal them in an airtight container andthrow it into the garbage. Call [facility]: [phone] to be sure your drugs can be disposed of in this way. Some medicines may require a different approach.4.Never flush your medications down the toilet. IF YOU HAVE BEEN PRESCRIBED AN OPIOIDS FOR PAIN If you have been prescribed an opioid (such as hydrocodone, oxycodone or morphine), it is critical to understand the possible side effects and risks of opioid pain medications. Even when taken as directed, opioids can have several side effects including: Tolerance, meaning you might need to take more of a medication for the same pain relief. Nausea, vomiting and/or constipation. Sleepiness, dizziness, dry mouth, confusion, depression or itching. Physical dependence, meaning you have withdrawal symptoms when a medication is stopped ? this can develop within a few days. KNOW YOUR RESPONSIBILITIES It is important to know exactly how much and how often to take the opioid pain medications you are prescribed. Never take opioids in higher amounts or more often than prescribed. Do not combine opioids with alcohol or other drugs that cause drowsiness, such as benzodiazepines, also known as benzos,including diazepam and alprazolam, muscle relaxants or sleep aids. Never sell or share prescriptionopioids. This is illegal. Store opioids in a secure place and out of reach of others (including children, family, friends and visitors). The last page(s) of this document has been signed and retained as a CHART COPY Signatures Patient Education Materials Crush Injury, Hand Medication Leaflets My discharge plan and instructions have been reviewed and explained to me and ITAHIR MADELYN E understand my current condition and have read and understand these discharge instructions. I have received a written copy of the plan/instructions. If I have questions, I am aware that I should contact my doctor. 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07-04-2025 Note* Exam Date Time Procedure Performing Provider Status 08/14/24 2:56 AM XR Finger Thumb 3 Views Right SUMAN IRAHETA MD; Auth (Verified) [id number] ORIGINAL EXAMINATION: THREE XRAY VIEWS OF THE RIGHT THUMB 08/14/2024 2:56 am COMPARISON: None. HISTORY: ORDERING SYSTEM PROVIDED HISTORY: Reason for Exam: pain shut thumb in hardware FINDINGS: No acute fracture or dislocation. No suspicious osseous lesion. No radiodense foreign body. IMPRESSION: No acute osseous findings. I have personally reviewed the images of this examination, and agree with the resident's findings and interpretation. Interpreted by: Suman Iraheta MD Preliminary Report By: Angelica Monroy Electronically signed By Suman Iraheta MD Dictated Date: 08/14/2024 3:16:10 AM Prelim Date: 08/14/2024 3:17:30 AM Sign Date: 08/14/2024 3:20:21 AM Ordering Provider: EZEKIEL ARRIAZA Interpreted by: Suman Iraheta MD Preliminary Report By: Angelica Monroy Electronically signed By Suman Iraheta MD Dictated Date: 08/14/2024 3:16:10 AM Prelim Date: 08/14/2024 3:17:30 AM Sign Date: 08/14/2024 3:20:21 AM Ordering Provider: EZEKIEL ARRIAZA [facility]04-21-2025 Nurse Note* Perioperative Nursing Note - Mehnaz Nelson RN - 06/01/2024 9:18 AM EDT Patient ambulated to bathroom and voided with no difficulties. Discharge instructions reviewed withpatient and family. Instructions handed to family. No questions at this time. [id number] Miscellaneous Notes* Perioperative Nursing Note - Mehnaz Nelson RN - 06/01/2024 9:18 AM EDT Patient ambulated to bathroom and voided with no difficulties. Discharge instructions reviewed withpatient and family. Instructions handed to family. No questions at this time. * Perioperative Nursing Note - Mehnaz Nelson RN - 06/01/2024 9:15 AM EDT Attempted to send secure chat message to Dr Rodriguez per request. No answer via secure chat. I called Dr Rodriguez's office, per fundraising officer, he is busy seeing patient's in the office and will call them this afternoon, they should have received a message in their portal at 0900 this morning withmore information regarding the egg retrieval if they would like to check there. Updated and patient and instructed them to call Dr Rodriguez's office if any further questions come. * Op Note - Isaías Rodriguez MD - 06/01/2024 7:45 AM EDT Operative Note: Pre op Diagnosis Bilateral Follicular Ovarian Cyst Post Operative Diagnosis: Bilateral Follicular Ovarian Cyst Surgeon: Dr. Rodriguez Office Equipment Technician: None Anesthesia: LMA Procedure: Transvaginal Ultrasound Guided Aspiration of Bilateral Ovarian Cyst, Egg Retrieval EBL: 5 ml Crystalloid: 750 mL Packs Drains: None Vann: None Special Meds: None Findings: Bilateral Follicular Ovarian Cyst Procedure: Patient was taken to operating room. Placed in supine position where LMA anesthesia was delivered. She was prepped and draped in the usual sterile fashion. A 6 Yovany hertz vaginal ultrasound transducer was placed in the patients vagina. Bilateral ovarian cyst were identified and aspiratedand bilateral egg retrieval was performed. The eggs were then handed off to the embryology staff. The procedure was terminated. Sponge instruments, and needle counts were correct at the termination of the procedure. No bleeding was noted. She was awakened and taken to the recovery room in stable condition. My findings were discussed with the family post operatively Isaías Rodriguez MD documented in this [place] [id number] Nurse Note* Perioperative Nursing Note - Mehnaz Nelson RN - 06/01/2024 9:15 AM EDT Attempted to send secure chat message to Dr Rodriguez per request. No answer via secure chat. I called Dr Rodriguez's office, per fundraising officer, he is busy seeing patient's in the office and will call them this afternoon, they should have received a message in their portal at 0900 this morning withmore information regarding the egg retrieval if they would like to check there. Updated and patient and instructed them to call Dr Rodriguez's office if any further questions come. [id number] NotePatient: Loreta Malcomb Procedure Summary Date: 06/01/24 Room / Location: [facility] OR [address] [place] [address] Operating Room Anesthesia Start: 48 Anesthesia Stop: 819 Procedure: EGG RETRIEVAL (Abdomen) Diagnosis: Female infertility, unspecified Surgeons: Isaías Rodriguez MD Responsible Provider: USMAN Brink CRNA Anesthesia Type: TIVA ASA Status: 3 Anesthesia Type: No value filed. Vitals Value Taken Time BP 105/77 06/01/24 0818 Temp 37 ?C (98.6 ?F) 06/01/24 0817 Pulse 76 06/01/24 0822 Resp 16 06/01/24 0817 SpO2 99 % 06/01/24 0822 Vitals shown include unfiled device data. Anesthesia Post Evaluation Patient location during evaluation: PACU Patient participation: complete - patient participated Level of consciousness: awake and alert Pain management: satisfactory to patient Airway patency: patent Dental Injury: no Cardiovascular status: acceptable, blood pressure returned to baseline and hemodynamically stable Respiratory status: acceptable and spontaneous ventilation Hydration status: euvolemic Nausea/Vomiting: controlled No notable events documented. Patient can be discharged once all PACU criteria has been met.[facility]04-21-2025 NotePatient: Loreta Malcomb Procedure Summary Date: 06/01/24 Room / Location: [facility] OR [address] [place] [address] Operating Room Anesthesia Start: 48 Anesthesia Stop: 819 Procedure: EGG RETRIEVAL (Abdomen) Diagnosis: Female infertility, unspecified Surgeons: Isaías Rodriguez MD Responsible Provider: USMAN Brink CRNA Anesthesia Type: TIVA ASA Status: 3 Anesthesia Type: No value filed. Vitals Value Taken Time BP 105/77 06/01/24 0818 Temp 37 ?C (98.6 ?F) 06/01/24 0817 Pulse 76 06/01/24 0822 Resp 16 06/01/24 0817 SpO2 99 % 06/01/24 0822 Vitals shown include unfiled device data. Anesthesia Post Evaluation Patient location during evaluation: PACU Patient participation: complete - patient participated Level of consciousness: awake and alert Pain score: 0 Pain management: satisfactory to patient Multimodal analgesia pain management approach Airway patency: patent Two or more strategies used to mitigate risk of obstructive sleep apnea Cardiovascular status: acceptable and hemodynamically stable Respiratory status: acceptable Hydration status: acceptable No notable events documented. MIPS #430 PONV Patient did not receive an inhalational anesthetic (XX430) MIPS # 424 Perioperative Temperature Management Anesthesia time was less than 60 minutes (4256F) MIPS #477 Multimodal Pain Management Not emergent case Patient was not administered multimodal pain management (G2149) Patient reports no pain in PACU (G2149) MIPS #404 Anesthesiology Smoking Abstinence The patient is not a current smoker (e.g. cigarette, cigar, pipe, e-cigarette/vaping/marijuana) If no stop here (XX404) I completed my handoff to the receiving clinician during which we: 1. Identified the patient 2. Identified the responsible provider 3. Reviewed the pertinent medical history 4. Discussed the surgical course 5. Reviewed intra-op anesthesia management and issues during anesthesia 6. Set expectations for post-procedure period 7. Allowed opportunity for questions and acknowledgement of understanding.[facility]04-21-2025 Hospital Discharge instructions* Discharge Instructions* Zak Daley DO - 06/01/2024 8:19 AM EDT It is normal to expect some bleeding after your procedure. If you are saturating a pad per hour that is not normal, and you should call your doctor or go the emergency room. Please refer to the information provided by I prior to your retrieval for postop expectations. documented in this [facility]04-21-2025 Attending History and physical note* Isaías Rodriguez MD - 06/01/2024 7:45 AM EDT H&P reviewed. The patient was examined and there are no changes to the H&P. Source Note - Symone Sofia APRN - [employer] - 05/29/2024 8:30 AM EDT Comprehensive Pre Surgical History and Physical ? Name: Loreta Haro : 2000 (Age-23 y.o.) Date of Service: Pt seen/examined on 05/29/2024 Procedure Information Date/Time: 06/01/24 0800 Procedure: EGG RETRIEVAL (Abdomen) Location: [facility] OR [address] [place] [address] Operating Room Surgeons: Isaías Rodriguez MD Chief Complaint: Female infertility, unspecified [N97.9] ASSESSMENT/PLAN: Patient is considered low/intermediate risk for this intermediate level 1 risk procedure/surgery ()with no reducible risk factors. Based on the above evaluation, the benefits of the planned procedure likely exceed the risks. The patient is medically optimized to proceed with the planned procedure without any further cardiopulmonary testing. 1) Female infertility, unspecified [N97.9] - Managed per surgery - Managed on Follistim, ganirelix acetate, and menopur subcutaneous injections - Orders per PAT Protocol: A1c - METS >4 2) Obesity - Body mass index is 50.04 kg/m . - BMI >40, A1c ordered per PAT protocol Visit Type: Pre-Admission Testing Visit Labs Ordered: YES - PER PAT PROTOCOL Sleep Referral Ordered: NO - NEGATIVE SCREEN PER SLEEP REFERRAL PROTOCOL Total time spent (which include face to face and non face to face encounters) : 30 minutes Toxic drug monitoring/narrow therapeutic index drug monitoring : # Drug name : N/A # Route administered : N/A # Method of monitoring : N/A PAT Protocol referenced includes: 1. Anesthesia Lab Protocol Orders 2. Perioperative Cardiovascular Risk Assessment 3. Anesthesia Assessment 4. Pain Assessment and Acute Pain Service Consult (if appropriate) 5. Medical Clearance/Consult from Internal Medicine (IMS) 6. Shower/Wash Order (for designated surgeries) 7. DARBY Screen and Sleep Clinic Referral (if appropriate) History Of Present Illness: 23 y.o. female who we are asked to see/evaluate by Dr. Rodriguez for pre-operative evaluation prior to ? Case: [id number] Date/Time: 06/01/24 0800 Procedure: EGG RETRIEVAL (Abdomen) [60940 CPT(R)] Anesthesia type: General Diagnosis: Female infertility, unspecified [N97.9] Location: [facility] Operating Room Surgeons: Isaías Rodriguez MD The patient has been following with Dr. Rodriguez with [facility] for fertility treatments. She has been tryingto conceive for about two years. She has elected to proceed with the above procedure. Patient denies exertional chest pain/shortness of breath. Denies dizziness, syncope, lightheadedness. Denies fever, chills, weakness or fatigue. Patient denies any recent illness, infections, or wounds. Patient denies abdominal pain, nausea, vomiting, diarrhea, or constipation. Patient denies hx of CAD, CHF, NC, TIA/CVA, diabetes, COPD, asthma, DARBY, DVT/PE. Past Medical History: Past Medical History: No date: No pertinent past medical history Past Surgical History: Past Surgical History: No date: ANKLE SURGERY; Right Comment: no implants No date: CHOLECYSTECTOMY Medications Prior to Admission: Current Outpatient Medications on File Prior to Visit Medication Sig Dispense Refill Follitropin Beta (FOLLISTIM AQ SC) Inject under the skin daily. GANIRELIX ACETATE SC Inject under the skin daily. Menotropins (MENOPUR SC) Inject under the skin daily. No current facility-administered medications on file prior to visit. CHRONIC NARCOTIC USAGE: No Do you have a history of chronic opioid use? No Allergies: Patient has no known allergies. If patient has opioid allergy, is it okay to take Acetaminophen: Yes Social History: TOBACCO: reports that she has never smoked. She has never used smokeless tobacco. ETOH: reports that she does not currently use alcohol. Social History Substance and Sexual Activity Drug Use Never Family History: No family history on file. REVIEW OF SYSTEMS: Review of Systems Constitutional: Negative for chills and fever. HENT: Negative for trouble swallowing. Respiratory: Negative for cough and shortness of breath. Cardiovascular: Negative for chest pain, palpitations and leg swelling. Gastrointestinal: Negative for abdominal pain, nausea and vomiting. Genitourinary: Negative for dysuria, frequency and urgency. Skin: Negative for rash and wound. Neurological: Negative for dizziness, light-headedness and headaches. Physical Exam: Physical Exam Constitutional: Appearance: Normal appearance. She is obese. HENT: Head: Normocephalic. Nose: Nose normal. Mouth/Throat: Mouth: Mucous membranes are moist. Pharynx: Oropharynx is clear. No oropharyngeal exudate or posterior oropharyngeal erythema. Eyes: Pupils: Pupils are equal, round, and reactive to light. Neck: Vascular: No carotid bruit. Cardiovascular: Rate and Rhythm: Normal rate and regular rhythm. Heart sounds: Normal heart sounds. Pulmonary: Effort: Pulmonary effort is normal. Breath sounds: Normal breath sounds. Musculoskeletal: General: Normal range of motion. Cervical back: Normal range of motion. Skin: General: Skin is warm and dry. Neurological: Mental Status: She is alert and oriented to person, place, and time. Psychiatric: Mood and Affect: Mood normal. Vitals: Vitals Value Taken Time BP 148/86 05/29/24 0847 Temp 36.1 C (97 F) 05/29/24 0847 Pulse 88 05/29/24 0847 Resp 15 05/29/24 0847 SpO2 99 % 05/29/24 0847 Labs: Collected in [facility] Pain Score: 0/10 Postop Pain Management Plan (Pain consult ordered?): Pain consult not indicated at this time ? EKG: N/A No results found for this or any previous visit (from the past 4464 hours). ECHO and EF:None on file METS: >4 Electronically signed by: USMAN Leija CNP Date: 05/29/2024 at 9:38 AM Cosigned by Daniel Allred DO at 05/29/2024 8:07 PM EDT [employer] Phone: [phone] 335-133004-21-2025 History and physical note* Isaías Rodriguez MD - 06/01/2024 7:45 AM EDT H&P reviewed. The patient was examined and there are no changes to the H&P. Source Note - USMAN Tripathi CNP - 05/29/2024 8:30 AM EDT Comprehensive Pre Surgical History and Physical ? Name: Loreta Haro : 2000 (Age-23 y.o.) Date of Service: Pt seen/examined on 05/29/2024 Procedure Information Date/Time: 06/01/24 0800 Procedure: EGG RETRIEVAL (Abdomen) Location: [facility] Operating Room Surgeons: Isaías Rodriguez MD Chief Complaint: Female infertility, unspecified [N97.9] ASSESSMENT/PLAN: Patient is considered low/intermediate risk for this intermediate level 1 risk procedure/surgery ()with no reducible risk factors. Based on the above evaluation, the benefits of the planned procedure likely exceed the risks. The patient is medically optimized to proceed with the planned procedure without any further cardiopulmonary testing. 1) Female infertility, unspecified [N97.9] - Managed per surgery - Managed on Follistim, ganirelix acetate, and menopur subcutaneous injections - Orders per PAT Protocol: A1c - METS >4 2) Obesity - Body mass index is 50.04 kg/m . - BMI >40, A1c ordered per PAT protocol Visit Type: Pre-Admission Testing Visit Labs Ordered: YES - PER PAT PROTOCOL Sleep Referral Ordered: NO - NEGATIVE SCREEN PER SLEEP REFERRAL PROTOCOL Total time spent (which include face to face and non face to face encounters) : 30 minutes Toxic drug monitoring/narrow therapeutic index drug monitoring : # Drug name : N/A # Route administered : N/A # Method of monitoring : N/A PAT Protocol referenced includes: 1. Anesthesia Lab Protocol Orders 2. Perioperative Cardiovascular Risk Assessment 3. Anesthesia Assessment 4. Pain Assessment and Acute Pain Service Consult (if appropriate) 5. Medical Clearance/Consult from Internal Medicine (IMS) 6. Shower/Wash Order (for designated surgeries) 7. DARBY Screen and Sleep Clinic Referral (if appropriate) History Of Present Illness: 23 y.o. female who we are asked to see/evaluate by Dr. Rodriguez for pre-operative evaluation prior to ? Case: [id number] Date/Time: 06/01/24 0800 Procedure: EGG RETRIEVAL (Abdomen) [88628 CPT(R)] Anesthesia type: General Diagnosis: Female infertility, unspecified [N97.9] Location: [facility] Operating Room Surgeons: Isaías Rodriguez MD The patient has been following with Dr. Rodriguez with [facility] for fertility treatments. She has been tryingto conceive for about two years. She has elected to proceed with the above procedure. Patient denies exertional chest pain/shortness of breath. Denies dizziness, syncope, lightheadedness. Denies fever, chills, weakness or fatigue. Patient denies any recent illness, infections, or wounds. Patient denies abdominal pain, nausea, vomiting, diarrhea, or constipation. Patient denies hx of CAD, CHF, NC, TIA/CVA, diabetes, COPD, asthma, DARBY, DVT/PE. Past Medical History: Past Medical History: No date: No pertinent past medical history Past Surgical History: Past Surgical History: No date: ANKLE SURGERY; Right Comment: no implants No date: CHOLECYSTECTOMY Medications Prior to Admission: Current Outpatient Medications on File Prior to Visit Medication Sig Dispense Refill Follitropin Beta (FOLLISTIM AQ SC) Inject under the skin daily. GANIRELIX ACETATE SC Inject under the skin daily. Menotropins (MENOPUR SC) Inject under the skin daily. No current facility-administered medications on file prior to visit. CHRONIC NARCOTIC USAGE: No Do you have a history of chronic opioid use? No Allergies: Patient has no known allergies. If patient has opioid allergy, is it okay to take Acetaminophen: Yes Social History: TOBACCO: reports that she has never smoked. She has never used smokeless tobacco. ETOH: reports that she does not currently use alcohol. Social History Substance and Sexual Activity Drug Use Never Family History: No family history on file. REVIEW OF SYSTEMS: Review of Systems Constitutional: Negative for chills and fever. HENT: Negative for trouble swallowing. Respiratory: Negative for cough and shortness of breath. Cardiovascular: Negative for chest pain, palpitations and leg swelling. Gastrointestinal: Negative for abdominal pain, nausea and vomiting. Genitourinary: Negative for dysuria, frequency and urgency. Skin: Negative for rash and wound. Neurological: Negative for dizziness, light-headedness and headaches. Physical Exam: Physical Exam Constitutional: Appearance: Normal appearance. She is obese. HENT: Head: Normocephalic. Nose: Nose normal. Mouth/Throat: Mouth: Mucous membranes are moist. Pharynx: Oropharynx is clear. No oropharyngeal exudate or posterior oropharyngeal erythema. Eyes: Pupils: Pupils are equal, round, and reactive to light. Neck: Vascular: No carotid bruit. Cardiovascular: Rate and Rhythm: Normal rate and regular rhythm. Heart sounds: Normal heart sounds. Pulmonary: Effort: Pulmonary effort is normal. Breath sounds: Normal breath sounds. Musculoskeletal: General: Normal range of motion. Cervical back: Normal range of motion. Skin: General: Skin is warm and dry. Neurological: Mental Status: She is alert and oriented to person, place, and time. Psychiatric: Mood and Affect: Mood normal. Vitals: Vitals Value Taken Time BP 148/86 05/29/24 0847 Temp 36.1 C (97 F) 05/29/24 0847 Pulse 88 05/29/24 0847 Resp 15 05/29/24 0847 SpO2 99 % 05/29/24 0847 Labs: Collected in [facility] Pain Score: 0/10 Postop Pain Management Plan (Pain consult ordered?): Pain consult not indicated at this time ? EKG: N/A No results found for this or any previous visit (from the past 4464 hours). ECHO and EF:None on file METS: >4 Electronically signed by: USMAN Leija CNP Date: 05/29/2024 at 9:38 AM Cosigned by Daniel Allred DO at 05/29/2024 8:07 PM EDT documented in this [facility]04-21-2025 NoteH&P reviewed. The patient was examined and there are no changes to the H&P.[facility] 06-01-2024 Procedure note* Op Note - Isaías Rodriguez MD - 06/01/2024 7:45 AM EDT Operative Note: Pre op Diagnosis Bilateral Follicular Ovarian Cyst Post Operative Diagnosis: Bilateral Follicular Ovarian Cyst Surgeon: Dr. Rodriguez Office Equipment Technician: None Anesthesia: LMA Procedure: Transvaginal Ultrasound Guided Aspiration of Bilateral Ovarian Cyst, Egg Retrieval EBL: 5 ml Crystalloid: 750 mL Packs Drains: None Vann: None Special Meds: None Findings: Bilateral Follicular Ovarian Cyst Procedure: Patient was taken to operating room. Placed in supine position where LMA anesthesia was delivered. She was prepped and draped in the usual sterile fashion. A 6 Yovany hertz vaginal ultrasound transducer was placed in the patients vagina. Bilateral ovarian cyst were identified and aspiratedand bilateral egg retrieval was performed. The eggs were then handed off to the embryology staff. The procedure was terminated. Sponge instruments, and needle counts were correct at the termination of the procedure. No bleeding was noted. She was awakened and taken to the recovery room in stable condition. My findings were discussed with the family post operatively Isaías Rodriguez MD [facility] [id number] NoteComprehensive Pre Surgical History and Physical ? Name: Loreta Haro : 2000 (Age-23 y.o.) Date of Service: Pt seen/examined on 05/29/2024 Procedure Information Date/Time: 06/01/24 0800 Procedure: EGG RETRIEVAL (Abdomen) Location: [address] Operating Room Surgeons: Isaías Rodriguez MD Chief Complaint: Female infertility, unspecified [N97.9] ASSESSMENT/PLAN: Patient is considered low/intermediate risk for this intermediate level 1 risk procedure/surgery () with no reducible risk factors. Based on the above evaluation, the benefits of the planned procedure likely exceed the risks. The patient is medically optimized to proceed with the planned procedure without any further cardiopulmonary testing. 1) Female infertility, unspecified [N97.9] - Managed per surgery - Managed on Follistim, ganirelix acetate, and menopur subcutaneous injections - Orders per PAT Protocol: A1c - METS >4 2) Obesity - Body mass index is 50.04 kg/m?. - BMI >40, A1c ordered per PAT protocol Visit Type: Pre-Admission Testing Visit Labs Ordered: YES - PER PAT PROTOCOL Sleep Referral Ordered: NO - NEGATIVE SCREEN PER SLEEP REFERRAL PROTOCOL Total time spent (which include face to face and non face to face encounters) : 30 minutes Toxic drug monitoring/narrow therapeutic index drug monitoring : # Drug name : N/A # Route administered : N/A # Method of monitoring : N/A PAT Protocol referenced includes: 1. Anesthesia Lab Protocol Orders 2. Perioperative Cardiovascular Risk Assessment 3. Anesthesia Assessment 4. Pain Assessment and Acute Pain Service Consult (if appropriate) 5. Medical Clearance/Consult from Internal Medicine (IMS) 6. Shower/Wash Order (for designated surgeries) 7. DARBY Screen and Sleep Clinic Referral (if appropriate) History Of Present Illness: 23 y.o. female who we are asked to see/evaluate by Dr. Rodriguez for pre-operative evaluation prior to ? Case: [id number] Date/Time: 06/01/24 0800 Procedure: EGG RETRIEVAL (Abdomen) [07127 CPT(R)] Anesthesia type: General Diagnosis: Female infertility, unspecified [N97.9] Location: [place] [address] [facility] Operating Room Surgeons: Isaías Rodriguez MD The patient has been following with Dr. Rodriguez with [facility] for fertility treatments. She has been trying to conceive for about two years. She has elected to proceed with the above procedure. Patient denies exertional chest pain/shortness of breath. Denies dizziness, syncope, lightheadedness. Denies fever, chills, weakness or fatigue. Patient denies any recent illness, infections, or wounds. Patient denies abdominal pain, nausea, vomiting, diarrhea, or constipation. Patient denies hx of CAD, CHF, NC, TIA/CVA, diabetes, COPD, asthma, DARBY, DVT/PE. Past Medical History: Past Medical History: No date: No pertinent past medical history Past Surgical History: Past Surgical History: No date: ANKLE SURGERY; Right Comment: no implants No date: CHOLECYSTECTOMY Medications Prior to Admission: Current Outpatient Medications on File Prior to Visit Medication Sig Dispense Refill Follitropin Beta (FOLLISTIM AQ SC) Inject under the skin daily. GANIRELIX ACETATE SC Inject under the skin daily. Menotropins (MENOPUR SC) Inject under the skin daily. No current facility-administered medications on file prior to visit. CHRONIC NARCOTIC USAGE: No Do you have a history of chronic opioid use? No Allergies: Patient has no known allergies. If patient has opioid allergy, is it okay to take Acetaminophen: Yes Social History: TOBACCO: reports that she has never smoked. She has never used smokeless tobacco. ETOH: reports that she does not currently use alcohol. Social History Substance and Sexual Activity Drug Use Never Family History: No family history on file. REVIEW OF SYSTEMS: Review of Systems Constitutional: Negative for chills and fever. HENT: Negative for trouble swallowing. Respiratory: Negative for cough and shortness of breath. Cardiovascular: Negative for chest pain, palpitations and leg swelling. Gastrointestinal: Negative for abdominal pain, nausea and vomiting. Genitourinary: Negative for dysuria, frequency and urgency. Skin: Negative for rash and wound. Neurological: Negative for dizziness, light-headedness and headaches. Physical Exam: Physical Exam Constitutional: Appearance: Normal appearance. She is obese. HENT: Head: Normocephalic. Nose: Nose normal. Mouth/Throat: Mouth: Mucous membranes are moist. Pharynx: Oropharynx is clear. No oropharyngeal exudate or posterior oropharyngeal erythema. Eyes: Pupils: Pupils are equal, round, and reactive to light. Neck: Vascular: No carotid bruit. Cardiovascular: Rate and Rhythm: Normal rate and regular rhythm. Heart sounds: Normal heart sounds. Pulmonary: Effort: Pulmonary ef (more content not included)...[facility] 05-29-2024 NoteComprehensive Pre Surgical History and Physical ? Name: Loreta Haro : 2000 (Age-23 y.o.) Date of Service: Pt seen/examined on 05/29/2024 Procedure Information Date/Time: 06/01/24 0800 Procedure: EGG RETRIEVAL (Abdomen) Location: [facility] Operating Room Surgeons: Isaías Rodriguez MD Chief Complaint: Female infertility, unspecified [N97.9] ASSESSMENT/PLAN: Patient is considered low/intermediate risk for this intermediate level 1 risk procedure/surgery () with no reducible risk factors. Based on the above evaluation, the benefits of the planned procedure likely exceed the risks. The patient is medically optimized to proceed with the planned procedure without any further cardiopulmonary testing. 1) Female infertility, unspecified [N97.9] - Managed per surgery - Managed on Follistim, ganirelix acetate, and menopur subcutaneous injections - Orders per PAT Protocol: A1c - METS >4 2) Obesity - Body mass index is 50.04 kg/m?. - BMI >40, A1c ordered per PAT protocol Visit Type: Pre-Admission Testing Visit Labs Ordered: YES - PER PAT PROTOCOL Sleep Referral Ordered: NO - NEGATIVE SCREEN PER SLEEP REFERRAL PROTOCOL Total time spent (which include face to face and non face to face encounters) : 30 minutes Toxic drug monitoring/narrow therapeutic index drug monitoring : # Drug name : N/A # Route administered : N/A # Method of monitoring : N/A PAT Protocol referenced includes: 1. Anesthesia Lab Protocol Orders 2. Perioperative Cardiovascular Risk Assessment 3. Anesthesia Assessment 4. Pain Assessment and Acute Pain Service Consult (if appropriate) 5. Medical Clearance/Consult from Internal Medicine (IMS) 6. Shower/Wash Order (for designated surgeries) 7. DARBY Screen and Sleep Clinic Referral (if appropriate) History Of Present Illness: 23 y.o. female who we are asked to see/evaluate by Dr. Rodriguez for pre-operative evaluation prior to ? Case: [id number] Date/Time: 06/01/24 0800 Procedure: EGG RETRIEVAL (Abdomen) [95013 CPT(R)] Anesthesia type: General Diagnosis: Female infertility, unspecified [N97.9] Location: [facility] Operating Room Surgeons: Isaías Rodriguez MD The patient has been following with Dr. Rodriguez with [facility] for fertility treatments. She has been trying to conceive for about two years. She has elected to proceed with the above procedure. Patient denies exertional chest pain/shortness of breath. Denies dizziness, syncope, lightheadedness. Denies fever, chills, weakness or fatigue. Patient denies any recent illness, infections, or wounds. Patient denies abdominal pain, nausea, vomiting, diarrhea, or constipation. Patient denies hx of CAD, CHF, NC, TIA/CVA, diabetes, COPD, asthma, DARBY, DVT/PE. Past Medical History: Past Medical History: No date: No pertinent past medical history Past Surgical History: Past Surgical History: No date: ANKLE SURGERY; Right Comment: no implants No date: CHOLECYSTECTOMY Medications Prior to Admission: Current Outpatient Medications on File Prior to Visit Medication Sig Dispense Refill Follitropin Beta (FOLLISTIM AQ SC) Inject under the skin daily. GANIRELIX ACETATE SC Inject under the skin daily. Menotropins (MENOPUR SC) Inject under the skin daily. No current facility-administered medications on file prior to visit. CHRONIC NARCOTIC USAGE: No Do you have a history of chronic opioid use? No Allergies: Patient has no known allergies. If patient has opioid allergy, is it okay to take Acetaminophen: Yes Social History: TOBACCO: reports that she has never smoked. She has never used smokeless tobacco. ETOH: reports that she does not currently use alcohol. Social History Substance and Sexual Activity Drug Use Never Family History: No family history on file. REVIEW OF SYSTEMS: Review of Systems Constitutional: Negative for chills and fever. HENT: Negative for trouble swallowing. Respiratory: Negative for cough and shortness of breath. Cardiovascular: Negative for chest pain, palpitations and leg swelling. Gastrointestinal: Negative for abdominal pain, nausea and vomiting. Genitourinary: Negative for dysuria, frequency and urgency. Skin: Negative for rash and wound. Neurological: Negative for dizziness, light-headedness and headaches. Physical Exam: Physical Exam Constitutional: Appearance: Normal appearance. She is obese. HENT: Head: Normocephalic. Nose: Nose normal. Mouth/Throat: Mouth: Mucous membranes are moist. Pharynx: Oropharynx is clear. No oropharyngeal exudate or posterior oropharyngeal erythema. Eyes: Pupils: Pupils are equal, round, and reactive to light. Neck: Vascular: No carotid bruit. Cardiovascular: Rate and Rhythm: Normal rate and regular rhythm. Heart sounds: Normal heart sounds. Pulmonary: Effort: Pulmonary ef (more content not included)...[facility] 05-29-2024 NotePatient: Loreta Haro Procedure Information Date/Time: 06/01/24 0800 Procedure: EGG RETRIEVAL (Abdomen) Location: [facility] OR Operating Room Surgeons: Isaías Rodriguez MD Relevant Problems Anesthesia Pt believes she takes longer to wake up from anesthesia and feels groggy for the whole day afterward. Hx of requiring ultrasound guided line placement (+) Delayed emergence from anesthesia (+) Difficult intravenous access Past Medical History: Past Medical History: No date: No pertinent past medical history Past Surgical History: Past Surgical History: No date: ANKLE SURGERY; Right Comment: no implants No date: CHOLECYSTECTOMY Social History: TOBACCO: reports that she has never smoked. She has never used smokeless tobacco. ETOH: reports that she does not currently use alcohol. Social History Substance and Sexual Activity Drug Use Never Family History: No family history on file. Screening: Having periods Clinical information reviewed: Tobacco Allergies Meds Med Hx Surg Hx OB Status Fam Hx Soc Hx Physical Exam Airway Mallampati: II TM distance: >3 FB Neck ROM: full Mouth Open: normalendotracheal tube not in place Cardiovascular Dental dentition normal Pulmonary Abdominal Anesthesia Plan patient is NPO appropriate Any family history or previous problems with anesthesia yes (personal hx of delayed emergence from anesthesia) ASA 3 TIVA Any family history or previous problems with anesthesia yes (personal hx of delayed emergence from anesthesia) The patient is not a current smoker. Anesthetic plan and risks discussed with patient. DARBY Screening STOP-Bang Total Score: 2 Labs: No results found for: WBC, HGB, HCT, MCV, PLT No results found for: SODIUM, NA, POTASSIUM, K, CHLORIDE, CL, CO2, BUN, CREATININE, GLUCOSE, CALCIUM, PROT, BILIRUBINFL, ALKPHOS, AST, ALT, EGFR, GLOB No echocardiogram results found for the past 14 days No results found for this or any previous visit. Equipment Requests: [facility] [id number] Evaluation note* Diagnosis Onset Date Resolution Status Admit Date Sore throat noneactive May 18 1:39pm Pharyngitis acute September 04 5:47pm [employer] Work Phone: 1(820) 748-917501-30-2025 NoteHNO ID: [id number] Author: CHERY CHARLES MD Service: ? Author Type: Physician Type: Progress Notes Filed: 03/12/2024 09:07 Note Text: Loreta Haro is a 23 year old female who presents for problem visit infertility for 2 year(s). HPI: Has been trying for 20 months to conceive. Is now s/p 4 rounds of letrozole. Progesterone and regular periods suggest ovulation took place. has been having difficulty getting semen analysis. Patient checked with insurance and does have infertility coverage. Is planning to see [facility] in the future. OB History T0 L0 SAB0 IAB0 Ectopic0 Multiple0 Live Births0 Quality Measurement Specialist History LMP: 03/09/2024 (Exact Date), Having periods Age at Menarche: Age at First : Age at Menopause: Quality Measurement Specialist History Comments: Sexual Activity: Yes; Male Contraception: Not used PAST MEDICAL HISTORY Diagnosis Date Hiatal hernia PAST SURGICAL HISTORY Procedure Laterality Date ANKLE SURGERY HX Right 02/2020 REMOVAL GALLBLADDER 01/2022 FAMILY HISTORY Problem Relation Age of Onset other (PCOS) Mother Diabetes Father Social History Tobacco Use Smoking status: Never Smokeless tobacco: Never Vaping Use Vaping status: Never Used Substance Use Topics Alcohol use: Not Currently Drug use: Never Current Outpatient Medications Medication Sig metFORMIN (GLUCOPHAGE) 500 mg tablet Take 1 tablet by mouth daily with dinner. IFEREX 150 150 mg iron capsule Take 1 capsule by mouth every afternoon. omeprazole (PRILOSEC) 40 mg capsule Take 1 capsule by mouth every afternoon. folic acid 1 mg tablet Take 1 tablet by mouth once daily. letrozole (FEMARA) 2.5 mg tablet Take 1 tablet by mouth once daily for 5 days. cholecalciferol, Vitamin D3, (VITAMIN D3) 1,250 mcg (50,000 unit) cap capsule Take 1 capsule by mouth one time a week. No current facility-administered medications for this visit. Allergies As of Date: 03/12/2024 (No Known Allergies) Fully Assessed 03/12/2024 REVIEW OF SYSTEMS Abdomen: No bloating, early satiety, indigestion, or increased flatulence. No abdominal pain, nausea, vomiting, diarrhea, or constipation. Bladder: No dysuria, gross hematuria, urinary frequency, urinary urgency, or incontinence. Breast: No breast lumps, nipple d/c, overlying skin changes, redness or skin retraction. Expanded ROS: N/A Allergies and current medication updated:Yes SENSITIVE EXAM: The sensitive examination was discussed with the Patient or Patient's Authorized News Department Intern. As applicable, any other physician, advance practice provider, medical student, or other health professional student that will be observing or involved in the sensitive examination for educational or training purposes was discussed with the Patient or Authorized News Department Intern. The Patient or Authorized News Department Intern has agreed to proceed with the sensitive examination. (Sensitive examination includes inspection and/or palpation of the breasts, pelvis, prostate and anorectal regions). EXAM: BP 118/78 Wt 301 lb (136.5kg) LMP 03/09/2024 GENERAL: pleasant, female in no apparent distress HEENT: Normocephalic, atraumatic, mucus membranes moist, and no lesions NECK: Supple, full range of motion, no adenopathy, and thyroid normal DERMATOLOGY: Normal, without lesions, non-icteric, and non-hirsute BREAST: deferred CHEST: Normal inspiratory effort ABDOMEN: Deferred PELVIC: deferred BIMANUAL: deferred NEURO: alert and oriented x3,exam grossly non-focal EXTREMITIES: normal ASSESSMENT AND PLAN: Assessment AND Plan Female infertility [facility] appointment PCOS (polycystic ovarian syndrome) Chery Charles, [facility]01-30-2025 History of Present illness Narrative* Chery Charles MD - 03/12/2024 8:44 AM EST Loreta Haro is a 23 year old female who presents for problem visit infertility for 2 year(s). HPI: Has been trying for 20 months to conceive. Is now s/p 4 rounds of letrozole. Progesterone and regular periods suggest ovulation took place. has been having difficulty getting semen analysis. Patient checked with insurance and does have infertility coverage. Is planning to see [facility] in the future. OB History T0 L0 SAB0 IAB0 Ectopic0 Multiple0 Live Births0 Quality Measurement Specialist History LMP: 03/09/2024 (Exact Date), Having periods Age at Menarche: Age at First : Age at Menopause: Quality Measurement Specialist History Comments: Sexual Activity: Yes; Male Contraception: Not used PAST MEDICAL HISTORY Diagnosis Date Hiatal hernia PAST SURGICAL HISTORY Procedure Laterality Date ANKLE SURGERY HX Right 02/2020 REMOVAL GALLBLADDER 01/2022 FAMILY HISTORY Problem Relation Age of Onset other (PCOS) Mother Diabetes Father Social History Tobacco Use Smoking status: Never Smokeless tobacco: Never Vaping Use Vaping status: Never Used Substance Use Topics Alcohol use: Not Currently Drug use: Never Current Outpatient Medications Medication Sig metFORMIN (GLUCOPHAGE) 500 mg tablet Take 1 tablet by mouth daily with dinner. IFEREX 150 150 mg iron capsule Take 1 capsule by mouth every afternoon. omeprazole (PRILOSEC) 40 mg capsule Take 1 capsule by mouth every afternoon. folic acid 1 mg tablet Take 1 tablet by mouth once daily. letrozole (FEMARA) 2.5 mg tablet Take 1 tablet by mouth once daily for 5 days. cholecalciferol, Vitamin D3, (VITAMIN D3) 1,250 mcg (50,000 unit) cap capsule Take 1 capsule by mouth one time a week. No current facility-administered medications for this visit. Allergies As of Date: 03/12/2024 (No Known Allergies) Fully Assessed 03/12/2024 REVIEW OF SYSTEMS Abdomen: No bloating, early satiety, indigestion, or increased flatulence. No abdominal pain, nausea, vomiting, diarrhea, or constipation. Bladder: No dysuria, gross hematuria, urinary frequency, urinary urgency, or incontinence. Breast: No breast lumps, nipple d/c, overlying skin changes, redness or skin retraction. Expanded ROS: N/A Allergies and current medication updated:Yes SENSITIVE EXAM: The sensitive examination was discussed with the Patient or Patient's Authorized News Department Intern. As applicable, any other physician, advance practice provider, medical student, or other health professional student that will be observing or involved in the sensitive examination for educational or training purposes was discussed with the Patient or Authorized News Department Intern. The Patient or Authorized News Department Intern has agreed to proceed with the sensitive examination. (Sensitive examination includes inspection and/or palpation of the breasts, pelvis, prostate and anorectal regions). EXAM: BP 118/78 Wt 301 lb (136.5kg) LMP 03/09/2024 GENERAL: pleasant, female in no apparent distress HEENT: Normocephalic, atraumatic, mucus membranes moist, and no lesions NECK: Supple, full range of motion, no adenopathy, and thyroid normal DERMATOLOGY: Normal, without lesions, non-icteric, and non-hirsute BREAST: deferred CHEST: Normal inspiratory effort ABDOMEN: Deferred PELVIC: deferred BIMANUAL: deferred NEURO: alert and oriented x3,exam grossly non-focal EXTREMITIES: normal ASSESSMENT AND PLAN: Assessment & Plan Female infertility [facility] appointment PCOS (polycystic ovarian syndrome) [facility]y Charles MD [facility] Telephone encounter Note * Telephone Encounter - Chery Markham RN - 02/07/2024 8:45 AM EST 21 day progesterone lab order pended also. Requested Prescriptions Pending Prescriptions Disp Refills letrozole (FEMARA) 2.5 mg tablet 5 tablet 1 Sig: Take 1 tablet by mouth once daily for 5 days. Recent Office Visits - This Specialty 10/22/2023 PCOS (polycystic ovarian syndrome) OB/Gynecology Chery Charles MD 10/17/2023 PCOS (polycystic ovarian syndrome) OB/Gynecology Joon Mooney APRN.CNP 10/10/2023 Irregular menstrual cycle OB/Gynecology Joon Mooney APRN.RAFAL Next visit in this department: 05/08/2024 Chery Markham RN [facility]12-27-2024 Miscellaneous Notes* Telephone Encounter - Chery Markham RN - 02/07/2024 8:45 AM EST 21 day progesterone lab order pended also. Requested Prescriptions Pending Prescriptions Disp Refills letrozole (FEMARA) 2.5 mg tablet 5 tablet 1 Sig: Take 1 tablet by mouth once daily for 5 days. Recent Office Visits - This Specialty 10/22/2023 PCOS (polycystic ovarian syndrome) OB/Gynecology Chery Charles MD 10/17/2023 PCOS (polycystic ovarian syndrome) OB/Gynecology Joon Mooney APRN.CNP 10/10/2023 Irregular menstrual cycle OB/Gynecology Joon Mooney APRN.RAFAL Next visit in this department: 05/08/2024 Chery Markham RN documented in [facility] encounterThe [facility]10[facility] History of Present illness Narrative* Lindsey Moore RT(R) - 11/28/2023 11:40 AM EDT Radiology Service Progress Note PATIENT NAME: Loreta Haro DATE OF SERVICE: November 28, 2023 TIME: 11:39 AM PATIENT IDENTITY VERIFICATION COMPLETED USING TWO (2) IDENTIFIERS: Name and Date of confirmedby patient verbally. FALL SCREENING: Has the patient had 2 falls in the last year or 1 fall with injury or currently using an Ambulatory Assistive Device (Walker, Cane, Wheelchair, Crutches, etc.)? No PATIENT GENDER DATA: Female. status: : No status: NO. PATIENT RELEVANT IMPLANT DATA REVIEWED: Not Applicable PATIENT PRESENTS WITH AN IMPLANTABLE OR ATTACHED MEMBER CERTIFICATION MANAGER: No RADIOLOGY DEPARTMENT: General X-ray: Exam(s) Completed: Lower Extremity X- Ray(s): Foot, Left and Wt. Bearing PERIPHERAL IV DATA: Not applicable SIGNED BY: RT Angélica(R) November 28, 2023 11:39 AM documented in this encounterThe [facility]10-17-2024 History of Present illness Narrative* Amanda Swartz APRN.CNP - 11/28/2023 11:34 AM EDT SUBJECTIVE: Loreta Haro is a 23 year old female. Who presents today with pain in the left foot. She dropped her phone on the foot about 2 weeks ago. She still has pain over the 4-5 metatarsal. It hurts to walk. It was bruised at first but that has resolved. So swelling is noted. She has not taken any medications for the pain. She is able to walk HPI PAST MEDICAL HISTORY Diagnosis Date Hiatal hernia FAMILY HISTORY Problem Relation Age of Onset other (PCOS) Mother Diabetes Father Social History Tobacco Use Smoking status: Never Smokeless tobacco: Never Vaping Use Vaping status: Never Used Substance Use Topics Alcohol use: Not Currently Drug use: Never ALLERGIES No Known Allergies Current Outpatient Medications Medication Sig Dispense Refill letrozole (FEMARA) 2.5 mg tablet Take 1 tablet by mouth once daily for 5 days. 5 tablet 1 metFORMIN (GLUCOPHAGE) 500 mg tablet Take 1 tablet by mouth daily with dinner. 90 tablet 3 cholecalciferol, Vitamin D3, (VITAMIN D3) 1,250 mcg (50,000 unit) cap capsule Take 1 capsule by mouth one time a week. 12 capsule 0 IFEREX 150 150 mg iron capsule Take 1 capsule by mouth every afternoon. omeprazole (PRILOSEC) 40 mg capsule Take 1 capsule by mouth every afternoon. folic acid 1 mg tablet Take 1 tablet by mouth once daily. No current facility-administered medications for this visit. OBJECTIVE: BP 134/70 Pulse 101 Temp 37.3 C (99.2 F) Resp 20 Wt 132 kg (291 lb 0.1 oz) LMP 11/10/2023(Exact Date) SpO2 99% BMI 46.97 kg/m ROS all other systems reviewed and are negative Physical Exam Constitutional: Well developed, well nourished, NAD, A&O X3. ENT: Head is atraumatic, airway patent, mucosal membranes moist. Respiratory: Respirations unlabored MS: no swelling, tenderness or deformity in upper or lower extremities left foot without swelling or bruising slight tenderness is noted over the fifth metatarsal full range of motion of the toes andankle cap refill brisk pulses +2 no swelling in the calf no calf tenderness Neuro: strength sensation and coordination intact. CN II-XII grossly intact, Skin: warm and dry with out rash, lesion or ecchymosis on exposed skin Psych: alert appropriate, speech clear MDM It was a pleasure to take care of Loreta Haro today. X-ray was obtained of the foot and this was negative for a fracture. Patient may continue to take Motrin or Tylenol for any discomfort. She has verbalized understanding of plan of care and is agreeable Patient will follow up with family physician. They may return to the Urgent Care or go to the ER for worsening symptoms or concerns. Patient verbalized understanding of plan of care and is in agreement. ASSESSMENT/PLAN: 1. Foot pain, right - ICD9: 729.5, ICD10: M79.671 - XR FOOT GENERAL 3V AP/LAT/OBL LEFT Amanda Swartz APRN.SAMPLE MOUNTER documented in this encounterThe [facility]09-[facility] History of Present illness Narrative* Chery Charles MD - 10/22/2023 10:53 AM EDT Loreta Haro is a 23 year old female who presents for problem visit infertility for 1 year(s). HPI: Has been trying to conceive for over a year. OPK are positive on and off. Does have a monthly period. PCOS labs show insulin resistance and TVUS is suspicious for PCOS. She started metformin oneweek ago. Has been actively trying to lose weight and has lost 30 lbs so far. has fathered one that ended in a miscarriage in HS. Non smokers. No drug use. No genetic problems in the family. Is interested in trying letrozole. Discussed risk of multiples and ovarian hyperstimulation with ovulation induction. May have nausea and hot flashes. If significant pain needs to avoid intercourse and call the office. Can try three rounds before a consult to [facility] is warranted. Will look into coverage for that. Reviewed how to take and went to start. Need negative test prior. Ifno menses by 35 days take a test. If none by 40 days to call the office OB History T0 L0 SAB0 IAB0 Ectopic0 Multiple0 Live Births0 Quality Measurement Specialist History LMP: 10/10/2023 (Exact Date), Having periods Age at Menarche: Age at First : Age at Menopause: Quality Measurement Specialist History Comments: Sexual Activity: Yes; Male Contraception: None PAST MEDICAL HISTORY No date: Hiatal hernia PAST SURGICAL HISTORY 02/2020: ANKLE SURGERY HX; Right 01/2022: REMOVAL GALLBLADDER FAMILY HISTORY Problem Relation Age of Onset other (PCOS) Mother Diabetes Father Social History Tobacco Use Smoking status: Never Smokeless tobacco: Never Vaping Use Vaping status: Never Used Substance Use Topics Alcohol use: Not Currently Drug use: Never Current Outpatient Medications Medication Sig metFORMIN (GLUCOPHAGE) 500 mg tablet Take 1 tablet by mouth daily with dinner. cholecalciferol, Vitamin D3, (VITAMIN D3) 1,250 mcg (50,000 unit) cap capsule Take 1 capsule by mouth one time a week. IFEREX 150 150 mg iron capsule Take 1 capsule by mouth every afternoon. omeprazole (PRILOSEC) 40 mg capsule Take 1 capsule by mouth every afternoon. folic acid 1 mg tablet Take 1 tablet by mouth once daily. letrozole (FEMARA) 2.5 mg tablet Take 1 tablet by mouth once daily for 5 days. No current facility-administered medications for this visit. Allergies As of Date: 10/22/2023 (No Known Allergies) Fully Assessed 10/22/2023 REVIEW OF SYSTEMS Abdomen: No bloating, early satiety, indigestion, or increased flatulence. No abdominal pain, nausea, vomiting, diarrhea, or constipation. Bladder: No dysuria, gross hematuria, urinary frequency, urinary urgency, or incontinence. Breast: No breast lumps, nipple d/c, overlying skin changes, redness or skin retraction. Expanded ROS: N/A Allergies and current medication updated:Yes EXAM: BP 138/82 Wt 291 lb (132.0kg) LMP 10/10/2023 GENERAL: pleasant, female in no apparent distress HEENT: Normocephalic, atraumatic, mucus membranes moist, and no lesions NECK: full range of motion DERMATOLOGY: Normal, without lesions, non-icteric, and non-hirsute BREAST: deferred CHEST: Normal inspiratory effort ABDOMEN: Deferred PELVIC: deferred BIMANUAL: deferred NEURO: alert and oriented x3,exam grossly non-focal EXTREMITIES: normal ASSESSMENT AND PLAN: Encounter Diagnosis ICD-10-CM 1. PCOS (polycystic ovarian syndrome) E28.2 Ovulation induction with letrozole Chery Charles MD documented in this encounterThe [facility]09-05-2024 Instructions* Patient Instructions* Joon Mooney APRN.SAMPLE MOUNTER - 10/17/2023 9:33 AM EDT METFORMIN Dosing -- Begin Metformin 500 mg with dinner daily x 1 week. If you are experiencing any GI side effects, do not increase dose for 1-4 weeks. If tolerating, you can increase to 2 tablets with dinner daily. Taking the medication with food will help. -- if you experience any GI upset (Nausea, diarrhea, bloating, gas) you can go back to 1 tablet or hold the medication until it resolves. Once you are tolerating the medication you can try increasingit again. -- we can discuss increasing the dose further at your follow up visit. -- Metformin can interfere with the absorption of B12 in your food, please add a B12 1,000-2,400 mcg supplement and I suggest having it checked every 1-2 years Using Metformin for weight loss: Metformin helps to lower blood glucose levels by reducing the amount of glucose produced and released by the liver, and by increasing insulin sensitivity. It has now been proven to prevent or delay diabetes. Metformin and Type 2 Diabetes Prevention Diabetes Spectrum (diabetesjournals.org) Large cohort studies have shown weight loss benefits associated with metformin therapy. Emerging evidence suggests that metformin-associated weight loss is due to modulation of hypothalamic appetite-regulatory centers, alteration in the gut microbiome, and reversal of consequences of aging. Metformin is also being explored in the management of obesity s sequelae such as hepatic steatosis, obstructive sleep apnea and osteoarthritis. Effectiveness of metformin on weight loss in non-diabetic individuals with obesity - PubMed (nih.gov) Is metformin a wonder drug? - [facility] Common side effects of this medication include nausea, changes in bowel habits, abdominal discomfort, and flatulence. Taking the medication with food will help. Side effects also typically get betterwith time. Rarely, a severe side effect called lactic acidosis can occur. If you experience malaise, muscle aches, difficulty breathing, or severe abdominal pain, please seek immediate medical attention. Metformin: Patient drug information Warning Rarely, metformin may cause too much lactic acid in the blood (lactic acidosis). The risk is higherin people who have kidney problems, liver problems, heart failure, use alcohol, or take other drugslike topiramate. The risk is also higher in people who are 65 or older and in people who are havingsurgery, an exam or test with contrast, or other procedures. If lactic acidosis happens, it can lead to other health problems and can be deadly. Kidney tests may be done while taking this drug. Do not take this drug if you have a very bad infection, low oxygen, or a lot of fluid loss (dehydration). Call your doctor right away if you have signs of too much lactic acid in the blood (lactic acidosis) like fast breathing, fast or slow heartbeat, a heartbeat that does not feel normal, very bad upsetstomach or throwing up, feeling very sleepy, shortness of breath, feeling very tired or weak, very bad dizziness, feeling cold, or muscle pain or cramps. What is this drug used for? It is used to lower blood sugar in patients with high blood sugar (diabetes), treatment for PCOS, What do I need to tell my doctor BEFORE I take this drug? If you are allergic to this drug; any part of this drug; or any other drugs, foods, or substances. Tell your doctor about the allergy and what signs you had. If you have any of these health problems: Acidic blood problem, kidney disease, or liver disease. If you have had a recent heart attack or stroke. If you are not able to eat or drink like normal, including before certain procedures or surgery. If you are having an exam or test with contrast or have had one within the past 48 hours, talk withyour doctor. This is not a list of all drugs or health problems that interact with this drug. Tell your doctor and pharmacist about all of your drugs (prescription or OTC, natural products, vitamins) and health problems. You must check to make sure that it is safe for you to take this drug with all of your drugs and health problems. Do not start, stop, or change the dose of any drug withoutchecking with your doctor. What are some things I need to know or do while I take this drug? All products: Tell all of your health care providers that you take this drug. This includes your doctors, nurses,pharmacists, and dentists. Talk with your doctor before you drink alcohol. Do not drive if your blood sugar has been low. There is a greater chance of you having a crash. Check your blood sugar as you have been told by your doctor. Have blood work checked as you have been told by the doctor. Talk with the doctor. It may be harder to control blood sugar during times of stress such as fever, infection, injury, orsurgery. A change in physical activity, exercise, or diet may also affect blood sugar. Follow the diet and workout plan that your doctor told you about. If diarrhea happens or you are throwing up, call your doctor. You will need to drink more fluids tokeep from losing too much fluid. Be careful in hot weather or while being active. Drink lots of fluids to stop fluid loss. Long-term treatment with metformin may lead to low vitamin B-12 levels. If you have ever had low vitamin B-12 levels, talk with your doctor. If you are 65 or older, use this drug with care. You could have more side effects. There is a chance of in people of childbearing age who have not been ovulating. If you want to avoid , use control while taking this drug. Tell your doctor if you are , plan on getting , or are breast- feeding. You will need to talk about the benefits and risks to you and the baby. What are some side effects that I need to call my doctor about right away? WARNING/CAUTION: Even though it may be rare, some people may have very bad and sometimes deadly side effects when taking a drug. Tell your doctor or get medical help right away if you have any of thefollowing signs or symptoms that may be related to a very bad side effect: Signs of an allergic reaction, like rash; hives; itching; red, swollen, blistered, or peeling skin with or without fever; wheezing; tightness in the chest or throat; trouble breathing, swallowing, ortalking; unusual hoarseness; or swelling of the mouth, face, lips, tongue, or throat. It is common to have stomach problems like upset stomach, throwing up, or diarrhea when you start taking this drug. If you have stomach problems later during treatment, call your doctor right away. This may be a sign of an acid health problem in the blood (lactic acidosis). Low blood sugar can happen. The chance may be raised when this drug is used with other drugs for diabetes. Signs may be dizziness, headache, feeling sleepy or weak, shaking, fast heartbeat, confusion, hunger, or sweating. Call your doctor right away if you have any of these signs. Follow what you have been told to do for low blood sugar. This may include taking glucose tablets, liquid glucose, or some fruit juices. What are some other side effects of this drug? All drugs may cause side effects. However, many people have no side effects or only have minor sideeffects. Call your doctor or get medical help if any of these side effects or any other side effects bother you or do not go away: Stomach pain or heartburn. Gas. Diarrhea, upset stomach, or throwing up. Feeling tired or weak. Headache. These are not all of the side effects that may occur. If you have questions about side effects, call your doctor. Call your doctor for medical advice about side effects. You may report side effects to your national health agency. How is this drug best taken? Use this drug as ordered by your doctor. Read all information given to you. Follow all instructionsclosely. All products: Take with meals. Keep taking this drug as you have been told by your doctor or other health care provider, even if you feel well. INSULIN SENSITIZING AGENTS AND PCOS POLYCYSTIC OVARIAN SYNDROME (PCOS) is a very common reproductive disorder. Women with PCOS frequently have irregular menstrual cycles, excessive body hair, are overweight, and suffer from infertility. Many women with PCOS have a decreased sensitivity to insulin for which their bodies compensate by overproducing insulin. The resulting high levels of insulin may contribute to excessive production of androgens (male hormones, such as testosterone) and contribute to ovulation disorders. In additionto reproductive problems, women with PCOS have a higher chance of developing medical problems such as Type 2 (non-insulin dependent) diabetes, high blood pressure, and heart disease. By the age of 40, up to 40% of PCOS patients develop impaired glucose tolerance or clinical diabetes. Given the strong evidence that excess insulin plays a role in the development of PCOS, it is reasonable to assume that reducing circulating levels of insulin may help restore normal reproductive function. This may be accomplished by weight loss, improved nutrition, and exercise. These behavioral changes should be the first lines of therapy for an overweight woman with PCOS. Recently, new drugs approved by the FDA for the treatment of Type 2 diabetes have shown promise forPCOS. These drugs, known as insulin sensitizing agents, have been shown to improve the body's response to insulin, thereby reducing the need for excess insulin and restoring the levels to normal. Thebest studied insulin sensitizing agent available in the [place] for women with PCOS is metformin (GLUCOPHAGE), a biguanide. Metformin reduces circulating insulin and androgen levels and restores normal ovulation in some women with PCOS. Even if metformin alone does not restore ovulation, it may improve the woman's response to fertility drugs. Gastrointestinal irritation, especially diarrhea, is a common side effect. These symptoms usually improve after a few weeks. Lactic acidosis is a rare but serious adverse effect of metformin. Metformin is not recommended for patients with kidney, lung, or heart disease. Rosiglitazone (AVANDIA) and pioglitazone (ACTOS), which belong to the thiazolidinedione group of antidiabetic agents, are also available in the [place] for women with PCOS. Thiazolidinediones have been shown to reduce hyperandrogenism and restore ovulation in some PCOS patient. Liver toxicityis the main concern with these agents. Liver tests should be performed every two months for the first year and periodically thereafter. these medications should not be started in women with any evidence of liver disease. So far, the new insulin sensitizing agents have not been linked to defects in animals or humans but they are not recommended for use during . Metformin should also be temporarily stopped prior to surgery or x-ray procedures that use intravenous contrast. Unlike ovulation induction drugs, insulin sensitizing agents have little or no risk of multiple pregnancies. More clinical studies are needed to determine the outcomes, risks, and complications when these medications are used to treat PCOS. Although results from clinical studies have been encouraging, the use of these medications in women with PCOS is still considered investigational. In general,Metformin is used as the first insulin sensitizing agent; thiazolidinediones may be considered if metformin is ineffective or not tolerated by the patient. Present data suggest the use of insulin sensitizing agents for ovulation induction in PCOS patientswho want to conceive. Because these medicines correct they underlying metabolic abnormalities associated with PCOS, it is plausible that their salvage determiner use may delay the emergence or reduce the likelihood of developing type 2 diabetes and cardiovascular disease. Since data are lacking, however long-term use of insulin sensitizing agents for this purpose cannot be recommended at present. (Reprinted with permission from [place] [employer]) documented in this encounterThe [facility]09-[facility] History of Present illness Narrative* Joon Mooney APRN.CNP - 10/17/2023 9:18 AM EDT Nursing Executive offered: Patient declines. Loreta Haro is a 23 year old female who presents for a follow up visit of irregular menses. HPI: Kathy was here on 10/10/23 to discuss irregular menstrual cycles. She is wanting to become . Labs showed a low vitamin D level and an elevated insulin level. Ultrasound states: Normal appearing anteverted uterus that measures 71 mm x 29 mm x 38 mm. Endometrium has a normal trilaminar appearance and measures 8.6 mm. Normal endometrial contour. Normal appearing left ovary with multiple tiny follicles. Right ovary contains a 12 x 11 x 11 mm corpus luteum cyst. No adnexal masses were observed. There is no free fluid visualized in the peritoneal cavity. OB History T0 L0 SAB0 IAB0 Ectopic0 Multiple0 Live Births0 Quality Measurement Specialist History LMP: 09/04/2023 (Exact Date), Having periods Age at Menarche: Age at First : Age at Menopause: Quality Measurement Specialist History Comments: Sexual Activity: Yes; Male Contraception: None PAST MEDICAL HISTORY No date: NEGATIVE MEDICAL HISTORY PAST SURGICAL HISTORY 02/2020: ANKLE SURGERY HX; Right 01/2022: REMOVAL GALLBLADDER FAMILY HISTORY Problem Relation Age of Onset other (PCOS) Mother Diabetes Father Social History Tobacco Use Smoking status: Never Smokeless tobacco: Never Vaping Use Vaping status: Never Used Substance Use Topics Alcohol use: Not Currently Drug use: Never Current Outpatient Medications Medication Sig cholecalciferol, Vitamin D3, (VITAMIN D3) 1,250 mcg (50,000 unit) cap capsule Take 1 capsule by mouth one time a week. IFEREX 150 150 mg iron capsule Take 1 capsule by mouth every afternoon. omeprazole (PRILOSEC) 40 mg capsule Take 1 capsule by mouth every afternoon. folic acid 1 mg tablet Take 1 tablet by mouth once daily. No current facility-administered medications for this visit. 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 PCOS (polycystic ovarian syndrome) - ICD9: 256.4, ICD10: E28.2 (primary diagnosis) - Discussed PCOS as a metabolic disorder - Discussed PCOS's affect on timing of ovulation - Reviewed increased risk of diabetes, hyperlipidemia, hypertension, and obesity with PCOS - Recommend starting Metformin for insulin resistance. Agreeable to begin Metformin 500 mg with dinner daily x 1 week. If tolerating will increase to 2 tablets with dinner daily. We discussed common side effects of this medication including nausea, changes in bowel habits, abdominal discomfort, and flatulence. Discussed taking it with food and complication of lactic acidosis and signs/symptoms and medication handout given. Further instructed that if she experiences malaise,muscle aches, difficulty breathing, or severe abdominal pain to seek immediate medical attention. - Discussed checking Vitamin B12 level in 3 months - Since Kathy has been trying for for 12 months, plans to follow up with physician aboutLetrozole use - Continue folic acid. Decrease sugary drinks, simple carbohydrates in breads, pastas, desserts, etc. - Increase exercise: walk for 15 minutes immediately after meals 2. Vitamin D deficiency - ICD9: 268.9, ICD10: E55.9 - Continue weekly supplement and recheck in 3 months - VITAMIN D 25 HYDROXY Joon Mooney APRN.CNP Medical Decision Making: Problems: Low: Stable chronic illness Data: Unique test result(s) reviewed: 3+ Risk: Low: Low risk from testing/treatment Moderate: Drug management Medical Decision Making Level: 4 - Moderate documented in this encounterThe [facility]08-31-2024 History of Present illness Narrative* Vivi Gama MD - 10/12/2023 12:00 PM EDT Loreta Haro is a 23 year old female who presented for addiction medicine physician ultrasound today. Encounter Diagnosis ICD-10-CM 1. Pelvic pain in female R10.2 Please see report under imaging tab. Vivi Gama MD October 12, 2023 12:00 PM documented in this encounterThe [facility] System08-29-2024 Instructions* Patient Instructions* Joon Mooney APRN.SAMPLE MOUNTER - 10/10/2023 10:48 AM EDT Polycystic Ovary Syndrome Women with polycystic ovary syndrome (PCOS) have a hormonal imbalance that interferes with normal reproductive processes. PCOS usually starts at puberty and is associated with irregular periods and other hormone related symptoms. The most concerning issues with PCOS are the increase of infertility,the risk of developing type 2 diabetes and cardiovascular disease, and the higher risk of developing endometrial (uterine) cancer at an early age. What are the symptoms of PCOS? Irregular menstrual periods, or no menstrual periods at all Decreased frequency or complete lack of ovulation, resulting in problems with infertility Obesity, often specifically characterized by weight gain in the upper body and abdomen Oily skin and hair and persistent acne into adulthood Abnormal hair growth, in a masculine distribution (facial hair, heavy hair growth on arms, chest, and abdomen) Tendency to develop type 2 diabetes What causes PCOS syndrome? Research is ongoing to uncover a cause for PCOS. There is evidence that shows a link between certain forms of PCOS and family history, suggesting a genetic basis for the condition. How is PCOS diagnosed? Most cases can be diagnosed with a thorough evaluation of your medical history and symptoms, as well as a physical exam. A blood test may be required to measure the levels of various hormones. In some cases, an ultrasound of the ovaries may help with diagnosis. How is PCOS treated? Although PCOS can be treated with medications, treatment is often highly dependent on your goals and your symptoms. If you want to become , you may need the assistance of oral or injected fertility medications. If you do not want to become , you may consider control pills to prevent pregnancyand regulate periods. Other symptoms such as unwanted hair growth, acne, obesity, and diabetes should be managed by specialists in those areas. Specific treatment options should be discussed with your physician. How can PCOS be prevented? There is no known prevention for PCOS. However, through proper nutrition and weight management manywomen with polycystic ovary syndrome can avoid developing diabetes and cardiovascular problems. How can I improve my chances of conceiving if I have PCOS? While specific fertility issues should be addressed with your physician, there are some general healthcare guidelines that may improve your chances of becoming : Folic acid (400 mcg. supplement a day, with a diet rich in folic acid, including leafy green vegetables, dried beans, liver, and citrus fruits) Limit caffeine (Fewer than two caffeinated beverages per day) Eat well (Healthy well-balanced diet) Exercise and maintain a healthy weight (Maintain a normal exercise routine, 20 to 30 minutes per day, 4 to 5 times per week.) This information is provided by your physician and the [facility] Journal [facility] Medicine and the[facility] [email or web address]. This information has not been designed to replace a physician's medical assessment and medical judgment. Copyright 1994- 2012 The [facility]. All rights reserved This information is provided by the [facility] and is not intended to replace the medical advice of your doctor or health care provider. Please consult your health care provider for advice about a specific medical condition. For additional health information, please contact the [facility] Information at the [facility] or toll-free extension [phone]. If you prefer, you may visit [email or web address] or [email or web address]. This document was last reviewed on: 2009 index#[id number] documented in this encounterThe [facility] System08-29-2024 History of Present illness Narrative* Joon Mooney APRN.CNP - 10/10/2023 10:27 AM EDT Loreta Haro is a 23 year old female who presents for an ultrasound follow up. HPI: Kathy had an ultrasound for pelvic cramping and a late period. Cramping was an 8/10. Finally started her period at cycle day 36. Pain is now gone. Had ultrasound today, report pending. Has been on hormonal contraception on and off for 5-6 years so unsure about irregular cycles off ofbirth control. Denies acne or hirsutism. She has been trying to conceive for about a year. OB History T0 L0 SAB0 IAB0 Ectopic0 Multiple0 Live Births0 Quality Measurement Specialist History LMP: 04/07/2023 (Approximate), Having periods Age at Menarche: Age at First : Age at Menopause: Quality Measurement Specialist History Comments: Sexual Activity: Yes; Male Contraception: No contraception data on record PAST MEDICAL HISTORY No date: NEGATIVE MEDICAL HISTORY PAST SURGICAL HISTORY 02/2020: ANKLE SURGERY HX; Right 01/2022: REMOVAL GALLBLADDER FAMILY HISTORY Problem Relation Age of Onset other (PCOS) Mother Diabetes Father Social History Tobacco Use Smoking status: Never Smokeless tobacco: Never Vaping Use Vaping status: Never Used Substance Use Topics Alcohol use: Never Drug use: Never Current Outpatient Medications Medication Sig IFEREX 150 150 mg iron capsule Take 1 capsule by mouth every afternoon. omeprazole (PRILOSEC) 40 mg capsule Take 1 capsule by mouth every afternoon. folic acid 1 mg tablet Take 1 tablet by mouth once daily. escitalopram oxalate (LEXAPRO) 5 mg tablet take 1 tablet by mouth once daily --DISCONTINUE WELLBUTRIN (Patient not taking: Reported on 02/01/2023) No current facility-administered medications for this visit. 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 Irregular menstrual cycle - ICD9: 626.4, ICD10: N92.6 - Continue PNV - Start Vitamin D - Trying to conceive - Emotional support provided - Labs ordered - Follow up after labs to determine management plan Joon Mooney APRN.SAMPLE MOUNTER Medical Decision Making: Problems: Low: Stable chronic illness Data: Unique test(s) ordered: 3+ Risk: Minimal: Minimal risk from testing/treatment Moderate: Drug management Medical Decision Making Level: 4 - Moderate documented in this encounterThe [facility]08-27-2024 Telephone encounter Note * Telephone Encounter - Chery Markham RN - 10/08/2023 1:47 PM EDT Appointments scheduled. Chery Markham RN [facility]08-27-[facility] Miscellaneous Notes* Telephone Encounter - Chery Markham RN - 10/08/2023 1:47 PM EDT Appointments scheduled. Chery Markham RN * Telephone Encounter - Saskia Black MD - 10/08/2023 12:44 PM EDT Pelvic US ordered. Please schedule her with a provider after the US. Thanks! Saskia Black MD * Telephone Encounter - Chery Markham RN - 10/08/2023 11:12 AM EDT Patient states her LMP was 724. She took x2 negative UPT. Not using contraception. Having cramping for the last week. At it's worst it's been an 8 out of 10. Would you like to order an HCG level or for patient to have an appointment? Thank you. Chery Markham RN documented in this encounterThe [facility] System08-27-2024 Telephone encounter Note * Telephone Encounter - Saskia Black MD - 10/08/2023 12:44 PM EDT Pelvic US ordered. Please schedule her with a provider after the US. Thanks! Saskia Black MD [facility] Telephone encounter Note* Telephone Encounter - Chery Markham RN - 10/08/2023 11:12 AM EDT Patient states her LMP was 08/15/23. She took x2 negative UPT. Not using contraception. Having cramping for the last week. At it's worst it's been an 8 out of 10. Would you like to order an HCG level or for patient to have an appointment? Thank you. Chery Markham RN [facility]04-02-[facility] Hospital Discharge instructions Patient Education 05/14/2023 17:04:24 Laceration: All Closures Laceration: All Closures A laceration is a cut through the skin. This will usually require stitches (sutures) or qian if it is deep. Minor cuts may be treated with a surgical tape closure or skin glue. Home care Your healthcare provider may prescribe an antibiotic. This is to help prevent infection. Follow allinstructions for taking this medicine. Take the medicine every day until it is gone or you are toldto stop. You should not have any left over. The healthcare provider may prescribe medicines for pain. If no pain medicines were prescribed, youcan use [id number] pain medicines. Follow instructions for taking any pain medicines. (Note: If you have chronic liver or kidney disease, or ever had a stomach ulcer or gastrointestinal bleeding, talk with your doctor before using these medicines.) Follow the healthcare provider s instructions on how to care for the cut. Keep the wound clean and dry. Do not get the wound wet until you are told it is OK to do so. If thearea gets wet, gently pat it dry with a clean cloth. Replace the wet bandage with a dry one. If a bandage was applied and it becomes wet or dirty, replace it. Otherwise, leave it in place for the first 24 hours. Caring for sutures or qian: Once you no longer need to keep them dry, clean the wound daily. First, remove the bandage. Then wash the area gently with soap and warm water, or as directed by the healthcare provider. Use a wet cotton swab to loosen and remove any blood or crust that forms. After cleaning, apply a thin layer of antibiotic ointment if advised. Then put on a new bandage unless you are told not to. Caring for skin glue: Don t put apply liquid, ointment, or cream on the wound while the glue is in place. Avoid activities that cause heavy sweating. Protect the wound from sunlight. Do not scratch, rub, or pick at the adhesive film. Do not place tape directly over the film. The glue should peel off within 5 to 10 days. Caring for surgical tape: Keep the area dry. If it gets wet, blot it dry with a clean towel. Surgical tape usually falls off within 7 to 10 days. If it has not fallen off after 10 days, you can take it off yourself. Put mineral oil or petroleum jelly on a cotton ball and gently rub the tape until it is removed. Once you can get the wound wet, you may shower as usual but do not soak the wound in water (no tub baths or swimming) Even with proper treatment, a wound infection may sometimes occur. Check the wound daily for signs of infection listed below. Scalp wounds During the first 2 days, you may carefully rinse your hair in the shower to remove blood, glass or dirt particles. After two days, you may shower and shampoo your hair normally. Do not soak your scalp in the tub or go swimming until the stitches or qian have been removed. Talk with your healthcare provider before applying any antibiotic ointment to the wound. Mouth wounds Eat soft foods to reduce pain. If the cut is inside of your mouth, clean by rinsing after each mealand at bedtime with a mixture of equal parts water and hydrogen peroxide (do not swallow!). Or, youcan use a cotton swab to directly apply hydrogen peroxide onto the cut. You may also be prescribed a chlorhexidine solution to rise with. Mouth wounds can be painful when eating. You may use an oigy-mtf-befdjsy local numbing solution for pain relief. If this is not available, you may use any numbing solution intended for teething babies. You may apply this directly to the sores with a cotton-tip swab or with your finger. Follow-up care Follow up with your healthcare provider as advised. Ask your healthcare provider how long sutures should be left in place. Be sure to return for suture removal as directed. If dissolving stitches were used in the mouth, these should fall out or dissolve without the need for removal. If tape closures were used, remove them yourself when your provider recommends if they have not fallen off on theirown. If skin glue was used, the film will wear off by itself. Generally, you should keep healing wounds out of direct sunlight for the first couple of months to try to lessen scarring. When to seek medical advice Call your healthcare provider right away if any of these occur: Signs of infection, including increasing pain in the wound, increasing wound redness or swelling, or pus or bad odor coming from the wound Fever of 100.4 F (38. C) or higher, or as directed by your healthcare provider Stitches or qian come apart or fall out or surgical tape falls off before 7 days Wound edges reopen Wound changes colors Numbness around the wound after any numbing medicine should have worn off Decreased movement around the injured area Call 911 Call 911 if you can't control the wound bleeding with direct pressure. 4998-6157 [employer]. [address] [place] [address]. All rights reserved. This information is not intended as a substitute for professional medical care. Always follow yourhealthcare professional's instructions. Follow Up Care 05/14/2023 15:53:21 With:EBONI POP Address: Leonidas Mac [facility] [place] [address]- [phone] When:2-[address] [facility] 04-02-2024 Note Discharge Instructions Thank you for allowing [facility] to assist you with your healthcare needs. The following is importantdischarge information regarding your hospital visit. Diagnosis from Today's Visit Finger laceration Finger laceration What to Do Next Instructions from Your Care Team Please follow-up in 5 to 7 days for suture removal. No qualifying data available. Post Acute Orders No qualifying data available. You Need to Schedule the Following Appointments Follow Up with EBONI POP When Within 2-4 days Where: [facility] [place] [address]- [phone] Allergies NKA Medications Please ask your primary doctor or pharmacist before taking any other medication not listed, including over the counter drugs, herbal medications, vitamins and or supplements as they may interact withyour home medications. What How Much When Why Instructions Last Dose Unchanged cloNIDine (cloNIDine 0.1 mg oral tablet) 1 tab(s) by mouth Three (3) times a day as needed for BP over 150 systolic Elevated blood-pressure reading, without diagnosis of hypertension Duration: 7 Days Unchanged dicyclomine (Bentyl use dicyclomine ) 20 Milligram by mouth Four (4) times a day Please take this list to your next doctor s visit. Bring all medications you take, including over the counter medications, herbals and other supplements with you to your doctor s visit. Patients and families are reminded to discard old lists and to update any records with all medication providers or retail pharmacies. Education Materials Laceration: All Closures A laceration is a cut through the skin. This will usually require stitches (sutures) or qian if it is deep. Minor cuts may be treated with a surgical tape closure or skin glue. Home care Your healthcare provider may prescribe an antibiotic. This is to help prevent infection. Follow allinstructions for taking this medicine. Take the medicine every day until it is gone or you are toldto stop. You should not have any left over. The healthcare provider may prescribe medicines for pain. If no pain medicines were prescribed, youcan use gsae-jfj-wwkurab pain medicines. Follow instructions for taking any pain medicines. (Note: If you have chronic liver or kidney disease, or ever had a stomach ulcer or gastrointestinal bleeding, talk with your doctor before using these medicines.) Follow the healthcare provider s instructions on how to care for the cut. Keep the wound clean and dry. Do not get the wound wet until you are told it is OK to do so. If thearea gets wet, gently pat it dry with a clean cloth. Replace the wet bandage with a dry one. If a bandage was applied and it becomes wet or dirty, replace it. Otherwise, leave it in place for the first 24 hours. Caring for sutures or qian: Once you no longer need to keep them dry, clean the wound daily. First, remove the bandage. Then wash the area gently with soap and warm water, or as directed by the healthcare provider. Use a wet cotton swab to loosen and remove any blood or crust that forms. After cleaning, apply a thin layer of antibiotic ointment if advised. Then put on a new bandage unless you are told not to. Caring for skin glue: Don t put apply liquid, ointment, or cream on the wound while the glue is in place. Avoid activities that cause heavy sweating. Protect the wound from sunlight. Do not scratch, rub, or pick at the adhesive film. Do not place tape directly over the film. The glue should peel off within 5 to 10 days. Caring for surgical tape: Keep the area dry. If it gets wet, blot it dry with a clean towel. Surgical tape usually falls off within 7 to 10 days. If it has not fallen off after 10 days, you can take it off yourself. Put mineral oil or petroleum jelly on a cotton ball and gently rub the tape until it is removed. Once you can get the wound wet, you may shower as usual but do not soak the wound in water (no tub baths or swimming) Even with proper treatment, a wound infection may sometimes occur. Check the wound daily for signs of infection listed below. Scalp wounds During the first 2 days, you may carefully rinse your hair in the shower to remove blood, glass or dirt particles. After two days, you may shower and shampoo your hair normally. Do not soak your scalp in the tub or go swimming until the stitches or qian have been removed. Talk with your healthcare provider before applying any antibiotic ointment to the wound. Mouth wounds Eat soft foods to reduce pain. If the cut is inside of your mouth, clean by rinsing after each mealand at bedtime with a mixture of equal parts water and hydrogen peroxide (do not swallow!). Or, youcan use a cotton swab to directly apply hydrogen peroxide onto the cut. You may also be prescribed a chlorhexidine solution to rise with. Mouth wounds can be painful when eating. You may use an ozoc-wxc-gkiunom local numbing solution for pain relief. If this is not available, you may use any numbing solution intended for teething babies. You may apply this directly to the sores with a cotton-tip swab or with your finger. Follow-up care Follow up with your healthcare provider as advised. Ask your healthcare provider how long sutures should be left in place. Be sure to return for suture removal as directed. If dissolving stitches were used in the mouth, these should fall out or dissolve without the need for removal. If tape closures were used, remove them yourself when your provider recommends if they have not fallen off on theirown. If skin glue was used, the film will wear off by itself. Generally, you should keep healing wounds out of direct sunlight for the first couple of months to try to lessen scarring. When to seek medical advice Call your healthcare provider right away if any of these occur: Signs of infection, including increasing pain in the wound, increasing wound redness or swelling, or pus or bad odor coming from the wound Fever of 100.4 F (38. C) or higher, or as directed by your healthcare provider Stitches or qian come apart or fall out or surgical tape falls off before 7 days Wound edges reopen Wound changes colors Numbness around the wound after any numbing medicine should have worn off Decreased movement around the injured area Call 911 Call 911 if you can't control the wound bleeding with direct pressure. [phone] [employer]. [address] [place] [address]. All rights reserved. This information is not intended as a substitute for professional medical care. Always follow yourhealthcare professional's instructions. Additional Information VACCINATE! IT SAVES LIVES! Members of the community who have not yet received the COVID-19 vaccine and would like to receive it can visit one of [facility] vaccine clinics. There are many vaccine clinic locations within the [facility]. For locations and available times, please visit www.[email or web address].[place].gov/. It is important to note that some COVID mobile vaccine clinics are held outdoors and may be canceled in rainy or stormy conditions. To learn more about pediatric vaccinations (ages 5-11), we invite you to visit the [facility] webpage. https://www.[email or web address].org/pages/1940-Jssok-Mcitqphcdac-Mbisfsovkr-Gckxr-Fxn stions.htmlTo learn more about the COVID-19 vaccine, we invite you to visit the CDC website for a list of frequently asked questions. https://www.cdc.gov/coronavirus/2019-ncov/vaccines/faq.html [facility] Patient Portal Access Instructions: Stay connected with your healthcare team and access your personal medical information anytime with the [facility] Patient Portal. If you would like a full copy of your medical records please contact the [facility] Medical Records Department Saturday through Saturday between 8a.m. and 4:30p.m. Please follow the directions below to access the portal: 1.Access the email account you provided upon registration to the [facility].2.Look for an invitation email from [facility].3.Open the email and access the invitation link: Accept Invitation to [facility]4.Fill in the required rao to create your account. Sign into [email or web address] with your username and password that you created in the above steps to stay up to date. You can then view a summary of results, a summary of your visits, and the ability to download your summaries to your computer or send the information securely to a physician. Remember that your healthcare information is confidential, so carefully consider who you will allow to register on the [facility] Patient Portal for access to your information. You can also access the [facility] Patient Portal on the [employer] juan carlos. Simply click on Health Records under Music Messenger (MM)Data and then click on the [facility] logo. HOW TO SAFELY DISPOSE OF PRESCRIPTION MEDICATIONS Please use one of the following methods to safely dispose of your unused medications. 1.Use a drug disposal kit: the drug disposal pouch allows you to safely discard your old and unuseddrugs. Ask your nurse to give you one when you are discharged.2.Visit a local take-back location: Many local pharmacies and police departments have programs that collect old and unwanted prescriptiondrugs. Call your local pharmacy or go to http://bit.[employer]/6M9Hy9x to find one close to you.3.Make use of household items: Use cat litter or old coffee grounds to dispose medications if other options arenot available. Mix your drugs with these household products, seal them in an airtight container andthrow it into the garbage. Call [facility]: [phone] to be sure your drugs can be disposed of in this way. Some medicines may require a different approach.4.Never flush your medications down the toilet. IF YOU HAVE BEEN PRESCRIBED AN OPIOIDS FOR PAIN If you have been prescribed an opioid (such as hydrocodone, oxycodone or morphine), it is critical to understand the possible side effects and risks of opioid pain medications. Even when taken as directed, opioids can have several side effects including: Tolerance, meaning you might need to take more of a medication for the same pain relief. Nausea, vomiting and/or constipation. Sleepiness, dizziness, dry mouth, confusion, depression or itching. Physical dependence, meaning you have withdrawal symptoms when a medication is stopped ? this can develop within a few days. KNOW YOUR RESPONSIBILITIES It is important to know exactly how much and how often to take the opioid pain medications you are prescribed. Never take opioids in higher amounts or more often than prescribed. Do not combine opioids with alcohol or other drugs that cause drowsiness, such as benzodiazepines, also known as benzos,including diazepam and alprazolam, muscle relaxants or sleep aids. Never sell or share prescriptionopioids. This is illegal. Store opioids in a secure place and out of reach of others (including children, family, friends and visitors). The last page(s) of this document has been signed and retained as a CHART COPY Signatures Patient Education Materials Laceration: All Closures Medication Leaflets My discharge plan and instructions have been reviewed and explained to me and I,LORETA KUNZ E understand my current condition and have read and understand these discharge instructions. I have received a written copy of the plan/instructions. If I have questions, I am aware that I should contact my doctor. 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03-22-2024 Miscellaneous Notes* Addendum Note - Saskia Black MD - 05/03/2023 10:13 AM EDTAddended by: SASKIA BLACK on: 05/03/2023 10:13 AM Modules accepted: Orders documented in [facility]The [facility] History of Present illness Narrative* Saskia Black MD - 05/03/2023 9:42 AM EDT Nursing Executive offered: Patient declines. Kathy Kan is a 22 year old who presents for an annual gynecologic exam without complaints. Menses: cycles every 28-30 days and 3-4 days of flow. Contraception: none HPV vaccine: 1 dose Last Pap: never Last mammogram: never OB History T0 L0 SAB0 IAB0 Ectopic0 Multiple0 Live Births0 Quality Measurement Specialist History LMP: 04/07/2023 (Approximate), Having periods Age at Menarche: Age at First : Age at Menopause: Quality Measurement Specialist History Comments: Sexual Activity: Yes; Male Contraception: No contraception data on record PAST MEDICAL HISTORY Diagnosis Date NEGATIVE MEDICAL HISTORY PAST SURGICAL HISTORY Procedure Laterality Date ANKLE SURGERY HX Right 02/2020 REMOVAL GALLBLADDER 01/2022 FAMILY HISTORY Problem Relation Age of Onset other (PCOS) Mother Diabetes Father SOCIAL HISTORY Social History Tobacco Use Smoking status: Never Smokeless tobacco: Never Vaping Use Vaping Use: Never used Substance Use Topics Alcohol use: Never Drug use: Never REVIEW OF SYSTEMS Abdomen: No abdominal pain, nausea, vomiting, diarrhea, or constipation. No bloating, early satiety, indigestion, or increased flatulence. Bladder: No dysuria, gross hematuria, urinary frequency, urinary urgency, or incontinence. Breast: No breast lumps, nipple d/c, overlying skin changes, redness or skin retraction. Allergies and current medication updated:Yes EXAM: BP 126/68 Ht 5' 6 (1.68m) Wt 310 lb (140.6kg) LMP 04/07/2023 BMI 50.06 kg/(m^2). GENERAL: pleasant, female in no apparent distress BREAST: soft, non-tender, symmetric, no dominant mass, normal nipple-areolar complex, no lymphadenopathy, and no nipple discharge CHEST: Normal inspiratory effort ABDOMEN: soft, non-tender, and no masses PELVIC: external genitalia normal, normal Bartholin's glands, urethra, [place]'s glands, no vulvar lesions, no cervical lesions, good vaginal support, physiologic discharge present, normal appearing perineal body and perianal region BIMANUAL: uterus normal size, shape and consistency, no adnexal masses, and non-tender RECTOVAGINAL: deferred. NEURO: alert and oriented x3,exam grossly non-focal EXTREMITIES: normal ASSESSMENT/PLAN: 1) Health maintenance: Pap done with reflex HPV. Nutrition, exercise and routine health maintenance exams reviewed. Calcium/Vitamin D supplementation information provided. HPV vaccine: received 1 dose and is considering further doses 2) Contraception: none as desires . Advised on preconception folic acid and healthy lifestyle. 3) Follow up one year or sooner as needed Saskia Black MD documented in this encounterThe [facility]02-20-[facility]24 Miscellaneous Notes* Telephone Encounter - Mindi Garces RN - 04/02/2023 8:20 AM EST Patient notified. Mindi Garces RN * Telephone Encounter - Chery Markham RN - 04/01/2023 4:40 PM EST See below. Patient seen x1 in August 2021. Patient states she took x5 faint +UPT. Hcg quant order pending. Chery Markham RN * Telephone Encounter - Eunice Allen - 04/01/2023 4:02 PM EST Patient called her last period was 02/24 she is a few days late and requesting labs to check if sheis , please advise Can be reached at [phone] documented in this encounterThe [facility]01-[facility]24 Note ORIGINAL EXAMINATION: MRCP 02/21/2023 9:28 am TECHNIQUE: After initial T2 axial and coronal images, thick slab, thin slab and 3D coronal MRCP sequences were obtained without the administration of intravenous contrast. MIP images are provided for review. COMPARISON: CT scan February 13, 2023 HISTORY: ORDERING SYSTEM PROVIDED HISTORY: Reason for Exam: RO CHOLEDOCHOLITHIASIS FINDINGS: The intrahepatic bile ducts are normal in caliber without dilatation. The common bile duct is normal, 3-4 mm in size. No pancreatic ductal dilatation is evident. There is no common bile duct defect identified to indicate stone. No additional contributory abnormality identified. IMPRESSION: Normal exam. Interpreted by: Brandt Villalta MD Preliminary Report By: Brandt Villalta MD Electronically signed By Brandt Villalta MD Dictated Date: 02/21/2023 9:47:38 AM Prelim Date: 02/21/2023 9:51:22 AM Sign Date: 02/21/2023 9:51:22 AM Ordering Provider: [facility] Note Discharge Instructions Thank you for allowing [facility] to assist you with your healthcare needs. The following is importantdischarge information regarding your hospital visit. Diagnosis from Today's Visit Abdominal pain What to Do Next Instructions from Your Care Team No qualifying data available. Post Acute Orders No qualifying data available. You Need to Schedule the Following Appointments Follow Up with EBONI POP When Within 2-4 days Where: [address] [facility] [place] [address] [phone] Allergies NKA Medications Please ask your primary doctor or pharmacist before taking any other medication not listed, including over the counter drugs, herbal medications, vitamins and or supplements as they may interact withyour home medications. What How Much When Instructions Last Dose New dicyclomine (Bentyl use dicyclomine ) 20 Milligram by mouth Four (4) times a day Printed Prescription New ondansetron (ondansetron 4 mg oral tablet, disintegrating) 1 tab(s) by mouth Every 8 hours as needed for as needed for nausea/vomiting Duration: 3 Days Printed Prescription Please take this list to your next doctor s visit. Bring all medications you take, including over the counter medications, herbals and other supplements with you to your doctor s visit. Patients and families are reminded to discard old lists and to update any records with all medication providers or retail pharmacies. Medication Leaflets dicyclomine (oral/injection) (maggy Kaplan What is the most important information I should know about dicyclomine? Many drugs can affect dicyclomine. Tell your doctor about all your current medicines. What is dicyclomine? Dicyclomine is used to treat functional bowel or irritable bowel syndrome. Dicyclomine may also be used for purposes not listed in this medication guide. What should I discuss with my healthcare provider before taking dicyclomine? You should not use dicyclomine if you are allergic to it, or if you have: glaucoma; a bladder obstruction or other urination problems; a blockage in your digestive tract (stomach or intestines); severe ulcerative colitis; gastroesophageal reflux disease (GERD); a serious heart condition and active bleeding; myasthenia gravis; or if you are a baby. Not approved for use by anyone younger than 18 years old. Dicyclomine should never be given to a child younger than 6 months old. Tell your doctor if you have ever had: heart problems or high blood pressure; a stroke; ulcerative colitis; an ileostomy or colostomy; an enlarged prostate; or liver or kidney disease. Older adults may be more sensitive to the effects of this medicine. Tell your doctor if you are . Do not breastfeed. How should I take dicyclomine? Follow all directions on your prescription label and read all medication guides or instruction sheets. Your doctor may occasionally change your dose. Use the medicine exactly as directed. Dicyclomine oral is taken by mouth. Measure liquid medicine with the supplied syringe or a dose-measuring device (not a kitchen spoon). Dicyclomine injection is given in a muscle if you are unable to take the medicine by mouth. Call your doctor if your symptoms do not improve after 2 weeks. Store at room temperature away from moisture and heat. What happens if I miss a dose? Skip the missed dose and use your next dose at the regular time. Do not use two doses at one time. What happens if I overdose? Seek emergency medical attention or call the Poison Help line at . Overdose can cause nausea, vomiting, dilated pupils, weakness or loss of movement in any part of your body, trouble swallowing, fainting, or seizure (convulsions). What should I avoid while taking dicyclomine? May cause dizziness or blurred vision. Avoid driving or hazardous activity until you know how this medicine will affect you. Avoid becoming overheated or dehydrated during exercise and in hot weather. Dicyclomine can decrease sweating and you may be more prone to heat stroke. Tell your doctor if you have a fever while taking dicyclomine. Avoid using an antacid. Antacids can make it harder for your body to absorb dicyclomine oral. What are the possible side effects of dicyclomine? Get emergency medical help if you have signs of an allergic reaction: hives; difficult breathing; swelling of your face, lips, tongue, or throat. Call your doctor at once if you have: fast or slow heartbeats, pounding heartbeats or fluttering in your chest; confusion, agitation, hallucinations, unusual thoughts or behavior; problems with memory or speech; problems with balance or muscle movement; diarrhea, severe constipation, or worsening of bowel symptoms; trouble swallowing; bruising, swelling, or pain where a dicyclomine injection was given; or dehydration --dizziness, confusion, feeling very thirsty, less urination or sweating. Confusion and mood or behavior changes may be more likely in older adults. Common side effects may include: drowsiness, dizziness, weakness, nervousness; blurred vision; dry mouth; or nausea. This is not a complete list of side effects and others may occur. Call your doctor for medical advice about side effects. You may report side effects to FDA at 8-090-ORX-4692. What other drugs will affect dicyclomine? Using dicyclomine with other drugs that make you drowsy can worsen this effect. Ask your doctor before using opioid medication, a sleeping pill, a muscle relaxer, or medicine for anxiety or seizures. Tell your doctor about all your current medicines. Many drugs can affect dicyclomine, especially: bronchodilator asthma medication; cold or allergy medicine (Benadryl and others); glaucoma medication; heart medication; medicine to treat depression, anxiety, mood disorders, or mental illness; medicine to treat overactive bladder; medicine to treat Parkinson's disease; or medicine to treat stomach problems, motion sickness, or irritable bowel syndrome. This list is not complete and many other drugs may affect dicyclomine. This includes prescription and zcck-fgm-rbvkqqx medicines, vitamins, and herbal products. Not all possible drug interactions arelisted here. Where can I get more information? Your pharmacist can provide more information about dicyclomine. Remember, keep this and all other medicines out of the reach of children, never share your medicines with others, and use this medication only for the indication prescribed. Every effort has been made to ensure that the information provided by [employer]. [employer]') is accurate, up-to-date, and complete, but no guarantee is made to that effect. Drug information contained herein may be time sensitive. [employer] information has been compiled for use by healthcare practitioners and consumers in the [place] and therefore [employer] does not warrant that uses outside of the [place] are appropriate, unless specifically indicated otherwise. [employer] drug information does not endorse drugs, diagnose patients or recommend therapy. [employer] drug information isan informational resource designed to assist licensed healthcare practitioners in caring for their p atients and/or to serve consumers viewing this service as a supplement to, and not a substitute for, the expertise, skill, knowledge and judgment of healthcare practitioners. The absence of a warningfor a given drug or drug combination in no way should be construed to indicate that the drug or drug combination is safe, effective or appropriate for any given patient. [employer] does not assume any responsibility for any aspect of healthcare administered with the aid of information [employer] provides. The information contained herein is not intended to cover all possible uses, directions, precautions, warnings, drug interactions, allergic reactions, or adverse effects. If you have questions about the drugs you are taking, check with your doctor, nurse or pharmacist. Copyright 9027-2664 [employer]. Version: 8.01. Revision Date: 09/14/2022. ondansetron (oral) (on EVY se shaun) What is the most important information I should know about ondansetron? You should not use ondansetron if you are also using apomorphine (Apokyn). What is ondansetron? Ondansetron blocks the actions of chemicals in the body that can trigger nausea and vomiting. Ondansetron is used to prevent nausea and vomiting that may be caused by surgery, cancer chemotherapy, or radiation treatment. Ondansetron may be used for purposes not listed in this medication guide. What should I discuss with my health care provider before taking ondansetron? You should not use ondansetron if: you are also using apomorphine (Apokyn); or you are allergic to ondansetron or similar medicines (dolasetron, granisetron, palonosetron). To make sure ondansetron is safe for you, tell your doctor if you have: liver disease; an electrolyte imbalance (such as low levels of potassium or magnesium in your blood); congestive heart failure, slow heartbeats; a personal or family history of long QT syndrome; or a blockage in your digestive tract (stomach or intestines). Ondansetron is not expected to harm an unborn baby. Tell your doctor if you are . It is not known whether ondansetron passes into breast milk or if it could harm a nursing baby. Tell your doctor if you are breast-feeding a baby. Ondansetron is not approved for use by anyone younger than 4 years old. Ondansetron orally disintegrating tablets may contain phenylalanine. Tell your doctor if you have phenylketonuria (PKU). How should I take ondansetron? Follow all directions on your prescription label. Do not take this medicine in larger or smaller amounts or for longer than recommended. Ondansetron can be taken with or without food. The first dose of ondansetron is usually taken before the start of your surgery, chemotherapy, or radiation treatment. Follow your doctor's dosing instructions very carefully. Take the ondansetron regular tablet with a full glass of water. To take the orally disintegrating tablet (Zofran ODT): Keep the tablet in its blister pack until you are ready to take it. Open the package and peel back the foil. Do not push a tablet through the foil or you may damage the tablet. Use dry hands to remove the tablet and place it in your mouth. Do not swallow the tablet whole. Allow it to dissolve in your mouth without chewing. Swallow several times as the tablet dissolves. To use ondansetron oral soluble film (strip) (Akua): Keep the strip in the foil pouch until you are ready to use the medicine. Using dry hands, remove the strip and place it on your tongue. It will begin to dissolve right away. Do not swallow the strip whole. Allow it to dissolve in your mouth without chewing. Swallow several times after the strip dissolves. If desired, you may drink liquid to help swallow the dissolved strip. Wash your hands after using Zuplenz. Measure liquid medicine with the dosing syringe provided, or with a special dose-measuring spoon ormedicine cup. If you do not have a dose-measuring device, ask your pharmacist for one. Store at room temperature away from moisture, heat, and light. Store liquid medicine in an upright position. What happens if I miss a dose? Take the missed dose as soon as you remember. Skip the missed dose if it is almost time for your next scheduled dose. Do not take extra medicine to make up the missed dose. What happens if I overdose? Seek emergency medical attention or call the Poison Help line at . Overdose symptoms may include sudden loss of vision, severe constipation, feeling light-headed, or fainting. What should I avoid while taking ondansetron? Ondansetron may impair your thinking or reactions. Be careful if you drive or do anything that requires you to be alert. What are the possible side effects of ondansetron? Get emergency medical help if you have signs of an allergic reaction: rash, hives; fever, chills, difficult breathing; swelling of your face, lips, tongue, or throat. Call your doctor at once if you have: severe constipation, stomach pain, or bloating; headache with chest pain and severe dizziness, fainting, fast or pounding heartbeats; fast or pounding heartbeats; jaundice (yellowing of the skin or eyes); blurred vision or temporary vision loss (lasting from only a few minutes to several hours); high levels of serotonin in the body--agitation, hallucinations, fever, fast heart rate, overactivereflexes, nausea, vomiting, diarrhea, loss of coordination, fainting. Common side effects may include: diarrhea or constipation; headache; drowsiness; or tired feeling. This is not a complete list of side effects and others may occur. Call your doctor for medical advice about side effects. You may report side effects to FDA at 2-761-FQU-3126. What other drugs will affect ondansetron? Ondansetron can cause a serious heart problem, especially if you use certain medicines at the same time, including antibiotics, antidepressants, heart rhythm medicine, antipsychotic medicines, and medicines to treat cancer, malaria, HIV or AIDS. Tell your doctor about all medicines you use, and those you start or stop using during your treatment with ondansetron. Taking ondansetron while you are using certain other medicines can cause high levels of serotonin to build up in your body, a condition called 'serotonin syndrome,' which can be fatal. Tell your doctor if you also use: medicine to treat depression; medicine to treat a psychiatric disorder; a narcotic (opioid) medication; or medicine to prevent nausea and vomiting. This list is not complete and many other drugs can interact with ondansetron. This includes prescription and iyum-hbt-oinkzfz medicines, vitamins, and herbal products. Give a list of all your medicines to any healthcare provider who treats you. Where can I get more information? Your pharmacist can provide more information about ondansetron. Remember, keep this and all other medicines out of the reach of children, never share your medicines with others, and use this medication only for the indication prescribed. Every effort has been made to ensure that the information provided by [employer]') is accurate, up-to-date, and complete, but no guarantee is made to that effect. Drug information contained herein may be time sensitive. [employer] information has been compiled for use by healthcare practitioners and consumers in the [place] and therefore [employer] does not warrant that uses outside of the [place] are appropriate, unless specifically indicated otherwise. [employer] drug information does not endorse drugs, diagnose patients or recommend therapy. [employer] drug information isan informational resource designed to assist licensed healthcare practitioners in caring for their p atients and/or to serve consumers viewing this service as a supplement to, and not a substitute for, the expertise, skill, knowledge and judgment of healthcare practitioners. The absence of a warningfor a given drug or drug combination in no way should be construed to indicate that the drug or drug combination is safe, effective or appropriate for any given patient. [employer] does not assume any responsibility for any aspect of healthcare administered with the aid of information [employer] provides. The information contained herein is not intended to cover all possible uses, directions, precautions, warnings, drug interactions, allergic reactions, or adverse effects. If you have questions about the drugs you are taking, check with your doctor, nurse or pharmacist. Copyright 7203-1963 [employer]. Version: 16.. Revision Date: 09/13/2022. Education Materials High Blood Pressure, To Be Confirmed, No Treatment Your blood pressure today was higher than normal. Sometimes anxiety or pain can cause a temporary rise in blood pressure. It later returns to normal. Blood pressure that is high only one time doesn tmean that you have high blood pressure (hypertension). High blood pressure is a chronic illness. But you should have your blood pressure measured again within the next few days to find out if it s still high. Blood pressure measurements are given as 2 numbers. Systolic blood pressure is the upper number. This is the pressure when the heart contracts. Diastolic blood pressure is the lower number. This is the pressure when the heart relaxes between beats. You will see your blood pressure readings written together. For example, a person with a systolic pressure of 118 and a diastolic pressure of 78 will have 118/78 written in the medical record. Blood pressure is categorized as normal, elevated, or stage 1 or stage 2 high blood pressure: Normal blood pressure is systolic of less than 120 and diastolic of less than 80 (120/80) Elevated blood pressure is systolic of 120 to 129 and diastolic less than 80 Stage 1 high blood pressure is systolic is 130 to 139 or diastolic between 80 to 89 Stage 2 high blood pressure is when systolic is 140 or higher or the diastolic is 90 or higher Lifestyle changes such as weight loss, exercise, and quitting smoking, can help manage your blood pressure. Have your blood pressure checked regularly to be sure it is under control. Home care To track your blood pressure, your provider may ask you to come into the office at different times and on different days. If your healthcare provider asks you to check your readings at home, ask him or her what times of the day to test and for how many days. Before you leave the office, ask your provider to show you how to take your blood pressure and be sure to ask questions if you don't understand something. Consider buying an automatic blood pressure monitor. Ask your provider for a recommendation as wellas the proper size cuff to fit your arm. You can buy blood pressure monitors at most pharmacies. The [place] [employer] recommends the following guidelines for home blood pressure monitoring: Don't smoke or drink coffee or other caffeinated drinks for 30 minutes before taking your blood pressure. Go to the bathroom before the test. Relax for 5 minutes before taking the measurement. Sit with your back supported (don't sit on a couch or soft chair); keep your feet on the floor uncrossed. Place your arm on a solid flat surface (like a table) with the upper part of the arm at heartlevel. Place the middle of the cuff directly above the bend of the elbow. Check the monitor's instruction manual for an illustration. Take multiple readings. When you measure, take 2 to 3 readings one minute apart and record all of the results. Take your blood pressure at the same time every day, or as your healthcare provider recommends. Record the date, time, and blood pressure reading. Take the record with you to your next medical appointment. If your blood pressure monitor has a built-in memory, simply take the monitor with you to your next appointment. Call your provider if you have several high readings. Don't be frightened by a single high blood pressure reading, but if you get several high readings, check in with your healthcare provider. Note: When blood pressure reaches a systolic (top number) of 180 or higher OR diastolic (bottom number) of 110 or higher, seek emergency medical treatment. Follow-up care Keep all of your follow up appointments. If your blood pressure is more than 120 over 80 on 2 out of 3 days, you will need to follow up with your healthcare provider for more evaluation and treatment. Don t put this off! High blood pressure can be treated. High blood pressure that s not treated raises your risk for heart attack, heart failure, and stroke. When to seek medical advice Call your healthcare provider right away if any of these occur: Blood pressure reaches a systolic (top number) of 180 or higher, OR diastolic (bottom number) of 110 or higher Chest pain or shortness of breath Severe headache Throbbing or rushing sound in the ears Nosebleed Sudden severe pain in your belly (abdomen) Extreme drowsiness, confusion, or fainting Dizziness or dizziness with spinning sensation (vertigo) Weakness of an arm or leg or one side of the face You have problems speaking or seeing 5928-9534 [employer]. [address] [place] [address], [place] [address]. All rights reserved. This information is not intended as a substitute for professional medical care. Always follow yourhealthcare professional's instructions. Abdominal Pain Abdominal pain is pain in the stomach or belly area. Everyone has this pain from time to time. In many cases it goes away on its own. But abdominal pain can sometimes be due to a serious problem, such as appendicitis. So it s important to know when to get help. Causes of abdominal pain There are many possible causes of abdominal pain. Common causes in adults include: Constipation, diarrhea, or gas Stomach acid flowing back up into the esophagus (acid reflux or heartburn) Severe acid reflux, called GERD (gastroesophageal reflux disease) A sore in the lining of the stomach or small intestine (peptic ulcer) Inflammation of the gallbladder, liver, or pancreas Gallstones or kidney stones Appendicitis Intestinal blockage An internal organ pushing through a muscle or other tissue (hernia) Urinary tract infections In women, menstrual cramps, fibroids, ovarian cysts, pelvic inflammatory disease, or endometriosis Inflammation or infection of the intestines, including Crohn's disease and ulcerative colitis Irritable bowel syndrome Diagnosing the cause of abdominal pain Your healthcare provider will give you a physical exam help find the cause of your pain. If needed,you will have tests. Belly pain has many possible causes. So it can be hard to find the reason for your pain. Giving details about your pain can help. Tell your provider where and when you feel the pain, and what makes it better or worse. Also let your provider know if you have other symptoms such as: Fever Tiredness Upset stomach (nausea) Vomiting Changes in bathroom habits Blood in the stool or black, tarry stool Weight loss that you can't explain (involuntary weight loss?) Also report any family history of stomach or intestinal problems, or cancers. Tell your provider about all your alcohol use and drug use. Tell your provider about all medicines you use, including herbs, vitamins, and supplements. Treating abdominal pain Some causes of pain need emergency medical treatment right away. These include appendicitis or a bowel blockage. Other problems can be treated with rest, fluids, or medicines. Your healthcare provider can give you specific instructions for treatment or self-care based on what is causing your pain. If you have vomiting or diarrhea, sip water or other clear fluids. When you are ready to eat solid foods again, start with small amounts of uvhs-gw-uoxnjb, low- fat foods. These include apple sauce, toast, or crackers. When to get medical care Call 911 or go to the hospital right away if you: Can t pass stool and are vomiting Are vomiting blood or have bloody diarrhea or black, tarry diarrhea Have chest, neck, or shoulder pain Feel like you might pass out Have pain in your shoulder blades with nausea Have sudden, severe belly pain Have new, severe pain unlike any you have felt before Have a belly that is rigid, hard, and hurts to touch Call your healthcare provider if you have: Pain for more than 5 days Bloating for more than 2 days Diarrhea for more than 5 days A fever of 100.4 F (38 C) or higher, or as directed by your healthcare provider Pain that gets worse Weight loss for no reason Continued lack of appetite Blood in your stool How to prevent abdominal pain Here are some tips to help prevent abdominal pain: Eat smaller amounts of food at each meal. Don't eat greasy, fried, or other high-fat foods. Don't eat foods that give you gas. Exercise regularly. Drink plenty of fluids. To help prevent GERD symptoms: Quit smoking. Reduce alcohol and foods that increase stomach acid. Don't use aspirin or gzwj-izu-vyovmry pain and fever medicines, if possible. This includes nonsteroidal anti-inflammatory drugs (NSAIDs). Lose excess weight. Finish eating at least 2 hours before you go to bed or lie down. Raise the head of your bed. 1742-7576 [employer]. [address] [place] [address]. All rights reserved. This information is not intended as a substitute for professional medical care. Always follow yourhealthcare professional's instructions. Additional Information VACCINATE! IT SAVES LIVES! Members of the community who have not yet received the COVID-19 vaccine and would like to receive it can visit one of [facility] vaccine clinics. There are many vaccine clinic locations within the [facility]. For locations and available times, please visit [email or web address] It is important to note that some COVID mobile vaccine clinics are held outdoors and may be canceled in rainy or stormy conditions. To learn more about pediatric vaccinations (ages 5-11), we invite you to visit the [facility] webpage. [email or web address] learn more about the COVID-19 vaccine, we invite you to visit the CDC website for a list of frequently asked questions. https://www.cdc.gov/coronavirus/2019-ncov/vaccines/faq.html [place] [employer] Patient Portal Access Instructions: Stay connected with your healthcare team and access your personal medical information anytime with the [facility] Patient Portal. If you would like a full copy of your medical records please contact the [facility] Medical Records Department Saturday through Saturday between 8a.m. and 4:30p.m. Please follow the directions below to access the portal: 1.Access the email account you provided upon registration to the [facility].2.Look for an invitation email from [facility].3.Open the email and access the invitation link: Accept Invitation to [facility].Fill in the required rao to create your account. Sign into [email or web address] with your username and password that you created in the above steps to stay up to date. You can then view a summary of results, a summary of your visits, and the ability to download your summaries to your computer or send the information securely to a physician. Remember that your healthcare information is confidential, so carefully consider who you will allow to register on the [facility] Patient Portal for access to your information. You can also access the [facility] Patient Portal on the [employer]. Simply click on Health Records under HealthData and then click on the [email or web address] logo. HOW TO SAFELY DISPOSE OF PRESCRIPTION MEDICATIONS Please use one of the following methods to safely dispose of your unused medications. 1.Use a drug disposal kit: the drug disposal pouch allows you to safely discard your old and unuseddrugs. Ask your nurse to give you one when you are discharged.2.Visit a local take-back location: Many local pharmacies and police departments have programs that collect old and unwanted prescriptiondrugs. Call your local pharmacy or go to http://bit.[employer]/7O0Qd1t to find one close to you.3.Make use of household items: Use cat litter or old coffee grounds to dispose medications if other options arenot available. Mix your drugs with these household products, seal them in an airtight container andthrow it into the garbage. Call [facility]: [phone] to be sure your drugs can be disposed of in this way. Some medicines may require a different approach.4.Never flush your medications down the toilet. IF YOU HAVE BEEN PRESCRIBED AN OPIOIDS FOR PAIN If you have been prescribed an opioid (such as hydrocodone, oxycodone or morphine), it is critical to understand the possible side effects and risks of opioid pain medications. Even when taken as directed, opioids can have several side effects including: Tolerance, meaning you might need to take more of a medication for the same pain relief. Nausea, vomiting and/or constipation. Sleepiness, dizziness, dry mouth, confusion, depression or itching. Physical dependence, meaning you have withdrawal symptoms when a medication is stopped ? this can develop within a few days. KNOW YOUR RESPONSIBILITIES It is important to know exactly how much and how often to take the opioid pain medications you are prescribed. Never take opioids in higher amounts or more often than prescribed. Do not combine opioids with alcohol or other drugs that cause drowsiness, such as benzodiazepines, also known as benzos,including diazepam and alprazolam, muscle relaxants or sleep aids. Never sell or share prescriptionopioids. This is illegal. Store opioids in a secure place and out of reach of others (including children, family, friends and visitors). The last page(s) of this document has been signed and retained as a CHART COPY Signatures Patient Education Materials Hypertension, To Be Confirmed Abdominal Pain Medication Leaflets dicyclomine (oral/injection), ondansetron (oral) My discharge plan and instructions have been reviewed and explained to me and ITAHIR MADELYN E understand my current condition and have read and understand these discharge instructions. I have received a written copy of the plan/instructions. If I have questions, I am aware that I should contact my doctor. Patient/News Department Intern Signature: Date/Time: Relationship to Patient: Witness Name/Signature: Date/Time: [facility] Eli [id number] Hospital Discharge instructions Patient Education 02/13/2023 06:10:12 Hypertension, To Be Confirmed High Blood Pressure, To Be Confirmed, No Treatment Your blood pressure today was higher than normal. Sometimes anxiety or pain can cause a temporary rise in blood pressure. It later returns to normal. Blood pressure that is high only one time doesn tmean that you have high blood pressure (hypertension). High blood pressure is a chronic illness. But you should have your blood pressure measured again within the next few days to find out if it s still high. Blood pressure measurements are given as 2 numbers. Systolic blood pressure is the upper number. This is the pressure when the heart contracts. Diastolic blood pressure is the lower number. This is the pressure when the heart relaxes between beats. You will see your blood pressure readings written together. For example, a person with a systolic pressure of 118 and a diastolic pressure of 78 will have 118/78 written in the medical record. Blood pressure is categorized as normal, elevated, or stage 1 or stage 2 high blood pressure: Normal blood pressure is systolic of less than 120 and diastolic of less than 80 (120/80) Elevated blood pressure is systolic of 120 to 129 and diastolic less than 80 Stage 1 high blood pressure is systolic is 130 to 139 or diastolic between 80 to 89 Stage 2 high blood pressure is when systolic is 140 or higher or the diastolic is 90 or higher Lifestyle changes such as weight loss, exercise, and quitting smoking, can help manage your blood pressure. Have your blood pressure checked regularly to be sure it is under control. Home care To track your blood pressure, your provider may ask you to come into the office at different times and on different days. If your healthcare provider asks you to check your readings at home, ask him or her what times of the day to test and for how many days. Before you leave the office, ask your provider to show you how to take your blood pressure and be sure to ask questions if you don't understand something. Consider buying an automatic blood pressure monitor. Ask your provider for a recommendation as wellas the proper size cuff to fit your arm. You can buy blood pressure monitors at most pharmacies. The [place] [employer] recommends the following guidelines for home blood pressure monitoring: Don't smoke or drink coffee or other caffeinated drinks for 30 minutes before taking your blood pressure. Go to the bathroom before the test. Relax for 5 minutes before taking the measurement. Sit with your back supported (don't sit on a couch or soft chair); keep your feet on the floor uncrossed. Place your arm on a solid flat surface (like a table) with the upper part of the arm at heartlevel. Place the middle of the cuff directly above the bend of the elbow. Check the monitor's instruction manual for an illustration. Take multiple readings. When you measure, take 2 to 3 readings one minute apart and record all of the results. Take your blood pressure at the same time every day, or as your healthcare provider recommends. Record the date, time, and blood pressure reading. Take the record with you to your next medical appointment. If your blood pressure monitor has a built-in memory, simply take the monitor with you to your next appointment. Call your provider if you have several high readings. Don't be frightened by a single high blood pressure reading, but if you get several high readings, check in with your healthcare provider. Note: When blood pressure reaches a systolic (top number) of 180 or higher OR diastolic (bottom number) of 110 or higher, seek emergency medical treatment. Follow-up care Keep all of your follow up appointments. If your blood pressure is more than 120 over 80 on 2 out of 3 days, you will need to follow up with your healthcare provider for more evaluation and treatment. Don t put this off! High blood pressure can be treated. High blood pressure that s not treated raises your risk for heart attack, heart failure, and stroke. When to seek medical advice Call your healthcare provider right away if any of these occur: Blood pressure reaches a systolic (top number) of 180 or higher, OR diastolic (bottom number) of 110 or higher Chest pain or shortness of breath Severe headache Throbbing or rushing sound in the ears Nosebleed Sudden severe pain in your belly (abdomen) Extreme drowsiness, confusion, or fainting Dizziness or dizziness with spinning sensation (vertigo) Weakness of an arm or leg or one side of the face You have problems speaking or seeing 2901-1382 [employer]. [address] [place] [address], [place] [address]. All rights reserved. This information is not intended as a substitute for professional medical care. Always follow yourhealthcare professional's instructions. 02/13/2023 06:07:56 Abdominal Pain Abdominal Pain Abdominal pain is pain in the stomach or belly area. Everyone has this pain from time to time. In many cases it goes away on its own. But abdominal pain can sometimes be due to a serious problem, such as appendicitis. So it s important to know when to get help. Causes of abdominal pain There are many possible causes of abdominal pain. Common causes in adults include: Constipation, diarrhea, or gas Stomach acid flowing back up into the esophagus (acid reflux or heartburn) Severe acid reflux, called GERD (gastroesophageal reflux disease) A sore in the lining of the stomach or small intestine (peptic ulcer) Inflammation of the gallbladder, liver, or pancreas Gallstones or kidney stones Appendicitis Intestinal blockage An internal organ pushing through a muscle or other tissue (hernia) Urinary tract infections In women, menstrual cramps, fibroids, ovarian cysts, pelvic inflammatory disease, or endometriosis Inflammation or infection of the intestines, including Crohn's disease and ulcerative colitis Irritable bowel syndrome Diagnosing the cause of abdominal pain Your healthcare provider will give you a physical exam help find the cause of your pain. If needed,you will have tests. Belly pain has many possible causes. So it can be hard to find the reason for your pain. Giving details about your pain can help. Tell your provider where and when you feel the pain, and what makes it better or worse. Also let your provider know if you have other symptoms such as: Fever Tiredness Upset stomach (nausea) Vomiting Changes in bathroom habits Blood in the stool or black, tarry stool Weight loss that you can't explain (involuntary weight loss?) Also report any family history of stomach or intestinal problems, or cancers. Tell your provider about all your alcohol use and drug use. Tell your provider about all medicines you use, including herbs, vitamins, and supplements. Treating abdominal pain Some causes of pain need emergency medical treatment right away. These include appendicitis or a bowel blockage. Other problems can be treated with rest, fluids, or medicines. Your healthcare provider can give you specific instructions for treatment or self-care based on what is causing your pain. If you have vomiting or diarrhea, sip water or other clear fluids. When you are ready to eat solid foods again, start with small amounts of lpjk-bz-ejeqxe, low- fat foods. These include apple sauce, toast, or crackers. When to get medical care Call 911 or go to the hospital right away if you: Can t pass stool and are vomiting Are vomiting blood or have bloody diarrhea or black, tarry diarrhea Have chest, neck, or shoulder pain Feel like you might pass out Have pain in your shoulder blades with nausea Have sudden, severe belly pain Have new, severe pain unlike any you have felt before Have a belly that is rigid, hard, and hurts to touch Call your healthcare provider if you have: Pain for more than 5 days Bloating for more than 2 days Diarrhea for more than 5 days A fever of 100.4 F (38 C) or higher, or as directed by your healthcare provider Pain that gets worse Weight loss for no reason Continued lack of appetite Blood in your stool How to prevent abdominal pain Here are some tips to help prevent abdominal pain: Eat smaller amounts of food at each meal. Don't eat greasy, fried, or other high-fat foods. Don't eat foods that give you gas. Exercise regularly. Drink plenty of fluids. To help prevent GERD symptoms: Quit smoking. Reduce alcohol and foods that increase stomach acid. Don't use aspirin or fnht-lsl-fhogwom pain and fever medicines, if possible. This includes nonsteroidal anti-inflammatory drugs (NSAIDs). Lose excess weight. Finish eating at least 2 hours before you go to bed or lie down. Raise the head of your bed. 9458-3029 [employer]. [address] [place] [address], [place] [address]. All rights reserved. This information is not intended as a substitute for professional medical care. Always follow yourhealthcare professional's instructions. Follow Up Care 02/13/2023 05:28:39 With:EBONI POP APRN-[employer] Address: [address] [facility] [place] [address]- [phone] When:2-[address] [facility] 01-03-2024 Note ORIGINAL EXAMINATION: CT OF THE ABDOMEN AND PELVIS WITH CONTRAST 02/13/2023 7:50 am TECHNIQUE: CT of the abdomen and pelvis was performed with the administration of intravenous contrast. Multiplanar reformatted images are provided for review. Automated exposure control, iterative reconstruction, and/or weight based adjustment of the mA/kV was utilized to reduce the radiation dose to as low as reasonably achievable. COMPARISON: CT abdomen pelvis 10/03/2021 HISTORY: ORDERING SYSTEM PROVIDED HISTORY: Reason for Exam: pain FINDINGS: The heart is normal in size. No pericardial thickening. Small amount of pericardial fluid. Visualized lung bases are clear. The aorta is nonaneurysmal with no significant atherosclerotic disease. Few prominent right lower quadrant and central mesentery root lymph nodes are noted, unchanged from the prior 10/03/2021 study. The liver is unremarkable. Splenomegaly measuring up to 15.2 cm, stable. Prior cholecystectomy. The pancreas and bilateral adrenal glands are unremarkable. Symmetric nephrograms. No hydronephrosis or renal calculi. The ureters and bladder are unremarkable. The uterus and adnexa are unremarkable. No pneumoperitoneum or free fluid. The large and small bowel are normal in caliber. Few scattered diverticula without evidence of diverticulitis. The appendix is unremarkable. No acute osseous abnormality. Chronic right L5 pars defect. IMPRESSION: No acute abnormality within the abdomen or pelvis. Few scattered diverticula without evidence of diverticulitis. Stable mild splenomegaly. Preliminary Report was Dictated by a Resident Interpreted by: Scout Lopez MD Preliminary Report By: Yovanny Serra Electronically signed By Scout Lopez MD Dictated Date: 02/13/2023 7:52:19 AM Prelim Date: 02/13/2023 7:57:47 AM Sign Date: 02/13/2023 8:57:45 AM Ordering Provider[facility] Note Sinus arrhythmia Compared to ECG at 03/07/2020 12:24:12 Electronic Signature: JEFFREY NICK DO 02/13/2023 06:10:01[facility] 05-28-2023 Hospital Discharge instructions Patient Education 07/08/2022 04:48:21 Abdominal Pain, Unknown Cause, (Female) Unknown Causes of Abdominal Pain (Female) The exact cause of your belly (abdominal) pain is not clear. This does not mean that this is something to worry about. Everyone likes to know the exact cause of the problem. But sometimes with belly pain, there is no clear-cut cause, and this could be a good thing. The good news is that your symptoms can be treated, and you will feel better. Your condition does not seem serious now. But sometimes the signs of a serious problem may take more time to appear. For this reason, it is important for you to watch for any new symptoms, problems, or worsening of your condition. Over the next few days, the abdominal pain may come and go. Or it may be constant. Other common symptoms can include nausea and vomiting. Sometimes it can be difficult to tell if you feel nauseous. You may just feel bad and not connect that feeling to nausea. Constipation, diarrhea, and a fever maygo along with the pain. The pain may continue even if treated correctly over the following days. Depending on how things go, sometimes the cause can become clear and may need more or different treatment. Additional evaluations, medicines, or tests may also be needed. Home care Your healthcare provider may prescribe medicine for pain, symptoms, or an infection. Follow the healthcare provider's instructions for taking these medicines. General care Rest as much as you can until your next exam. No strenuous activities. Try to find positions that ease discomfort. A small pillow placed on the abdomen may help relieve pain. Something warm on your abdomen (such as a heating pad) may help, but be careful not to burn yourself. Diet Don t force yourself to eat, especially if having cramps, vomiting, or diarrhea. Water is important so you don't get dehydrated. Soup may also be good. Sports drinks may also help,especially if they are not too acidic. Don't drink sugary drinks as this can make things worse. Take liquids in small amounts. Don t guzzle them. Caffeine sometimes makes the pain and cramping worse. Don t take dairy products if you have vomiting or diarrhea. Don't eat large amounts at a time. Wait a few minutes between bites. Eat a diet low in fiber (called a low-residue diet). Foods allowed include refined breads, white rice, fruit and vegetable juices without pulp, tender meats. These foods will pass more easily throughthe intestine. Don t have whole-grain foods, whole fruits and vegetables, meats, seeds and nuts, fried or fatty foods, dairy, alcohol and spicy foods until your symptoms go away. Follow-up care Follow up with your healthcare provider, or as advised, if your pain does not begin to improve in the next 24 hours. Call 911 Call 911 if any of these occur: Trouble breathing Confusion Fainting or loss of consciousness Rapid heart rate Seizure When to seek medical advice Call your healthcare provider right away if any of these occur: Pain gets worse or moves to the right lower abdomen New or worsening vomiting or diarrhea Swelling of the abdomen Unable to pass stool for more than 3 days Fever of 100.4 F (38 C) or higher, or as directed by your healthcare provider. Blood in vomit or bowel movements (dark red or black color) Yellow color of eyes and skin (jaundice) Weakness, dizziness Chest, arm, back, neck, or jaw pain Unexpected vaginal bleeding or missed period Can't keep down liquids or water and you are getting dehydrated [id number] [employer]. [address] [place] [address]. All rights reserved. This information is not intended as a substitute for professional medical care. Always follow yourhealthcare professional's instructions. Follow Up Care 07/08/2022 03:09:12 With:RISHI MADERA MD Address: [address] [facility] [place] [address] [phone] When:2-4 days With:EBONI POP Address: [address] [facility] [place] [address]- [phone] When:2-[address] [facility] 05-28-2023 Note Discharge Instructions Thank you for allowing [facility] to assist you with your healthcare needs. The following is importantdischarge information regarding your hospital visit. Diagnosis from Today's Visit Abdominal pain What to Do Next Instructions from Your Care Team No qualifying data available. Post Acute Orders No qualifying data available. You Need to Schedule the Following Appointments Follow Up with RISHI MADERA MD When Within 2-4 days Where: [address] [place] [address]- [phone] Follow Up with EBONI POP When Within 2-4 days Where: [address] [facility] [place] [address]- [phone] Allergies NKA Medications Please ask your primary doctor or pharmacist before taking any other medication not listed, including over the counter drugs, herbal medications, vitamins and or supplements as they may interact withyour home medications. What How Much When Why Instructions Last Dose New dicyclomine (Bentyl use dicyclomine ) 20 Milligram by mouth Four (4) times a day Duration: 7 Days Printed Prescription Unchanged busPIRone (busPIRone 5 mg oral tablet) 1 tab(s) by mouth Three (3) times a day Unchanged ethinyl estradiol-etonogestrel (NuvaRing 0.120 mg-0.015 mg/ 24 hours vaginal ring) 1 Each Vaginal Every 4 weeks Irregular menses Dysmenorrhea Duration: 3 Doses Unchanged phentermine (Adipex-P 37.5 mg oral capsule) 1 cap by mouth Once a day (in the morning) BMI 45.0-49.9, adult Duration: 30 Days Unchanged venlafaxine (venlafaxine 75 mg oral capsule, extended release) 1 cap by mouth Once a day Duration: 30 Days Please take this list to your next doctor s visit. Bring all medications you take, including over the counter medications, herbals and other supplements with you to your doctor s visit. Patients and families are reminded to discard old lists and to update any records with all medication providers or retail pharmacies. Education Materials Unknown Causes of Abdominal Pain (Female) The exact cause of your belly (abdominal) pain is not clear. This does not mean that this is something to worry about. Everyone likes to know the exact cause of the problem. But sometimes with belly pain, there is no clear-cut cause, and this could be a good thing. The good news is that your symptoms can be treated, and you will feel better. Your condition does not seem serious now. But sometimes the signs of a serious problem may take more time to appear. For this reason, it is important for you to watch for any new symptoms, problems, or worsening of your condition. Over the next few days, the abdominal pain may come and go. Or it may be constant. Other common symptoms can include nausea and vomiting. Sometimes it can be difficult to tell if you feel nauseous. You may just feel bad and not connect that feeling to nausea. Constipation, diarrhea, and a fever maygo along with the pain. The pain may continue even if treated correctly over the following days. Depending on how things go, sometimes the cause can become clear and may need more or different treatment. Additional evaluations, medicines, or tests may also be needed. Home care Your healthcare provider may prescribe medicine for pain, symptoms, or an infection. Follow the healthcare provider's instructions for taking these medicines. General care Rest as much as you can until your next exam. No strenuous activities. Try to find positions that ease discomfort. A small pillow placed on the abdomen may help relieve pain. Something warm on your abdomen (such as a heating pad) may help, but be careful not to burn yourself. Diet Don t force yourself to eat, especially if having cramps, vomiting, or diarrhea. Water is important so you don't get dehydrated. Soup may also be good. Sports drinks may also help,especially if they are not too acidic. Don't drink sugary drinks as this can make things worse. Take liquids in small amounts. Don t guzzle them. Caffeine sometimes makes the pain and cramping worse. Don t take dairy products if you have vomiting or diarrhea. Don't eat large amounts at a time. Wait a few minutes between bites. Eat a diet low in fiber (called a low-residue diet). Foods allowed include refined breads, white rice, fruit and vegetable juices without pulp, tender meats. These foods will pass more easily throughthe intestine. Don t have whole-grain foods, whole fruits and vegetables, meats, seeds and nuts, fried or fatty foods, dairy, alcohol and spicy foods until your symptoms go away. Follow-up care Follow up with your healthcare provider, or as advised, if your pain does not begin to improve in the next 24 hours. Call 911 Call 911 if any of these occur: Trouble breathing Confusion Fainting or loss of consciousness Rapid heart rate Seizure When to seek medical advice Call your healthcare provider right away if any of these occur: Pain gets worse or moves to the right lower abdomen New or worsening vomiting or diarrhea Swelling of the abdomen Unable to pass stool for more than 3 days Fever of 100.4 F (38 C) or higher, or as directed by your healthcare provider. Blood in vomit or bowel movements (dark red or black color) Yellow color of eyes and skin (jaundice) Weakness, dizziness Chest, arm, back, neck, or jaw pain Unexpected vaginal bleeding or missed period Can't keep down liquids or water and you are getting dehydrated [id number] [employer]. [address] [place] [address]. All rights reserved. This information is not intended as a substitute for professional medical care. Always follow yourhealthcare professional's instructions. Additional Information VACCINATE! IT SAVES LIVES! Members of the community who have not yet received the COVID-19 vaccine and would like to receive it can visit one of [facility] vaccine clinics. There are many vaccine clinic locations within the [facility]. For locations and available times, please visit [email or web address].[email or web address]/. It is important to note that some COVID mobile vaccine clinics are held outdoors and may be canceled in rainy or stormy conditions. To learn more about pediatric vaccinations (ages 5-11), we invite you to visit the [facility] webpage. [email or web address]/[email or web address] [email or web address] learn more about the COVID-19 vaccine, we invite you to visit the CDC website for a list of frequently asked questions. https://www.cdc.gov/coronavirus/2019-ncov/vaccines/faq.html [facility] Patient Portal Access Instructions: Stay connected with your healthcare team and access your personal medical information anytime with the [facility] Patient Portal. If you would like a full copy of your medical records please contact the [facility] Medical Records Department Saturday through Saturday between 8a.m. and 4:30p.m. Please follow the directions below to access the portal: 1.Access the email account you provided upon registration to the [facility].2.Look for an invitation email from [facility].3.Open the email and access the invitation link: Accept Invitation to [facility]4.Fill in the required rao to create your account. Sign into [email or web address] with your username and password that you created in the above steps to stay up to date. You can then view a summary of results, a summary of your visits, and the ability to download your summaries to your computer or send the information securely to a physician. Remember that your healthcare information is confidential, so carefully consider who you will allow to register on the [facility] Patient Portal for access to your information. You can also access the [facility] Patient Portal on the [employer] juan carlos. Simply click on Health Records under [employer] and then click on the [email or web address] logo. HOW TO SAFELY DISPOSE OF PRESCRIPTION MEDICATIONS Please use one of the following methods to safely dispose of your unused medications. 1.Use a drug disposal kit: the drug disposal pouch allows you to safely discard your old and unuseddrugs. Ask your nurse to give you one when you are discharged.2.Visit a local take-back location: Many local pharmacies and police departments have programs that collect old and unwanted prescriptiondrugs. Call your local pharmacy or go to http://[employer]/2D4So3f to find one close to you.3.Make use of household items: Use cat litter or old coffee grounds to dispose medications if other options arenot available. Mix your drugs with these household products, seal them in an airtight container andthrow it into the garbage. Call [facility]: [phone] to be sure your drugs can be disposed of in this way. Some medicines may require a different approach.4.Never flush your medications down the toilet. IF YOU HAVE BEEN PRESCRIBED AN OPIOIDS FOR PAIN If you have been prescribed an opioid (such as hydrocodone, oxycodone or morphine), it is critical to understand the possible side effects and risks of opioid pain medications. Even when taken as directed, opioids can have several side effects including: Tolerance, meaning you might need to take more of a medication for the same pain relief. Nausea, vomiting and/or constipation. Sleepiness, dizziness, dry mouth, confusion, depression or itching. Physical dependence, meaning you have withdrawal symptoms when a medication is stopped ? this can develop within a few days. KNOW YOUR RESPONSIBILITIES It is important to know exactly how much and how often to take the opioid pain medications you are prescribed. Never take opioids in higher amounts or more often than prescribed. Do not combine opioids with alcohol or other drugs that cause drowsiness, such as benzodiazepines, also known as benzos,including diazepam and alprazolam, muscle relaxants or sleep aids. Never sell or share prescriptionopioids. This is illegal. Store opioids in a secure place and out of reach of others (including children, family, friends and visitors). The last page(s) of this document has been signed and retained as a CHART COPY Signatures Patient Education Materials Abdominal Pain, Unknown Cause, (Female) Medication Leaflets My discharge plan and instructions have been reviewed and explained to me and I,LORETA KUNZ understand my current condition and have read and understand these discharge instructions. I have received a written copy of the plan/instructions. If I have questions, I am aware that I should contact my doctor. 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05-28-2023 Note ORIGINAL EXAMINATION: CT OF THE ABDOMEN AND PELVIS WITH CONTRAST 07/08/2022 4:19 am TECHNIQUE: CT of the abdomen and pelvis was performed with the administration of intravenous contrast. Multiplanar reformatted images are provided for review. Automated exposure control, iterative reconstruction, and/or weight based adjustment of the mA/kV was utilized to reduce the radiation dose to as low as reasonably achievable. COMPARISON: None. HISTORY: ORDERING SYSTEM PROVIDED HISTORY: Reason for Exam: abdominal pain FINDINGS: Upper abdominal solid organs are normal in appearance. Small bowel and colon are normal in course and caliber. No lymphadenopathy, free air, or free fluid. Urinary bladder is unremarkable. Uterus and adnexa demonstrate no acute findings. Aorta is normal in caliber. Lung bases are clear. Visualized osseous structures are intact. IMPRESSION: No acute findings. Interpreted by: Scout Lopez MD Preliminary Report By: Scout Lopez MD Electronically signed By Scout Lopez MD Dictated Date: 07/08/2022 4:26:21 AM Prelim Date: 07/08/2022 4:40:30 AM Sign Date: 07/08/2022 4:40:30 AM Ordering Provider: [facility]05-28-2023 Note ORIGINAL EXAMINATION: CT OF THE ABDOMEN AND PELVIS WITH CONTRAST 07/08/2022 4:19 am TECHNIQUE: CT of the abdomen and pelvis was performed with the administration of intravenous contrast. Multiplanar reformatted images are provided for review. Automated exposure control, iterative reconstruction, and/or weight based adjustment of the mA/kV was utilized to reduce the radiation dose to as low as reasonably achievable. COMPARISON: None. HISTORY: ORDERING SYSTEM PROVIDED HISTORY: Reason for Exam: abdominal pain FINDINGS: Upper abdominal solid organs are normal in appearance. Small bowel and colon are normal in course and caliber. No lymphadenopathy, free air, or free fluid. Urinary bladder is unremarkable. Uterus and adnexa demonstrate no acute findings. Aorta is normal in caliber. Lung bases are clear. Visualized osseous structures are intact. IMPRESSION: No acute findings. Interpreted by: Scout Lopez MD Preliminary Report By: Scout Lopez MD Electronically signed By Scout Lopez MD Dictated Date: 07/08/2022 4:26:21 AM Prelim Date: 07/08/2022 4:40:30 AM Sign Date: 07/08/2022 4:40:30 AM Ordering Provider: ENIO [facility]12-08-2022 Hospital Discharge instructions Patient Education 01/18/2022 12:28:41 How to Use an Incentive Spirometer How To Use an Incentive Spirometer An incentive spirometer is a tool that measures how well you are filling your lungs with each breath. Learning to take long, deep breaths using this tool can help you keep your lungs clear and active. This may help to reverse or lessen your chance of developing breathing (pulmonary) problems, especially infection. You may be asked to use a spirometer: After a surgery. If you have a lung problem or a history of smoking. After a long period of time when you have been unable to move or be active. If the spirometer includes an indicator to show the highest number that you have reached, your health care provider or respiratory therapist will help you set a goal. Keep a list (log) of your progress as told by your health care provider. What are the risks? Breathing too quickly may cause dizziness or cause you to pass out. Take your time so you do not get dizzy or light-headed. If you are in pain, you may need to take pain medicine before doing incentive spirometry. It is harder to take a deep breath if you are having pain. How to use your incentive spirometer 1.Sit up on the edge of your bed or on a chair. 2.Hold the incentive spirometer so that it is in an upright position. 3.Before you use the spirometer, breathe out normally. 4.Place the mouthpiece in your mouth. Make sure your lips are closed tightly around it. 5.Breathe in slowly and as deeply as you can through your mouth, causing the piston or the ball to rise toward the top of the chamber. 6.Hold your breath for 3 5 seconds, or for as long as possible. If the spirometer includes a process coach indicator, use this to guide you in breathing. Slow down your breathing if the indicator goes above the marked areas. 7.Remove the mouthpiece from your mouth and breathe out normally. The piston or ball will return tothe bottom of the chamber. 8.Rest for a few seconds, then repeat the steps 10 or more times. Take your time and take a few normal breaths between deep breaths so that you do not get dizzy or light-headed. Do this every 1 2 hours when you are awake. 9.If the spirometer includes a goal marker to show the highest number you have reached (best effort), use this as a goal to work toward during each repetition. 10.After each set of 10 deep breaths, cough a few times. This will help to make sure that your lungs are clear. If you have an incision on your chest or abdomen from surgery, place a pillow or a rolled-up towel firmly against the incision when you cough. This can help to reduce pain from coughing. General tips When you become able to get out of bed, walk around often and continue to cough to help clear your lungs. Keep using the incentive spirometer until your health care provider says it is okay to stop using it. If you have been in the hospital, you may be told to keep using the spirometer at home. Contact a health care provider if: You are having difficulty using the spirometer. You have trouble using the spirometer as often as instructed. Your pain medicine is not giving enough relief for you to use the spirometer as told. You have a fever. You develop shortness of breath. Get help right away if: You develop a cough with bloody mucus from the lungs (bloody sputum). You have fluid or blood coming from an incision site after you cough. Summary An incentive spirometer is a tool that can help you learn to take long, deep breaths to keep your lungs clear and active. You may be asked to use a spirometer after a surgery, if you have a lung problem or a history of smoking, or if you have been inactive for a long period of time. Use your incentive spirometer as instructed every 1 2 hours while you are awake. If you have an incision on your chest or abdomen, place a pillow or a rolled-up towel firmly against your incision when you cough. This will help to reduce pain. This information is not intended to replace advice given to you by your health care provider. Make sure you discuss any questions you have with your health care provider. Document Released: 06/10/2007 Document Revised: 02/20/2018 Document Reviewed: 12/11/2017 [employer] Patient Education 2020 [employer]. 01/18/2022 12:28:32 Pain Relief Before and After Surgery Pain Relief Before and After Surgery Pain relief is an important part of your overall care before, during, and after surgery. You and your health care provider will work together to make a plan to manage pain that you have before surgery (preoperative) and after surgery (postoperative). Addressing pain before surgery lessens the pain that you will have after surgery. Make sure that you fully understand and agree with your pain relief plan. If you have questions or concerns, it is important to discuss them with your health care provider. If you have pain that is not controlled by medicine, tell your health care provider. Severe pain after surgery may: Prevent sleep. Decrease your ability to breathe deeply and to cough. This can result in pneumonia or upper airway infections. Cause your heart to beat more quickly. Cause your blood pressure to be higher. Increase your risk for stomach and digestive problems. Slow down wound healing. Lead to depression, anxiety, and feelings of helplessness. Your health care provider may use more than one method at a time to help relieve your pain. Using this approach may allow you to eat, move around, and possibly leave the hospital sooner. What are options for managing pain before and after surgery? Oral pain medicines Pain medicines taken by mouth (orally) include: Non-narcotic medicines: ?Acetaminophen. ?NSAIDs, such as ibuprofen and naproxen. Muscle relaxants. These may relieve pain caused by muscle spasms. Anticonvulsants. These medicines are usually used to treat seizures. They may help to lessen nerve pain. Opioids. These medicines relieve pain by binding to pain receptors in the brain and spinal cord (narcotic pain medicines). Opioids may help relieve short-term (acute) postoperative pain that is moderate to moderately severe. ?Opioids are often combined with non-narcotic medicines to improve pain relief, lower the risk of side effects, and lower the chance of addiction. ?To help prevent addiction, opioids are given for short periods of time in careful doses. If you follow instructions from your health care provider and you do not have a history of substance abuse, your risk of becoming addicted to opioids is low. Some of these medicines may be available in injectable form. They may be given through an IV if youare unable to eat or drink. As-needed pain control You can receive pain medicine when you need it, through an IV or as a pill or liquid. When you tellyour health care provider that you are having pain, he or she will give you the proper pain medicine. Medicine that numbs an area You may be given pain medicine that numbs an area (local anesthetic): As an injection near your painful area (local infiltration). As an injection near the nerve that provides feeling to a specific part of your body (peripheral nerve block). As an injection in your spine (spinal block). Through a local anesthetic reservoir pump. For this method, one or more catheters are inserted intoyour incision at the end of your procedure. These catheters are connected to a device that is filled with a non-narcotic pain medicine. Medicine gradually empties into your incision area over the next several days. Continuous epidural pain control With this method, you receive pain medicine through a small, thin tube (catheter) that is inserted into your back, near your spinal cord. Medicine flows through the catheter to lessen pain in areas of your body that are below the catheter. The catheter is usually put into the back shortly before surgery. It may be left in until you can eat, take medicine by mouth, pass urine, and have a bowel movement. This method may be recommended if you are having surgery on your abdomen, hip area, or legs. This method of pain relief may help you heal faster because you may be able to do these things sooner: Regain normal bowel and bladder function. Return to eating. Get up and walk. IV patient-controlled analgesia (TICKER INSTALLER) pump With this method, you receive pain medicine through an IV that is connected to a TICKER INSTALLER pump. The TICKER INSTALLER pump gives you a specific amount of medicine when you push a button. This lets you control how much medicine you receive. You are the only person who should push this button. The pump is set up so that you cannot accidentally give yourself too much medicine. You will be able to start using your TICKER INSTALLER pump in the recovery room after your procedure. Tell your health care provider: If you are having too much pain. If you cannot push the button. If you are feeling too sleepy or nauseous. Other pain control methods Other methods of pain relief after surgery include: Heat and cold therapy. Massage. Topical analgesics. These are patches, creams, and gels that can be applied on the skin. Steroid medicines. These medicines may be given to lessen swelling. Physical therapy. A physical therapist will work with you to meet goals, such as feeling and functioning better. Physical therapy usually includes specific exercises that are tailored to your needs. Transcutaneous electrical nerve stimulation (TENS). This method sends electrical signals through the skin to interrupt pain signals. Cognitive behavioral therapy (CBT). This therapy helps you learn coping skills for dealing with pain. What are some questions to ask my health care provider? What pain relief options would be best for me? What are the risks of each option? What are the benefits of each option? How long will I need pain relief after surgery? Summary A plan to manage pain that you may have before surgery (preoperative) and after surgery (postoperative) is an important part of your overall care. Pain management options include medicines and non-medical therapies, such as physical therapy, massage, and heat or cold therapy. Pain management medicines include opioids and non-narcotic medicines such as NSAIDs, steroids, or local anesthetics. Pain medicines can have side effects. Side effects of opioids include constipation, nausea, excessive sleepiness, and risk of addiction. Your health care provider will work with you to prevent or manage these side effects and risks. This information is not intended to replace advice given to you by your health care provider. Make sure you discuss any questions you have with your health care provider. Document Released: 04/20/2003 Document Revised: 01/31/2018 Document Reviewed: 05/10/2017 [employer] Patient Education 2020 [employer]. 01/18/2022 12:28:20 Monitored Anesthesia Care, Care After Monitored Anesthesia Care, Care After These instructions provide you with information about caring for yourself after your procedure. Your health care provider may also give you more specific instructions. Your treatment has been plannedaccording to current medical practices, but problems sometimes occur. Call your health care provider if you have any problems or questions after your procedure. What can I expect after the procedure? After your procedure, you may: Feel sleepy for several hours. Feel clumsy and have poor balance for several hours. Feel forgetful about what happened after the procedure. Have poor judgment for several hours. Feel nauseous or vomit. Have a sore throat if you had a breathing tube during the procedure. Follow these instructions at home: For at least 24 hours after the procedure: Have a responsible adult stay with you. It is important to have someone help care for you until youare awake and alert. Rest as needed. Do not: ?Participate in activities in which you could fall or become injured. ?Drive. ?Use heavy machinery. ?Drink alcohol. ?Take sleeping pills or medicines that cause drowsiness. ?Make important decisions or sign legal documents. ?Take care of children on your own. Eating and drinking Follow the diet that is recommended by your health care provider. If you vomit, drink water, juice, or soup when you can drink without vomiting. Make sure you have little or no nausea before eating solid foods. General instructions Take eumr-rbc-lvlnlsn and prescription medicines only as told by your health care provider. If you have sleep apnea, surgery and certain medicines can increase your risk for breathing problems. Follow instructions from your health care provider about wearing your sleep device: ?Anytime you are sleeping, including during daytime naps. ?While taking prescription pain medicines, sleeping medicines, or medicines that make you drowsy. If you smoke, do not smoke without supervision. Keep all follow-up visits as told by your health care provider. This is important. Contact a health care provider if: You keep feeling nauseous or you keep vomiting. You feel light-headed. You develop a rash. You have a fever. Get help right away if: You have trouble breathing. Summary For several hours after your procedure, you may feel sleepy and have poor judgment. Have a responsible adult stay with you for at least 24 hours or until you are awake and alert. This information is not intended to replace advice given to you by your health care provider. Make sure you discuss any questions you have with your health care provider. Document Released: 05/20/2016 Document Revised: 04/28/2018 Document Reviewed: 05/20/2016 [employer] Patient Education 2020 [employer]. 01/18/2022 12:28:11 Laparoscopic Cholecystectomy, Care After Laparoscopic Cholecystectomy, Care After This sheet gives you information about how to care for yourself after your procedure. Your health care provider may also give you more specific instructions. If you have problems or questions, contact your health care provider. What can I expect after the procedure? After the procedure, it is common to have: Pain at your incision sites. You will be given medicines to control this pain. Mild nausea or vomiting. Bloating and possible shoulder pain from the air-like gas that was used during the procedure. Follow these instructions at home: Incision care Follow instructions from your health care provider about how to take care of your incisions. Make sure you: ?Wash your hands with soap and water before you change your bandage (dressing). If soap and water are not available, use hand body shop manager. ?Change your dressing as told by your health care provider. ?Leave stitches (sutures), skin glue, or adhesive strips in place. These skin closures may need to be in place for 2 weeks or longer. If adhesive strip edges start to loosen and curl up, you may trimthe loose edges. Do not remove adhesive strips completely unless your health care provider tells you to do that. Do not take baths, swim, or use a hot tub until your health care provider approves. Ask your healthcare provider if you can take showers. You may only be allowed to take sponge baths for bathing. Check your incision area every day for signs of infection. Check for: ?More redness, swelling, or pain. ?More fluid or blood. ?Warmth. ?Pus or a bad smell. Activity Do not drive or use heavy machinery while taking prescription pain medicine. Do not lift anything that is heavier than 10 lb (4.5 kg) until your health care provider approves. Do not play contact sports until your health care provider approves. Do not drive for 24 hours if you were given a medicine to help you relax (sedative). Rest as needed. Do not return to work or school until your health care provider approves. General instructions Take xslr-stk-izrrifh and prescription medicines only as told by your health care provider. To prevent or treat constipation while you are taking prescription pain medicine, your health care provider may recommend that you: ?Drink enough fluid to keep your urine clear or pale yellow. ?Take brmo-rsf-qrwkyuj or prescription medicines. ?Eat foods that are high in fiber, such as fresh fruits and vegetables, whole grains, and beans. ?Limit foods that are high in fat and processed sugars, such as fried and sweet foods. Contact a health care provider if: You develop a rash. You have more redness, swelling, or pain around your incisions. You have more fluid or blood coming from your incisions. Your incisions feel warm to the touch. You have pus or a bad smell coming from your incisions. You have a fever. One or more of your incisions breaks open. Get help right away if: You have trouble breathing. You have chest pain. You have increasing pain in your shoulders. You faint or feel dizzy when you stand. You have severe pain in your abdomen. You have nausea or vomiting that lasts for more than one day. You have leg pain. This information is not intended to replace advice given to you by your health care provider. Make sure you discuss any questions you have with your health care provider. Document Released: 01/28/2006 Document Revised: 01/10/2018 Document Reviewed: 07/16/2016 [employer] Patient Education 2020 [employer] Follow Up Care 01/09/2022 09:43:56 With:TIAGO BEDOYA MD, Surgery Address: [address] [facility] [place] [address]- [phone] When:Within 2 Week(s) Comments:Call physician's office to schedule follow up appointment. [facility] 12-08-2022 Summary of episode note Discharge Instructions Thank you for allowing [facility] to assist you with your healthcare needs. The following is importantdischarge information regarding your hospital visit. Your Care Team YOSI RICHEY DO Your Diagnosis Acute post-operative pain What to do next Follow Up Appointments Follow Up with TIAGO BEDOYA MD, Surgery When In 2 weeks Why: Call physician's office to schedule follow up appointment. Where: [address] [facility] [place] [address]- [phone] The Following Activity and Diet Have Been Ordered for You Discharge Activity - Ordered -- Sexual [place] Restricted No bending, twisting, crawling or squatt, No shower or tub bath for 2 days; no driving for 5 days, no lifting >15 lbs, 01/18/22 11:55:00 EST Discharge Diet - Ordered -- Follow the post-operative/post-procedure diet instructions provided by your physician's office.,01/18/22 11:55:00 EST The Following Equipment Has Been Ordered for You Discharge Home Equipment Discharge Wound Care - Ordered -- Dressing Type: Dry sterile drsg, Remove dressing in two (2) days. Leave steristrips on until they fall off, 01/18/22 11:55:00 EST Allergies NKA Medications Please ask your primary doctor or pharmacist before taking any other medication not listed, including over the counter drugs, herbal medications, vitamins and or supplements as they may interact withyour home medications. What How Much When Why Instructions Last Dose New acetaminophen-hydrocodone (Clinchco 325- 5 mg oral tablet) 1 tab(s) by mouth Every 4 hours as needed for Pain, scale 1-6 Acute post-operative pain Duration: 5 Days Pickup at [facility] #[id number] Unchanged ethinyl estradiol-etonogestrel (NuvaRing 0.120 mg-0.015 mg/ 24 hours vaginal ring) 1 Each Vaginal Every 4 weeks Irregular menses Dysmenorrhea Duration: 3 Doses Pharmacy Information [facility] #[id number]: [address], [place] [phone] Please take this list to your next doctor s visit. Bring all medications you take, including over the counter medications, herbals and other supplements with you to your doctor s visit. Patients and families are reminded to discard old lists and to update any records with all medication providers or retail pharmacies. Medication Leaflets acetaminophen and hydrocodone (a SEET a MIN [place] fen and anthony droe KOE done) Hycet, Lorcet, Clinchco, Verdrocet, Vicodin, Xodol, Zamicet What is the most important information I should know about acetaminophen and hydrocodone? MISUSE OF OPIOID MEDICINE CAN CAUSE ADDICTION, OVERDOSE, OR . Keep the medication in a place where others cannot get to it. Taking opioid medicine during may cause life-threatening withdrawal symptoms in the . Fatal side effects can occur if you use opioid medicine with alcohol, or with other drugs that cause drowsiness or slow your breathing. Stop taking this medicine and call your doctor right away if you have skin redness or a rash that spreads and causes blistering and peeling. What is acetaminophen and hydrocodone? Acetaminophen and hydrocodone is a combination medicine used to relieve moderate to severe pain. Acetaminophen and hydrocodone contains an opioid medicine, and may be habit-forming. Acetaminophen and hydrocodone may also be used for purposes not listed in this medication guide. What should I discuss with my healthcare provider before taking acetaminophen and hydrocodone? You should not use this medicine if you are allergic to acetaminophen or hydrocodone, or if you have: severe asthma or breathing problems; or a blockage in your stomach or intestines. Tell your doctor if you have ever had: breathing problems, sleep apnea (breathing stops during sleep); liver disease; a drug or alcohol addiction; kidney disease; a head injury or seizures; urination problems; or problems with your thyroid, pancreas, or gallbladder. If you use opioid medicine while you are , your baby could become dependent on the drug. This can cause life-threatening withdrawal symptoms in the baby after it is born. Babies born dependent on opioids may need medical treatment for several weeks. Ask a doctor before using opioid medicine if you are . Tell your doctor if you notice severe drowsiness or slow breathing in the nursing baby. How should I take acetaminophen and hydrocodone? Follow all directions on your prescription label. Never take this medicine in larger amounts, or for longer than prescribed. An overdose can damage your liver or cause . Tell your doctor if you feel an increased urge to use more of this medicine. Never share this medicine with another person, especially someone with a history of drug abuse or addiction. MISUSE CAN CAUSE ADDICTION, OVERDOSE, OR . Keep the medicine in a place where others cannot get to it. Selling or giving away this medicine is against the law. Measure liquid medicine carefully. Use the dosing syringe provided, or use a medicine dose-measuring device (not a kitchen spoon). If you need surgery or medical tests, tell the doctor ahead of time that you are using this medicine. You should not stop using this medicine suddenly. Follow your doctor's instructions about tapering your dose. Store at room temperature away from moisture and heat. Keep track of your medicine. You should be aware if anyone is using it improperly or without a prescription. Do not keep leftover opioid medication. Just one dose can cause in someone using this medicine accidentally or improperly. Ask your pharmacist where to locate a drug take-back disposal program.If there is no take-back program, flush the unused medicine down the toilet. What happens if I miss a dose? Since this medicine is used for pain, you are not likely to miss a dose. Skip any missed dose if itis almost time for your next dose. Do not use two doses at one time. What happens if I overdose? Seek emergency medical attention or call the Poison Help line at . An overdose of this medicine can be fatal, especially in a child or other person using the medicine without a prescription. Overdose symptoms may include nausea, vomiting, sweating, severe drowsiness, pinpoint pupils, slow breathing, or no breathing. Your doctor may recommend you get naloxone (a medicine to reverse an opioid overdose) and keep it with you at all times. A person caring for you can give the naloxone if you stop breathing or don't wake up. Your caregiver must still get emergency medical help and may need to perform CPR (cardiopulmonary resuscitation) on you while waiting for help to arrive. Anyone can buy naloxone from a pharmacy or local health department. Make sure any person caring foryou knows where you keep naloxone and how to use it. What should I avoid while taking acetaminophen and hydrocodone? Avoid driving or operating machinery until you know how this medicine will affect you. Dizziness ordrowsiness can cause falls, accidents, or severe injuries. Do not drink alcohol. Dangerous side effects or could occur. Ask a doctor or pharmacist before using any other medicine that may contain acetaminophen (sometimes abbreviated as APAP). Taking certain medications together can lead to a fatal overdose. What are the possible side effects of acetaminophen and hydrocodone? Get emergency medical help if you have signs of an allergic reaction: hives; difficulty breathing; swelling of your face, lips, tongue, or throat. Opioid medicine can slow or stop your breathing, and may occur. A person caring for you should give naloxone and/or seek emergency medical attention if you have slow breathing with long pauses,blue colored lips, or if you are hard to wake up. In rare cases, acetaminophen may cause a severe skin reaction that can be fatal. This could occur even if you have taken acetaminophen in the past and had no reaction. Stop taking this medicine and call your doctor right away if you have skin redness or a rash that spreads and causes blistering andpeeling. Call your doctor at once if you have: noisy breathing, sighing, shallow breathing, breathing that stops; a light-headed feeling, like you might pass out; liver problems--nausea, upper stomach pain, tiredness, loss of appetite, dark urine, marily-colored stools, jaundice (yellowing of the skin or eyes); low cortisol levels-- nausea, vomiting, loss of appetite, dizziness, worsening tiredness or weakness; o high levels of serotonin in the body--agitation, hallucinations, fever, sweating, shivering, fast heart rate, muscle stiffness, twitching, loss of coordination, nausea, vomiting, diarrhea. Serious breathing problems may be more likely in older adults and in those who are debilitated or have wasting syndrome or chronic breathing disorders. Common side effects include: dizziness, drowsiness, feeling tired; nausea, vomiting, stomach pain; constipation; or headache. This is not a complete list of side effects and others may occur. Call your doctor for medical advice about side effects. You may report side effects to FDA at 0-286-GAU-6764. What other drugs will affect acetaminophen and hydrocodone? You may have breathing problems or withdrawal symptoms if you start or stop taking certain other medicines. Tell your doctor if you also use an antibiotic, antifungal medication, heart or blood pressure medication, seizure medication, or medicine to treat HIV or hepatitis C. Opioid medication can interact with many other drugs and cause dangerous side effects or . Be sure your doctor knows if you also use: cold or allergy medicines, bronchodilator asthma/COPD medication, or a diuretic ('water pill'); medicines for motion sickness, irritable bowel syndrome, or overactive bladder; other opioids--opioid pain medicine or prescription cough medicine; a sedative like Valium--diazepam, alprazolam, lorazepam, Xanax, Klonopin, Versed, and others; drugs that make you sleepy or slow your breathing--a sleeping pill, muscle relaxer, medicine to treat mood disorders or mental illness; drugs that affect serotonin levels in your body--a stimulant, or medicine for depression, Parkinson's disease, migraine headaches, serious infections, or nausea and vomiting. This list is not complete. Other drugs may affect acetaminophen and hydrocodone, including prescription and bigs-fdc-[id number] medicines, vitamins, and herbal products. Not all possible interactions are listed here. Where can I get more information? Your doctor or pharmacist can provide more information about acetaminophen and hydrocodone. Remember, keep this and all other medicines out of the reach of children, never share your medicines with others, and use this medication only for the indication prescribed. Every effort has been made to ensure that the information provided by [employer]. [employer]') is accurate, up-to-date, and complete, but no guarantee is made to that effect. Drug information contained herein may be time sensitive. [employer] information has been compiled for use by healthcare practitioners and consumers in the [place] and therefore [employer] does not warrant that uses outside of the [place] are appropriate, unless specifically indicated otherwise. [employer] drug information does not endorse drugs, diagnose patients or recommend therapy. [employer] drug information isan informational resource designed to assist licensed healthcare practitioners in caring for their p atients and/or to serve consumers viewing this service as a supplement to, and not a substitute for, the expertise, skill, knowledge and judgment of healthcare practitioners. The absence of a warningfor a given drug or drug combination in no way should be construed to indicate that the drug or drug combination is safe, effective or appropriate for any given patient. [employer] does not assume any responsibility for any aspect of healthcare administered with the aid of information [employer] provides. The information contained herein is not intended to cover all possible uses, directions, precautions, warnings, drug interactions, allergic reactions, or adverse effects. If you have questions about the drugs you are taking, check with your doctor, nurse or pharmacist. Copyright 0590-2588 [employer]. Version: 16.03. Revision Date: 03/15/2020. Education Materials How To Use an Incentive Spirometer An incentive spirometer is a tool that measures how well you are filling your lungs with each breath. Learning to take long, deep breaths using this tool can help you keep your lungs clear and active. This may help to reverse or lessen your chance of developing breathing (pulmonary) problems, especially infection. You may be asked to use a spirometer: After a surgery. If you have a lung problem or a history of smoking. After a long period of time when you have been unable to move or be active. If the spirometer includes an indicator to show the highest number that you have reached, your health care provider or respiratory therapist will help you set a goal. Keep a list (log) of your progress as told by your health care provider. What are the risks? Breathing too quickly may cause dizziness or cause you to pass out. Take your time so you do not get dizzy or light-headed. If you are in pain, you may need to take pain medicine before doing incentive spirometry. It is harder to take a deep breath if you are having pain. How to use your incentive spirometer 1. Sit up on the edge of your bed or on a chair. 2. Hold the incentive spirometer so that it is in an upright position. 3. Before you use the spirometer, breathe out normally. 4. Place the mouthpiece in your mouth. Make sure your lips are closed tightly around it. 5. Breathe in slowly and as deeply as you can through your mouth, causing the piston or the ball to rise toward the top of the chamber. 6. Hold your breath for 3 5 seconds, or for as long as possible. If the spirometer includes a process coach indicator, use this to guide you in breathing. Slow down your breathing if the indicator goes above the marked areas. 7. Remove the mouthpiece from your mouth and breathe out normally. The piston or ball will return to the bottom of the chamber. 8. Rest for a few seconds, then repeat the steps 10 or more times. Take your time and take a few normal breaths between deep breaths so that you do not get dizzy or light-headed. Do this every 1 2 hours when you are awake. 9. If the spirometer includes a goal marker to show the highest number you have reached (best effort),use this as a goal to work toward during each repetition. 10. After each set of 10 deep breaths, cough a few times. This will help to make sure that your lungs are clear. If you have an incision on your chest or abdomen from surgery, place a pillow or a rolled-up towel firmly against the incision when you cough. This can help to reduce pain from coughing. General tips When you become able to get out of bed, walk around often and continue to cough to help clear your lungs. Keep using the incentive spirometer until your health care provider says it is okay to stop using it. If you have been in the hospital, you may be told to keep using the spirometer at home. Contact a health care provider if: You are having difficulty using the spirometer. You have trouble using the spirometer as often as instructed. Your pain medicine is not giving enough relief for you to use the spirometer as told. You have a fever. You develop shortness of breath. Get help right away if: You develop a cough with bloody mucus from the lungs (bloody sputum). You have fluid or blood coming from an incision site after you cough. Summary An incentive spirometer is a tool that can help you learn to take long, deep breaths to keep your lungs clear and active. You may be asked to use a spirometer after a surgery, if you have a lung problem or a history of smoking, or if you have been inactive for a long period of time. Use your incentive spirometer as instructed every 1 2 hours while you are awake. If you have an incision on your chest or abdomen, place a pillow or a rolled-up towel firmly against your incision when you cough. This will help to reduce pain. This information is not intended to replace advice given to you by your health care provider. Make sure you discuss any questions you have with your health care provider. Document Released: 06/10/2007 Document Revised: 02/20/2018 Document Reviewed: 12/11/2017 [employer] Patient Education 2020 [employer] Pain Relief Before and After Surgery Pain relief is an important part of your overall care before, during, and after surgery. You and your health care provider will work together to make a plan to manage pain that you have before surgery (preoperative) and after surgery (postoperative). Addressing pain before surgery lessens the pain that you will have after surgery. Make sure that you fully understand and agree with your pain relief plan. If you have questions or concerns, it is important to discuss them with your health care provider. If you have pain that is not controlled by medicine, tell your health care provider. Severe pain after surgery may: Prevent sleep. Decrease your ability to breathe deeply and to cough. This can result in pneumonia or upper airway infections. Cause your heart to beat more quickly. Cause your blood pressure to be higher. Increase your risk for stomach and digestive problems. Slow down wound healing. Lead to depression, anxiety, and feelings of helplessness. Your health care provider may use more than one method at a time to help relieve your pain. Using this approach may allow you to eat, move around, and possibly leave the hospital sooner. What are options for managing pain before and after surgery? Oral pain medicines Pain medicines taken by mouth (orally) include: Non-narcotic medicines: ? Acetaminophen. ? NSAIDs, such as ibuprofen and naproxen. Muscle relaxants. These may relieve pain caused by muscle spasms. Anticonvulsants. These medicines are usually used to treat seizures. They may help to lessen nerve pain. Opioids. These medicines relieve pain by binding to pain receptors in the brain and spinal cord (narcotic pain medicines). Opioids may help relieve short-term (acute) postoperative pain that is moderate to moderately severe. ? Opioids are often combined with non-narcotic medicines to improve pain relief, lower the risk of side effects, and lower the chance of addiction. ? To help prevent addiction, opioids are given for short periods of time in careful doses. If you follow instructions from your health care provider and you do not have a history of substance abuse, your risk of becoming addicted to opioids is low. Some of these medicines may be available in injectable form. They may be given through an IV if youare unable to eat or drink. As-needed pain control You can receive pain medicine when you need it, through an IV or as a pill or liquid. When you tellyour health care provider that you are having pain, he or she will give you the proper pain medicine. Medicine that numbs an area You may be given pain medicine that numbs an area (local anesthetic): As an injection near your painful area (local infiltration). As an injection near the nerve that provides feeling to a specific part of your body (peripheral nerve block). As an injection in your spine (spinal block). Through a local anesthetic reservoir pump. For this method, one or more catheters are inserted intoyour incision at the end of your procedure. These catheters are connected to a device that is filled with a non-narcotic pain medicine. Medicine gradually empties into your incision area over the next several days. Continuous epidural pain control With this method, you receive pain medicine through a small, thin tube (catheter) that is inserted into your back, near your spinal cord. Medicine flows through the catheter to lessen pain in areas of your body that are below the catheter. The catheter is usually put into the back shortly before surgery. It may be left in until you can eat, take medicine by mouth, pass urine, and have a bowel movement. This method may be recommended if you are having surgery on your abdomen, hip area, or legs. This method of pain relief may help you heal faster because you may be able to do these things sooner: Regain normal bowel and bladder function. Return to eating. Get up and walk. IV patient-controlled analgesia (TICKER INSTALLER) pump With this method, you receive pain medicine through an IV that is connected to a TICKER INSTALLER pump. The TICKER INSTALLER pump gives you a specific amount of medicine when you push a button. This lets you control how much medicine you receive. You are the only person who should push this button. The pump is set up so that you cannot accidentally give yourself too much medicine. You will be able to start using your TICKER INSTALLER pump in the recovery room after your procedure. Tell your health care provider: If you are having too much pain. If you cannot push the button. If you are feeling too sleepy or nauseous. Other pain control methods Other methods of pain relief after surgery include: Heat and cold therapy. Massage. Topical analgesics. These are patches, creams, and gels that can be applied on the skin. Steroid medicines. These medicines may be given to lessen swelling. Physical therapy. A physical therapist will work with you to meet goals, such as feeling and functioning better. Physical therapy usually includes specific exercises that are tailored to your needs. Transcutaneous electrical nerve stimulation (TENS). This method sends electrical signals through the skin to interrupt pain signals. Cognitive behavioral therapy (CBT). This therapy helps you learn coping skills for dealing with pain. What are some questions to ask my health care provider? What pain relief options would be best for me? What are the risks of each option? What are the benefits of each option? How long will I need pain relief after surgery? Summary A plan to manage pain that you may have before surgery (preoperative) and after surgery (postoperative) is an important part of your overall care. Pain management options include medicines and non-medical therapies, such as physical therapy, massage, and heat or cold therapy. Pain management medicines include opioids and non-narcotic medicines such as NSAIDs, steroids, or local anesthetics. Pain medicines can have side effects. Side effects of opioids include constipation, nausea, excessive sleepiness, and risk of addiction. Your health care provider will work with you to prevent or manage these side effects and risks. This information is not intended to replace advice given to you by your health care provider. Make sure you discuss any questions you have with your health care provider. Document Released: 04/20/2003 Document Revised: 01/31/2018 Document Reviewed: 05/10/2017 [employer] Patient Education 2020 [employer]. Monitored Anesthesia Care, Care After These instructions provide you with information about caring for yourself after your procedure. Your health care provider may also give you more specific instructions. Your treatment has been plannedaccording to current medical practices, but problems sometimes occur. Call your health care provider if you have any problems or questions after your procedure. What can I expect after the procedure? After your procedure, you may: Feel sleepy for several hours. Feel clumsy and have poor balance for several hours. Feel forgetful about what happened after the procedure. Have poor judgment for several hours. Feel nauseous or vomit. Have a sore throat if you had a breathing tube during the procedure. Follow these instructions at home: For at least 24 hours after the procedure: Have a responsible adult stay with you. It is important to have someone help care for you until youare awake and alert. Rest as needed. Do not: ? Participate in activities in which you could fall or become injured. ? Drive. ? Use heavy machinery. ? Drink alcohol. ? Take sleeping pills or medicines that cause drowsiness. ? Make important decisions or sign legal documents. ? Take care of children on your own. Eating and drinking Follow the diet that is recommended by your health care provider. If you vomit, drink water, juice, or soup when you can drink without vomiting. Make sure you have little or no nausea before eating solid foods. General instructions Take ehnn-llx-kfypxfq and prescription medicines only as told by your health care provider. If you have sleep apnea, surgery and certain medicines can increase your risk for breathing problems. Follow instructions from your health care provider about wearing your sleep device: ? Anytime you are sleeping, including during daytime naps. ? While taking prescription pain medicines, sleeping medicines, or medicines that make you drowsy. If you smoke, do not smoke without supervision. Keep all follow-up visits as told by your health care provider. This is important. Contact a health care provider if: You keep feeling nauseous or you keep vomiting. You feel light-headed. You develop a rash. You have a fever. Get help right away if: You have trouble breathing. Summary For several hours after your procedure, you may feel sleepy and have poor judgment. Have a responsible adult stay with you for at least 24 hours or until you are awake and alert. This information is not intended to replace advice given to you by your health care provider. Make sure you discuss any questions you have with your health care provider. Document Released: 05/20/2016 Document Revised: 04/28/2018 Document Reviewed: 05/20/2016 [employer] Patient Education 2020 [employer]. Laparoscopic Cholecystectomy, Care After This sheet gives you information about how to care for yourself after your procedure. Your health care provider may also give you more specific instructions. If you have problems or questions, contact your health care provider. What can I expect after the procedure? After the procedure, it is common to have: Pain at your incision sites. You will be given medicines to control this pain. Mild nausea or vomiting. Bloating and possible shoulder pain from the air-like gas that was used during the procedure. Follow these instructions at home: Incision care Follow instructions from your health care provider about how to take care of your incisions. Make sure you: ? Wash your hands with soap and water before you change your bandage (dressing). If soap and water are not available, use hand body shop manager. ? Change your dressing as told by your health care provider. ? Leave stitches (sutures), skin glue, or adhesive strips in place. These skin closures may need to be in place for 2 weeks or longer. If adhesive strip edges start to loosen and curl up, you may trim the loose edges. Do not remove adhesive strips completely unless your health care provider tells youto do that. Do not take baths, swim, or use a hot tub until your health care provider approves. Ask your healthcare provider if you can take showers. You may only be allowed to take sponge baths for bathing. Check your incision area every day for signs of infection. Check for: ? More redness, swelling, or pain. ? More fluid or blood. ? Warmth. ? Pus or a bad smell. Activity Do not drive or use heavy machinery while taking prescription pain medicine. Do not lift anything that is heavier than 10 lb (4.5 kg) until your health care provider approves. Do not play contact sports until your health care provider approves. Do not drive for 24 hours if you were given a medicine to help you relax (sedative). Rest as needed. Do not return to work or school until your health care provider approves. General instructions Take riml-irl-[id number] and prescription medicines only as told by your health care provider. To prevent or treat constipation while you are taking prescription pain medicine, your health care provider may recommend that you: ? Drink enough fluid to keep your urine clear or pale yellow. ? Take zazo-bfu-coprnza or prescription medicines. ? Eat foods that are high in fiber, such as fresh fruits and vegetables, whole grains, and beans. ? Limit foods that are high in fat and processed sugars, such as fried and sweet foods. Contact a health care provider if: You develop a rash. You have more redness, swelling, or pain around your incisions. You have more fluid or blood coming from your incisions. Your incisions feel warm to the touch. You have pus or a bad smell coming from your incisions. You have a fever. One or more of your incisions breaks open. Get help right away if: You have trouble breathing. You have chest pain. You have increasing pain in your shoulders. You faint or feel dizzy when you stand. You have severe pain in your abdomen. You have nausea or vomiting that lasts for more than one day. You have leg pain. This information is not intended to replace advice given to you by your health care provider. Make sure you discuss any questions you have with your health care provider. Document Released: 01/28/2006 Document Revised: 01/10/2018 Document Reviewed: 07/16/2016 Elsevier Patient Education 2020 [employer] Additional Information VACCINATE! IT SAVES LIVES! Members of the community who have not yet received the COVID-19 vaccine and would like to receive it can visit one of [facility] vaccine clinics. There are many vaccine clinic locations within the [facility]. For locations and available times, please visit [email or web address] It is important to note that some COVID mobile vaccine clinics are held outdoors and may be canceled in rainy or stormy conditions. To learn more about pediatric vaccinations (ages 5-11), we invite you to visit the [facility] webpage. [email or web address] [email or web address] learn more about the COVID-19 vaccine, we invite you to visit the [facility] website for a list of frequently asked questions. [email or web address] [facility] Patient Portal Access Instructions: Stay connected with your healthcare team and access your personal medical information anytime with the [facility] Patient Portal.If you would like a full copy of your medical records, please contact the [facility] Medical Records Department, Saturday through Saturday between 8a.m. and 4:30p.m. Please follow the directions below to access the portal: 1.Access the email account you provided upon registration to the [facility].2.Look for an invitation email from [facility].3.Open the email and access the invitation link: Accept Invitation to [facility]4.Fill in the required rao to create your account. Sign into [email or web address] with your username and password that you created in the above steps to stay up to date. You can then view a summary of results, a summary of your visits, and the ability to download your summaries to your computer or send the information securely to a physician. Remember that your healthcare information is confidential, so carefully consider who you will allow to register on the [facility] Patient Portal for access to your information. You can also access the [facility] Patient Portal on the [employer]. Simply click on Health Records under HealthData and then click on the [email or web address] logo. HOW TO SAFELY DISPOSE OF PRESCRIPTION MEDICATIONS Please use one of the following methods to safely dispose of your unused medications. 1.Use a drug disposal kit: the drug disposal pouch allows you to safely discard your old and unuseddrugs. Ask your nurse to give you one when you are discharged.2.Visit a local take-back location: Many local pharmacies and police departments have programs that collect old and unwanted prescriptiondrugs. Call your local pharmacy or go to http://[employer]/9J0Se9q to find one close to you.3.Make use of household items: Use cat litter or old coffee grounds to dispose medications if other options arenot available. Mix your drugs with these household products, seal them in an airtight container andthrow it into the garbage. Call [facility]: [phone] to be sure your drugs can be disposed of in this way. Some medicines may require a different approach.4.Never flush your medications down the toilet. IF YOU HAVE BEEN PRESCRIBED AN OPIOID FOR PAIN If you have been prescribed an opioid (such as hydrocodone, oxycodone or morphine), it is critical to understand the possible side effects and risks of opioid pain medications. Even when taken as directed, opioids can have several side effects including: Tolerance, meaning you might need to take more of a medication for the same pain relief. Nausea, vomiting and/or constipation. Sleepiness, dizziness, dry mouth, confusion, depression or itching. Physical dependence, meaning you have withdrawal symptoms when a medication is stopped, can develop within a few days. KNOW YOUR RESPONSIBILITIES It is important to know exactly how much and how often to take the opioid pain medications you are prescribed. Never take opioids in higher amounts or more often than prescribed. Do not combine opioids with alcohol or other drugs that cause drowsiness, such as benzodiazepines, also known as benzos, including diazepam and alprazolam, muscle relaxants or sleep aids. Never sell or share prescription opioids. This is illegal. Store opioids in a secure place and out of reach of others (including children, family, friends and visitors). The last page of this document has been signed and retained as a CHART COPY. Signatures Patient Education Materials How to Use an Incentive Spirometer Pain Relief Before and After Surgery Monitored Anesthesia Care, Care After Laparoscopic Cholecystectomy, Care After Medication Leaflets acetaminophen and hydrocodone My discharge plan and instructions have been reviewed and explained to me and I,LORETA KUNZ understand my current condition and have read and understand these discharge instructions. I have received a written copy of the plan/instructions. If I have questions, I am aware that I should contact my doctor. 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12-08-2022 Anesthesiology Consult note Patient: LORETA KUNZ Age: 21 years Sex: Female : 2000 Associated Diagnoses: None Author: RICH DEAN APRN-OPHTHALMIC ASST Assessment Postanesthesia assessment Vitals: Vital signs from flowsheet : Vital Signs 01/18/2022 12:11 EST Heart Rate Monitored 74 bpm Respiratory Rate 15 br/min Systolic Blood Pressure Non-Invasive 143 mmHg HI Diastolic Blood Pressure Non-Invasive 79 mmHg 01/18/2022 12:08 EST Temperature Temporal Artery 35.5 DegC Heart Rate Monitored 101 bpm HI Respiratory Rate 20 br/min Systolic Blood Pressure Non-Invasive 143 mmHg HI Diastolic Blood Pressure Non-Invasive 94 mmHg HI 01/18/2022 12:05 EST Respiratory Rate - Anes 0 br/min br/min 01/18/2022 12:00 EST Heart Rate Monitored 74 bpm bpm Respiratory Rate - Anes 13 br/min br/min 01/18/2022 11:55 EST Heart Rate Monitored 88 bpm bpm Respiratory Rate - Anes 20 br/min br/min 01/18/2022 11:50 EST Heart Rate Monitored 86 bpm bpm Respiratory Rate - Anes 15 br/min br/min Systolic Blood Pressure Non-Invasive 98 mmHg mmHg Diastolic Blood Pressure Non-Invasive 50 mmHg mmHg 01/18/2022 11:45 EST Temperature (Route Not Specified) 36 DegC DegC Heart Rate Monitored 87 bpm bpm Respiratory Rate - Anes 15 br/min br/min Systolic Blood Pressure Non-Invasive 100 mmHg mmHg Diastolic Blood Pressure Non-Invasive 55 mmHg mmHg 01/18/2022 11:40 EST Heart Rate Monitored 96 bpm bpm Respiratory Rate - Anes 15 br/min br/min Systolic Blood Pressure Non-Invasive 103 mmHg mmHg Diastolic Blood Pressure Non-Invasive 61 mmHg mmHg 01/18/2022 11:35 EST Heart Rate Monitored 93 bpm bpm Respiratory Rate - Anes 12 br/min br/min Systolic Blood Pressure Non-Invasive 117 mmHg mmHg Diastolic Blood Pressure Non-Invasive 68 mmHg mmHg 01/18/2022 11:30 EST Temperature (Route Not Specified) 36 DegC DegC Heart Rate Monitored 96 bpm bpm Respiratory Rate - Anes 13 br/min br/min Systolic Blood Pressure Non-Invasive 111 mmHg mmHg Diastolic Blood Pressure Non-Invasive 65 mmHg mmHg 01/18/2022 11:25 EST Heart Rate Monitored 93 bpm bpm Respiratory Rate - Anes 12 br/min br/min Systolic Blood Pressure Non-Invasive 114 mmHg mmHg Diastolic Blood Pressure Non-Invasive 69 mmHg mmHg 01/18/2022 11:20 EST Heart Rate Monitored 110 bpm bpm Respiratory Rate - Anes 13 br/min br/min Systolic Blood Pressure Non-Invasive 123 mmHg mmHg Diastolic Blood Pressure Non-Invasive 92 mmHg mmHg 01/18/2022 11:15 EST Temperature (Route Not Specified) 36 DegC DegC Heart Rate Monitored 108 bpm bpm Respiratory Rate - Anes 13 br/min br/min Systolic Blood Pressure Non-Invasive 109 mmHg mmHg Diastolic Blood Pressure Non-Invasive 72 mmHg mmHg 01/18/2022 11:10 EST Heart Rate Monitored 100 bpm bpm Respiratory Rate - Anes 12 br/min br/min Systolic Blood Pressure Non-Invasive 114 mmHg mmHg Diastolic Blood Pressure Non-Invasive 73 mmHg mmHg 01/18/2022 11:05 EST Heart Rate Monitored 105 bpm bpm Respiratory Rate - Anes 13 br/min br/min 01/18/2022 11:04 EST Systolic Blood Pressure Non-Invasive 116 mmHg mmHg Diastolic Blood Pressure Non-Invasive 64 mmHg mmHg 01/18/2022 11:00 EST Temperature (Route Not Specified) 36 DegC DegC Heart Rate Monitored 118 bpm bpm Respiratory Rate - Anes 10 br/min br/min 01/18/2022 10:56 EST Heart Rate Monitored 124 bpm bpm 01/18/2022 10:55 EST Systolic Blood Pressure Non-Invasive 136 mmHg mmHg Diastolic Blood Pressure Non-Invasive 82 mmHg mmHg 01/18/2022 10:50 EST Heart Rate Monitored 108 bpm bpm Systolic Blood Pressure Non-Invasive 121 mmHg mmHg Diastolic Blood Pressure Non-Invasive 80 mmHg mmHg 01/18/2022 10:46 EST Heart Rate Monitored 109 bpm bpm 01/18/2022 10:45 EST Systolic Blood Pressure Non-Invasive 163 mmHg mmHg Diastolic Blood Pressure Non-Invasive 101 mmHg mmHg 01/18/2022 10:42 EST Heart Rate Monitored 101 bpm bpm Systolic Blood Pressure Non-Invasive 123 mmHg mmHg Diastolic Blood Pressure Non-Invasive 79 mmHg mmHg 01/18/2022 8:45 EST Temperature Temporal Artery 36.9 DegC Peripheral Pulse Rate 72 bpm Respiratory Rate 18 br/min Systolic Blood Pressure Non-Invasive 110 mmHg Diastolic Blood Pressure Non-Invasive 72 mmHg Blood Pressure Method Automatic Blood Pressure Location Left arm , Measurements from flowsheet . Mental status: alert & oriented x 4. Respiratory function: respirations are non-labored. Respiratory support: none. CV function: Normal rate. Cardiovascular support: none. Pain. Nausea status: see nursing documentation of medications. Postoperative hydration status: within normal limits. Digitally Signed by RICH DEAN on 01/18/2022 12:[address] [facility]12-08-2022 Anesthesiology Consult note Patient: LORETA KUNZ Age: 21 years Sex: Female : 2000 Associated Diagnoses: None Author: RICH DEAN Preoperative Information Time of last food or liquid consumption: 01/18/2022 00:00:00 Anesthesia history Patient's history: negative. Family's history: negative. Health Status Allergies: Allergic Reactions (Selected) NKA, Allergies (1) ActiveReaction NKANone Documented Current medications: (Selected) Inpatient Medications Ordered LR 1,000 mL: 20 mL/hr, Intravenous Prescriptions Prescribed NuvaRing 0.120 mg-0.015 mg/24 hours vaginal rin EA, Vaginal, q4wk, for 3 dose(s), 3 EA, 3 Refill(s), Medications (1) Active Scheduled: (0) Continuous: (1) Lactated Ringers 1,000 mL 1,000 mL, Intravenous, 20 mL/hr PRN: (0) Problem list: Medical Bronchitis / SNOMED CT 88386795 / Confirmed Shortness of breath on exertion / SNOMED CT 179123112 / Confirmed Elevated blood-pressure reading, without diagnosis of hypertension / SNOMED CT 5621705777 / Confirmed Epigastric abdominal pain / SNOMED CT 809830324 / Confirmed Right foot pain / SNOMED CT 436237960 / Confirmed Irregular menses / SNOMED CT 910461752 / Confirmed Anxiety and depression / SNOMED CT 018941222 / Confirmed Need for influenza vaccination / SNOMED CT 381255503 / Confirmed RUQ abdominal pain / SNOMED CT 775221792 / Confirmed Seasonal allergies / SNOMED CT 9134239083 / Confirmed Tachycardia with heart rate 100-120 beats per minute / SNOMED CT 7202206 / Confirmed Tachycardia / SNOMED CT 9021107 / Confirmed, Active Problems (12) Anxiety and depression Bronchitis Elevated blood-pressure reading, without diagnosis of hypertension Epigastric abdominal pain Irregular menses Need for influenza vaccination Right foot pain RUQ abdominal pain Seasonal allergies Shortness of breath on exertion Tachycardia Tachycardia with heart rate 100-120 beats per minute Histories Past Medical History: Resolved DYSMENORRHEA ([id number]): Resolved. Family History: Diabetes Father Procedure history: Ankle reconstruction ([id number]) in the month of 02/2020 at 19 Years. Comments: 10/12/2020 9:20 Hafsa Scott LPN right ankle Colonoscopy ([id number]). Social History Social & Psychosocial Habits Alcohol 08/20/2018 Use: Never 2Risk Assessment: Denies Alcohol Use Employment/School 08/07/2021 Status: Employed Substance Abuse 08/20/2018 Use: Never 2Risk Assessment: Denies Substance Abuse Tobacco 01/01/2019 Tobacco Use: Never (less than 100 in l Exposure to Tobacco Smoke Lives in non-smoking home 2Risk Assessment: Denies Tobacco Use Home/Environment 10/12/2020 Living situation: Home/Independent Nutrition/Health 06/15/2021 Caffeine intake amount: soda 2-3 times a week . Physical Examination Vital Signs 01/18/2022 11:05 EST Heart Rate Monitored 105 bpm bpm Respiratory Rate - Anes 13 br/min br/min 01/18/2022 11:00 EST Heart Rate Monitored 118 bpm bpm Respiratory Rate - Anes 10 br/min br/min 01/18/2022 10:56 EST Heart Rate Monitored 124 bpm bpm 01/18/2022 10:50 EST Heart Rate Monitored 108 bpm bpm Systolic Blood Pressure Non-Invasive 121 mmHg mmHg Diastolic Blood Pressure Non-Invasive 80 mmHg mmHg 01/18/2022 10:46 EST Heart Rate Monitored 109 bpm bpm 01/18/2022 10:45 EST Systolic Blood Pressure Non-Invasive 163 mmHg mmHg Diastolic Blood Pressure Non-Invasive 101 mmHg mmHg 01/18/2022 10:42 EST Heart Rate Monitored 101 bpm bpm Systolic Blood Pressure Non-Invasive 123 mmHg mmHg Diastolic Blood Pressure Non-Invasive 79 mmHg mmHg 01/18/2022 8:45 EST Temperature Temporal Artery 36.9 DegC Peripheral Pulse Rate 72 bpm Respiratory Rate 18 br/min Systolic Blood Pressure Non-Invasive 110 mmHg Diastolic Blood Pressure Non-Invasive 72 mmHg Blood Pressure Method Automatic Blood Pressure Location Left arm Vital Signs(last 24 hrs) Last Charted Heart Rate [id number] bpm (JAN 18 11:05) Resp Rate 18 br/min (JAN 18 08:45) CUR561 mmHg (JAN 18 10:50) DBP80 mmHg (JAN 18 10:50) Measurements from flowsheet : Measurements 01/18/2022 8:45 EST Height 167.6 cm Admission Weight 127.3 kg [place] Body Weight 59.26 kg Pain assessment: Pain Assessment 01/18/2022 8:45 EST Primary Pain Intensity 0 Pain Scale Type 0-10 Pain scale . General: Alert and oriented. Airway: Normal temporomandibular joint mobility, Normal mouth, Normal neck range of motion. Mallampati classification: II (soft palate, fauces, uvula visible). Dentition Evaluation: Denies loose/chipped teeth. Respiratory: Respirations are non-labored. Cardiovascular: Normal rate. Neurologic: Alert, Oriented. Review / Management Results review: No qualifying data available , Lab results 01/18/2022 11:06 EST SN - Proc - Anesthesia Type General SN - Proc - Actual Procedure ROBOTIC ASSISTED CHOLECYSTECTOMY 01/18/2022 11:06 EST SN - SP - Prep Agents Chloraprep SN - SP - HR - Method N/A 01/18/2022 11:05 EST SN - PP - Body Position Supine Standard Intra-op 01/18/2022 11:05 EST Heart Rate Monitored 105 bpm bpm Respiratory Rate - Anes 13 br/min br/min Oxygen Saturation 99.7 % % Set Rate Anes 13 br/min br/min 01/18/2022 11:04 EST SN - PTCare - Anti-thromboembolism Rosamaria Sequential Compression Device (SCD) 01/18/2022 11:04 EST SN - Assess - LOC Alert, Awake SN - Assess - Orientation Oriented X 3 SN - Assess - Post-op Skin Integrity Intact/Dry 01/18/2022 11:03 EST SN - NC - Medication 0.5% BUPIVACAINE 30ML SN - NC - Medication 1.3% EXPAREL 20ML SN - NC - Route of Administration Local SN - NC - Route of Administration Local SN - NC - By (Single) SN - NC - By (Single) SN - NC - By (Single) SN - NC - By (Single) 01/18/2022 11:00 EST Heart Rate Monitored 118 bpm bpm Respiratory Rate - Anes 10 br/min br/min Oxygen Saturation 100 % % Set Rate Anes 10 br/min br/min 01/18/2022 10:59 EST SN - GCD - ASA Class 3 SN - GCD - Post-operative Diagnosis BILIARY COLIC, CHRONIC CHOLECYSTITIS SN - GCD - Case Level Level 6 01/18/2022 10:57 EST SN - CTm - Surgery Start 01/18/2022 10:55 01/18/2022 10:57 EST SN - CAt - Case Attendee SN - CAt - Case Attendee SN - CAt - Case Attendee SN - CAt - Case Attendee SN - CAt - Case Attendee SN - CAt - Case Attendee SN - CAt - Case Attendee SN - CAt - Case Attendee SN - CAt - Case Attendee SN - CAt - Case Attendee SN - CAt - Role Performed Primary Surgeon SN - CAt - Role Performed Vocational Education Professional 1 SN - CAt - Role Performed Scrub 1 SN - CAt - Role Performed Sausage Maker 1 SN - CAt - Role Performed OPHTHALMIC ASST 01/18/2022 10:56 EST Heart Rate Monitored 124 bpm bpm 01/18/2022 10:55 EST SN - CTm - Surgery Start Surgery Start 01/18/2022 10:50 EST Heart Rate Monitored 108 bpm bpm Systolic Blood Pressure Non-Invasive 121 mmHg mmHg Diastolic Blood Pressure Non-Invasive 80 mmHg mmHg AOH MAIN OR Preop & Phase II Record AOH MAIN OR Preop & Phase II Record 01/18/2022 10:46 EST Heart Rate Monitored 109 bpm bpm 01/18/2022 10:45 EST Systolic Blood Pressure Non-Invasive 163 mmHg mmHg Diastolic Blood Pressure Non-Invasive 101 mmHg mmHg 01/18/2022 10:42 EST Heart Rate Monitored 101 bpm bpm Systolic Blood Pressure Non-Invasive 123 mmHg mmHg Diastolic Blood Pressure Non-Invasive 79 mmHg mmHg 01/18/2022 9:02 EST Test Urine Negative test (u) int test (u) int QC PRGUN Negative QC PRGUP Positive 01/18/2022 9:01 EST indocyanine green 5 mg mg 01/18/2022 9:00 EST ibuprofen 800 mg mg 01/18/2022 8:59 EST gabapentin 300 mg mg 01/18/2022 8:57 EST Lactated Ringers Injection Begin Bag 1,000 mL mL 01/18/2022 8:45 EST Height 167.6 cm Admission Weight 127.3 kg [place] Body Weight 59.26 kg Temperature Temporal Artery 36.9 DegC Peripheral Pulse Rate 72 bpm Respiratory Rate 18 br/min Systolic Blood Pressure Non-Invasive 110 mmHg Diastolic Blood Pressure Non-Invasive 72 mmHg Blood Pressure Method Automatic Blood Pressure Location Left arm Primary Pain Intensity 0 Pain Scale Type 0-10 Pain scale Heart Rhythm Regular Respirations Unlabored Respiratory Pattern Regular All Lobes Breath Sounds Clear, Equal Cough None Oxygen Therapy Room air Abdomen Description Soft Abdomen Palpation Non-Tender Bowel Continence Continent Bowel Sounds All Quadrants Present Genitourinary Symptoms Frequency Urinary Elimination Voiding with difficulties Skin Temperature Warm Skin Description [place], Normal for ethnicity Skin Integrity Intact Skin Moisture General Dry IV Present Present Antecubital Right 01/18/2022 20 gauge Peripheral IV Activity: Assessed Peripheral IV Dressing Condition: Clean, Dry, Intact Peripheral IV Dressing Activity: Applied Peripheral IV Line Status/Patency: Flushes easily, Continuous infusion Peripheral IV Site Condition: No complications Peripheral IV Equipment: Extension set Neurological Symptoms Patient denies Extremity Movement Equal Characteristics of Speech Clear Level of Consciousness Alert MICHAEL Yes Strength All Extremities Strong Tone All Extremities Normal Sensation All Extremities Intact Left Upper Extremity Sensation Intact Right Upper Extremity Sensation Intact Left Lower Extremity Sensation Intact Right Lower Extremity Sensation Intact Affect/Behavior Appropriate, Calm, Cooperative Orientation Oriented x 4 Allergies Yes Transplant Nurse On Yes Consent Form Signed Yes Patient Dressed In Hospital gown, No undergarments Pre-op Preparation Undergarments removed CHG Preoperative Wash/Wipe Night before procedure, Day of procedure History & Physical Update On Chart Yes History & Physical On Chart Yes Obstructive Sleep Apnea Assess Completed Yes Orientation Assessment Oriented x 4 Belongings At Bedside Cell phone, Pants, Purse, Shirt Activity Status ADL Ambulating in gallegos, Ambulating in room Assistive Device None SCD On/Re-applied bilateral knee high Antiembolism Stocking On/Re-applied bilateral knee high NPO Status Maintained Standard Safety ID band on, Call device within reach, Bed in low position, Wheels locked Demonstrates Correct Call Light Use Yes Patient ID Band on and Verified Yes Implants Verified Yes Pacemaker/AICD Verified Yes Anesthesia Consent Signed Yes Blood Consent Signed Yes Last Fluid Intake 01/17/2022 21:00 Last Food Intake 01/17/2022 9:00 Last Void 01/18/2022 8:00 01/18/2022 8:44 EST Infectious Disease Symptoms Patient states no symptoms Safety Brochure Information Reviewed Yes [facility] Video Viewed No Teaching Evaluation Verbalizes/Nonverbally indicates understanding Admission Note-Nursing Same Day Patient History (Modified) 01/18/2022 8:36 EST SN - Preop - CTm Pt in SDS Room 01/18/2022 8:36 . Assessment and Plan [place] [employer]esthesi[employer] (ASA) physical status classification: Class III. Anesthetic Preoperative Plan Anesthetic technique: General. Informed consent: signed by patient. Digitally Signed by RICH DEAN on 01/18/2022 11:[address] [facility]11-24-2022 Hospital Discharge instructions Patient Education 01/03/2022 22:39:51 Vomiting (Adult) Vomiting (Adult) Vomiting is a common symptom that may be due to different causes. These include gastroenteritis (stomach flu), food poisoning and gastritis. There are other more serious causes of vomiting which may be hard to diagnose early in the illness. Therefore, it is important to watch for the warning signs listed below. The main danger from repeated vomiting is dehydration. This is due to excess loss of water and minerals from the body. When this occurs, your body fluids must be replaced. Home care If symptoms are severe, rest at home for the next 24 hours. Because your symptoms may be from an infection, wash your hands often and well. If soap and water are not available, use alcohol-based body shop manager to keep from spreading the infection to others. Wash your hands for at least 20 seconds. Humming the happy birthday song twice while you wash is aneasy way to make sure you've washed for 20 seconds. Wash your hands after using the toilet, before and after preparing food, before eating food, after changing a diaper, cleaning a wound, caring for a sick person, and blowing your nose, coughing, or sneezing. You should also wash your hands after caring for someone who is sick, touching pet food, ortreats, and touching an animal, or animal waste. You may use acetaminophen or NSAID medicines like ibuprofen or naproxen to control fever, unless another medicine was prescribed. If you have chronic liver or kidney disease or ever had a stomach ulcer or gastrointestinal bleeding, talk with your doctor before using these medicines. Aspirin should never be used in anyone under 18 years of age who is ill with a fever. It may cause severe liver damage. Don't use NSAID medicines if you are already taking one for another condition (like arthritis) or are on aspirin (such as for heart disease, or after a stroke) Don't use tobacco and or drink alcohol, which may worsen your symptoms. If medicines for vomiting were prescribed, take as directed. Once vomiting stops, then follow these guidelines: During the first 12 to 24 hours follow the diet below: Fruit juices. Apple, grape juice, clear fruit drinks, and electrolyte replacement drinks. Beverages. Soft drinks without caffeine; mineral water (plain or flavored), decaffeinated tea and coffee. Soups. Clear broth and bouillon Desserts. Plain gelatin, ice pops, and fruit juice bars. As you feel better, you may add 6 to 8 ounces of yogurt per day. During the next 24 hours you may add the following to the above: Hot cereal, plain toast, bread, rolls, crackers Plain noodles, rice, mashed potatoes, chicken noodle or rice soup Unsweetened canned fruit such as applesauce, bananas (avoid pineapple and citrus) Limit caffeine and chocolate. No spices or seasonings except salt. During the next 24 hours: Gradually resume a normal diet, as you feel better and your symptoms lessen. Follow-up care Follow up with your healthcare provider, or as advised. When to seek medical advice Call your healthcare provider right away if any of these occur: Constant right-sided lower belly pain or increasing general belly pain Continued vomiting (unable to keep liquids down) for 24 hours Vomiting blood or coffee grounds Swollen belly Frequent diarrhea (more than 5 times a day); blood (red or black color) or mucus in diarrhea Reduced urine output or extreme thirst Weakness, dizziness or fainting Unusually drowsy or confused Fever of 100.4 F (38 C) oral or higher, or as directed Yellow color of the eyes or skin [id number] [employer]. [address] [place] [address]. All rights reserved. This information is not intended as a substitute for professional medical care. Always follow yourhealthcare professional's instructions. 01/03/2022 21:37:27 Abdominal Pain Abdominal Pain Abdominal pain is pain in the stomach or belly area. Everyone has this pain from time to time. In many cases it goes away on its own. But abdominal pain can sometimes be due to a serious problem, such as appendicitis. So it s important to know when to get help. Causes of abdominal pain There are many possible causes of abdominal pain. Common causes in adults include: Constipation, diarrhea, or gas Stomach acid flowing back up into the esophagus (acid reflux or heartburn) Severe acid reflux, called GERD (gastroesophageal reflux disease) A sore in the lining of the stomach or small intestine (peptic ulcer) Inflammation of the gallbladder, liver, or pancreas Gallstones or kidney stones Appendicitis Intestinal blockage An internal organ pushing through a muscle or other tissue (hernia) Urinary tract infections In women, menstrual cramps, fibroids, ovarian cysts, pelvic inflammatory disease, or endometriosis Inflammation or infection of the intestines, including Crohn's disease and ulcerative colitis Irritable bowel syndrome Diagnosing the cause of abdominal pain Your healthcare provider will give you a physical exam help find the cause of your pain. If needed,you will have tests. Belly pain has many possible causes. So it can be hard to find the reason for your pain. Giving details about your pain can help. Tell your provider where and when you feel the pain, and what makes it better or worse. Also let your provider know if you have other symptoms such as: Fever Tiredness Upset stomach (nausea) Vomiting Changes in bathroom habits Blood in the stool or black, tarry stool Weight loss that you can't explain (involuntary weight loss?) Also report any family history of stomach or intestinal problems, or cancers. Tell your provider about all your alcohol use and drug use. Tell your provider about all medicines you use, including herbs, vitamins, and supplements. Treating abdominal pain Some causes of pain need emergency medical treatment right away. These include appendicitis or a bowel blockage. Other problems can be treated with rest, fluids, or medicines. Your healthcare provider can give you specific instructions for treatment or self-care based on what is causing your pain. If you have vomiting or diarrhea, sip water or other clear fluids. When you are ready to eat solid foods again, start with small amounts of yckl-ho-pbpbgz, low- fat foods. These include apple sauce, toast, or crackers. When to get medical care Call 911 or go to the hospital right away if you: Can t pass stool and are vomiting Are vomiting blood or have bloody diarrhea or black, tarry diarrhea Have chest, neck, or shoulder pain Feel like you might pass out Have pain in your shoulder blades with nausea Have sudden, severe belly pain Have new, severe pain unlike any you have felt before Have a belly that is rigid, hard, and hurts to touch Call your healthcare provider if you have: Pain for more than 5 days Bloating for more than 2 days Diarrhea for more than 5 days A fever of 100.4 F (38 C) or higher, or as directed by your healthcare provider Pain that gets worse Weight loss for no reason Continued lack of appetite Blood in your stool How to prevent abdominal pain Here are some tips to help prevent abdominal pain: Eat smaller amounts of food at each meal. Don't eat greasy, fried, or other high-fat foods. Don't eat foods that give you gas. Exercise regularly. Drink plenty of fluids. To help prevent GERD symptoms: Quit smoking. Reduce alcohol and foods that increase stomach acid. Don't use aspirin or exxy-jdq-pyjsbcj pain and fever medicines, if possible. This includes nonsteroidal anti-inflammatory drugs (NSAIDs). Lose excess weight. Finish eating at least 2 hours before you go to bed or lie down. Raise the head of your bed. [id number] [employer]. [address] [place] [address], [place] [address]. All rights reserved. This information is not intended as a substitute for professional medical care. Always follow yourhealthcare professional's instructions. Follow Up Care 01/03/2022 21:12:52 With:Go to emergency room if symptoms worsen Address:Unknown When:2-4 days With:YOSI RICHEY DO Address: [address] [place] [phone]- [phone] When:2-[address] [facility] 11-23-2022 Note Discharge Instructions Thank you for allowing [facility] to assist you with your healthcare needs. The following is importantdischarge information regarding your hospital visit. Diagnosis from Today's Visit Abdominal pain Vomiting Vomiting What to Do Next Instructions from Your Care Team Follow-up with your primary care provider. Follow-up with Dr. Bedoya of general surgery as previously instructed. Take Zofran as needed for nausea. Drink plenty of fluids. Continue taking your medication as previously prescribed. Return emergency department if experience worsening pain, nausea, vo miting, inability to eat or drink, fevers, or any other care concern. No qualifying data available. Post Acute Orders No qualifying data available. You Need to Schedule the Following Appointments Follow Up with Go to emergency room if symptoms worsen When Within 2-4 days Follow Up with YOSI RICHEY DO When Within 2-4 days Where: [address] [place] [id number] [phone] Allergies NKA Medications Please ask your primary doctor or pharmacist before taking any other medication not listed, including over the counter drugs, herbal medications, vitamins and or supplements as they may interact withyour home medications. What How Much When Why Instructions Last Dose Changed ondansetron (ondansetron 4 mg oral tablet, disintegrating) 1 tab(s) by mouth Every 6 hours as needed for Nausea/Vomiting Abdominal pain Vomiting Duration: 3 Days Printed Prescription Changed ondansetron (ondansetron 4 mg oral tablet, disintegrating) 1 tab(s) by mouth Every 4 hours as needed for Nausea/Vomiting Unchanged acetaminophen-hydrocodone ([place]inchco 325- 5 mg oral tablet) 1 tab(s) by mouth Every 6 hours as needed for as needed for pain Epigastric pain Duration: 3 Days Unchanged dicyclomine (dicyclomine 20 mg oral tablet) 1 tab(s) by mouth Three (3) times a day Unchanged escitalopram (Lexapro 5 mg oral tablet) 1 tab(s) by mouth Once a day Unchanged ethinyl estradiol-etonogestrel (NuvaRing 0.120 mg-0.015 mg/ 24 hours vaginal ring) 1 Each Vaginal Every 4 weeks Irregular menses Dysmenorrhea Duration: 3 Doses Unchanged famotidine (famotidine 40 mg oral tablet) 1 tab(s) by mouth Once a day Unchanged omeprazole (omeprazole 40 mg oral delayed release capsule) 1 cap by mouth Two (2) times a day Duration: 7 Days Please take this list to your next doctor s visit. Bring all medications you take, including over the counter medications, herbals and other supplements with you to your doctor s visit. Patients and families are reminded to discard old lists and to update any records with all medication providers or retail pharmacies. Education Materials Vomiting (Adult) Vomiting is a common symptom that may be due to different causes. These include gastroenteritis (stomach flu), food poisoning and gastritis. There are other more serious causes of vomiting which may be hard to diagnose early in the illness. Therefore, it is important to watch for the warning signs listed below. The main danger from repeated vomiting is dehydration. This is due to excess loss of water and minerals from the body. When this occurs, your body fluids must be replaced. Home care If symptoms are severe, rest at home for the next 24 hours. Because your symptoms may be from an infection, wash your hands often and well. If soap and water are not available, use alcohol-based body shop manager to keep from spreading the infection to others. Wash your hands for at least 20 seconds. Humming the happy birthday song twice while you wash is aneasy way to make sure you've washed for 20 seconds. Wash your hands after using the toilet, before and after preparing food, before eating food, after changing a diaper, cleaning a wound, caring for a sick person, and blowing your nose, coughing, or sneezing. You should also wash your hands after caring for someone who is sick, touching pet food, ortreats, and touching an animal, or animal waste. You may use acetaminophen or NSAID medicines like ibuprofen or naproxen to control fever, unless another medicine was prescribed. If you have chronic liver or kidney disease or ever had a stomach ulcer or gastrointestinal bleeding, talk with your doctor before using these medicines. Aspirin should never be used in anyone under 18 years of age who is ill with a fever. It may cause severe liver damage. Don't use NSAID medicines if you are already taking one for another condition (like arthritis) or are on aspirin (such as for heart disease, or after a stroke) Don't use tobacco and or drink alcohol, which may worsen your symptoms. If medicines for vomiting were prescribed, take as directed. Once vomiting stops, then follow these guidelines: During the first 12 to 24 hours follow the diet below: Fruit juices. Apple, grape juice, clear fruit drinks, and electrolyte replacement drinks. Beverages. Soft drinks without caffeine; mineral water (plain or flavored), decaffeinated tea and coffee. Soups. Clear broth and bouillon Desserts. Plain gelatin, ice pops, and fruit juice bars. As you feel better, you may add 6 to 8 ounces of yogurt per day. During the next 24 hours you may add the following to the above: Hot cereal, plain toast, bread, rolls, crackers Plain noodles, rice, mashed potatoes, chicken noodle or rice soup Unsweetened canned fruit such as applesauce, bananas (avoid pineapple and citrus) Limit caffeine and chocolate. No spices or seasonings except salt. During the next 24 hours: Gradually resume a normal diet, as you feel better and your symptoms lessen. Follow-up care Follow up with your healthcare provider, or as advised. When to seek medical advice Call your healthcare provider right away if any of these occur: Constant right-sided lower belly pain or increasing general belly pain Continued vomiting (unable to keep liquids down) for 24 hours Vomiting blood or coffee grounds Swollen belly Frequent diarrhea (more than 5 times a day); blood (red or black color) or mucus in diarrhea Reduced urine output or extreme thirst Weakness, dizziness or fainting Unusually drowsy or confused Fever of 100.4 F (38 C) oral or higher, or as directed Yellow color of the eyes or skin [id number] [employer]. [address] [place] [address], [place] [address]. All rights reserved. This information is not intended as a substitute for professional medical care. Always follow yourhealthcare professional's instructions. Abdominal Pain Abdominal pain is pain in the stomach or belly area. Everyone has this pain from time to time. In many cases it goes away on its own. But abdominal pain can sometimes be due to a serious problem, such as appendicitis. So it s important to know when to get help. Causes of abdominal pain There are many possible causes of abdominal pain. Common causes in adults include: Constipation, diarrhea, or gas Stomach acid flowing back up into the esophagus (acid reflux or heartburn) Severe acid reflux, called GERD (gastroesophageal reflux disease) A sore in the lining of the stomach or small intestine (peptic ulcer) Inflammation of the gallbladder, liver, or pancreas Gallstones or kidney stones Appendicitis Intestinal blockage An internal organ pushing through a muscle or other tissue (hernia) Urinary tract infections In women, menstrual cramps, fibroids, ovarian cysts, pelvic inflammatory disease, or endometriosis Inflammation or infection of the intestines, including Crohn's disease and ulcerative colitis Irritable bowel syndrome Diagnosing the cause of abdominal pain Your healthcare provider will give you a physical exam help find the cause of your pain. If needed,you will have tests. Belly pain has many possible causes. So it can be hard to find the reason for your pain. Giving details about your pain can help. Tell your provider where and when you feel the pain, and what makes it better or worse. Also let your provider know if you have other symptoms such as: Fever Tiredness Upset stomach (nausea) Vomiting Changes in bathroom habits Blood in the stool or black, tarry stool Weight loss that you can't explain (involuntary weight loss?) Also report any family history of stomach or intestinal problems, or cancers. Tell your provider about all your alcohol use and drug use. Tell your provider about all medicines you use, including herbs, vitamins, and supplements. Treating abdominal pain Some causes of pain need emergency medical treatment right away. These include appendicitis or a bowel blockage. Other problems can be treated with rest, fluids, or medicines. Your healthcare provider can give you specific instructions for treatment or self-care based on what is causing your pain. If you have vomiting or diarrhea, sip water or other clear fluids. When you are ready to eat solid foods again, start with small amounts of qfpr-ze-jqotyp, low- fat foods. These include apple sauce, toast, or crackers. When to get medical care Call 911 or go to the hospital right away if you: Can t pass stool and are vomiting Are vomiting blood or have bloody diarrhea or black, tarry diarrhea Have chest, neck, or shoulder pain Feel like you might pass out Have pain in your shoulder blades with nausea Have sudden, severe belly pain Have new, severe pain unlike any you have felt before Have a belly that is rigid, hard, and hurts to touch Call your healthcare provider if you have: Pain for more than 5 days Bloating for more than 2 days Diarrhea for more than 5 days A fever of 100.4 F (38 C) or higher, or as directed by your healthcare provider Pain that gets worse Weight loss for no reason Continued lack of appetite Blood in your stool How to prevent abdominal pain Here are some tips to help prevent abdominal pain: Eat smaller amounts of food at each meal. Don't eat greasy, fried, or other high-fat foods. Don't eat foods that give you gas. Exercise regularly. Drink plenty of fluids. To help prevent GERD symptoms: Quit smoking. Reduce alcohol and foods that increase stomach acid. Don't use aspirin or dyjw-tpb-wmhysxw pain and fever medicines, if possible. This includes nonsteroidal anti-inflammatory drugs (NSAIDs). Lose excess weight. Finish eating at least 2 hours before you go to bed or lie down. Raise the head of your bed. [id number] [employer]. [address] [place] [address], [place] [id number]. All rights reserved. This information is not intended as a substitute for professional medical care. Always follow yourhealthcare professional's instructions. Additional Information VACCINATE! IT SAVES LIVES! Members of the community who have not yet received the COVID-19 vaccine and would like to receive it can visit one of [facility] vaccine clinics. There are many vaccine clinic locations within the [facility]. For locations and available times, please visit [email or web address]. It is important to note that some COVID mobile vaccine clinics are held outdoors and may be canceled in rainy orstormy conditions. To learn more about pediatric vaccinations (ages 5-11), we invite you to visit the [facility] webpage. [email or web address] [email or web address] learn more about the COVID-19 vaccine, we invite you to visit the [facility] website for a list of frequently asked questions. [email or web address] [facility] [employer] Patient Portal Access Instructions: Stay connected with your healthcare team and access your personal medical information anytime with the [facility] Patient Portal. If you would like a full copy of your medical records please contact the [facility] Medical Records Department Saturday through Saturday between 8a.m. and 4:30p.m. Please follow the directions below to access the portal: 1.Access the email account you provided upon registration to the [facility].2.Look for an invitation email from [facility].3.Open the email and access the invitation link: Accept Invitation to [facility].Fill in the required rao to create your account. Sign into [email or web address] with your username and password that you created in the above steps to stay up to date. You can then view a summary of results, a summary of your visits, and the ability to download your summaries to your computer or send the information securely to a physician. Remember that your healthcare information is confidential, so carefully consider who you will allow to register on the [facility] Patient Portal for access to your information. You can also access the [facility] Patient Portal on the [employer]. Simply click on Health Records under [employer] and then click on the [email or web address] logo. HOW TO SAFELY DISPOSE OF PRESCRIPTION MEDICATIONS Please use one of the following methods to safely dispose of your unused medications. 1.Use a drug disposal kit: the drug disposal pouch allows you to safely discard your old and unuseddrugs. Ask your nurse to give you one when you are discharged.2.Visit a local take-back location: Many local pharmacies and police departments have programs that collect old and unwanted prescriptiondrugs. Call your local pharmacy or go to http://bit.[employer]/0C9Sh7o to find one close to you.3.Make use of household items: Use cat litter or old coffee grounds to dispose medications if other options arenot available. Mix your drugs with these household products, seal them in an airtight container andthrow it into the garbage. Call [facility]: [phone] to be sure your drugs can be disposed of in this way. Some medicines may require a different approach.4.Never flush your medications down the toilet. IF YOU HAVE BEEN PRESCRIBED AN OPIOIDS FOR PAIN If you have been prescribed an opioid (such as hydrocodone, oxycodone or morphine), it is critical to understand the possible side effects and risks of opioid pain medications. Even when taken as directed, opioids can have several side effects including: Tolerance, meaning you might need to take more of a medication for the same pain relief. Nausea, vomiting and/or constipation. Sleepiness, dizziness, dry mouth, confusion, depression or itching. Physical dependence, meaning you have withdrawal symptoms when a medication is stopped ? this can develop within a few days. KNOW YOUR RESPONSIBILITIES It is important to know exactly how much and how often to take the opioid pain medications you are prescribed. Never take opioids in higher amounts or more often than prescribed. Do not combine opioids with alcohol or other drugs that cause drowsiness, such as benzodiazepines, also known as benzos,including diazepam and alprazolam, muscle relaxants or sleep aids. Never sell or share prescriptionopioids. This is illegal. Store opioids in a secure place and out of reach of others (including children, family, friends and visitors). The last page(s) of this document has been signed and retained as a CHART COPY Signatures Patient Education Materials Vomiting (Adult) Abdominal Pain Medication Leaflets My discharge plan and instructions have been reviewed and explained to me and IJOAQUINA MADELYN E understand my current condition and have read and understand these discharge instructions. I have received a written copy of the plan/instructions. If I have questions, I am aware that I should contact my doctor. 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11-10-2022 Note ORIGINAL EXAMINATION: [facility]02/20/2021 2:42 pm TECHNIQUE: The patient received an intravenous injection of 6.0 mCi of Tc-99m mebrofenin (Choletec). Sequential planar images of the upper abdomen were then acquired over the next 60 minutes. An oral fatty meal was then administered followed by an additional period of imaging. Computer quantification of gallbladder emptying was performed. COMPARISON: December 11, 2021 ultrasound. HISTORY: ORDERING SYSTEM PROVIDED HISTORY: Reason for Exam: Right upper quadrant pain FINDINGS: There is prompt accumulation of activity within the liver and normal subsequent excretion via the biliary ductal system into the small bowel. The gallbladder first visualizes at about 30 minutes after radiopharmaceutical injection and progressively fills. After stimulation, there is no significant contraction of the gallbladder with further anterograde transit of activity into the small bowel. The gallbladder ejection fraction is calculated to be 1 % (normal above 35%). IMPRESSION: 1. No findings to suggest acute cholecystitis. 2. Significantly diminished gallbladder contraction to stimulus, which can be seen with chronic cholecystitis or biliary dyskinesia. 3. Patent common bile duct. 4. Normal hepatic function. Interpreted by: Isaías Montoya DO Preliminary Report By: Isaías Montoya DO Electronically signed By Isaías Montoya DO Dictated Date: 12/21/2021 2:45:05 PM Prelim Date: 12/21/2021 3:01:31 PM Sign Date: 12/21/2021 3:01:31 PM Ordering Provider: EBONI POP [id number] Note ORIGINAL EXAMINATION: [facility]02/20/2021 2:42 pm TECHNIQUE: The patient received an intravenous injection of 6.0 mCi of Tc-99m mebrofenin (Choletec). Sequential planar images of the upper abdomen were then acquired over the next 60 minutes. An oral fatty meal was then administered followed by an additional period of imaging. Computer quantification of gallbladder emptying was performed. COMPARISON: December 11, 2021 ultrasound. HISTORY: ORDERING SYSTEM PROVIDED HISTORY: Reason for Exam: Right upper quadrant pain FINDINGS: There is prompt accumulation of activity within the liver and normal subsequent excretion via the biliary ductal system into the small bowel. The gallbladder first visualizes at about 30 minutes after radiopharmaceutical injection and progressively fills. After stimulation, there is no significant contraction of the gallbladder with further anterograde transit of activity into the small bowel. The gallbladder ejection fraction is calculated to be 1 % (normal above 35%). IMPRESSION: 1. No findings to suggest acute cholecystitis. 2. Significantly diminished gallbladder contraction to stimulus, which can be seen with chronic cholecystitis or biliary dyskinesia. 3. Patent common bile duct. 4. Normal hepatic function. Interpreted by: Isaías Montoya DO Preliminary Report By: Isaías Montoya DO Electronically signed By Isaías Montoya DO Dictated Date: 12/21/2021 2:45:05 PM Prelim Date: 12/21/2021 3:01:31 PM Sign Date: 12/21/2021 3:01:31 PM Ordering Provider: [facility]10-31-2022 Hospital Discharge instructions Patient Education 12/11/2021 08:56:30 Epigastric Pain (Uncertain Cause) Epigastric Pain (Uncertain Cause) Epigastric pain is pain in the upper abdomen. It can be a sign of disease. Common causes include: Acid reflux (stomach acid flowing up into the esophagus) Gastritis (irritation of the stomach lining) Most often this is from aspirin or NSAID medicines such as ibuprofen, bacteria called H. pylori, or frequent alcohol use. Peptic ulcer disease Inflammation of the pancreas Gallstone Infection in the gallbladder Pain may be dull or burning. It may spread upward to the chest or to the back. There may be other symptoms such as belching, bloating, cramps or hunger pains. There may be weight loss or poor appetite, nausea or vomiting. Since the cause of your pain is not certain yet,you may need more tests. Sometimes the doctor will treat you for the most likely condition to see if there is improvement before doing more tests. Home care Medicines Antacids help neutralize the normal acids in your stomach.If you don t like the liquid, you can trya chewable one. You may find one works better than another for you. Overuse can cause diarrhea or constipation. Acid blockers (H2 blockers) decrease acid production. Examples are cimetidine, famotidine, and ranitidine. Acid inhibitors (PPIs) decrease acid production in a different way than the blockers. You may find they work better, but can take a little longer to take effect. Examples are omeprazole, lansoprazole, pantoprazole, rabeprazole, and esomeprazole. Many of these are available mmhm-aca-[id number] or available as generics. Take an antacid 30 to 60 minutes after eating and at bedtime, but not at the same time as an acid hai. Try not to take NSAIDs such as ibuprofen. Aspirin may also cause problems, but if taking it for your heart or other medical reasons, talk to your doctor before stopping it; you don't want to cause a worse problem, like a heart attack or stroke. Diet If certain foods seem to cause your pain, try not to eat them. Certain foods can worsen symptoms ofgastritis. Limit or avoid fatty, fried, and spicy foods, as well as coffee, chocolate, mint, and foods with high acid content such as tomatoes and citrus fruit and juices (orange, grapefruit, lemon). Eat slowly and chew food well before swallowing. Symptoms of gastritis can be worsened by certain foods. Don't drink alcohol. It can irritate the stomach. Don't consume caffeine, or use tobacco. These can delay healing and worsen your problem. Try eating smaller meals with snacks in between. Keep an empty stomach for 2 to 3 hours before lying down. Prop the head of the bed up if you have overnight symptoms. This helps acid clear from your esophagus. Follow-up care Follow up with your healthcare provider or as advised. When to seek medical advice Call your healthcare provider right away if any of the following occur: Stomach pain worsens or moves to the right lower part of the abdomen Chest pain appears, or if it worsens or spreads to the chest, back, neck, shoulder, or arm Frequent vomiting (can t keep down liquids) Blood in the stool or vomit (red or black color) Feeling weak or dizzy, fainting, or having trouble breathing Fever of 100.4 F (38 C) or higher, or as directed by your healthcare provider Abdominal swelling [id number] [employer]. [address] [place] [address], [place] [address]. All rights reserved. This information is not intended as a substitute for professional medical care. Always follow yourhealthcare professional's instructions. Follow Up Care 12/11/2021 07:26:54 With:YOSI RICHEY DO Address: [address] [place] [phone]- [phone] When:2-[address] [facility] 10-31-2022 Note Discharge Instructions Thank you for allowing [facility] to assist you with your healthcare needs. The following is importantdischarge information regarding your hospital visit. Diagnosis from Today's Visit Epigastric pain Abdominal pain What to Do Next Instructions from Your Care Team Discharge Return to Work, School, or Sports (Return to Work, School, or Sports) - Ordered -- 12/11/21, 12/12/21, May return to: work, 12/11/21 8:53:00 EDT Post Acute Orders No qualifying data available. You Need to Schedule the Following Appointments Follow Up with YOSI RICHEY DO When Within 2-4 days Where: [address] [place] [phone] Allergies NKA Medications Please ask your primary doctor or pharmacist before taking any other medication not listed, including over the counter drugs, herbal medications, vitamins and or supplements as they may interact withyour home medications. What How Much When Why Instructions Last Dose New acetaminophen-hydrocodone (Clinchco 325- 5 mg oral tablet) 1 tab(s) by mouth Every 6 hours as needed for as needed for pain Epigastric pain Duration: 3 Days Printed Prescription 8a New famotidine (famotidine 40 mg oral tablet) 1 tab(s) by mouth Once a day Printed Prescription New ondansetron (ondansetron 4 mg oral tablet, disintegrating) 1 tab(s) by mouth Every 4 hours as needed for Nausea/Vomiting Printed Prescription 8a Unchanged dicyclomine (dicyclomine 20 mg oral tablet) 1 tab(s) by mouth Three (3) times a day Unchanged escitalopram (Lexapro 5 mg oral tablet) 1 tab(s) by mouth Once a day Unchanged ethinyl estradiol-etonogestrel (NuvaRing 0.120 mg-0.015 mg/ 24 hours vaginal ring) 1 Each Vaginal Every 4 weeks Irregular menses Dysmenorrhea Duration: 3 Doses Unchanged omeprazole (omeprazole 40 mg oral delayed release capsule) 1 cap by mouth Two (2) times a day Duration: 7 Days Please take this list to your next doctor s visit. Bring all medications you take, including over the counter medications, herbals and other supplements with you to your doctor s visit. Patients and families are reminded to discard old lists and to update any records with all medication providers or retail pharmacies. Medication Leaflets acetaminophen and hydrocodone (a SEET a MIN oh fen and anthony droe KOE done) Hycet, Lorcet, Clinchco, Verdrocet, Vicodin, Xodol, Zamicet What is the most important information I should know about acetaminophen and hydrocodone? MISUSE OF OPIOID MEDICINE CAN CAUSE ADDICTION, OVERDOSE, OR . Keep the medication in a place where others cannot get to it. Taking opioid medicine during may cause life-threatening withdrawal symptoms in the . Fatal side effects can occur if you use opioid medicine with alcohol, or with other drugs that cause drowsiness or slow your breathing. Stop taking this medicine and call your doctor right away if you have skin redness or a rash that spreads and causes blistering and peeling. What is acetaminophen and hydrocodone? Acetaminophen and hydrocodone is a combination medicine used to relieve moderate to severe pain. Acetaminophen and hydrocodone contains an opioid medicine, and may be habit-forming. Acetaminophen and hydrocodone may also be used for purposes not listed in this medication guide. What should I discuss with my healthcare provider before taking acetaminophen and hydrocodone? You should not use this medicine if you are allergic to acetaminophen or hydrocodone, or if you have: severe asthma or breathing problems; or a blockage in your stomach or intestines. Tell your doctor if you have ever had: breathing problems, sleep apnea (breathing stops during sleep); liver disease; a drug or alcohol addiction; kidney disease; a head injury or seizures; urination problems; or problems with your thyroid, pancreas, or gallbladder. If you use opioid medicine while you are , your baby could become dependent on the drug. This can cause life-threatening withdrawal symptoms in the baby after it is born. Babies born dependent on opioids may need medical treatment for several weeks. Ask a doctor before using opioid medicine if you are . Tell your doctor if you notice severe drowsiness or slow breathing in the nursing baby. How should I take acetaminophen and hydrocodone? Follow all directions on your prescription label. Never take this medicine in larger amounts, or for longer than prescribed. An overdose can damage your liver or cause . Tell your doctor if you feel an increased urge to use more of this medicine. Never share this medicine with another person, especially someone with a history of drug abuse or addiction. MISUSE CAN CAUSE ADDICTION, OVERDOSE, OR . Keep the medicine in a place where others cannot get to it. Selling or giving away this medicine is against the law. Measure liquid medicine carefully. Use the dosing syringe provided, or use a medicine dose-measuring device (not a kitchen spoon). If you need surgery or medical tests, tell the doctor ahead of time that you are using this medicine. You should not stop using this medicine suddenly. Follow your doctor's instructions about tapering your dose. Store at room temperature away from moisture and heat. Keep track of your medicine. You should be aware if anyone is using it improperly or without a prescription. Do not keep leftover opioid medication. Just one dose can cause in someone using this medicine accidentally or improperly. Ask your pharmacist where to locate a drug take-back disposal program.If there is no take-back program, flush the unused medicine down the toilet. What happens if I miss a dose? Since this medicine is used for pain, you are not likely to miss a dose. Skip any missed dose if itis almost time for your next dose. Do not use two doses at one time. What happens if I overdose? Seek emergency medical attention or call the Poison Help line at . An overdose of this medicine can be fatal, especially in a child or other person using the medicine without a prescription. Overdose symptoms may include nausea, vomiting, sweating, severe drowsiness, pinpoint pupils, slow breathing, or no breathing. Your doctor may recommend you get naloxone (a medicine to reverse an opioid overdose) and keep it with you at all times. A person caring for you can give the naloxone if you stop breathing or don't wake up. Your caregiver must still get emergency medical help and may need to perform CPR (cardiopulmonary resuscitation) on you while waiting for help to arrive. Anyone can buy naloxone from a pharmacy or local health department. Make sure any person caring foryou knows where you keep naloxone and how to use it. What should I avoid while taking acetaminophen and hydrocodone? Avoid driving or operating machinery until you know how this medicine will affect you. Dizziness ordrowsiness can cause falls, accidents, or severe injuries. Do not drink alcohol. Dangerous side effects or could occur. Ask a doctor or pharmacist before using any other medicine that may contain acetaminophen (sometimes abbreviated as APAP). Taking certain medications together can lead to a fatal overdose. What are the possible side effects of acetaminophen and hydrocodone? Get emergency medical help if you have signs of an allergic reaction: hives; difficulty breathing; swelling of your face, lips, tongue, or throat. Opioid medicine can slow or stop your breathing, and may occur. A person caring for you should give naloxone and/or seek emergency medical attention if you have slow breathing with long pauses,blue colored lips, or if you are hard to wake up. In rare cases, acetaminophen may cause a severe skin reaction that can be fatal. This could occur even if you have taken acetaminophen in the past and had no reaction. Stop taking this medicine and call your doctor right away if you have skin redness or a rash that spreads and causes blistering andpeeling. Call your doctor at once if you have: noisy breathing, sighing, shallow breathing, breathing that stops; a light-headed feeling, like you might pass out; liver problems--nausea, upper stomach pain, tiredness, loss of appetite, dark urine, marily-colored stools, jaundice (yellowing of the skin or eyes); low cortisol levels-- nausea, vomiting, loss of appetite, dizziness, worsening tiredness or weakness; o high levels of serotonin in the body--agitation, hallucinations, fever, sweating, shivering, fast heart rate, muscle stiffness, twitching, loss of coordination, nausea, vomiting, diarrhea. Serious breathing problems may be more likely in older adults and in those who are debilitated or have wasting syndrome or chronic breathing disorders. Common side effects include: dizziness, drowsiness, feeling tired; nausea, vomiting, stomach pain; constipation; or headache. This is not a complete list of side effects and others may occur. Call your doctor for medical advice about side effects. You may report side effects to FDA at 9-758-VDZ-5052. What other drugs will affect acetaminophen and hydrocodone? You may have breathing problems or withdrawal symptoms if you start or stop taking certain other medicines. Tell your doctor if you also use an antibiotic, antifungal medication, heart or blood pressure medication, seizure medication, or medicine to treat HIV or hepatitis C. Opioid medication can interact with many other drugs and cause dangerous side effects or . Be sure your doctor knows if you also use: cold or allergy medicines, bronchodilator asthma/COPD medication, or a diuretic ('water pill'); medicines for motion sickness, irritable bowel syndrome, or overactive bladder; other opioids--opioid pain medicine or prescription cough medicine; a sedative like Valium--diazepam, alprazolam, lorazepam, Xanax, Klonopin, Versed, and others; drugs that make you sleepy or slow your breathing--a sleeping pill, muscle relaxer, medicine to treat mood disorders or mental illness; drugs that affect serotonin levels in your body--a stimulant, or medicine for depression, Parkinson's disease, migraine headaches, serious infections, or nausea and vomiting. This list is not complete. Other drugs may affect acetaminophen and hydrocodone, including prescription and hyrs-xoc-pcjcdhx medicines, vitamins, and herbal products. Not all possible interactions are listed here. Where can I get more information? Your doctor or pharmacist can provide more information about acetaminophen and hydrocodone. Remember, keep this and all other medicines out of the reach of children, never share your medicines with others, and use this medication only for the indication prescribed. Every effort has been made to ensure that the information provided by [employer]. [employer] is accurate, up-to-date, and complete, but no guarantee is made to that effect. Drug information contained herein may be time sensitive. [employer] information has been compiled for use by healthcare practitioners and consumers in the [place] and therefore [employer] does not warrant that uses outside of the [place] are appropriate, unless specifically indicated otherwise. [employer] drug information does not endorse drugs, diagnose patients or recommend therapy. [employer] drug information isan informational resource designed to assist licensed healthcare practitioners in caring for their p atients and/or to serve consumers viewing this service as a supplement to, and not a substitute for, the expertise, skill, knowledge and judgment of healthcare practitioners. The absence of a warningfor a given drug or drug combination in no way should be construed to indicate that the drug or drug combination is safe, effective or appropriate for any given patient. [facility] does not assume any responsibility for any aspect of healthcare administered with the aid of information [facility] provides. The information contained herein is not intended to cover all possible uses, directions, precautions, warnings, drug interactions, allergic reactions, or adverse effects. If you have questions about the drugs you are taking, check with your doctor, nurse or pharmacist. Copyright 5781-9053 [facility] [employer]. Version: 16.03. Revision Date: 03/15/2020. famotidine (oral/injection) (fam [place] ti dakotah) Heartburn Relief, Leader Acid Med Spa Manager, Pepcid, Pepcid AC, Pepcid AC Maximum Strength, Zantac 360 What is the most important information I should know about famotidine? Follow all directions on the label and package. Use exactly as directed. What is famotidine? Famotidine is used to treat and prevent ulcers in the stomach and intestines. It also treats conditions in which the stomach produces too much acid, such as Popeye-Rojas syndrome. Famotidine also treats gastroesophageal reflux disease (GERD) and other conditions in which acid backs up from the stomach into the esophagus, causing heartburn. The Zantac 360 brand of this medicine does not contain ranitidine, a medicine that was withdrawn from market in the [place]. Famotidine may also be used for purposes not listed in this medication guide. What should I discuss with my healthcare provider before taking famotidine? Heartburn can feel like a heart attack. Get emergency medical help if you have chest pain that spreads to your jaw or shoulder. You should not use this medicine if you are allergic to famotidine or similar medicines such as ranitidine (Zantac), cimetidine (Tagamet), or nizatidine (Axid). Ask a doctor or pharmacist if this medicine is safe to use if you have: kidney disease; liver disease; cancer stomach; or long QT syndrome (in you or a family member). Ask a doctor before using this medicine if you are or . How should I take famotidine? Use exactly as directed on the label, or as prescribed by your doctor. Famotidine oral is taken by mouth. Famotidine injection is given in a vein if you are unable to take the medicine by mouth. You may take famotidine oral with or without food. Measure liquid medicine with the supplied syringe or a dose-measuring device (not a kitchen spoon). Most ulcers heal within 4 weeks of famotidine treatment, but it may take up to 8 weeks of using this medicine before your ulcer heals. Keep using the medication as directed. Call your doctor if the condition you are treating with famotidine does not improve, or if it gets worse while using famotidine. Your treatment may also include changes in diet or lifestyle habits. Follow all instructions of your doctor or dietitian. Store at room temperature away from moisture, heat, and light. Do not allow the liquid medicine to freeze. Throw away any unused famotidine liquid that is older than 30 days. What happens if I miss a dose? Take the medicine as soon as you can, but skip the missed dose if it is almost time for your next dose. Do not take two doses at one time. What happens if I overdose? Seek emergency medical attention or call the Poison Help line at . What should I avoid while taking famotidine? Drinking alcohol may increase the risk of damage to your stomach. Avoid taking other stomach acid reducers unless your doctor has told you to. However, you may take an antacid (such as Maalox, Mylanta, Gaviscon, Milk of Magnesia, Rolaids, or Tums) with famotidine. What are the possible side effects of famotidine? Get emergency medical help if you have signs of an allergic reaction: hives; difficult breathing; swelling of your face, lips, tongue, or throat. Stop using famotidine and call your doctor at once if you have: confusion, hallucinations, agitation, lack of energy; a seizure; fast or pounding heartbeats, sudden dizziness (like you might pass out); or unexplained muscle pain, tenderness, or weakness especially if you also have fever, unusual tiredness, and dark colored urine. Some side effects may be more likely in older adults and in people who have severe kidney disease. Common side effects may include: headache; dizziness; or constipation or diarrhea. This is not a complete list of side effects and others may occur. Call your doctor for medical advice about side effects. You may report side effects to FDA at 4-459-SUT-3156. What other drugs will affect famotidine? Famotidine oral can make it harder for your body to absorb other medicines you take by mouth. Tell your doctor if you are taking: cefditoren; dasatinib; delavirdine; fosamprenavir; or tizanidine (if you are taking famotidine liquid). This list is not complete. Other drugs may affect famotidine, including prescription and bdav-oux-ruyysxh medicines, vitamins, and herbal products. Not all possible drug interactions are listed here. Where can I get more information? Your doctor or pharmacist can provide more information about famotidine. Remember, keep this and all other medicines out of the reach of children, never share your medicines with others, and use this medication only for the indication prescribed. Every effort has been made to ensure that the information provided by [employer] is accurate, up-to-date, and complete, but no guarantee is made to that effect. Drug information contained herein may be time sensitive. [employer] information has been compiled for use by healthcare practitioners and consumers in the [place] and therefore [employer] does not warrant that uses outside of the [place] are appropriate, unless specifically indicated otherwise. [employer] drug information does not endorse drugs, diagnose patients or recommend therapy. [employer] drug information isan informational resource designed to assist licensed healthcare practitioners in caring for their p atients and/or to serve consumers viewing this service as a supplement to, and not a substitute for, the expertise, skill, knowledge and judgment of healthcare practitioners. The absence of a warningfor a given drug or drug combination in no way should be construed to indicate that the drug or drug combination is safe, effective or appropriate for any given patient. [employer] does not assume any responsibility for any aspect of healthcare administered with the aid of information [employer] provides. The information contained herein is not intended to cover all possible uses, directions, precautions, warnings, drug interactions, allergic reactions, or adverse effects. If you have questions about the drugs you are taking, check with your doctor, nurse or pharmacist. Copyright 9479-9178 [employer]. Version: 18.01. Revision Date: 07/21/2020. ondansetron (oral) (on EVY se shaun) Zofran, Zofran ODT, Zrut What is the most important information I should know about ondansetron? You should not use ondansetron if you are also using apomorphine (Apokyn). What is ondansetron? Ondansetron blocks the actions of chemicals in the body that can trigger nausea and vomiting. Ondansetron is used to prevent nausea and vomiting that may be caused by surgery, cancer chemotherapy, or radiation treatment. Ondansetron may be used for purposes not listed in this medication guide. What should I discuss with my health care provider before taking ondansetron? You should not use ondansetron if: you are also using apomorphine (Apokyn); or you are allergic to ondansetron or similar medicines (dolasetron, granisetron, palonosetron). To make sure ondansetron is safe for you, tell your doctor if you have: liver disease; an electrolyte imbalance (such as low levels of potassium or magnesium in your blood); congestive heart failure, slow heartbeats; a personal or family history of long QT syndrome; or a blockage in your digestive tract (stomach or intestines). Ondansetron is not expected to harm an unborn baby. Tell your doctor if you are . It is not known whether ondansetron passes into breast milk or if it could harm a nursing baby. Tell your doctor if you are breast-feeding a baby. Ondansetron is not approved for use by anyone younger than 4 years old. Ondansetron orally disintegrating tablets may contain phenylalanine. Tell your doctor if you have phenylketonuria (PKU). How should I take ondansetron? Follow all directions on your prescription label. Do not take this medicine in larger or smaller amounts or for longer than recommended. Ondansetron can be taken with or without food. The first dose of ondansetron is usually taken before the start of your surgery, chemotherapy, or radiation treatment. Follow your doctor's dosing instructions very carefully. Take the ondansetron regular tablet with a full glass of water. To take the orally disintegrating tablet (Zofran ODT): Keep the tablet in its blister pack until you are ready to take it. Open the package and peel back the foil. Do not push a tablet through the foil or you may damage the tablet. Use dry hands to remove the tablet and place it in your mouth. Do not swallow the tablet whole. Allow it to dissolve in your mouth without chewing. Swallow several times as the tablet dissolves. To use ondansetron oral soluble film (strip) (Zuplenz): Keep the strip in the foil pouch until you are ready to use the medicine. Using dry hands, remove the strip and place it on your tongue. It will begin to dissolve right away. Do not swallow the strip whole. Allow it to dissolve in your mouth without chewing. Swallow several times after the strip dissolves. If desired, you may drink liquid to help swallow the dissolved strip. Wash your hands after using Zuplenz. Measure liquid medicine with the dosing syringe provided, or with a special dose-measuring spoon ormedicine cup. If you do not have a dose-measuring device, ask your pharmacist for one. Store at room temperature away from moisture, heat, and light. Store liquid medicine in an upright position. What happens if I miss a dose? Take the missed dose as soon as you remember. Skip the missed dose if it is almost time for your next scheduled dose. Do not take extra medicine to make up the missed dose. What happens if I overdose? Seek emergency medical attention or call the Poison Help line at . Overdose symptoms may include sudden loss of vision, severe constipation, feeling light-headed, or fainting. What should I avoid while taking ondansetron? Ondansetron may impair your thinking or reactions. Be careful if you drive or do anything that requires you to be alert. What are the possible side effects of ondansetron? Get emergency medical help if you have signs of an allergic reaction: rash, hives; fever, chills, difficult breathing; swelling of your face, lips, tongue, or throat. Call your doctor at once if you have: severe constipation, stomach pain, or bloating; headache with chest pain and severe dizziness, fainting, fast or pounding heartbeats; fast or pounding heartbeats; jaundice (yellowing of the skin or eyes); blurred vision or temporary vision loss (lasting from only a few minutes to several hours); high levels of serotonin in the body--agitation, hallucinations, fever, fast heart rate, overactivereflexes, nausea, vomiting, diarrhea, loss of coordination, fainting. Common side effects may include: diarrhea or constipation; headache; drowsiness; or tired feeling. This is not a complete list of side effects and others may occur. Call your doctor for medical advice about side effects. You may report side effects to FDA at 1-605-HCO-5637. What other drugs will affect ondansetron? Ondansetron can cause a serious heart problem, especially if you use certain medicines at the same time, including antibiotics, antidepressants, heart rhythm medicine, antipsychotic medicines, and medicines to treat cancer, malaria, HIV or AIDS. Tell your doctor about all medicines you use, and those you start or stop using during your treatment with ondansetron. Taking ondansetron while you are using certain other medicines can cause high levels of serotonin to build up in your body, a condition called 'serotonin syndrome,' which can be fatal. Tell your doctor if you also use: medicine to treat depression; medicine to treat a psychiatric disorder; a narcotic (opioid) medication; or medicine to prevent nausea and vomiting. This list is not complete and many other drugs can interact with ondansetron. This includes prescription and evlp-qly-pmjgpew medicines, vitamins, and herbal products. Give a list of all your medicines to any healthcare provider who treats you. Where can I get more information? Your pharmacist can provide more information about ondansetron. Remember, keep this and all other medicines out of the reach of children, never share your medicines with others, and use this medication only for the indication prescribed. Every effort has been made to ensure that the information provided by [employer]. ('[employer]') is accurate, up-to-date, and complete, but no guarantee is made to that effect. Drug information contained herein may be time sensitive. [employer] information has been compiled for use by healthcare practitioners and consumers in the [place] and therefore [employer] does not warrant that uses outside of the [place] are appropriate, unless specifically indicated otherwise. [employer] drug information does not endorse drugs, diagnose patients or recommend therapy. [employer] drug information isan informational resource designed to assist licensed healthcare practitioners in caring for their p atients and/or to serve consumers viewing this service as a supplement to, and not a substitute for, the expertise, skill, knowledge and judgment of healthcare practitioners. The absence of a warningfor a given drug or drug combination in no way should be construed to indicate that the drug or drug combination is safe, effective or appropriate for any given patient. [facility] does not assume any responsibility for any aspect of healthcare administered with the aid of information [employer] [facility] provides. The information contained herein is not intended to cover all possible uses, directions, precautions, warnings, drug interactions, allergic reactions, or adverse effects. If you have questions about the drugs you are taking, check with your doctor, nurse or pharmacist. Copyright 1016-7725 [employer]. Version: 13.01. Revision Date: 12/02/2015. Education Materials Epigastric Pain (Uncertain Cause) Epigastric pain is pain in the upper abdomen. It can be a sign of disease. Common causes include: Acid reflux (stomach acid flowing up into the esophagus) Gastritis (irritation of the stomach lining) Most often this is from aspirin or NSAID medicines such as ibuprofen, bacteria called H. pylori, or frequent alcohol use. Peptic ulcer disease Inflammation of the pancreas Gallstone Infection in the gallbladder Pain may be dull or burning. It may spread upward to the chest or to the back. There may be other symptoms such as belching, bloating, cramps or hunger pains. There may be weight loss or poor appetite, nausea or vomiting. Since the cause of your pain is not certain yet,you may need more tests. Sometimes the doctor will treat you for the most likely condition to see if there is improvement before doing more tests. Home care Medicines Antacids help neutralize the normal acids in your stomach.If you don t like the liquid, you can trya chewable one. You may find one works better than another for you. Overuse can cause diarrhea or constipation. Acid blockers (H2 blockers) decrease acid production. Examples are cimetidine, famotidine, and ranitidine. Acid inhibitors (PPIs) decrease acid production in a different way than the blockers. You may find they work better, but can take a little longer to take effect. Examples are omeprazole, lansoprazole, pantoprazole, rabeprazole, and esomeprazole. Many of these are available xdjs-eyd-fkiuzjc or available as generics. Take an antacid 30 to 60 minutes after eating and at bedtime, but not at the same time as an acid hai. Try not to take NSAIDs such as ibuprofen. Aspirin may also cause problems, but if taking it for your heart or other medical reasons, talk to your doctor before stopping it; you don't want to cause a worse problem, like a heart attack or stroke. Diet If certain foods seem to cause your pain, try not to eat them. Certain foods can worsen symptoms ofgastritis. Limit or avoid fatty, fried, and spicy foods, as well as coffee, chocolate, mint, and foods with high acid content such as tomatoes and citrus fruit and juices (orange, grapefruit, lemon). Eat slowly and chew food well before swallowing. Symptoms of gastritis can be worsened by certain foods. Don't drink alcohol. It can irritate the stomach. Don't consume caffeine, or use tobacco. These can delay healing and worsen your problem. Try eating smaller meals with snacks in between. Keep an empty stomach for 2 to 3 hours before lying down. Prop the head of the bed up if you have overnight symptoms. This helps acid clear from your esophagus. Follow-up care Follow up with your healthcare provider or as advised. When to seek medical advice Call your healthcare provider right away if any of the following occur: Stomach pain worsens or moves to the right lower part of the abdomen Chest pain appears, or if it worsens or spreads to the chest, back, neck, shoulder, or arm Frequent vomiting (can t keep down liquids) Blood in the stool or vomit (red or black color) Feeling weak or dizzy, fainting, or having trouble breathing Fever of 100.4 F (38 C) or higher, or as directed by your healthcare provider Abdominal swelling [id number] [employer]. [address] [place] [address]. All rights reserved. This information is not intended as a substitute for professional medical care. Always follow yourhealthcare professional's instructions. Additional Information VACCINATE! IT SAVES LIVES! Members of the community who have not yet received the COVID-19 vaccine and would like to receive it can visit one of [facility] vaccine clinics. There are many vaccine clinic locations within the [facility]. For locations and available times, please visit [email or web address]. It is important to note that some COVID mobile vaccine clinics are held outdoors and may be canceled in rainy orstormy conditions. To learn more about pediatric vaccinations (ages 5-11), we invite you to visit the [facility] webpage. [email or web address] [email or web address] learn more about the COVID-19 vaccine, we invite you to visit the [facility] website for a list of frequently asked questions. [email or web address] [facility] [employer] Patient Portal Access Instructions: Stay connected with your healthcare team and access your personal medical information anytime with the [facility] Patient Portal. If you would like a full copy of your medical records please contact the [facility] Medical Records Department Saturday through Saturday between 8a.m. and 4:30p.m. Please follow the directions below to access the portal: 1.Access the email account you provided upon registration to the [facility].2.Look for an invitation email from [facility].3.Open the email and access the invitation link: Accept Invitation to [facility]4.Fill in the required rao to create your account. Sign into [email or web address] with your username and password that you created in the above steps to stay up to date. You can then view a summary of results, a summary of your visits, and the ability to download your summaries to your computer or send the information securely to a physician. Remember that your healthcare information is confidential, so carefully consider who you will allow to register on the [facility] Patient Portal for access to your information. You can also access the [facility] Patient Portal on the [employer] juan carlos. Simply click on Health Records under [employer] and then click on the [facility] logo. HOW TO SAFELY DISPOSE OF PRESCRIPTION MEDICATIONS Please use one of the following methods to safely dispose of your unused medications. 1.Use a drug disposal kit: the drug disposal pouch allows you to safely discard your old and unuseddrugs. Ask your nurse to give you one when you are discharged.2.Visit a local take-back location: Many local pharmacies and police departments have programs that collect old and unwanted prescriptiondrugs. Call your local pharmacy or go to http://bit.[employer]/1J5Si1z to find one close to you.3.Make use of household items: Use cat litter or old coffee grounds to dispose medications if other options arenot available. Mix your drugs with these household products, seal them in an airtight container andthrow it into the garbage. Call [facility]: [phone] to be sure your drugs can be disposed of in this way. Some medicines may require a different approach.4.Never flush your medications down the toilet. IF YOU HAVE BEEN PRESCRIBED AN OPIOIDS FOR PAIN If you have been prescribed an opioid (such as hydrocodone, oxycodone or morphine), it is critical to understand the possible side effects and risks of opioid pain medications. Even when taken as directed, opioids can have several side effects including: Tolerance, meaning you might need to take more of a medication for the same pain relief. Nausea, vomiting and/or constipation. Sleepiness, dizziness, dry mouth, confusion, depression or itching. Physical dependence, meaning you have withdrawal symptoms when a medication is stopped ? this can develop within a few days. KNOW YOUR RESPONSIBILITIES It is important to know exactly how much and how often to take the opioid pain medications you are prescribed. Never take opioids in higher amounts or more often than prescribed. Do not combine opioids with alcohol or other drugs that cause drowsiness, such as benzodiazepines, also known as benzos,including diazepam and alprazolam, muscle relaxants or sleep aids. Never sell or share prescriptionopioids. This is illegal. Store opioids in a secure place and out of reach of others (including children, family, friends and visitors). The last page(s) of this document has been signed and retained as a CHART COPY Signatures Patient Education Materials Epigastric Pain (Uncertain Cause) Medication Leaflets acetaminophen and hydrocodone, famotidine (oral/injection), ondansetron (oral) My discharge plan and instructions have been reviewed and explained to me and IJOAQUINA MADELYN E understand my current condition and have read and understand these discharge instructions. I have received a written copy of the plan/instructions. If I have questions, I am aware that I should contact my doctor. 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10-31-2022 Note ORIGINAL HISTORY: Right upper quadrant pain, epigastric pain COMPARISON: CT 03 October 2021 TECHNIQUE: The following organs are evaluated: Liver, pancreas, spleen, gallbladder, biliary system and kidneys. FINDINGS: Study is somewhat limited by habitus and bowel gas. The abdominal organs are unremarkable in appearance. There is no sonographic Ochoa's sign, although the patient medicated the common bile duct is within normal limits at 2 mm in diameter. The aorta and inferior vena cava are suboptimally visualized due to bowel gas. IMPRESSION: Unremarkable examination Interpreted by: Bon Asencio MD Preliminary Report By: Bon Asencio MD Electronically signed By Bon Asencio MD Dictated Date: 12/11/2021 8:35:36 AM Prelim Date: 12/11/2021 8:36:37 AM Sign Date: 12/11/2021 8:36:37 AM Ordering Provider: CHANELL WHITFIELD [facility]10-31-2022 Note ORIGINAL HISTORY: Right upper quadrant pain, epigastric pain COMPARISON: CT 03 October 2021 TECHNIQUE: The following organs are evaluated: Liver, pancreas, spleen, gallbladder, biliary system and kidneys. FINDINGS: Study is somewhat limited by habitus and bowel gas. The abdominal organs are unremarkable in appearance. There is no sonographic Ochoa's sign, although the patient medicated the common bile duct is within normal limits at 2 mm in diameter. The aorta and inferior vena cava are suboptimally visualized due to bowel gas. IMPRESSION: Unremarkable examination Interpreted by: Bon Asencio MD Preliminary Report By: Bon Asencio MD Electronically signed By Bon Asencio MD Dictated Date: 12/11/2021 8:35:36 AM Prelim Date: 12/11/2021 8:36:37 AM Sign Date: 12/11/2021 8:36:37 AM Ordering Provider: ROSS [facility] Eli [id number] Hospital Discharge instructions Patient Education 10/03/2021 06:20:49 Abdominal Pain, Unknown Cause, (Female) Unknown Causes of Abdominal Pain (Female) The exact cause of your belly (abdominal) pain is not clear. This does not mean that this is something to worry about. Everyone likes to know the exact cause of the problem. But sometimes with belly pain, there is no clear-cut cause, and this could be a good thing. The good news is that your symptoms can be treated, and you will feel better. Your condition does not seem serious now. But sometimes the signs of a serious problem may take more time to appear. For this reason, it is important for you to watch for any new symptoms, problems, or worsening of your condition. Over the next few days, the abdominal pain may come and go. Or it may be constant. Other common symptoms can include nausea and vomiting. Sometimes it can be difficult to tell if you feel nauseous. You may just feel bad and not connect that feeling to nausea. Constipation, diarrhea, and a fever maygo along with the pain. The pain may continue even if treated correctly over the following days. Depending on how things go, sometimes the cause can become clear and may need more or different treatment. Additional evaluations, medicines, or tests may also be needed. Home care Your healthcare provider may prescribe medicine for pain, symptoms, or an infection. Follow the healthcare provider's instructions for taking these medicines. General care Rest as much as you can until your next exam. No strenuous activities. Try to find positions that ease discomfort. A small pillow placed on the abdomen may help relieve pain. Something warm on your abdomen (such as a heating pad) may help, but be careful not to burn yourself. Diet Don t force yourself to eat, especially if having cramps, vomiting, or diarrhea. Water is important so you don't get dehydrated. Soup may also be good. Sports drinks may also help,especially if they are not too acidic. Don't drink sugary drinks as this can make things worse. Take liquids in small amounts. Don t guzzle them. Caffeine sometimes makes the pain and cramping worse. Don t take dairy products if you have vomiting or diarrhea. Don't eat large amounts at a time. Wait a few minutes between bites. Eat a diet low in fiber (called a low-residue diet). Foods allowed include refined breads, white rice, fruit and vegetable juices without pulp, tender meats. These foods will pass more easily throughthe intestine. Don t have whole-grain foods, whole fruits and vegetables, meats, seeds and nuts, fried or fatty foods, dairy, alcohol and spicy foods until your symptoms go away. Follow-up care Follow up with your healthcare provider, or as advised, if your pain does not begin to improve in the next 24 hours. Call 911 Call 911 if any of these occur: Trouble breathing Confusion Fainting or loss of consciousness Rapid heart rate Seizure When to seek medical advice Call your healthcare provider right away if any of these occur: Pain gets worse or moves to the right lower abdomen New or worsening vomiting or diarrhea Swelling of the abdomen Unable to pass stool for more than 3 days Fever of 100.4 F (38 C) or higher, or as directed by your healthcare provider. Blood in vomit or bowel movements (dark red or black color) Yellow color of eyes and skin (jaundice) Weakness, dizziness Chest, arm, back, neck, or jaw pain Unexpected vaginal bleeding or missed period Can't keep down liquids or water and you are getting dehydrated [id number] [employer]. [address] [place] [address]. All rights reserved. This information is not intended as a substitute for professional medical care. Always follow yourhealthcare professional's instructions. Follow Up Care 10/03/2021 04:05:51 With:RISHI MADERA MD Address: [address] [place] [phone] When:2-4 days With:YOSI RICHEY DO Address: [address] [facility] [place] [phone] When:2-[address] [facility] 08-23-2022 Note Discharge Instructions Thank you for allowing [facility] to assist you with your healthcare needs. The following is importantdischarge information regarding your hospital visit. Diagnosis from Today's Visit Abdominal pain Diarrhea Vomiting What to Do Next Instructions from Your Care Team No qualifying data available. Post Acute Orders No qualifying data available. You Need to Schedule the Following Appointments Follow Up with RISHI MADERA MD When Within 2-4 days Where: [address] [place] [phone] Follow Up with YOSI RICHEY DO When Within 2-4 days Where: [address] [facility] [place] [place] [phone] Allergies NKA Medications Please ask your primary doctor or pharmacist before taking any other medication not listed, including over the counter drugs, herbal medications, vitamins and or supplements as they may interact withyour home medications. What How Much When Why Instructions Last Dose New dicyclomine (Bentyl use dicyclomine ) 20 Milligram by mouth Four (4) times a day Duration: 7 Days Printed Prescription New ondansetron (ondansetron 4 mg oral tablet, disintegrating) 1 tab(s) by mouth Every 6 hours Duration: 4 Days Printed Prescription Unchanged cetirizine (Zyrtec 10 mg oral tablet) 1 tab(s) by mouth Once a day Seasonal allergies Unchanged escitalopram (Lexapro 5 mg oral tablet) 1 tab(s) by mouth Once a day Unchanged ethinyl estradiol-etonogestrel (NuvaRing 0.120 mg-0.015 mg/ 24 hours vaginal ring) 1 Each Vaginal Every 4 weeks Irregular menses Discontinue oral contraceptive prescription Unchanged ethinyl estradiol-etonogestrel (NuvaRing 0.120 mg-0.015 mg/ 24 hours vaginal ring) 1 Each Vaginal Every 4 weeks Irregular menses Dysmenorrhea Please fill today. Changing to continuous cycling. Please keep original prescription on file for additional refills. Please take this list to your next doctor s visit. Bring all medications you take, including over the counter medications, herbals and other supplements with you to your doctor s visit. Patients and families are reminded to discard old lists and to update any records with all medication providers or retail pharmacies. Medication Leaflets ondansetron (oral) (on EVY se shaun) Darci Bejarano, [place] What is the most important information I should know about ondansetron? You should not use ondansetron if you are also using apomorphine (Apokyn). What is ondansetron? Ondansetron blocks the actions of chemicals in the body that can trigger nausea and vomiting. Ondansetron is used to prevent nausea and vomiting that may be caused by surgery, cancer chemotherapy, or radiation treatment. Ondansetron may be used for purposes not listed in this medication guide. What should I discuss with my health care provider before taking ondansetron? You should not use ondansetron if: you are also using apomorphine (Apokyn); or you are allergic to ondansetron or similar medicines (dolasetron, granisetron, palonosetron). To make sure ondansetron is safe for you, tell your doctor if you have: liver disease; an electrolyte imbalance (such as low levels of potassium or magnesium in your blood); congestive heart failure, slow heartbeats; a personal or family history of long QT syndrome; or a blockage in your digestive tract (stomach or intestines). Ondansetron is not expected to harm an unborn baby. Tell your doctor if you are . It is not known whether ondansetron passes into breast milk or if it could harm a nursing baby. Tell your doctor if you are breast-feeding a baby. Ondansetron is not approved for use by anyone younger than 4 years old. Ondansetron orally disintegrating tablets may contain phenylalanine. Tell your doctor if you have phenylketonuria (PKU). How should I take ondansetron? Follow all directions on your prescription label. Do not take this medicine in larger or smaller amounts or for longer than recommended. Ondansetron can be taken with or without food. The first dose of ondansetron is usually taken before the start of your surgery, chemotherapy, or radiation treatment. Follow your doctor's dosing instructions very carefully. Take the ondansetron regular tablet with a full glass of water. To take the orally disintegrating tablet (Zofran ODT): Keep the tablet in its blister pack until you are ready to take it. Open the package and peel back the foil. Do not push a tablet through the foil or you may damage the tablet. Use dry hands to remove the tablet and place it in your mouth. Do not swallow the tablet whole. Allow it to dissolve in your mouth without chewing. Swallow several times as the tablet dissolves. To use ondansetron oral soluble film (strip) (Zuplenz): Keep the strip in the foil pouch until you are ready to use the medicine. Using dry hands, remove the strip and place it on your tongue. It will begin to dissolve right away. Do not swallow the strip whole. Allow it to dissolve in your mouth without chewing. Swallow several times after the strip dissolves. If desired, you may drink liquid to help swallow the dissolved strip. Wash your hands after using Zuplenz. Measure liquid medicine with the dosing syringe provided, or with a special dose-measuring spoon ormedicine cup. If you do not have a dose-measuring device, ask your pharmacist for one. Store at room temperature away from moisture, heat, and light. Store liquid medicine in an upright position. What happens if I miss a dose? Take the missed dose as soon as you remember. Skip the missed dose if it is almost time for your next scheduled dose. Do not take extra medicine to make up the missed dose. What happens if I overdose? Seek emergency medical attention or call the Poison Help line at . Overdose symptoms may include sudden loss of vision, severe constipation, feeling light-headed, or fainting. What should I avoid while taking ondansetron? Ondansetron may impair your thinking or reactions. Be careful if you drive or do anything that requires you to be alert. What are the possible side effects of ondansetron? Get emergency medical help if you have signs of an allergic reaction: rash, hives; fever, chills, difficult breathing; swelling of your face, lips, tongue, or throat. Call your doctor at once if you have: severe constipation, stomach pain, or bloating; headache with chest pain and severe dizziness, fainting, fast or pounding heartbeats; fast or pounding heartbeats; jaundice (yellowing of the skin or eyes); blurred vision or temporary vision loss (lasting from only a few minutes to several hours); high levels of serotonin in the body--agitation, hallucinations, fever, fast heart rate, overactivereflexes, nausea, vomiting, diarrhea, loss of coordination, fainting. Common side effects may include: diarrhea or constipation; headache; drowsiness; or tired feeling. This is not a complete list of side effects and others may occur. Call your doctor for medical advice about side effects. You may report side effects to FDA at 7-860-NUD-0236. What other drugs will affect ondansetron? Ondansetron can cause a serious heart problem, especially if you use certain medicines at the same time, including antibiotics, antidepressants, heart rhythm medicine, antipsychotic medicines, and medicines to treat cancer, malaria, HIV or AIDS. Tell your doctor about all medicines you use, and those you start or stop using during your treatment with ondansetron. Taking ondansetron while you are using certain other medicines can cause high levels of serotonin to build up in your body, a condition called 'serotonin syndrome,' which can be fatal. Tell your doctor if you also use: medicine to treat depression; medicine to treat a psychiatric disorder; a narcotic (opioid) medication; or medicine to prevent nausea and vomiting. This list is not complete and many other drugs can interact with ondansetron. This includes prescription and hcji-yms-rrtvzjg medicines, vitamins, and herbal products. Give a list of all your medicines to any healthcare provider who treats you. Where can I get more information? Your pharmacist can provide more information about ondansetron. Remember, keep this and all other medicines out of the reach of children, never share your medicines with others, and use this medication only for the indication prescribed. Every effort has been made to ensure that the information provided by [employer]. [employer]') is accurate, up-to-date, and complete, but no guarantee is made to that effect. Drug information contained herein may be time sensitive. [employer] information has been compiled for use by healthcare practitioners and consumers in the [place] and therefore [employer] does not warrant that uses outside of the [place] are appropriate, unless specifically indicated otherwise. [employer] drug information does not endorse drugs, diagnose patients or recommend therapy. [employer] drug information isan informational resource designed to assist licensed healthcare practitioners in caring for their p atients and/or to serve consumers viewing this service as a supplement to, and not a substitute for, the expertise, skill, knowledge and judgment of healthcare practitioners. The absence of a warningfor a given drug or drug combination in no way should be construed to indicate that the drug or drug combination is safe, effective or appropriate for any given patient. [employer] does not assume any responsibility for any aspect of healthcare administered with the aid of information [facility] provides. The information contained herein is not intended to cover all possible uses, directions, precautions, warnings, drug interactions, allergic reactions, or adverse effects. If you have questions about the drugs you are taking, check with your doctor, nurse or pharmacist. Copyright 5801-5045 [facility] [employer]. Version: 13.01. Revision Date: 12/02/2015. dicyclomine (oral/injection) (maggy lawrence) Manolo Kaplan, Dicyclocot What is the most important information I should know about dicyclomine? Many drugs can affect dicyclomine. Tell your doctor about all your current medicines. What is dicyclomine? Dicyclomine is used to treat functional bowel or irritable bowel syndrome. Dicyclomine may also be used for purposes not listed in this medication guide. What should I discuss with my healthcare provider before taking dicyclomine? You should not use dicyclomine if you are allergic to it, or if you have: glaucoma; a bladder obstruction or other urination problems; a blockage in your digestive tract (stomach or intestines); severe ulcerative colitis; gastroesophageal reflux disease (GERD); a serious heart condition and active bleeding; myasthenia gravis; or if you are a baby. Not approved for use by anyone younger than 18 years old. Dicyclomine should never be given to a child younger than 6 months old. Tell your doctor if you have ever had: heart problems or high blood pressure; a stroke; ulcerative colitis; an ileostomy or colostomy; an enlarged prostate; or liver or kidney disease. Older adults may be more sensitive to the effects of this medicine. Tell your doctor if you are . Do not breastfeed. How should I take dicyclomine? Follow all directions on your prescription label and read all medication guides or instruction sheets. Your doctor may occasionally change your dose. Use the medicine exactly as directed. Dicyclomine oral is taken by mouth. Measure liquid medicine with the supplied syringe or a dose-measuring device (not a kitchen spoon). Dicyclomine injection is given in a muscle if you are unable to take the medicine by mouth. Call your doctor if your symptoms do not improve after 2 weeks. Store at room temperature away from moisture and heat. What happens if I miss a dose? Skip the missed dose and use your next dose at the regular time. Do not use two doses at one time. What happens if I overdose? Seek emergency medical attention or call the Poison Help line at . Overdose can cause nausea, vomiting, dilated pupils, weakness or loss of movement in any part of your body, trouble swallowing, fainting, or seizure (convulsions). What should I avoid while taking dicyclomine? May cause dizziness or blurred vision. Avoid driving or hazardous activity until you know how this medicine will affect you. Avoid becoming overheated or dehydrated during exercise and in hot weather. Dicyclomine can decrease sweating and you may be more prone to heat stroke. Tell your doctor if you have a fever while taking dicyclomine. Avoid using an antacid. Antacids can make it harder for your body to absorb dicyclomine oral. What are the possible side effects of dicyclomine? Get emergency medical help if you have signs of an allergic reaction: hives; difficult breathing; swelling of your face, lips, tongue, or throat. Call your doctor at once if you have: fast or slow heartbeats, pounding heartbeats or fluttering in your chest; confusion, agitation, hallucinations, unusual thoughts or behavior; problems with memory or speech; problems with balance or muscle movement; diarrhea, severe constipation, or worsening of bowel symptoms; trouble swallowing; bruising, swelling, or pain where a dicyclomine injection was given; or dehydration --dizziness, confusion, feeling very thirsty, less urination or sweating. Confusion and mood or behavior changes may be more likely in older adults. Common side effects may include: drowsiness, dizziness, weakness, nervousness; blurred vision; dry mouth; or nausea. This is not a complete list of side effects and others may occur. Call your doctor for medical advice about side effects. You may report side effects to FDA at 2-446-ICK-7903. What other drugs will affect dicyclomine? Using dicyclomine with other drugs that make you drowsy can worsen this effect. Ask your doctor before using opioid medication, a sleeping pill, a muscle relaxer, or medicine for anxiety or seizures. Tell your doctor about all your current medicines. Many drugs can affect dicyclomine, especially: bronchodilator asthma medication; cold or allergy medicine (Benadryl and others); glaucoma medication; heart medication; medicine to treat depression, anxiety, mood disorders, or mental illness; medicine to treat overactive bladder; medicine to treat Parkinson's disease; or medicine to treat stomach problems, motion sickness, or irritable bowel syndrome. This list is not complete and many other drugs may affect dicyclomine. This includes prescription and viwi-rre-xxbfueh medicines, vitamins, and herbal products. Not all possible drug interactions arelisted here. Where can I get more information? Your pharmacist can provide more information about dicyclomine. Remember, keep this and all other medicines out of the reach of children, never share your medicines with others, and use this medication only for the indication prescribed. Every effort has been made to ensure that the information provided by [employer]') is accurate, up-to-date, and complete, but no guarantee is made to that effect. Drug information contained herein may be time sensitive. [employer] information has been compiled for use by healthcare practitioners and consumers in the [place] and therefore [employer] does not warrant that uses outside of the [place] are appropriate, unless specifically indicated otherwise. [employer] drug information does not endorse drugs, diagnose patients or recommend therapy. [employer] drug information isan informational resource designed to assist licensed healthcare practitioners in caring for their p atients and/or to serve consumers viewing this service as a supplement to, and not a substitute for, the expertise, skill, knowledge and judgment of healthcare practitioners. The absence of a warningfor a given drug or drug combination in no way should be construed to indicate that the drug or drug combination is safe, effective or appropriate for any given patient. [employer] does not assume any responsibility for any aspect of healthcare administered with the aid of information [employer] provides. The information contained herein is not intended to cover all possible uses, directions, precautions, warnings, drug interactions, allergic reactions, or adverse effects. If you have questions about the drugs you are taking, check with your doctor, nurse or pharmacist. Copyright 3111-9136 [employer]. Version: 6.01. Revision Date: 08/18/2020. Education Materials Unknown Causes of Abdominal Pain (Female) The exact cause of your belly (abdominal) pain is not clear. This does not mean that this is something to worry about. Everyone likes to know the exact cause of the problem. But sometimes with belly pain, there is no clear-cut cause, and this could be a good thing. The good news is that your symptoms can be treated, and you will feel better. Your condition does not seem serious now. But sometimes the signs of a serious problem may take more time to appear. For this reason, it is important for you to watch for any new symptoms, problems, or worsening of your condition. Over the next few days, the abdominal pain may come and go. Or it may be constant. Other common symptoms can include nausea and vomiting. Sometimes it can be difficult to tell if you feel nauseous. You may just feel bad and not connect that feeling to nausea. Constipation, diarrhea, and a fever maygo along with the pain. The pain may continue even if treated correctly over the following days. Depending on how things go, sometimes the cause can become clear and may need more or different treatment. Additional evaluations, medicines, or tests may also be needed. Home care Your healthcare provider may prescribe medicine for pain, symptoms, or an infection. Follow the healthcare provider's instructions for taking these medicines. General care Rest as much as you can until your next exam. No strenuous activities. Try to find positions that ease discomfort. A small pillow placed on the abdomen may help relieve pain. Something warm on your abdomen (such as a heating pad) may help, but be careful not to burn yourself. Diet Don t force yourself to eat, especially if having cramps, vomiting, or diarrhea. Water is important so you don't get dehydrated. Soup may also be good. Sports drinks may also help,especially if they are not too acidic. Don't drink sugary drinks as this can make things worse. Take liquids in small amounts. Don t guzzle them. Caffeine sometimes makes the pain and cramping worse. Don t take dairy products if you have vomiting or diarrhea. Don't eat large amounts at a time. Wait a few minutes between bites. Eat a diet low in fiber (called a low-residue diet). Foods allowed include refined breads, white rice, fruit and vegetable juices without pulp, tender meats. These foods will pass more easily throughthe intestine. Don t have whole-grain foods, whole fruits and vegetables, meats, seeds and nuts, fried or fatty foods, dairy, alcohol and spicy foods until your symptoms go away. Follow-up care Follow up with your healthcare provider, or as advised, if your pain does not begin to improve in the next 24 hours. Call 911 Call 911 if any of these occur: Trouble breathing Confusion Fainting or loss of consciousness Rapid heart rate Seizure When to seek medical advice Call your healthcare provider right away if any of these occur: Pain gets worse or moves to the right lower abdomen New or worsening vomiting or diarrhea Swelling of the abdomen Unable to pass stool for more than 3 days Fever of 100.4 F (38 C) or higher, or as directed by your healthcare provider. Blood in vomit or bowel movements (dark red or black color) Yellow color of eyes and skin (jaundice) Weakness, dizziness Chest, arm, back, neck, or jaw pain Unexpected vaginal bleeding or missed period Can't keep down liquids or water and you are getting dehydrated [id number] [employer]. [address] [place] [address]. All rights reserved. This information is not intended as a substitute for professional medical care. Always follow yourhealthcare professional's instructions. Additional Information VACCINATE! IT SAVES LIVES! Members of the community who have not yet received the COVID-19 vaccine and would like to receive it can visit one of [facility] vaccine clinics. There are many vaccine clinic locations within the [facility]. For locations and available times, please visit [email or web address]. It is important to note that some COVID mobile vaccine clinics are held outdoors and may be canceled in rainy orstormy conditions. To learn more about pediatric vaccinations (ages 5-11), we invite you to visit the [facility] webpage. [email or web address] [email or web address] learn more about the COVID-19 vaccine, we invite you to visit the [email or web address] website for a list of frequently asked questions. https://[employer]/assets/Ezxeshmx-[email or web address]/bjqve-Jhflrwi-Zhgalhamky _Asked-Questions.pdf [facility] [facility] Patient Portal Access Instructions: Stay connected with your healthcare team and access your personal medical information anytime with the [facility] Patient Portal. If you would like a full copy of your medical records please contact the [facility] Medical Records Department Saturday through Saturday between 8a.m. and 4:30p.m. Please follow the directions below to access the portal: 1.Access the email account you provided upon registration to the [facility].2.Look for an invitation email from [facility].3.Open the email and access the invitation link: Accept Invitation to [facility]4.Fill in the required rao to create your account. Sign into [email or web address] with your username and password that you created in the above steps to stay up to date. You can then view a summary of results, a summary of your visits, and the ability to download your summaries to your computer or send the information securely to a physician. Remember that your healthcare information is confidential, so carefully consider who you will allow to register on the [employer] Patient Portal for access to your information. You can also access the [facility] Patient Portal on the [employer]. Simply click on Health Records under [employer] and then click on the [email or web address] logo. HOW TO SAFELY DISPOSE OF PRESCRIPTION MEDICATIONS Please use one of the following methods to safely dispose of your unused medications. 1.Use a drug disposal kit: the drug disposal pouch allows you to safely discard your old and unuseddrugs. Ask your nurse to give you one when you are discharged.2.Visit a local take-back location: Many local pharmacies and police departments have programs that collect old and unwanted prescriptiondrugs. Call your local pharmacy or go to http://[employer]/7C7Ow5m to find one close to you.3.Make use of household items: Use cat litter or old coffee grounds to dispose medications if other options arenot available. Mix your drugs with these household products, seal them in an airtight container andthrow it into the garbage. Call [facility]: [phone] to be sure your drugs can be disposed of in this way. Some medicines may require a different approach.4.Never flush your medications down the toilet. IF YOU HAVE BEEN PRESCRIBED AN OPIOIDS FOR PAIN If you have been prescribed an opioid (such as hydrocodone, oxycodone or morphine), it is critical to understand the possible side effects and risks of opioid pain medications. Even when taken as directed, opioids can have several side effects including: Tolerance, meaning you might need to take more of a medication for the same pain relief. Nausea, vomiting and/or constipation. Sleepiness, dizziness, dry mouth, confusion, depression or itching. Physical dependence, meaning you have withdrawal symptoms when a medication is stopped ? this can develop within a few days. KNOW YOUR RESPONSIBILITIES It is important to know exactly how much and how often to take the opioid pain medications you are prescribed. Never take opioids in higher amounts or more often than prescribed. Do not combine opioids with alcohol or other drugs that cause drowsiness, such as benzodiazepines, also known as benzos,including diazepam and alprazolam, muscle relaxants or sleep aids. Never sell or share prescriptionopioids. This is illegal. Store opioids in a secure place and out of reach of others (including children, family, friends and visitors). The last page(s) of this document has been signed and retained as a CHART COPY Signatures Patient Education Materials Abdominal Pain, Unknown Cause, (Female) Medication Leaflets ondansetron (oral), dicyclomine (oral/injection) My discharge plan and instructions have been reviewed and explained to me and I,LORETA KUNZ understand my current condition and have read and understand these discharge instructions. I have received a written copy of the plan/instructions. If I have questions, I am aware that I should contact my doctor. 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08-23-[facility]22 Note ORIGINAL EXAMINATION: CT OF THE ABDOMEN AND PELVIS WITH CONTRAST 10/03/2021 5:54 am TECHNIQUE: CT of the abdomen and pelvis was performed with the administration of intravenous contrast. Multiplanar reformatted images are provided for review. Automated exposure control, iterative reconstruction, and/or weight based adjustment of the mA/kV was utilized to reduce the radiation dose to as low as reasonably achievable. COMPARISON: CT abdomen and pelvis on 02/25/2018 HISTORY: ORDERING SYSTEM PROVIDED HISTORY: Reason for Exam: abdominal pain Nausea and vomiting FINDINGS: Lower Chest: No acute findings. Organs: The liver, pancreas, spleen, adrenal glands, and kidneys show no sign of acute abnormality. GI/Bowel: There is no intestinal obstruction or inflammation. The appendix is normal. There is no free intraperitoneal air or abnormal fluid collection in the abdomen. Pelvis: Urinary bladder is nearly empty and contains no stones. Uterus and adnexal structures are unremarkable. Peritoneum/Retroperitoneum: There is no retroperitoneal lymph node enlargement. Abdominal aorta and inferior vena cava are normal. Bones/Soft Tissues: There is no acute abnormality. 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 There is no subluxation. IMPRESSION: No sign of acute abdominal or pelvic abnormality. Chronic right L5 spondylolysis. Interpreted by: Suman Iraheta MD Preliminary Report By: Suman Iraheta MD Electronically signed By Suman Iraheta MD Dictated Date: 10/03/2021 6:06:09 AM Prelim Date: 10/03/2021 6:10:31 AM Sign Date: 10/03/2021 6:10:31 AM Ordering Provider: [facility]08-23-2022 Note ORIGINAL EXAMINATION: CT OF THE ABDOMEN AND PELVIS WITH CONTRAST 10/03/2021 5:54 am TECHNIQUE: CT of the abdomen and pelvis was performed with the administration of intravenous contrast. Multiplanar reformatted images are provided for review. Automated exposure control, iterative reconstruction, and/or weight based adjustment of the mA/kV was utilized to reduce the radiation dose to as low as reasonably achievable. COMPARISON: CT abdomen and pelvis on 02/25/2018 HISTORY: ORDERING SYSTEM PROVIDED HISTORY: Reason for Exam: abdominal pain Nausea and vomiting FINDINGS: Lower Chest: No acute findings. Organs: The liver, pancreas, spleen, adrenal glands, and kidneys show no sign of acute abnormality. GI/Bowel: There is no intestinal obstruction or inflammation. The appendix is normal. There is no free intraperitoneal air or abnormal fluid collection in the abdomen. Pelvis: Urinary bladder is nearly empty and contains no stones. Uterus and adnexal structures are unremarkable. Peritoneum/Retroperitoneum: There is no retroperitoneal lymph node enlargement. Abdominal aorta and inferior vena cava are normal. Bones/Soft Tissues: There is no acute abnormality. 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 There is no subluxation. IMPRESSION: No sign of acute abdominal or pelvic abnormality. Chronic right L5 spondylolysis. Interpreted by: Suman Iraheta MD Preliminary Report By: Suman Iraheta MD Electronically signed By Suman Iraheta MD Dictated Date: 10/03/2021 6:06:09 AM Prelim Date: 10/03/2021 6:10:31 AM Sign Date: 10/03/2021 6:10:31 AM Ordering Provider: [facility]07-22-2022 Instructions* Patient Instructions* Sangita Carpenter APRN.CNP - 09/01/2021 8:44 AM EDT Ibuprofen 600 mg every 6 hours OR Ibuprofen 800 mg every 8 hours OR Aleve 440- 500 mg every 12 hoursbeginning 48 hours prior to ovulation until the day after ovulation. Heat. Can use Nuvaring continuously change it on the same day of every month. [facility] History of Present illness Narrative* Sangita Carpenter APRN.CNP - 09/01/2021 8:19 AM EDT Nursing Executive offered: Patient declines. Loreta Kunz is a 21 year old female who presents for problem visit ovulation pain Getting August 11, 2022. HPI: Mid-cycle pelvic aching with intermittent sharp pain since menarche at age 12. Pain lasts for 6 hours. No bleeding. Has mild nausea occasionally. Started period/ovulation tracking recently and realized pain was with ovulation. Had a couple of ED evaluations as a teenage to rule out appendicitis - never told that she had an ovarian cyst. Pain has been bearable recently. Uses heat, warm baths for pain relief. Switched from OCP to Nuvaring 2 months ago but no change in ovulation pain. Difficulty remembering to take daily pill. Menses every 28-30 days lasting 2-3 days. OB History T0 L0 SAB0 IAB0 Ectopic0 Multiple0 Live Births0 Quality Measurement Specialist History LMP: 08/13/2021, Having periods Age at Menarche: Age at First : Age at Menopause: Quality Measurement Specialist History Comments: Sexual Activity: Yes; Male Contraception: Inserts PAST MEDICAL HISTORY Diagnosis Date NEGATIVE MEDICAL HISTORY PAST SURGICAL HISTORY Procedure Laterality Date ANKLE SURGERY HX Right 02/2020 History reviewed. No pertinent family history. Social History Tobacco Use Smoking status: Never Smoker Smokeless tobacco: Never Used Substance Use Topics Alcohol use: Never Drug use: Never Current Outpatient Medications Medication Sig ELURYNG 0.12-0.015 mg/24 hr vaginal ring insert 1 ring vaginally every 4 weeks --DISCONTINUE ORAL CONTRACEPTIVE escitalopram oxalate (LEXAPRO) 5 mg tablet take 1 tablet by mouth once daily --DISCONTINUE WELLBUTRIN No current facility-administered medications for this visit. Allergies As of Date: 09/01/2021 (No Known Allergies) Fully Assessed 09/01/2021 REVIEW OF SYSTEMS Abdomen: No bloating, early satiety, indigestion, or increased flatulence. No abdominal pain, nausea, vomiting, diarrhea, or constipation. Allergies and current medication updated:Yes EXAM: BP 118/62 Ht 5' 6 (1.68m) Wt 299 lb (135.6kg) LMP 08/13/2021 BMI 48.28 kg/(m^2). GENERAL: pleasant, female in no apparent distress CHEST: Normal inspiratory effort NEURO: alert and oriented x3,exam grossly non-focal ASSESSMENT/PLAN: 1. Ovulation pain - ICD9: 625.2, ICD10: N94.0 - buprofen 600 mg every 6 hours OR Ibuprofen 800 mg every 8 hours OR Aleve 440- 500 mg every 12 hours beginning 48 hours prior to ovulation until the day after ovulation. - Heat - Nuvaring continuously Follow-up as needed and for annual with Pap at age 22. Sangita Carpenter APRN.CNP Medical Decision Making: Problems: Low: Stable chronic illness Risk: Moderate: Drug management Medical Decision Making Level: 3 - Low documented in [place] encounterC[place] [id number] History of Present illness Narrative* Sukh House RT(R) - 02/20/2021 5:00 PM EST Radiology Service Progress Note PATIENT NAME: Loreta Kunz DATE OF SERVICE: February 20, 2021 TIME: 5:15 PM PATIENT IDENTITY VERIFICATION COMPLETED USING TWO (2) IDENTIFIERS: Name and Date of confirmedby patient verbally. FALL SCREENING: Has the patient had 2 falls in the last year or 1 fall with injury or currently using an Ambulatory Assistive Device (Walker, Cane, Wheelchair, Crutches, etc.)? Yes, Patient High Riskfor Falls What interventions were put in place to prevent falls during this visit? Increased Observations by Caregivers PATIENT GENDER DATA: Female. status: : No status: NO. PATIENT RELEVANT IMPLANT DATA REVIEWED: Not Applicable RADIOLOGY DEPARTMENT: General X-ray: Exam(s) Completed: Upper Extremity X- Ray(s): Forearm, left andHand, left PERIPHERAL IV DATA: Not applicable SIGNED BY: RT Leta(R) February 20, 2021 5:15 PM documented in this encounterThe [facility] + Plan note Future Appointments Appointment Date:10/05/2021 03:00:00 PM Scheduled Provider:JOVANNY PLUNKETT DO Location:[facility] Appointment Type:PC OV Appointment Date:12/05/2021 02:00:00 PM Scheduled Provider:YOSI RICHEY DO Location:[facility] Appointment Type: OV [facility] Evaluation + Plan note Future Appointments Appointment Date:12/05/2021 02:00:00 PM Scheduled Provider:YOSI RICHEY DO Location:[facility] Appointment Type: OV [facility] Evaluation + Plan note Future Appointments Appointment Date:12/21/2021 01:00:00 PM Scheduled Provider: Location:[facility] Appointment Type:NM Hepatobiliary Duct System Imaging (AH Appointment Date:01/16/2022 10:30:00 AM Scheduled Provider:YOSI RICHEY DO Location:[facility] Appointment Type:PC OV Future Scheduled Tests Radiology* NM Hepatobiliary Duct System Imaging 12/21/21 [facility] Evaluation + Plan note Future Appointments Appointment Date:01/16/2022 10:30:00 AM Scheduled Provider:YOSI RICHEY DO Location:[facility] Appointment Type:PC OV [facility] Evaluation + Plan note Future Appointments Appointment Date:01/08/2022 03:20:00 PM Scheduled Provider:TIAGO BEDOYA MD Location:[facility] Appointment Type:GS UPPER DOUBLER Appointment Date:01/16/2022 10:30:00 AM Scheduled Provider:YOSI RICHEY DO Location:[facility] Appointment Type:PC OV [facility] Evaluation + Plan note Future Appointments Appointment Date:02/14/2022 09:50:00 AM Scheduled Provider:TIAGO BEDOYA MD Location:[facility] Appointment Type:GS OV Post Op Future Scheduled Tests Radiology* US Abdomen Limited 01/25/22 [facility] Evaluation + Plan note Future Appointments Appointment Date:02/14/2022 09:50:00 AM Scheduled Provider:TIAGO BEDOYA MD Location:[facility] Appointment Type:GS OV Post Op [facility] Evaluation + Plan note Future Appointments Appointment Date:03/20/2022 09:00:00 AM Scheduled Provider:EBONI POP Location:[facility] Appointment Type:PC OV Follow Up Diagnostic Tests Pending * Insulin Antibody 03/06/22 [facility] evaluation + Plan note Future Appointments Appointment Date:04/17/2022 08:30:00 AM Scheduled Provider:EBONI POP Location:[facility] Appointment Type:PC OV Follow Up [facility] Evaluation + Plan note Future Appointments Appointment Date:02/14/2023 09:15:00 AM Scheduled Provider:AWAIS MENA MD Location:[facility] Appointment Type:PC OV Appointment Date:02/21/2023 08:45:00 AM Scheduled Provider: Location:[facility] Appointment Type:MRI MRCP Future Scheduled Tests Radiology* MRI MRCP 02/21/23 [facility] Evaluation note* Diagnosis Ovulation pain- Primary Mitt[place]chmerz [facility]* Diagnosis Missed menses- Primary Absence of menstruation [facility]* Diagnosis Encounter for gynecological examination (general) (routine) without abnormal findings- Primary Screening for cervical cancer Screening for malignant neoplasm of the cervix documented [facility]* Diagnosis Pelvic pain in female- Primary Unspecified symptom associated with female genital organs [facility]* Diagnosis Irregular menstrual cycle- Primary documented [facility]* Diagnosis Vitamin D deficiency- Primary Unspecified vitamin D deficiency documented [facility]* Diagnosis Pelvic pain in female Unspecified symptom associated with female genital organs documented [facility]* Diagnosis PCOS (polycystic ovarian syndrome)- Primary Polycystic ovaries Vitamin D deficiency Unspecified vitamin D deficiency [facility] Diagnosis PCOS (polycystic ovarian syndrome)- Primary Polycystic ovaries [facility]* Diagnosis Pain of finger of left hand Pain in limb Hand pain, left Pain in limb Fall, initial encounter documented in this encounter [facility]* Diagnosis Irregular menstrual cycle- Primary Problems with ovulation Unspecified noninflammatory disorder of ovary, fallopian tube, and broad ligament [facility]* Diagnosis Foot pain, right- Primary Pain in limb Foot pain, right Pain in limb documented [facility]* Diagnosis Foot pain, right Pain in limb documented [facility]* Diagnosis Vitamin D deficiency Unspecified vitamin D deficiency [facility]* Diagnosis Female infertility- Primary Female infertility of unspecified origin documented in this encounter [facility] note* Diagnosis Female infertility- Primary Female infertility of unspecified origin PCOS (polycystic ovarian syndrome) Polycystic ovaries documented in this encounter [facility] note* Diagnosis Abdominal cramping affecting (HCC)- Primary documented in this encounter [facility] note* Diagnosis Encounter for supervision of high risk in first trimester, antepartum (HCC)- Primary 6 weeks gestation of (HCC) state, incidental with uncertain dates in first trimester (HCC) Obesity affecting in first trimester, unspecified obesity type (HCC) History of PCOS Personal history of other genital system and obstetric disorders Screen for STD (sexually transmitted disease) Screening examination for venereal disease resulting from assisted reproductive technology, first trimester ([facility]) Nausea and vomiting during ([facility]) documented in this encounter [facility] note* Diagnosis Encounter for supervision of high risk in first trimester, antepartum (HCC)- Primary Obesity affecting in first trimester, unspecified obesity type (HCC) History of PCOS Personal history of other genital system and obstetric disorders resulting from assisted reproductive technology, first trimester (HCC) PCOS (polycystic ovarian syndrome) Polycystic ovaries 10 weeks gestation of (HCC) state, incidental * Assessment & Plan Note - Karin Contreras MD - 10/05/2024 3:26 PM EDT Associated Problem(s): Encounter for supervision of high risk in first trimester, antepartum (HCC) Orders: [id number] PLUS; Future * Assessment & Plan Note - Karin Contreras MD - 10/05/2024 3:26 PM EDT Associated Problem(s): Obesity affecting in first trimester (HCC) Discussed with patient due to BMI >50 will need to deliver at tertiary care center. Would recommend IOL at 39 weeks or sooner if medically indicated. NSTs and Growth us reviewed with patient. Orders: [id number] PLUS; Future * Assessment & Plan Note - Karin Contreras MD - 10/05/2024 3:26 PM EDT Associated Problem(s): History of PCOS * Assessment & Plan Note - Karin Contreras MD - 10/05/2024 3:26 PM EDT Associated Problem(s): resulting from assisted reproductive technology, first trimester (HCC) documented in this encounter [facility] note* Diagnosis Encounter for supervision of high risk in first trimester, antepartum (HCC)- Primary Obesity affecting in first trimester, unspecified obesity type (HCC) History of PCOS Personal history of other genital system and obstetric disorders resulting from assisted reproductive technology, first trimester (HCC) PCOS (polycystic ovarian syndrome) Polycystic ovaries 10 weeks gestation of (HCC) state, incidental Encounter for supervision of high risk in first trimester, antepartum (HCC)- Primary Obesity affecting in first trimester, unspecified obesity type (HCC) resulting from assisted reproductive technology, first trimester (HCC) 12 weeks gestation of (HCC) state, incidental documented in this encounter [facility] note* Diagnosis Encounter for supervision of high risk in first trimester, antepartum (HCC)- Primary Obesity affecting in first trimester, unspecified obesity type (HCC) History of PCOS Personal history of other genital system and obstetric disorders resulting from assisted reproductive technology, first trimester (HCC) PCOS (polycystic ovarian syndrome) Polycystic ovaries 10 weeks gestation of (HCC) state, incidental resulting from assisted reproductive technology, first trimester (HCC)- Primary Encounter for supervision of high risk in first trimester, antepartum (HCC) documented in this encounter [facility] note* Diagnosis Encounter for supervision of high risk in first trimester, antepartum (HCC)- Primary Obesity affecting in first trimester, unspecified obesity type (HCC) History of PCOS Personal history of other genital system and obstetric disorders resulting from assisted reproductive technology, first trimester (HCC) PCOS (polycystic ovarian syndrome) Polycystic ovaries 10 weeks gestation of (HCC) state, incidental Back pain affecting (HCC)- Primary Encounter for supervision of high risk in first trimester, antepartum (HCC) 13 weeks gestation of (HCC) state, incidental resulting from assisted reproductive technology, first trimester (HCC) History of PCOS Personal history of other genital system and obstetric disorders Rh negative state in antepartum period, first trimester (HCC) Obesity affecting in first trimester, unspecified obesity type (HCC) documented in this encounter [facility] course Narrative No data available for this section [facility] Discharge instructions No data available for this section [facility] Progress note No data available for this section [facility] Reason for referral (narrative)* Diagnostic Procedure Only (Routine) - Authorized Specialty Diagnoses / Procedures Referred By Bertha christie Referred To Contact [facility] Diagnoses Pelvic pain in female Procedures PELVIC US WHI US PELVIC NONOBSTETRIC REAL-TIME IMAGE COMPLETE Saskia Black MD [address] [place] [address] [facility] [address] [place] [id number] Referral ID Status Reason Start Date Expiration Date Visits Requested Visits Authorized [id number] Authorized Auto-Generat ed Referral 10/08/2023 10/07/2024 1 1 [facility] for referral (narrative)* Diagnostic Procedure Only (Urgent) - Closed Specialty Diagnoses / Procedures Referred By Bertha christie Referred To Contact XR IMAGING Diagnoses Hand pain, left Fall, initial encounter Procedures XR FOREARM GENERAL 2V AP/LAT LEFT X-RAY FOREARM Joanne Walsh, PIN INSERTER REGULATOR.SAMPLE MOUNTER [address] [place] [address] Xr Imaging [facility] Referral ID Status Reason Start Date Expiration Date V isits Requested Visits Authorized [id number] Closed Auto-Generate d Referral 02/20/2021 03/22/2022 1 1 * Diagnostic Procedure Only (Urgent) - Closed Specialty Diagnoses / Procedures Referred By Contac t Referred To Contact XR IMAGING Diagnoses Pain of finger of left hand Hand pain, left Fall, initial encounter Procedures XR HAND GENERAL 3V PA/LAT/OBL LEFT X-RAY HAND MINIMUM 3 VIEWS Joanne Walsh APRN.SAMPLE MOUNTER [address] [place] [address] [place] [address] Referral ID Status Reason Start Date Expiration Date V isits Requested Visits Authorized [id number] Closed Auto-Generate d Referral 02/20/2021 03/22/2022 1 1 [facility] for referral (narrative)* Diagnostic Procedure Only (Urgent) - Closed Specialty Diagnoses / Procedures Referred By Contac t Referred To Contact XR IMAGING Diagnoses Foot pain, right Procedures XR FOOT GENERAL 3V AP/LAT/OBL LEFT RADEX FOOT COMPLETE MINIMUM 3 VIEWS Amanda Swartz APRN.SAMPLE MOUNTER [address] [place] [address] [place] [address] Referral ID Status Reason Start Date Expiration Date V isits Requested Visits Authorized [id number] Closed Auto-Generate d Referral 11/28/2023 12/27/2024 1 1 [facility] for referral (narrative)* Diagnostic Procedure Only (Urgent) - Closed Specialty Diagnoses / Procedures Referred By Contac t Referred To Contact XR IMAGING Diagnoses Foot pain, right Procedures XR FOOT GENERAL 3V AP/LAT/OBL LEFT RADEX FOOT COMPLETE MINIMUM 3 VIEWS Amanda Swartz APRN.CNP [address] [place] [address] [place] [address] Referral ID Status Reason Start Date Expiration Date V isits Requested Visits Authorized [id number] Closed Auto-Generate d Referral 11/28/2023 12/27/2024 1 1 [facility] for referral (narrative)No reason for referral information [facility]Our [facility] Work Phone: Reason for visit Narrative* Diagnostic Procedure Only (Routine) - Closed Specialty Diagnoses / Procedures Referred By Contac t Referred To Contact [facility] Diagnoses Pelvic pain in female Procedures PELVIC US WHI US PELVIC NONOBSTETRIC REAL-TIME IMAGE COMPLETE Saskia Black MD [address] [place] [address] [facility] [address] [place] [address] Referral ID Status Reason Start Date Expiration Date V isits Requested Visits Authorized [id number] Closed Auto-Generate d Referral 10/08/2023 10/07/2024 1 1 [facility] for visit Narrative* Diagnostic Procedure Only (Urgent) - Closed Specialty Diagnoses / Procedures Referred By Contac t Referred To Contact XR IMAGING Diagnoses Pain of finger of left hand Hand pain, left Fall, initial encounter Procedures XR FOREARM GENERAL 2V AP/LAT RIGHT X-RAY FOREARM Joanne Walsh APRN.SAMPLE MOUNTER [address] [place] [address] [place] [address] Referral ID Status Reason Start Date Expiration Date V isits Requested Visits Authorized [id number] Closed Auto-Generate d Referral 02/20/2021 03/22/2022 1 1 [facility] for visit Narrative* Diagnostic Procedure Only (Urgent) - Closed Specialty Diagnoses / Procedures Referred By Contac t Referred To Contact XR IMAGING Diagnoses Foot pain, right Procedures XR FOOT GENERAL 3V AP/LAT/OBL LEFT RADEX FOOT COMPLETE MINIMUM 3 VIEWS Amanda Swartz APRN.SAMPLE MOUNTER [address] [place] [address] [place] [address] Referral ID Status Reason Start Date Expiration Date V isits Requested Visits Authorized [id number] Closed Auto-Generate d Referral 11/28/2023 12/27/2024 1 1 [facility] for visit Narrative* Auth/Cert (Routine) Specialty Diagnoses / Procedures Referred By Contrubi t Referred To Contact Diagnoses Female infertility, unspecified Procedures [place] FOLLICLE PUNCTURE OOCYTE RETRIEVAL ANY METHOD EGG RETRIEVAL Isaías Rodriguez MD [address] [place] [address] Phone: tel: fax: [facility] OR [address] [place] [address] Phone: tel: Referral ID Status Reason Start Date Expiration Date Visits Re quested Visits Authorized [id number] 1 1 [facility] Summary Purpose Family History No Family History Records Found Relationship Condition Age at Onset Recorded Date/T will grandfather Chronic obstructive pulmonary disease Unk nown Malignant neoplasm Unknown father Diabetes mellitus Unknown Advance Directives No Advanced Directives Records FoundNo Advanced Directives Records FoundNo Advanced Directives Records FoundNo Advanced Directives Records FoundNo Advanced Directives Records FoundNo Advanced Directives Records Found Chief Complaint and Reason for Visit Chief Complaint Admit Date Sore throat May 18, 2024 1:39 pm SORE THROAT/CONGESTION September 04, 2024 5 :47pm Reason for Visit Admit Date Sore throat May 18, 2024 1:39 pm Pharyngitis September 04, 2024 5:47 pm Chief Complaint Admit Date SORE THROAT/CONGESTION September 04, 2024 5 :47pm SORE THROAT September 27, 2024 10 :22am Reason for Visit Admit Date Pharyngitis September 04, 2024 5:47 pm Pharyngitis September 27, 2024 10 :22am Additional Source Comments INFORMATION SOURCE (unrecogn ized section and content) DATE CREATED AUTHOR 02/16/2018 [facility] DATE CREATED AUTHOR AUTHOR'S ORGANIZ ATION 05/18/2023 [facility] ([place]) DATE CREATED AUTHOR AUTHOR'S ORGANIZ ATION 06/01/2024 [facility] DATE CREATED AUTHOR AUTHOR'S ORGANIZ ATION 09/28/2024 [facility] DATE CREATED AUTHOR AUTHOR'S ORGANIZ ATION 10/01/2024 [facility] DATE CREATED AUTHOR AUTHOR'S ORGANIZ ATION 12/19/2024 [facility] Source Comments (unrecognize d section and content) In the event this informatio n is protected by the Federal Confidentiality of Alcohol and Drug Abuse Patient Records regulations: The Federal rules restrict any use of the information to criminally investigate or prosecute any alcohol or drug abuse patient.[facility] SystemIn the event this information is protected by the Federal Confidentiality of Alcohol and Drug Abuse Patient Records regulations: The Federal rules restrict any use of the information to criminally investigate or prosecute any alcohol or drug abuse patient.[facility] SystemIn the event this information is protected by the Federal Confidentiality of Alcohol and Drug Abuse Patient Records regulations: The Federal rules restrict any use of the information to criminally investigate or prosecute any alcohol or drug abuse patient.[facility] SystemIn the event this information is protected by the Federal Confidentiality of Alcohol and Drug Abuse Patient Records regulations: The Federal rules restrict any use of the information to criminally investigate or prosecute any alcohol or drug abuse patient.[facility] SystemIn the event this information is protected by the Federal Confidentiality of Alcohol and Drug Abuse Patient Records regulations: The Federal rules restrict any use of the information to criminally investigate or prosecute any alcohol or drug abuse patient.[facility] SystemIn the event this information is protected by the Federal Confidentiality of Alcohol and Drug Abuse Patient Records regulations: The Federal rules restrict any use of the information to criminally investigate or prosecute any alcohol or drug abuse patient.[facility] SystemIn the event this information is protected by the Federal Confidentiality of Alcohol and Drug Abuse Patient Records regulations: The Federal rules restrict any use of the information to criminally investigate or prosecute any alcohol or drug abuse patient.[facility] SystemIn the event this information is protected by the Federal Confidentiality of Alcohol and Drug Abuse Patient Records regulations: The Federal rules restrict any use of the information to criminally investigate or prosecute any alcohol or drug abuse patient.[facility] SystemIn the event this information is protected by the Federal Confidentiality of Alcohol and Drug Abuse Patient Records regulations: The Federal rules restrict any use of the information to criminally investigate or prosecute any alcohol or drug abuse patient.[facility] SystemIn the event this information is protected by the Federal Confidentiality of Alcohol and Drug Abuse Patient Records regulations: The Federal rules restrict any use of the information to criminally investigate or prosecute any alcohol or drug abuse patient.[facility] SystemIn the event this information is protected by the Federal Confidentiality of Alcohol and Drug Abuse Patient Records regulations: The Federal rules restrict any use of the information to criminally investigate or prosecute any alcohol or drug abuse patient.[facility] SystemIn the event this information is protected by the Federal Confidentiality of Alcohol and Drug Abuse Patient Records regulations: The Federal rules restrict any use of the information to criminally investigate or prosecute any alcohol or drug abuse patient.[facility] SystemIn the event this information is protected by the Federal Confidentiality of Alcohol and Drug Abuse Patient Records regulations: The Federal rules restrict any use of the information to criminally investigate or prosecute any alcohol or drug abuse patient.[facility] SystemIn the event this information is protected by the Federal Confidentiality of Alcohol and Drug Abuse Patient Records regulations: The Federal rules restrict any use of the information to criminally investigate or prosecute any alcohol or drug abuse patient.[facility] SystemIn the event this information is protected by the Federal Confidentiality of Alcohol and Drug Abuse Patient Records regulations: The Federal rules restrict any use of the information to criminally investigate or prosecute any alcohol or drug abuse patient.[facility] SystemIn the event this information is protected by the Federal Confidentiality of Alcohol and Drug Abuse Patient Records regulations: The Federal rules restrict any use of the information to criminally investigate or prosecute any alcohol or drug abuse patient.[facility] SystemIn the event this information is protected by the Federal Confidentiality of Alcohol and Drug Abuse Patient Records regulations: The Federal rules restrict any use of the information to criminally investigate or prosecute any alcohol or drug abuse patient.[facility] SystemIn the event this information is protected by the Federal Confidentiality of Alcohol and Drug Abuse Patient Records regulations: The Federal rules restrict any use of the information to criminally investigate or prosecute any alcohol or drug abuse patient.[facility] SystemIn the event this information is protected by the Federal Confidentiality of Alcohol and Drug Abuse Patient Records regulations: The Federal rules restrict any use of the information to criminally investigate or prosecute any alcohol or drug abuse patient.[facility] SystemIn the event this information is protected by the Federal Confidentiality of Alcohol and Drug Abuse Patient Records regulations: The Federal rules restrict any use of the information to criminally investigate or prosecute any alcohol or drug abuse patient.[facility] SystemIn the event this information is protected by the Federal Confidentiality of Alcohol and Drug Abuse Patient Records regulations: The Federal rules restrict any use of the information to criminally investigate or prosecute any alcohol or drug abuse patient.[facility] SystemIn the event this information is protected by the Federal Confidentiality of Alcohol and Drug Abuse Patient Records regulations: The Federal rules restrict any use of the information to criminally investigate or prosecute any alcohol or drug abuse patient.[facility] SystemIn the event this information is protected by the Federal Confidentiality of Alcohol and Drug Abuse Patient Records regulations: The Federal rules restrict any use of the information to criminally investigate or prosecute any alcohol or drug abuse patient.[facility] SystemIn the event this information is protected by the Federal Confidentiality of Alcohol and Drug Abuse Patient Records regulations: The Federal rules restrict any use of the information to criminally investigate or prosecute any alcohol or drug abuse patient.[facility] SystemIn the event this information is protected by the Federal Confidentiality of Alcohol and Drug Abuse Patient Records regulations: The Federal rules restrict any use of the information to criminally investigate or prosecute any alcohol or drug abuse patient.[facility] Reason for Visit (unrecogniz ed section and content) Reason Comments Pelvic Pain Reason Comments Orders labs Reason Comments Yearly Exam Reason Comments Missed Menses Reason Comments Follow Up Reason Comments Results Reason Comments Infertility Reason Comments Pain (foot) Left Top of foot jose pped a phone on it, slight bruising, x 2 weeksHurts to walk on it Reason Onset Date Comments Refill Request 12/09/2023 Reason Comments Refill Request Reason Onset Date Comments Refill Request 02/06/2024 Reason Comments Initial OB Visit Reason Onset Date Comments Care 10/05/2024 Reason Comments US Specialty Diagnoses / Procedures Referred By Contac t Referred To Contact [facility] Diagnoses Encounter for supervision of high risk in first trimester, antepartum (HCC) Procedures OBSTETRIC ULTRASOUND WHI US PREG UTERUS AFTER 1ST TRIMEST GESTATION Joon Mooney APRN.SAMPLE MOUNTER [address] [place] [address] Phone: tel: fax: [facility] [place] [address] [place] [address] Referral ID Status Reason Start Date Expiration Date V isits Requested Visits Authorized [id number] Closed Auto-Generate d Referral 09/07/2024 09/07/2025 1 1 Reason Onset Date Comments Care 10/23/2024 Care Teams (unrecognized sec tion and content) Wind [employer] Mechanic Relationship Specialty Start Date End Date Yosi Richey DO [address] [place] [address] PCP - General Family Practice 08/31/21 Wind Energy Mechanic Relationship Specialty Start Date End Date Yosi Richey DO [address] [place] [address] PCP - General Family Medicine 08/31/21 Wind Energy Mechanic Relationship Specialty Start Date End Date Ysoi Richey DO [address] [place] [address] PCP - General Family Medicine 08/31/21 Wind Energy Mechanic Relationship Specialty Start Date End Date Yosi Richey DO [address] [place] [address] PCP - General Family Medicine 08/31/21 Wind Energy Mechanic Relationship Specialty Start Date End Date Yosi Richey DO [address] [place] [address] PCP - General Family Medicine 08/31/21 Wind Energy Mechanic Relationship Specialty Start Date End Date Yosi Richey DO [address] [place] [address] PCP - General Family Medicine 08/31/21 Wind Energy Mechanic Relationship Specialty Start Date End Date Yosi Richey DO [address] [place] [address] PCP - General Family Medicine 08/31/21 Wind Energy Mechanic Relationship Specialty Start Date End Date Yosi Richey DO [address] [place] [address] PCP - General Family Medicine 08/31/21 Wind Energy Mechanic Relationship Specialty Start Date End Date Yosi Richey DO [address] [place] [address] PCP - General Family Medicine 08/31/21 Wind Energy Mechanic Relationship Specialty Start Date End Date Sol Bella III [address] [place] [address] PCP - General 03/29/03 08/30/21 Wind Energy Mechanic Relationship Specialty Start Date End Date Yosi Richey DO [address] [place] [address] PCP - General Family Medicine 08/31/21 Wind Energy Mechanic Relationship Specialty Start Date End Date Yosi Richey DO [address] [place] [address] PCP - General Family Medicine 08/31/21 Wind Energy Mechanic Relationship Specialty Start Date End Date Yosi Richey DO [address] [place] [address] PCP - General Family Medicine 08/31/21 Wind Energy Mechanic Relationship Specialty Start Date End Date Yosi Richey DO [address] [place] [address] PCP - General Family Medicine 08/31/21 Wind Energy Mechanic Relationship Specialty Start Date End Date Eboni Pop [address] [place] [address] PCP - General Nurse Practitioner Family 05/27/24 Team Status: Active Member Role/Relationship Status Dates Dr. Anisa Covington MD Family Provider Active Eboni Pop UPPER DOUBLER, UPPER DOUBLER-C Primary Care Provider Active Team Status: Inactive Member Role/Relationship Status Dates Eboni Pop UPPER DOUBLER, UPPER DOUBLER-C Primary Care Provider Active Start: May 18, 2024 End: May 18, 2024 Eboni Pop UPPER DOUBLER, UPPER DOUBLER-C Referring Provider Active Start: May 18, 2024 End: May 18, 2024 Braden King PA, PA Attending Provider Active Start: May 18, 2024 End: May 18, 2024 Team Status: Inactive Member Role/Relationship Status Dates Eboni Pop UPPER DOUBLER, UPPER DOUBLER-C Primary Care Provider Active Start: September 04, 2024 End: September 04, 2024 Eboni Pop UPPER DOUBLER, UPPER DOUBLER-C Referring Provider Active Start: September 04, 2024 End: September 04, 2024 Britton UGARTE, PA Attending Provider Active Sta rt: September 04, 2024 End: September 04, 2024 Wind Energy Mechanic Relationship Specialty Start Date End Date Yosi Richey DO [address] [place] [address] PCP - General Family Medicine 08/31/21 Team Status: Inactive Member Role/Relationship Status Dates Eboni Pop UPPER DOUBLER, UPPER DOUBLER-C Primary Care Provider Active Start: September 04, 2024 End: September 04, 2024 Eboni Pop UPPER DOUBLER, UPPER DOUBLER-C Referring Provider Active Start: September 04, 2024 End: September 04, 2024 Britton UGARTE, PA Attending Provider Active Sta rt: September 04, 2024 End: September 04, 2024 Team Status: Inactive Member Role/Relationship Status Dates Eboni Pop UPPER DOUBLER, UPPER DOUBLER-C Primary Care Provider Active Start: September 27, 2024 End: September 27, 2024 Eboni Pop UPPER DOUBLER, UPPER DOUBLER-C Referring Provider Active Start: September 27, 2024 End: September 27, 2024 Vernon Gonzalez UPPER DOUBLER, UPPER DOUBLER-C Attending Provider Active S tart: September 27, 2024 End: September 27, 2024 Wind Energy Mechanic Relationship Specialty Start Date End Date Yosi Richey DO [address] [place] [address] PCP - General Family Medicine 08/31/21 Wind Energy Mechanic Relationship Specialty Start Date End Date Yosi Richey DO [address] [place] [address] PCP - General Family Medicine 08/31/21 Wind Energy Mechanic Relationship Specialty Start Date End Date Yosi Richey DO [address] [place] [address] PCP - General Family Medicine 08/31/21 Wind Energy Mechanic Relationship Specialty Start Date End Date Yosi Richey DO [address] [place] [address] PCP - General Family Medicine 08/31/21 Wind Energy Mechanic Relationship Specialty Start Date End Date Yosi Richey DO [address] [place] [address] PCP - General Family Medicine 08/31/21 Care Team (unrecognized sect ion and content) Care Team Personnel Name: YOSI RICHEY DO Position: P4 Physician - Primary Care Member Role: Primary Care Physician Address: Address: [address] [place] [address] [place] Care Team Related Persons Name: GRACE KUNZ Address: Home [address] [place], [place] [phone] [place] Name: GRACE KUNZ Address: Home [address] [place], [place] [phone] [place] Name: BRANDT KUNZ Address: Home [address] [place], [place] [id number] Address: Temporary [address] [place], [place] [id number] Care Team Personnel Name: YOSI RICHEY DO Position: P4 Physician - Primary Care Member Role: Primary Care Physician Address: Address: [address] [place] [phone] [place] [address] Care Team Related Persons Name: GRACE KUNZ Address: Home [address] [place], [place] [id number] [place] Name: CARLENE KUNZINE Address: Home [address] [place], [place] [id number] [place] Name: KUNZ, MATTHEW Address: Home [address] [place], [place] [id number] Address: Temporary [address] [place], [place] [id number] Care Team Personnel Name: YOSI RICHEY DO Position: P4 Physician - Primary Care Member Role: Primary Care Physician Address: Address: [address] [place] [address] [place] Care Team Related Persons Name: KUNZGRACE TIDWELL Address: Home [address] [place], [place] [id number] [place] Name: KUNZGRACE TIDWELL Address: Home [address] [place] [id number] [place] Name: KUNZ MATTHEW Address: Home [address] [place], [place] [id number] Address: Temporary [address] [place], [place] [id number] Care Team Personnel Name: YOSI RICHEY DO Position: P4 Physician - Primary Care Member Role: Primary Care Physician Address: Address: [address] [place] [address] [place] Care Team Related Persons Name: KUNZ, GRACE Address: Home [address] [place], [place] [id number] [place] Name: GRACE KUNZ Address: Home [address] [place], [place] [id number] [place] Name: KUNZ, MATTHEW Address: Home [address] [place], [place] [id number] Address: Temporary [address] [place], [place] [id number] Care Team Personnel Name: YOSI RICHEY DO Position: P4 Physician - Primary Care Member Role: Primary Care Physician Address: Address: [address] [place] [address] [place] Care Team Related Persons Name: KUNZ, GRACE Address: Home [address] [place], [place] [id number] [place] Name: CARLENE KUNZINE Address: Home [address] [place], [place] [phone] [place] Name: BRANDT KUNZ A Address: Home [address] [place], [place] [id number] Address: Temporary [address] [place], [place] [id number] Care Team Personnel Name: YOSI RICHEY DO Position: P4 Physician - Primary Care Member Role: Primary Care Physician Address: Address: [address] [place] [phone] [place] [address] Care Team Related Persons Name: GRACE KUNZ Address: Home [address] [place], [place] [phone] [place] Name: CARLENE KUNZINE Address: Home [address] [place], [place] [phone] [place] Name: CARLENE KUNZINE Address: Home [address] [place], [place] [id number] Name: BRANDT KUNZ A Address: Home [address] [place], [place] [id number] Address: Temporary [address] [place], [place] [id number] Care Team Personnel Name: YOSI RICHEY DO Position: P4 Physician - Primary Care Member Role: Primary Care Physician Address: Address: [address] [place] [phone] [place] [address] Care Team Related Persons Name: GRACE KUNZ Address: Home [address] [place], [place] [phone] [place] Name: CARLENE KUNZINE Address: Home [address] [place], [place] [phone] [place] Name: CARLENE KUNZINE Address: Home [address] [place], [place] [phone] Name: BRANDT KUNZ A Address: Home [address] [place], [place] [id number] Address: Temporary [address] [place], [place] [phone] Care Team Personnel Name: YOSI RICHEY DO Position: P4 Physician - Primary Care Member Role: Primary Care Physician Address: Address: [address] [place] [phone] [place] [address] Care Team Related Persons Name: GRACE KUNZ Address: Home [address] [place], [place] [id number] [place] Name: CARLENE KUNZINE Address: Home [address] [place] [id number] [place] Name: CARLENE KUNZINE Address: Home [address] [place], [place] [phone] Name: KUNZBRANDT Address: Home [address] [place], [place] [id number] Address: Temporary [address] [place], [place] [id number] Care Team Personnel Name: YOSI RICHEY DO Position: P4 Physician - Primary Care Member Role: Primary Care Physician Address: Address: [address] [place] [address] Care Team Related Persons Name: GRACE KUNZ Address: Home [address] [place], [place] [phone] [place] Name: CARLENE KUNZINE Address: Home [address] [place], [place] [id number] [place] Name: CARLENE KUNZINE Address: Home [address] [place], [place] [id number] Care Team Personnel Name: YOSI RICHEY DO Position: P4 Physician - Primary Care Member Role: Primary Care Physician Address: Address: [address] [place], [place] [address] Care Team Related Persons Name: GRACE KUNZ Address: Home [address] [place], [place] [phone] [place] Name: GRACE KUNZ Address: Home [address] [place], [place] [phone] Name: CARLENE KUNZINE Address: Home [address] [place], [place] [id number] [place] Name: JOAQUINA MATTHEW Address: Home [address] [place], [place] [id number] Address: Temporary [address] [place], [place] [phone] Care Team Personnel Name: EBONI POP Position: P4 Advanced Practice Nurse Member Role: Primary Care Physician Address: Address: [address] [place], [place] [address] Care Team Related Persons Name: CARLENE KUNZINE Address: Home [address] [place], [place] [phone] Name: KUNZ, GRACE Address: Home [address] [place], [place] [id number] [place] Name: CARLENE KUNZINE Address: Home [address] [place], [place] [phone] [place] Name: BRANDT KUNZ Address: Home [address] [place], [place] [id number] Address: Temporary [address] [place], [place] [phone] Care Team Personnel Name: EBONI POP APRN-RAFAL Position: P4 Advanced Practice Nurse Member Role: Primary Care Physician Address: Address: [address] [place] [phone] Care Team Related Persons Name: GRACE KUNZ Address: Home [address] [place], [place] [id number] [place] Name: GRACE KUNZ Address: Home [address] [place], [place] [id number] Name: GRACE KUNZ Address: Home [address] [place], [place] [id number] [place] Name: BRANDT KUNZ Address: Home [address] [place], [place] [id number] Address: Temporary [address] [place], [place] [phone] Scheduled Active and Recently Administ ered Medications (unrecognized section and content) Medication Order 05/30/2024 05/31/2024 06/01/2024 acetaminophen (Tylenol) tablet 1,000 mg (COMPLETED) 1,000 mg, Oral, Once, On Sat06/01/24 at 0700, For 1 dose, Preprocedure, Administer 60 minutes prior to surgery. 0657 (Given - Provid er: Tavon Rosas RN) famotidine (Pepcid) tablet 20 mg (COMPLETED)(Linked Group 1) 20 mg, Oral, Once, On Sat06/01/24 at 0700, For 1 dose, Preprocedure, IV or Oral 0657 (Given - Provid er: Tavon Rosas RN) sodium chloride 0.9% (NS) flush 10 mL 10 mL, IntraVENous, Every 12 hours scheduled (2 times per day), First dose on Sat06/01/24 at 0900, Recovery (only) 0900 (Not Given - Pr ovider: Mehnaz Nelson RN - Reason: IV Fluids Infusing) sodium chloride 0.9% (NS) flush 5-40 mL 5-40 mL, IntraVENous, Every 12 hours, First dose on Sat06/01/24 at 0700, Preprocedure, For Line Patency: Peripheral IV = 5 mL; Midline or Central Line = 10 mL/lumen. If following IV push medication, administer flush at same rate as the IV push. Flush volume is determined by type of infusion therapy being given. For non-viscous solutions use: Peripheral IV = 5 mL Midline or Central Line = 10 mL/lumen For viscous solutions (i.e. blood components, parenteral nutrition, contrast media, or after obtaining blood sample) use: Peripheral IV = 10 mL Midline or Central Line = 20 mL/lumen 0700 (Not Given - Pr ovider: Mehnaz Nelson RN - Reason: IV Fluids Infusing) Continuous Medication Order 05/30/2024 05/31/2024 06/01/2024 lactated Ringer's (LR) infusion 50 mL/hr, IntraVENous, Continuous, Starting on Sat06/01/24 at 0700, Preprocedure, Upon admission to sameday - please start iv if patient does not have iv access. Use 500ml NS for patients on dialysis. 0657 (New Bag - Prov ider: Tavon Rosas RN)0748 (Continued by Anesthesia - Provider: Miryam Stevens APRN - JANETT)0813 (Anesthesia Volume Adjustment - Provider: USMAN Brink CRNA) lactated ringers infusion 125 mL/hr, IntraVENous, Continuous, Starting on Sat06/01/24 at 0830, Recovery (only) 0817 (Continued from OR - Provider: Mehnaz Nelson RN) PRN Medication Order 05/30/2024 05/31/2024 06/01/2024 ALPRAZolam (Xanax) disintegrating tablet 0.25 mg 0.25 mg, Oral, Once PRN, anxiety, Starting on Sat06/01/24 at 0650, For 1 dose, Preprocedure, Please do not administer prior to obtaining consent and/or history and physical. diphenhydrAMINE (BENADryl) injection 12.5 mg 12.5 mg, IntraVENous, Once PRN, itching, Starting on Sat06/01/24 at 0815, For 1 dose, Recovery (only) fentaNYL (Sublimaze) injection 25 mcg 25 mcg, IntraVENous, Every 5 min PRN, moderate pain (4-6), Starting on Sat06/01/24 at 0815, For 3 doses, Recovery (only), Phase I and Phase II- Initial therapy for moderate pain (4-6). Restricted to a 90 minute time frame starting when the patient can verbally state their pain score. If after 2 doses the pain score does not decrease by more than one point, then call the provider. If oral meds are utilized, do not return to initial therapy medications. fentaNYL (Sublimaze) injection 50 mcg 50 mcg, IntraVENous, Every 5 min PRN, severe pain (7-10), Starting on Sat06/01/24 at 0815, For 3 doses, Recovery (only), Phase I and Phase II- Initial therapy for severe pain (7-10). Restricted to a 90 minute time frame starting when the patient can verbally state their pain score. If after 2 doses the pain score does not decrease by more than one point, then call the provider. If oral meds are utilized, do not return to initial therapy medications. hydrALAZINE (Apresoline) injection 5 mg(Linked Group 2) 5 mg, IntraVENous, Every 15 min PRN, high blood pressure, for SBP greater than 160 mmHg for 2 consecutive measurements taken from different sites, Starting on Sat06/01/24 at 0815, For 2 doses, Recovery (only), PRN for SBP > 160 for 2 consecutive measurements, and if one of the following conditions is met: 1) If IV labetolol is ineffective. 2) If HR is under 60. 3) If patient has heart block, COPD or asthma. If both labetalol and hydralazine ineffective, notify anesthesia provider. labetalol (Normodyne,Trandate) injection 5 mg(Linked Group 2) 5 mg, IntraVENous, Every 10 min PRN, high blood pressure, for SBP greater than 160 mmHg for 2 consecutive measurements taken from different sites., Starting on Sat06/01/24 at 0815, For 2 doses, Recovery (only), PRN for SBP >160 for 2 consecutive measurements, if HR is 60 or greater. If beta hai is contraindicated (HR less than 60, heart block, COPD or asthma) use hydralazine IV order. ondansetron (Zofran) injection 4 mg 4 mg, IntraVENous, Once PRN, nausea, Starting on Sat06/01/24 at 0815, For 1 dose, Recovery (only), Initial antiemetic therapy. oxyCODONE (Roxicodone) immediate release tablet 5 mg (COMPLETED)(Linked Group 3) 5 mg, Oral, Every 4 hours PRN, moderate pain (4-6), Starting on Sat06/01/24 at 0815, For 1 dose, Recovery (only), PHASE II 842 (Given - Provid er: Mehnaz Nelson RN) sodium chloride 0.9 % bolus 500 mL 500 mL, IntraVENous, at 1,000 mL/hr, Administer over 0.5 Hours, PRN, Anti-nausea, Starting on Sat06/01/24 at 0815, Recovery (only), Indications: Anti-nausea sodium chloride 0.9 % infusion 5-250 mL/hr, IntraVENous, PRN, if patient receiving piggyback infusions and maintenance fluids are not ordered OR KVO fluids to protect IV site / prevent frequent line interruptions / long duration, Starting on Sat06/01/24 at 0650, Preprocedure, For piggyback infusion, administer at same rate as piggyback for a total of 25 mL. Enter 25 mL into dose field and piggyback rate into rate field of order. If piggyback is infusing at a rate less than 100 mL/hr, enter 25 mL into dose field and 100 mL/hr into rate field of order. For KVO fluids, enter rate of 20 mL/hr or less into rate field of order. sodium chloride 0.9 % infusion 5-250 mL/hr, IntraVENous, PRN, if patient receiving piggyback infusions and maintenance fluids are not ordered OR KVO fluids to protect IV site / prevent frequent line interruptions/ long duration, Starting on Sat06/01/24 at 0815, Recovery (only), For piggyback infusion, administer at same rate as piggyback for a total of 25 mL. Enter 25 mL into dose field and piggyback rate into rate field of order. If piggyback is infusing at a rate less than 100 mL/hr, enter 25 mL into dose field and 100 mL/hr into rate field of order. For KVO fluids, enter rate of 20 mL/hr or less into rate field of order. sodium chloride 0.9% (NS) flush 10 mL 10 mL, IntraVENous, PRN, line care, Starting on Sat06/01/24 at 0815, Recovery (only), After every IV line use sodium chloride 0.9% (NS) flush 5-40 mL 5-40 mL, IntraVENous, PRN, line care, After every IV line use, Starting on Sat06/01/24 at 0650, Preprocedure, For Line Patency: Peripheral IV = 5 mL; Midline or Central Line = 10 mL/lumen. If following IV push medication, administer flush at same rate as the IV push. Flush volume is determined by type of infusion therapy being given. For non-viscous solutions use: Peripheral IV = 5 mL Midline or Central Line = 10 mL/lumen For viscous solutions (i.e. blood components, parenteral nutrition, contrast media, or after obtaining blood sample) use: Peripheral IV = 10 mL Midline or Central Line = 20 mL/lumen Linked Groups Order Group 1: famotidine (Pepcid) tablet 20 mg (COMPLETED)Jump to med 20 mg, Oral, Once, On Sat06/01/24 at 0700, For 1 dose, Preprocedure, IV or Oral Or famotidine (Pepcid) 20 mg in sodium chloride (PF) 0.9 % 10 mL injection (COMPLETED) 20 mg, IntraVENous, Administer over 2 Minutes, Once, On Sat06/01/24 at 0700, For 1 dose, Preprocedure, IV or Oral Group 2: labetalol (Normodyne,Trandate) injection 5 mgJump to med 5 mg, IntraVENous, Every 10 min PRN, high blood pressure, for SBP greater than 160 mmHg for 2 consecutive measurements taken from different sites., Starting on Sat06/01/24 at 0815, For 2 doses, Recovery (only), PRN for SBP >160 for 2 consecutive measurements, if HR is 60 or greater. If beta hai is contraindicated (HR less than 60, heart block, COPD or asthma) use hydralazine IV order. Or hydrALAZINE (Apresoline) injection 5 mgJump to med 5 mg, IntraVENous, Every 15 min PRN, high blood pressure, for SBP greater than 160 mmHg for 2 consecutive measurements taken from different sites, Starting on Sat06/01/24 at 0815, For 2 doses, Recovery (only), PRN for SBP > 160 for 2 consecutive measurements, and if one of the following conditions is met: 1) If IV labetolol is ineffective. 2) If HR is under 60. 3) If patient has heart block, COPD or asthma. If both labetalol and hydralazine ineffective, notify anesthesia provider. Group 3: oxyCODONE (Roxicodone) immediate release tablet 5 mg (COMPLETED)Jump to med 5 mg, Oral, Every 4 hours PRN, moderate pain (4-6), Starting on Sat06/01/24 at 0815, For 1 dose, Recovery (only), PHASE II Or oxyCODONE (Roxicodone) immediate release tablet 10 mg (COMPLETED) 10 mg, Oral, Every 4 hours PRN, severe pain (7-10), Starting on Sat06/01/24 at 0815, For 1 dose, Recovery (only), PHASE II Goals (unrecognized section and content) Goals may be documented in a n alternate section FOR RECORDS PERTAINING TO PATIENTS WHO ARE OR HAVE BEEN ENROLLED IN A CHEMICAL DEPENDENCY/SUBSTANCEABUSE PROGRAM, SOME INFORMATION MAY BE OMITTED. This clinical summary was aggregated from multiple sources. Caution should be exercised in using it in the provision of clinical care. This summary normalizes information from multiple sources, and as a consequence, information in this document may materially change the coding, format and clinical context of patient data. In addition, data may be omitted in some cases. CLINICAL DECISIONS SHOULD BE BASED ON THE PRIMARY CLINICAL RECORDS. [employer] provides no warranty or guarantee of the accuracy or completeness of information in this document.
[2025-01-21 20:28] LABS: Red Blood Cells-Urine 0 SEEN /hpf (0-5)
[2025-01-21 20:45] LABS: Color, Urine Yellow (Yellow); Glucose, Dipstick Normal (Normal); Ketone-Dipstick Negative (Negative); Leukocyte Esterase-Dipstick Negative /ul (Negative); Nitrite-Dipstick Negative (Negative); Occult Blood-Urine Negative /ul (Negative); Protein-Dipstick 15 mg/dl (Negative); Specific Gravity, Urine 1.020 (1.002-1.030); Urine Bilirubin Dipstick Negative (Negative)
--- NOTE | 2025-01-21 20:56 | OB.TRI.HP_ITS ---
HPI - General General Date of Admission: 01/21/25 Date of Service: 01/21/25 Chief Complaint: DFM and back pain HPI Narrative KENRICK HARO, is a 24 F who presents with DFM and back pain. She reports decreased movement since noon today. movements are audible while on the monitor here and the patient is not feeling the movements. She also has bilateral lower back pain that at times radiates into her spine. The pain is more on her right side. Constipation throughout the . She denies urinary symptoms, vb, lof, ctx's, abdominal or pelvic pain. She also denies GARCIA, persistent visual changes, RUQ pain, vomiting. She states her BP's at home have been 140/90 or higher for the entire . PFSH PFSH Medical History Pharyngitis Eustachian tube dysfunction Chronic neck and back pain Knee pain Home Medications ?Medication ?Instructions ?Recorded ?Last Taken ?Type aspirin 81 mg capsule 81 mg PO DAILY 01/05 Unknown History vit no.95-ferrous 1 tab PO DAILY 01/21/25 History fumarate 28 mg-folic acid 800 mcg tablet () Allergy/AdvReac Type Severity Reaction Status Date / Time No Known Allergies Allergy Verified 01/21/25 20:37 Family History Grandfather COPD (chronic obstructive pulmonary disease) Cancer Father Diabetes Surgical History History of ankle surgery Social History household members: significant other and family current occupational status: employed 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 history of recent travel: No sexually active: Yes Smoking Status: Never smoker alcohol intake: never substance use type: does not use what type of physical activity do you participate in: other frequency: 3-4 times per week seatbelt use: always do you feel safe at home: Yes additional social history: single History 0 Elective abortions Hx Para Spontaneous abortions Hx # Term Pregnancies Ectopic pregnancies Hx # Pregnancies Multiple births # of living children Physical Exam Const alert and no apparent distress Constitutional Narrative: well appearing General Appearance: comfortable Resp normal respiratory effort GI soft to palpation and non-tender Narrative: Cervix closed, thick, long Back/Spine no CVA tenderness Extremity normal to inspection Neuro deep tendon reflexes 2+ bilaterally NST FHR Rate Baby A Baseline: 140 Variability:: Moderate NST Reactive:: Appropriate for gestational age Uterine Activity:: no contractions Assessment & Plan (1) 26 weeks gestation of : (2) Back pain: PLAN: Suspect MSK. Discussed exercise, stretching, support belt. Will check urine. Cervix is closed and thick. Patient very comfortable appearing. (3) Decreased movement: PLAN: NST appropriate for gestational age and audible movement on monitor. (4) Elevated blood pressure reading: PLAN: Patient is asymptomatic. No swelling or hyper reflexia on exam. She re ports BP's at home have been elevated for the entire . Concern for cHTN vs gHTN. Check pre e labs. Cont home BP monitoring. The patient has an appointment in the office on Saturday/.
[2025-01-21 21:27] LABS: Hematocrit 31.8 % (37-47); Hemoglobin 10.4 g/dL (12.0-15.0); Mean Corp Hgb Conc 32.7 g/dL (32-36); Mean Corpuscular Volume 75.7 fL (81-99); Mean Platelet Vol. 10.3 fl (6.2-12.0); Platelet Count 256 K/mm3 (150-450); RBC Distribution Width CV 14.5 % (11.6-14.6); RBC Distribution Width SD 39.1 fl (35.1-43.9); Red Blood Count 4.20 M/mm3 (4.2-5.4); White Blood Count 13.0 K/mm3 (4.4-11.0)
[2025-01-21 21:46] LABS: Mucous, Urine RARE /hpf (<or=2+); Squamous Epithelial Cells - UA 0-5 SEEN /hpf (5-10)
[2025-01-21 22:16] LABS: Creatinine, Urine (random) 142.00 mg/dL (28.00-217.00); Protein, Urine (Random) 11.6 mg/dL (0.0-12.0); Protein:Creat Ratio 82 mg/g CRE (0-200)
[2025-01-21 22:18] LABS: AST(SGOT) 12 U/L (<=31); Alanine Aminotransfer ALT/SGPT 8 U/L (<=34); Uric Acid 4.8 mg/dL (2.6-6.0)
--- NOTE | 2025-01-21 23:01 | HP.PCM.OB_ITS ---
HPI - General General Date of Admission: 01/21/25 Date of Service: 01/21/25 Chief Complaint: DFM and back pain HPI Narrative KENRICK HARO, is a 24 F who presented with DFM and back pain. Admitted for observation given blood pressure elevation. The patient denies a h/o cHTN. She has no pre e symptoms today. She reports throughout the entire her BP's at home have been 140/90 or higher. She states she has called into the office for elevated BP and her BP is subsequently normal in the office. She is not on BP medication. [facility] Medical History Pharyngitis Eustachian tube dysfunction Chronic neck and back pain Knee pain Home Medications ?Medication ?Instructions ?Recorded ?Last Taken ?Type aspirin 81 mg capsule 81 mg PO DAILY 01/05 Unknown History vit no.95-ferrous 1 tab PO DAILY 01/21/25 History fumarate 28 mg-folic acid 800 mcg tablet () Allergy/AdvReac Type Severity Reaction Status Date / Time No Known Allergies Allergy Verified 01/21/25 20:37 Family History Grandfather COPD (chronic obstructive pulmonary disease) Cancer Father Diabetes Surgical History History of ankle surgery Social History household members: significant other and family current occupational status: employed 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 history of recent travel: No sexually active: Yes Smoking Status: Never smoker alcohol intake: never substance use type: does not use what type of physical activity do you participate in: other frequency: 3-4 times per week seatbelt use: always do you feel safe at home: Yes additional social history: single History 0 Elective abortions Hx Para Spontaneous abortions Hx # Term Pregnancies Ectopic pregnancies Hx # Pregnancies Multiple births # of living children Vital Signs Vital Signs Vital Signs: 01/21/25 20:27 01/21/25 20:27 01/21/25 20:32 Temperature Temperature Source Pulse Rate 104 H 109 H Respiratory Rate Blood Pressure BP Systolic BP Diastolic Pulse Ox 98 01/21/25 20:32 01/21/25 20:33 01/21/25 20:33 Temperature Temperature Source Pulse Rate 108 H Respiratory Rate Blood Pressure 140/74 H BP Systolic 140 BP Diastolic 74 Pulse Ox 96 01/21/25 20:33 01/21/25 20:33 01/21/25 20:33 Temperature 97.5 F L Temperature Source Temporal Pulse Rate Respiratory Rate 14 Blood Pressure BP Systolic BP Diastolic Pulse Ox 01/21/25 20:37 01/21/25 20:37 01/21/25 20:42 Temperature Temperature Source Pulse Rate 103 H 104 H Respiratory Rate Blood Pressure BP Systolic BP Diastolic Pulse Ox 98 01/21/25 20:42 01/21/25 20:56 01/21/25 20:56 Temperature Temperature Source Pulse Rate 108 H Respiratory Rate Blood Pressure 141/91 H BP Systolic 141 BP Diastolic 91 Pulse Ox 98 01/21/25 21:13 01/21/25 21:13 01/21/25 21:28 Temperature Temperature Source Pulse Rate 105 H Respiratory Rate Blood Pressure 145/80 H 168/79 H BP Systolic 145 168 BP Diastolic 80 79 Pulse Ox 01/21/25 21:28 01/21/25 21:32 01/21/25 21:32 Temperature Temperature Source Pulse Rate 105 H 108 H Respiratory Rate Blood Pressure 170/98 H BP Systolic 170 BP Diastolic 98 Pulse Ox 01/21/25 21:44 01/21/25 21:44 01/21/25 21:58 Temperature Temperature Source Pulse Rate 101 H Respiratory Rate Blood Pressure 162/70 H 142/73 H BP Systolic 162 142 BP Diastolic 70 73 Pulse Ox 01/21/25 21:58 01/21/25 22:13 01/21/25 22:13 Temperature Temperature Source Pulse Rate 94 107 H Respiratory Rate Blood Pressure 146/74 H BP Systolic 146 BP Diastolic 74 Pulse Ox 01/21/25 22:28 01/21/25 22:28 01/21/25 22:43 Temperature Temperature Source Pulse Rate 100 Respiratory Rate Blood Pressure 147/74 H 143/65 H BP Systolic 147 143 BP Diastolic 74 65 Pulse Ox 01/21/25 22:43 Temperature Temperature Source Pulse Rate 95 Respiratory Rate Blood Pressure BP Systolic BP Diastolic Pulse Ox Weight Weight: 331 lb Body Mass Index (BMI) 55.0 Physical Exam Const alert and no apparent distress General Appearance: comfortable Resp normal respiratory effort GI soft to palpation and non-tender Extremity normal to inspection Neuro deep tendon reflexes 2+ bilaterally Labs Labs Labs: Hct, (37-47) 31.8 % L Hgb, (12.0-15.0) 10.4 g/dL L Assessment & Plan (1) Elevated blood pressure reading: PLAN: Patient now being admitted for observation for BP elevation. She is asymptomatic and pre e labs are WNL. She did not require IV anti hypertensive treatment. Chart reviewed and patient does have past visits with elevated BP when not . Patient has no known diagnosis of cHTN however. Called [facility] at [facility] for consultation and assistance with further management given complex situation: cHTN vs gHTN at 26 week gestation in a high risk patient. [facility] recommends admission for observation overnight for further BP monitoring. [facility] recommends no PO anti hypertensives, mag, BMZ at this time. If additional severe range BP, will initiate mag gtt and HTN protocol with transport to tertiary care center. If BP's overnight normal-mild range, [facility] recommends d/c home with close BP monitoring at home and a visit Saturday for BP check. (2) 26 weeks gestation of :
[2025-01-22] VITALS (9 sets, daily range): BP systolic 105–160; BP diastolic 61–89; PULSE 47–98; O2SAT 98–99
== END 2025-01-22 03:27 | disposition home or self-care (01) ==
LOC: WPOUT 20:08 → WP 20:17
PROVIDERS: PCP Nurse Practitioner Family; Visit Provider Obstetrics & Gynecology
DX: O99.891 Other specified diseases and conditions complicating pregnancy (principal); O36.8120 Decreased fetal movements, second trimester, not applicable or unspecified; Z79.82 Long term (current) use of aspirin; M54.50 Low back pain, unspecified; R03.0 Elevated blood-pressure reading, without diagnosis of hypertension; Z3A.26 26 weeks gestation of pregnancy
CPT/HCPCS: 36415; 59050; 81001; 82565; 82570; 84156; 84450; 84460; 84550; 85027; A4216; J0702